=== PATIENT | female | born 1965 | race Hispanic/Latino ===

== ENCOUNTER 2025-07-17 12:48 | Inpatient (IN) | payer BC ==
[~2025-07-17] VITALS: Ht 152.4 cm; Wt 45.8 kg
--- NOTE | 2025-07-17 13:03 | ERN ---
General Chief Complaint: Abdominal Pain Stated Complaint: ABD PAIN Time Seen by MD: 12:55 Source: patient History of Present Illness Initial Comments Patient is a 59-year-old female coming in complaining of abdominal distention abdominal discomfort. Per patient she has a extensive history of constipation uses Linzess and states that she is pending a colon cleansing for a possible procedure this week. Her symptoms began Tuesday, which include abdominal distention nausea and vomiting. Allergies: Coded Allergies: No Known Drug Allergies (Unverified Allergy, Unknown, 07/17/25) ROS Dictation CONSTITUTIONAL: No chills, no fever, no weakness, no diaphoresis, no malaise. HEAD/FACE: No signs of trauma. EENT: No eye pain, no blurred vision, no tearing, no double vision, no ear pain, no ear discharge, no nose pain, no nasal congestion, no throat pain, no throat swelling, no mouth pain. RESPIRATORY: No cough, no orthopnea, no SOB, no stridor, no wheezing. CARDIOVASCULAR: No chest pain, no edema, no palpitations, no syncope. GASTROINTESTINAL/ABDOMINAL: abdominal pain, constipation, no diarrhea, nausea, vomiting. GENITOURINARY: No abnormal discharge, no dysuria, no frequent urination, no hematuria. No complaints of pain in the genitals. MUSCULOSKELETAL: No back pain, no gout, no joint pain, no joint swelling, no muscle pain, no muscle stiffness, no neck pain. INTEGUMENTARY: No change in color, no change in hair/nails, no dryness, no lesion, no lumps, no rash. NEUROLOGICAL/PSYCH: No anxiety, not depressed, no emotional problem, no headache, no numbness, no pre-existing deficit, no history of seizures, no tremors, no weakness. HEMATOLOGIC/LYMPHATIC: Not anemic, no history of blood clots, no apparent bleeding, no bruising, glands not swollen. All Systems Negative, Except as Noted. Physical Exam Physical Exam Dictation VITAL SIGNS: Reviewed. GENERAL APPEARANCE: Alert, oriented x3, no acute distress, obese. HEAD AND FACE: Non-traumatic. EYES: PERRL, pink conjunctivas, eyelid no trauma, anterior chamber clear. EARS: Pinnas intact and no signs of trauma or erythema. Ear canals clear and no discharge. TMs no erythema. NOSE: No discharge, no bleeding. OROPHARYNX: Mouth normal, teeth no caries, tongue pink. Pharynx clear, no erythema. Tonsils no exudates, no abscesses noted. Mucous membrane moist. NECK: Supple, non-tender, no thyromegaly, no masses, no JVD, no bruits. BREAST: Deferred. CHEST: No tenderness, no crepitus, no paradoxical movement, no retractions. LUNGS: Clear, well-ventilated, symmetric, no rales, no wheezing, no rhonchi, no stridor, good breath sounds bilaterally. HEART: Regular rate, regular rhythm, no murmur, no gallops. VASCULAR: No peripheral edema. ABDOMEN: Soft, positive bowel sounds, nondistended, no guarding, nontender, no rebound, no masses no hepatomegaly, no splenomegaly, no Vallecillo's sign, no hernias. RECTAL: Deferred. GENITAL: Deferred. NEUROLOGICAL: Normal speech, gross motor function intact, gross sensory function intact. MUSCULOSKELETAL: Neck nontender, full range of motion, back nontender, full range of motion. EXTREMITIES: Nontender, full range of motion. SKIN: Color pink, dry, no turgor, no rash, no lacerations, no abrasions, no contusions. LYMPHATICS: Deferred. Results Laboratory and Microbiology Lab and Micro Result Laboratory Tests Test 07/17/25 13:16 07/17/25 17:01 White Blood Count 23.0 K/uL (4.8-10.8) H Red Blood Count 4.33 MIL/uL (4.00-5.50) Hemoglobin 12.5 g/dL (12.0-16.0) Hematocrit 36.1 % (36-48) Mean Corpuscular Volume 83.4 fL (79-99) Mean Corpuscular Hemoglobin 28.9 pg (27.0-33.0) Mean Corpuscular Hemoglobin Concent 34.6 g/dL (32.0-36.0) Red Cell Distribution Width 11.7 % (11.0-15.5) Platelet Count 657 K/uL (130-400) H Mean Platelet Volume 8.3 fL (7.5-10.5) Immature Granulocyte % (Auto) 1.2 % (0-1) H Neutrophils (%) (Auto) 83.1 % (40.0-77.0) H Lymphocytes (%) (Auto) 6.0 % (21.0-51.0) L Monocytes (%) (Auto) 9.1 % (3.0-13.0) Eosinophils (%) (Auto) 0.3 % (0.0-8.0) Basophils (%) (Auto) 0.3 % (0.0-5.0) Neutrophils # (Auto) 19.1 K/uL (1.8-7.7) H Lymphocytes # (Auto) 1.4 K/uL (1.0-4.8) Monocytes # (Auto) 2.1 K/uL (0.1-1.0) H Eosinophils # (Auto) 0.07 K/uL (0.00-0.70) Basophils # (Auto) 0.07 K/uL (0.00-0.20) Absolute Immature Granulocyte (auto 0.28 K/uL (0-1) Nucleated Red Blood Cells 0.0 % (0.0-0.19) White Cell Morphology Comment See comments Sodium Level 120 mmol/L (136-145) L Potassium Level 2.5 mmol/L (3.5-5.1) *L Chloride Level 81 mmol/L (101-111) *L Carbon Dioxide Level 32 mmol/L (21-32) Blood Urea Nitrogen 5 mg/dL (7-18) L Creatinine 0.6 mg/dL (0.5-1.0) Glomerular Filtration Rate Calc 105 mL/min (>90) Random Glucose 113 mg/dL (70-105) H Total Calcium 8.4 mg/dL (8.5-10.1) L Magnesium Level 1.80 mg/dL (1.80-2.40) Total Bilirubin 0.7 mg/dL (0.2-1.0) Aspartate Amino Transf (AST/SGOT) 28 U/L (10-37) Alanine Aminotransferase (ALT/SGPT) 35 U/L (12-78) Alkaline Phosphatase 116 U/L (50-136) Total Creatine Kinase 82 U/L (21-232) Troponin I High Sensitivity 4 ng/L (4-50) Total Protein 6.9 g/dL (6.0-8.3) Albumin 2.0 g/dL (3.5-5.0) L Lipase 16 U/L (16-77) Lactic Acid Level 1.4 mmol/L (0.8-2.5) Labs Reviewed?: Yes EKG/XRAY/US/CT/MRI CT Scan Comment [facility] [address] [place] [address] IMAGING REPORT Signed PATIENT: KIMBERLYN ALICEA MR#: [id number] : 1965 SEX: F AGE: 59 LOCATION: [facility] ORDER 163 STATUS: REG ER REPORT#: [id number] SERVICE [id number] REASON: lower abd pain ORDERING PHYSICIAN: CASEY COVINGTON MD PROCEDURE: ABD PEL W - CT ABDOMEN/PELVIS W/CONTRAST EXAM: CT Abdomen and Pelvis with IV Contrast CLINICAL HISTORY: Patient presents with lower abdominal pain. TECHNIQUE: Axial computed tomography images of the abdomen and pelvis with intravenous contrast. CONTRAST: With intravenous contrast. COMPARISON: None provided. FINDINGS: LUNG BASES: Subsegmental atelectasis in the bilateral lung bases. No pleural effusions. LIVER: Two hepatic cysts are identified in the right hepatic lobe, the larger measuring 1.1 x 1.0 x 1.4 cm and the smaller measuring 0.9 x 0.8 x 0.9 cm. No suspicious hepatic lesions. GALLBLADDER AND BILE DUCTS: The gallbladder is surgically absent. No biliary ductal dilatation. PANCREAS: Unremarkable. SPLEEN: Unremarkable. ADRENAL GLANDS: Unremarkable. KIDNEYS, URETERS, AND BLADDER: A right renal cyst in the lower pole measures 5.9 x 4.5 x 5.7 cm. A left renal cyst in the lower pole measures 3.7 x 3.7 x 3.7 cm. The urinary bladder is incompletely distended, limiting evaluation for possible wall thickening. In the appropriate clinical setting, mild cystitis cannot be excluded. STOMACH AND BOWEL: Significant focal short-segment circumferential wall thickening of the sigmoid colon with maximal wall thickness approximately 1.2 cm and surrounding fat stranding, concerning for sigmoid diverticulitis or colitis. Two peripherally enhancing fluid and air-containing collections are seen in the pelvis: one along the sigmoid colonic wall thickening measuring 5.8 x 6.9 x 5.1 cm, and another along the rectum measuring 7.6 x 6.1 x 6.6 cm. A dependent calcific focus measuring 0.7 cm is seen within the perirectal collection. Extensive pericolonic and perirectal fat stranding with minimal free fluid in the pelvis. The perirectal and pericolonic collections cause mass effect on the urinary bladder and uterus. The left ovary is not separately visualized. Focal long-segment circumferential wall thickening of the transverse colon measuring up to 0.6 cm with minimal pericolonic fat stranding, concerning for colitis. Gaseous distention of the transverse colon up to 6.5 cm in caliber. Occasional diverticula are seen. APPENDIX: No CT evidence of acute appendicitis. PERITONEUM: Extensive pelvic fat stranding with minimal free fluid. No free air. LYMPH NODES: No pathologically enlarged lymph nodes. REPRODUCTIVE: The uterus is displaced by adjacent pericolonic and perirectal collections. The left ovary is not separately visualized. VASCULATURE: No abdominal aortic aneurysm. BONES: Multilevel mild degenerative changes of the spine. No acute or aggressive osseous lesion. OTHER FINDINGS: Small hiatal hernia. IMPRESSION: Acute sigmoid diverticulitis/colitis with two peripherally enhancing pelvic abscesses???one along the sigmoid colon (5.8 x 6.9 x 5.1 cm) and one along the rectum (7.6 x 6.1 x 6.6 cm)???with associated fat stranding and minimal free fluid. Mass effect from the pelvic abscesses on the urinary bladder and uterus. Focal long-segment wall thickening of the transverse colon with minimal pericolonic fat stranding, concerning for colitis. Bilateral renal cysts and small hepatic cysts. Surgically absent gallbladder. Small hiatal hernia. /[place] DICTATED BY: ANUM JARVIS Jr., MD DATE: 07/17/251949 ELECTRONICALLY SIGNED BY: ANUM JARVIS Jr., MD DATE: 07/17/251949 [facility] MDM: Differential diagnosis: SEPSIS, DIVERTICULITIS, ABSCESS, Rationale: Tests considered and ordered secondary to shared decision making include: Previous outside records reviewed: Old ER visits. Risk of complication and/or morbidity or mortality of patient management: None Medications-Per medication reconciliation Need for hospitalization: Patient does not meet criteria for hospitalization. Need for emergency major/minor surgery: No There are no social concerns with this patient. Prescription drug management Prescriptions will include symptomatic care Patient's prior external medical records from other ER visits were reviewed by me as indicated. Prior testing and results from previous visits were reviewed. Prior tests were taken into account with medical decision making and resource utilization, independent historian/historians were used to obtain complete medical history. I independently interpreted the test that were performed, results were reviewed by me and considered findings on radiology if ordered. Medical management and examination interpretation discussions were had by me with other qualified healthcare professionals as indicated for the patient's care. PATIENT WILL BE ADMITTED UNDER THE CARE OF HOSPITALIST GROUP FOR ONGOING MANAGEMENT, CONSULTED SURGEON DR. HAYES. ED Course Orders Procedure Category Date Status Time Cbc With Differential LAB 07/17/25 Complete 12:57 Comprehensive LAB 07/17/25 Complete Metabolic Panel 12:57 Troponin I High LAB 07/17/25 Complete Sensitivity 12:57 Urinalysis Profile LAB 07/17/25 Logged 12:57 12 Lead Ekg Tracing- EKG 07/17/25 Complete Technical 12:57 Creatine Kinase, Total LAB 07/17/25 Complete 12:57 Lipase LAB 07/17/25 Complete 12:57 Pantoprazole 40mg Inj PHA 07/17/25 Complete (Protonix 40mg Inj 13:00 Magnesium LAB 07/17/25 Complete 13:48 Potassium Chloride PHA 07/17/25 Complete 10meq/100ml (Potassiu 14:00 Potassium Bicarb/Cit PHA 07/17/25 Complete Ac 25meq (K-Lyte Ta 14:00 Ct Abdomen/Pelvis CT 07/17/25 Resulted W/Contrast 16:31 Ceftriaxone 1g Vial PHA 07/17/25 Complete (Rocephine 1g Inj) 17:00 Lactic Acid LAB 07/17/25 Complete 16:33 Iohexol (Omnipaque) PHA 07/17/25 Complete 17:30 Zosyn 3.375gm+Ns 50ml PHA 07/17/25 Logged (Zosyn 3.375gm+Ns 19:00 Current Medications Medications (Trade) Dose Ordered Sig/Heather Route PRN Reason Start Time Stop Time Status Last Admin Dose Admin Ceftriaxone Sodium (ROCEphine 1G INJ) 1 gm ONCE ONCE IVPB 07/17/25 17:00 07/17/25 17:01 DC Iohexol (Omnipaque) 35,000 mg STK-MED ONCE IV 07/17/25 17:30 07/17/25 17:30 DC Pantoprazole Sodium (PROTonix 40MG INJ) 40 mg ONCE ONCE IVP 07/17/25 13:00 07/17/25 13:02 DC 07/17/25 13:00 Piperacillin Sod/ Tazobactam Sod (Zosyn 3.375gm+NS 50ml) 3.375 gm ONCE ONCE IV 07/17/25 19:00 07/17/25 19:01 DC Potassium Bicarbonate (K-Lyte Tablet Eff 25 Meq Tablet.eff) 50 meq ONCE ONCE PO 07/17/25 14:00 07/17/25 14:01 DC 07/17/25 15:35 Potassium Chloride 100 ml @ 100 mls/hr ONCE ONCE IV 07/17/25 14:00 07/17/25 14:59 DC 07/17/25 15:36 Vital Signs Date Time Temp Pulse Resp B/P (MAP) Pulse Ox O2 Delivery O2 Flow Rate FiO2 07/17/25 18:38 89 20 135/67 97 Room Air* 0 21 07/17/25 16:45 92 20 141/75 97 Room Air* 0 21 07/17/25 15:00 89 20 128/75 97 Room Air* 0 21 07/17/25 13:30 98.6 89 20 136/80 97 Room Air* 0 21 07/17/25 12:54 98.2 91 18 125/71 100 Room Air 0 Critical Care Note Comments CRITICAL CARE PROCEDURE NOTE AUTHORIZED AND PERFORMED BY: ME TOTAL CRITICAL CARE TIME: APPROXIMATELY 36 MINUTES DUE TO A HIGH PROBABILITY OF CLINICALLY SIGNIFICANT, LIFE THREATENING DETERIORATION, THE PATIENT REQUIRED MY HIGHEST LEVEL OF PREPAREDNESS TO INTERVENE EMERGENTLY AND I PERSONALLY SPENT THIS CRITICAL CARE TIME DIRECTLY AND PERSONALLY MANAGING THE PATIENT. THIS CRITICAL CARE TIME INCLUDED OBTAINING A HISTORY; EXAMINING THE PATIENT; PULSE OXIMETRY; ORDERING AND REVIEW OF STUDIES; ARRANGING URGENT TREATMENT WITH DEVELOPMENT OF A MANAGEMENT PLAN; EVALUATION OF PATIENT'S RESPONSE TO TREATMENT; FREQUENT REASSESSMENT; AND, DISCUSSIONS WITH OTHER PROVIDERS. THIS CRITICAL CARE TIME WAS PERFORMED TO ASSESS AND MANAGE THE HIGH PROBABILITY OF IMMINENT, LIFE-THREATENING DETERIORATION THAT COULD RESULT IN MULTI-ORGAN FAILURE. IT WAS EXCLUSIVE OF SEPARATELY BILLABLE PROCEDURES AND TREATING OTHER PATIENTS AND TEACHING TIME. PLEASE SEE MDM SECTION AND THE REST OF THE NOTE FOR FURTHER INFORMATION ON PATIENT ASSESSMENT AND TREATMENT. DX & DISP Disposition: Inpatient Decision to Admit Time: 19:03 Departure Impression: Primary Impression: Sepsis Additional Impression: Diverticulitis of intestine with abscess Condition: Stable Referrals: SELF,REFERRAL (PCP) CASEY COVINGTON MD Jul 17, 2025 13:03
[2025-07-17 13:31] LABS: IMMATURE GRANULOCYTE ABSOLUTE 0.28 K/uL (0-1); NUCLEATED RED BLOOD CELLS 0.0 % (0.0-0.19); PLATELET COUNT (AUTO) 657 K/uL (130-400); RED BLOOD CELL COUNT(AUTO) 4.33 MIL/uL (4.00-5.50); RED CELL DISTRIBUTION WIDTH 11.7 % (11.0-15.5); WHITE BLOOD COUNT (AUTO) 23.0 K/uL (4.8-10.8)
[2025-07-17 13:45] LABS: ASPARTATE AMINOTRANSFERASE 28.0 U/L (10-37); CREATINE KINASE, TOTAL 82.0 U/L (21-232); CREATININE 0.6 mg/dL (0.5-1.0); GLOMERULAR FILTR. RATE CALC 105.0 mL/min (>90); GLUCOSE,RANDOM 113.0 mg/dL (70-105); SODIUM SERUM 120.0 mmol/L (136-145); TOTAL PROTEIN, SERUM 6.9 g/dL (6.0-8.3); UREA NITROGEN, BLOOD 5.0 mg/dL (7-18)
--- NOTE | 2025-07-17 16:24 | EKG ---
[facility] Test Date: 2025-07-17 Test Time: 13:17:35 Pat Name: KIMBERLYN ALICEA Department: ED Room: ED Gender: F Pullman Conductor: [id number] : 1965 Requested By: CASEY COVINGTON Order Number: [id number] Reading MD: Lisa Ng Measurements Intervals [place] Rate: 92 P: 63 UT: 126 QRS: 72 QRSD: 88 T: 56 QT: 495 QTc: 613 Interpretive Statements Sinus rhythm Prolonged QT interval No previous ECG available for comparison Electronically Signed On 07-18-2025 12:29:37 [employer] STOCK CLERK by Lisa Ng Please click the below link to view image of tracing.
[2025-07-17] MEDS ORDERED: IOHEXOL 350 MG/ML 100ML INFUS..BTL IV ONE (17:30)
--- NOTE | 2025-07-17 18:51 | HMCIMG ---
EXAM: CT Abdomen and Pelvis with IV Contrast CLINICAL HISTORY: Patient presents with lower abdominal pain. TECHNIQUE: Axial computed tomography images of the abdomen and pelvis with intravenous contrast. CONTRAST: With intravenous contrast. COMPARISON: None provided. FINDINGS: LUNG BASES: Subsegmental atelectasis in the bilateral lung bases. No pleural effusions. LIVER: Two hepatic cysts are identified in the right hepatic lobe, the larger measuring 1.1 x 1.0 x 1.4 cm and the smaller measuring 0.9 x 0.8 x 0.9 cm. No suspicious hepatic lesions. GALLBLADDER AND BILE DUCTS: The gallbladder is surgically absent. No biliary ductal dilatation. PANCREAS: Unremarkable. SPLEEN: Unremarkable. ADRENAL GLANDS: Unremarkable. KIDNEYS, URETERS, AND BLADDER: A right renal cyst in the lower pole measures 5.9 x 4.5 x 5.7 cm. A left renal cyst in the lower pole measures 3.7 x 3.7 x 3.7 cm. The urinary bladder is incompletely distended, limiting evaluation for possible wall thickening. In the appropriate clinical setting, mild cystitis cannot be excluded. STOMACH AND BOWEL: Significant focal short-segment circumferential wall thickening of the sigmoid colon with maximal wall thickness approximately 1.2 cm and surrounding fat stranding, concerning for sigmoid diverticulitis or colitis. Two peripherally enhancing fluid and air-containing collections are seen in the pelvis: one along the sigmoid colonic wall thickening measuring 5.8 x 6.9 x 5.1 cm, and another along the rectum measuring 7.6 x 6.1 x 6.6 cm. A dependent calcific focus measuring 0.7 cm is seen within the perirectal collection. Extensive pericolonic and perirectal fat stranding with minimal free fluid in the pelvis. The perirectal and pericolonic collections cause mass effect on the urinary bladder and uterus. The left ovary is not separately visualized. Focal long-segment circumferential wall thickening of the transverse colon measuring up to 0.6 cm with minimal pericolonic fat stranding, concerning for colitis. Gaseous distention of the transverse colon up to 6.5 cm in caliber. Occasional diverticula are seen. APPENDIX: No CT evidence of acute appendicitis. PERITONEUM: Extensive pelvic fat stranding with minimal free fluid. No free air. LYMPH NODES: No pathologically enlarged lymph nodes. REPRODUCTIVE: The uterus is displaced by adjacent pericolonic and perirectal collections. The left ovary is not separately visualized. VASCULATURE: No abdominal aortic aneurysm. BONES: Multilevel mild degenerative changes of the spine. No acute or aggressive osseous lesion. OTHER FINDINGS: Small hiatal hernia. IMPRESSION: Acute sigmoid diverticulitis/colitis with two peripherally enhancing pelvic abscesses???one along the sigmoid colon (5.8 x 6.9 x 5.1 cm) and one along the rectum (7.6 x 6.1 x 6.6 cm)???with associated fat stranding and minimal free fluid. Mass effect from the pelvic abscesses on the urinary bladder and uterus. Focal long-segment wall thickening of the transverse colon with minimal pericolonic fat stranding, concerning for colitis. Bilateral renal cysts and small hepatic cysts. Surgically absent gallbladder. Small hiatal hernia. /[place]
--- NOTE | 2025-07-17 19:06 | HP ---
History of Present Illness Reason for Visit: Abdominal pain History of Present Illness Ms. Dowell is a 59-year-old female that was seen and examined today on 07/17/2025. Patient is a good historian of personal health Patient states that she came to the emergency department with a chief complaint of abdominal pain. Onset was two weeks ago. Location is all four quadrants. Duration is constant. Character is described as bloating. There was no allevi ating factors. There was no aggravating factors. Patient reports associated constipation. Patient reports that she has a pending colonoscopy for this same abdominal discomfort with Dr. Oconnor that was scheduled on 07/19/25. Today in the emergency department WBCs 23.0, left shift neutrophils 83%, potassium 2.5, chloride 81, sodium 120, no urinalysis has been collected or sent to lab, CT of abdomen and pelvis shows diverticulitis with two abscesses. Emergency room physician contacted general surgery on-call, Dr. Lou who requested patient be admitted under hospitalist service. Additionally patient presented with a heart rate of 91 beats per minute, together with WBCs of 23.0 and identified source of infection being gastrointestinal patient met clinical sepsis criteria. Past Medical History ADDITIONAL PAST MEDICAL HISTORY: [Denies] SOCIAL HISTORY: [Patient has smoked one cigarette daily. Patient drinks one beer every other day that is 24 oz each. Patient denies drug use. Patient lives alone. Patient is typically independent of all her ADLs. Patient denies difficulty paying her bills.] SURGICAL HISTORY: [ section x1, cholecystectomy] Review of Systems General: No Fever, No Chills, No Night Sweats, No Fatigue, No Malaise, No Appetite, No Other HEENT: No Head Aches, No Visual Changes, No Eye Pain, No Ear Pain, No Dysphasia, No Sinus Congestion, No Post Nasal Drip, No Sore Throat, No Other Pulmonary: No Dyspnea, No Cough, No Pleuritic Chest Pain, No Other Cardiovascular: No: Chest Pain, Palpitations, Orthopnea, Paroxysmal Noc. Dyspnea, Edema, Lt Headedness, Other Gastrointestinal: Abdominal Pain, Constipation; No: Nausea, Vomiting, Diarrhea, Melena, Hematochezia, Other Genitourinary: No Dysuria, No Frequency, No Incontinence, No Hematuria, No Retention, No Other Musculoskeletal: No: other, neck pain, shoulder pain, arm pain, back pain, hand pain, leg pain, foot pain Skin: No Urticaria, No Rash, No Other Neurological: No: Weakness, Numbness, Incoordination, Change in speech, Confusion, Seizures, Other Allergies: Coded Allergies: No Known Drug Allergies (Unverified Allergy, Unknown, 07/17/25) Exam Vital Signs Vital Signs Date Time Temp Pulse Resp B/P (MAP) Pulse Ox O2 Delivery O2 Flow Rate FiO2 07/17/25 18:38 89 20 135/67 97 Room Air* 0 21 07/17/25 13:30 98.6 General Appearance: Alert, Oriented X3, Cooperative, mild distress HEENT: Atraumatic, EOMI, Mucous membr. moist/pink Respiratory: Clear to auscultation, Normal air movement, NL respiratory effort Cardiovascular: Regular rate, Regular rhythm, Normal S1, Normal S2 Abdominal: Normal bowel sounds, Soft, Other (Positive tenderness to left lower quadrant) Extremities: No edema Skin: No breakdown, No significant lesion Neuro: Normal gait, Normal speech, Strength at 5/5 X4 ext, Sensation intact, Cranial nerves 3-12 NL Psych/Mental Status: Mental status NL, Mood NL, Thoughts/Content NL Assessment/Plan ASSESSMENT: [ Sepsis, POA Diverticulitis with two abscesses, POA Leukocytosis, POA Hypokalemia, POA Hyponatremia, POA] PLAN: [ Admit patient to medical floor as inpatient status. Place patient on telemetry monitoring. IV fluid maintenance therapy 0.9% NS at 75 mL/HR Empiric antibiotic therapy with Zosyn Reviewed patient's lactic acid which was unremarkable Check procalcitonin, follow up with the results Check blood culture, follow up with the results Check urinalysis, follow up with the results Patient will be followed by General surgery Service, Dr. Lou Keep patient NPO Check preprocedure labs, CBC, BMP, magnesium, phosphorus, PTT, UA, type and screen, EKG, CXR As needed analgesia with morphine IV fluid maintenance therapy lactated Ringer's at 75 mL/HR Replace potassium per hospital protocol Replace sodium conservatively to avoid over-correction Monitor patient's labs Check serum osmolality, urine osmolality and urine sodium, follow up with the results. GI prophylaxis, famotidine DVT prophylaxis, Jose Rafael's and SCDs avoid anticoagulation at this time due to impending general surgery evaluation. ADVANCED CARE PLANNING 1. Which of the following were discussed? Hospice Care - Yes Therapeutic options - yes Advance Directives - Yes - patient states he does not have any advance directives in place at this time, however her daughter Becky Dowell can make decisions for her if she becomes unable. Other discussions - patient wishes to remain a full code at this time 2. Discussed with who? Patient 3. Voluntary nature of this service was explained to the patient? Yes 4. Amount of time spent - ___16 minutes____ 5. Reviewed by Physician? (if this service was performed by NPP) Yes This document was generated in part using voice recognition software, occasional wrong word or sound alike substitutions may have occurred due to the inherent limitations of voice recognition software. Read the chart carefully and recognize using context, where the substitutions have occurred. Although every effort was made to edit the content, saddle tree stitcher and typing errors may occur ATTESTATION BY PHYSICIAN I have seen and examined the patient. I reviewed the documentation, medical decision making, and treatment plan as noted by the mid-level provider above. I agree with the findings and plan of care. ] ALESSANDRO FRANCO [facility] Jul 17, 2025 19:06
[2025-07-17] MEDS: ZOSYN 3.375GM +NS 50ML IV ONE (19:32)
[2025-07-17] MEDS: LACTATED RINGERS 1000ML 1,000 ML IV SCH (21:56)
[2025-07-17] MEDS: ZOSYN 3.375GM +NS 50ML IV SCH (21:59)
[2025-07-17] MEDS: 0.9%NACL 1000ML 1,000 ML IV SCH (22:37)
[2025-07-18] MEDS: MAGNESIUM 2GM PREMIX 50ML 50 ML IV PRN (02:31)
[2025-07-18 03:09] LABS: APPEARANCE,URINE CLEAR (CLEAR); GLUCOSE, URINE (UA) NEGATIVE (NEGATIVE); LEUKOCYTE ESTERASE ,URINE NEGATIVE Leu/uL (NEGATIVE); NITRATE,URINE NEGATIVE (NEGATIVE); OCCULT BLOOD,URINE MODERATE (NEGATIVE)
[2025-07-18 03:11] LABS: ADD UA MICROSCOPIC YES
[2025-07-18 03:12] LABS: SQUAMOUS EPITHELIAL CELL,UR RARE /HPF (0-2)
--- NOTE | 2025-07-18 05:35 | HMCIMG ---
EXAM: CR Chest, 1 View. CLINICAL HISTORY: preprocedural COMPARISON: None provided. FINDINGS: LUNGS: The lungs show no infiltrate or other acute finding. PLEURAL SPACES: No evidence of pleural effusion or pneumothorax. MEDIASTINUM: Cardiac size and mediastinal contours within normal limits. BONES: No aggressive appearing osseous lesion seen. IMPRESSION: No acute cardiopulmonary pathology is evident. /[place]
[2025-07-18 09:08] LABS: IMMATURE GRANULOCYTE ABSOLUTE 0.17 K/uL (0-1); NUCLEATED RED BLOOD CELLS 0.0 % (0.0-0.19); PLATELET COUNT (AUTO) 594 K/uL (130-400); RED BLOOD CELL COUNT(AUTO) 3.75 MIL/uL (4.00-5.50); RED CELL DISTRIBUTION WIDTH 11.9 % (11.0-15.5); WHITE BLOOD COUNT (AUTO) 20.0 K/uL (4.8-10.8)
[2025-07-18] MEDS: FAMOTIDINE 20MG VIAL IV SCH (09:17)
[2025-07-18 09:30] LABS: INR 1.22 (0.85-1.15)
[2025-07-18 09:45] LABS: CREATININE 0.5 mg/dL (0.5-1.0); GLOMERULAR FILTR. RATE CALC 109.0 mL/min (>90); GLUCOSE,RANDOM 98.0 mg/dL (70-105); PHOSPHORUS 3.0 mg/dL (2.5-4.9); SODIUM SERUM 124.0 mmol/L (136-145); UREA NITROGEN, BLOOD 6.0 mg/dL (7-18)
--- NOTE | 2025-07-18 10:45 | NUR ---
DCP: HOME Sw met with pt and her sister Corinne Donnelly [phone]. 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 Pt uses no DMe or HH and PCP is Yessenia Calzada. Uses [facility] on [address] for rx needs. Pt denies dc needs and will return home at dc
[2025-07-18 11:01] LABS: LDL DIRECT 54 mg/dL (0-99)
[2025-07-18 11:09] LABS: CREATININE,URINE RANDOM 48.14 mg/dL (30-135)
--- NOTE | 2025-07-18 11:47 | PN ---
[facility] PROGRESS NOTE Date of Service: Jul 18, 2025 Time of Service: 11:47 History of Present Illness Ms. Dowell is a 59-year-old female that was seen and examined today on 07/17/2025. Patient is a good historian of personal health. Patient states that she came to the emergency department with a chief complaint of abdominal pain. Onset was two weeks ago. Location is left lower quadrant. Duration is constant. Character is described as bloating. There was no alleviating factors. There was no aggravating factors. Patient reports associated constipation. Patient reports that she has a pending colonoscopy for this same abdominal discomfort with Dr. Oconnor that was scheduled on 07/19/25. Patient was taking Linzess for the last four days and only had soft GI foods and liquids at home during this time. Patient reports her last meal being a banana that started the pain, which has progressed to this point. Patients says she has lost significant weight, 40 lbs since her divorce intentionally, due to poor diet mainly including tuna and salads. Patient has history of similar pain in the LLQ of abdomen which resolved spontaneously in few hours. Patient has a chronic history of constipation. Patient never underwent colonoscopy. She has family history of Carcinoid tumor and recurrent diverticulitis in first degree relatives. Today in the emergency department WBCs 23.0, left shift neutrophils 83%, potassium 2.5, chloride 81, sodium 120, no urinalysis has been collected or sent to lab, CT of abdomen and pelvis shows diverticulitis with two abscesses. Emergency room physician contacted general surgery on-call, Dr. Lou who requested patient be admitted under hospitalist service. Additionally patient presented with a heart rate of 91 beats per minute, together with WBCs of 23.0 and identified source of infection being gastrointestinal patient met clinical sepsis criteria. SUBJECTIVE: 07/18/2025: Patient was evaluated in ED 03. Patient presented to the ED with acute abdominal pain the left lower quadrant, 8/10 in intensity with associated with bloating. Patient has chronic constipation and has been following Dr. Oconnor for evaluation with colonoscopy. Patient had poor intake in the preceding days and was using Linzess in the last 4 days. Patient had a solid bowel movement this morning and is passing flatus. Patient is kept NPO and is started on IV NS at 100 ml/hr, replacing her potassium and Zosyn was started. Labs remarkable for severe hyponatremia, hypokalemia, hypochloremia, and metabolic alkalosis. We will hydrate her judiciously and monitor her electrolytes closely. CT abdomen is remarkable for acute diverticulitis with abscesses in sigmoid colon and rectum. Pending surgery evaluation. REVIEW OF SYSTEMS CONSTITUTIONAL: Denies fevers, chills, or night sweats. Reports intentional kiran ght loss of 40 lbs. NEUROLOGICAL: Denies headache, motor weakness, sensory deficit, vertigo/spinning sensation, gait abnormalities, or tremors. ENT: No hearing loss, otalgia, otorrhea, rhinitis, rhinorrhea, hoarseness, or sore throat. CARDIOVASCULAR: Denies any exertional angina, dyspnea on exertion, orthopnea, paroxysmal nocturnal dyspnea, palpitations, life-threatening arrhythmias, claudication. PULMONARY: Denies any shortness of breath, cough, phlegm/sputum, hemoptysis, pleuritic chest pain. SLEEP: Denies morning headaches, daytime somnolence or napping. Denies difficulty falling asleep, staying asleep, waking from sleep. Denies knowledge of snoring. GASTROINTESTINAL: Denies any type of dysphagia to either liquids or solids. Denies nausea, vomiting, pyrosis, early satiety. Admits to chronic constipation and LLQ pain GENITOURINARY: Denies frequency, urgency, nocturia, hematuria or incontinence (Storage/Irritative symptoms.) PHYSICAL EXAM GENERAL APPEARANCE: The patient is awake, alert, and oriented, in no acute cardiopulmonary distress. NEUROLOGICAL: Cranial nerves II-XII grossly intact. Motor is 5/5 in bilateral upper and lower extremities proximal to distal. No sensory deficits. HEENT: Face is symmetric. Pupils are equal and reactive. Extraocular movements are intact. NECK: Supple. No JVD. No thyromegaly. No submental, submandibular, pre- /postauricular, occipital or supraclavicular lymphadenopathy. CHEST: Normal chest expansion. No Telemetry. LUNGS: Absence of any rales, rhonchi or any wheezing. CARDIOVASCULAR: Regular. S1 and S2 normal. No appreciable rubs, murmurs or gallops. ABDOMEN: Soft, tender to palpation in the LLQ, distended. There is no rebound, voluntary guarding, or rigidity. : Deferred. No [place]. EXTREMITIES: Non-edematous and not cyanotic. No clubbing. Good capillary refill. SKIN: No skin breakdown. Vital Signs (last 8hr) Date Time Temp Pulse Resp B/P (MAP) Pulse Ox O2 Delivery O2 Flow Rate FiO2 07/18/25 08:42 99.0 80 18 109/55 95 Room Air* 0 21 07/18/25 04:00 99.7 88 20 110/59 96 Room Air* 0 21 LABS: Laboratory: Test 07/18/25 09:01 07/18/25 02:45 07/17/25 21:59 07/17/25 17:01 Range/Units White Blood Count 20.0 H 4.8-10.8 K/uL Red Blood Count 3.75 L 4.00-5.50 MIL/uL Hemoglobin 10.7 L 12.0-16.0 g/dL Hematocrit 31.7 L 36-48 % Mean Corpuscular Volume 84.5 79-99 fL Mean Corpuscular Hemoglobin 28.5 27.0-33.0 pg Mean Corpuscular Hemoglobin Concent 33.8 32.0-36.0 g/dL Red Cell Distribution Width 11.9 11.0-15.5 % Platelet Count 594 H 130-400 K/uL Mean Platelet Volume 8.6 7.5-10.5 fL Immature Granulocyte % (Auto) 0.9 0-1 % Neutrophils (%) (Auto) 85.3 H 40.0-77.0 % Lymphocytes (%) (Auto) 6.2 L 21.0-51.0 % Monocytes (%) (Auto) 7.1 3.0-13.0 % Eosinophils (%) (Auto) 0.3 0.0-8.0 % Basophils (%) (Auto) 0.2 0.0-5.0 % Neutrophils # (Auto) 17.0 H 1.8-7.7 K/uL Lymphocytes # (Auto) 1.2 1.0-4.8 K/uL Monocytes # (Auto) 1.4 H 0.1-1.0 K/uL Eosinophils # (Auto) 0.05 0.00-0.70 K/uL Basophils # (Auto) 0.04 0.00-0.20 K/uL Absolute Immature Granulocyte (auto 0.17 0-1 K/uL Nucleated Red Blood Cells 0.0 0.0-0.19 % Prothrombin Time 12.7 H 9.6-11.6 SEC Prothromb Time International Ratio 1.22 H 0.85-1.15 Activated Partial Thromboplast Time 30.5 26.3-35.5 SEC Sodium Level 124 L 136-145 mmol/L Potassium Level 3.4 L 3.5-5.1 mmol/L Chloride Level 88 *L 101-111 mmol/L Carbon Dioxide Level 32 21-32 mmol/L Blood Urea Nitrogen 6 L 7-18 mg/dL Creatinine 0.5 0.5-1.0 mg/dL Glomerular Filtration Rate Calc 109 >90 mL/min Random Glucose 98 70-105 mg/dL Total Calcium 7.9 L 8.5-10.1 mg/dL Phosphorus Level 3.0 2.5-4.9 mg/dL Magnesium Level 2.80 H 1.80-2.40 mg/dL Triglycerides Level 65 30-200 mg/dL Cholesterol Level 94 <200 mg/dL LDL Cholesterol 54 0-99 mg/dL HDL Cholesterol 21 L 35-85 mg/dL Thyroid Stimulating Hormone (TSH) 0.28 L 0.36-3.74 uIU/mL Free Thyroxine (T4) Direct 1.19 0.76-1.46 ng/dL Free Triiodothyronine (T3) pg/mL 0.69 L 2.18-3.98 pg/mL Urine Color LIGHT-YELLOW YELLOW Urine Appearance CLEAR CLEAR Urine pH 6.5 5.0-8.0 Urine Specific [place] 1.019 1.001-1.031 Urine Protein NEGATIVE NEGATIVE mg/dL Urine Glucose (UA) NEGATIVE NEGATIVE mg/dL Urine Ketones 10 H NEGATIVE mg/dL Urine Occult Blood MODERATE H NEGATIVE Urine Nitrate NEGATIVE NEGATIVE Urine Bilirubin NEGATIVE NEGATIVE mg/dL Urine Urobilinogen 0.2 0.2-1.0 mg/dL Urine Leukocyte Esterase NEGATIVE NEGATIVE Fidel/uL Urine RBC 2-5 H 0-1 /HPF Urine WBC 2-5 H 0-1 /HPF Urine Squamous Epithelial Cells RARE 0-2 /HPF Urine Bacteria RARE None Seen /HPF Urine Random Creatinine 48.14 30-135 mg/dL Urine Random Sodium < 13 L 40-220 mmol/l Urine Random Potassium 18 L 25-125 mmol/L Urine Random Chloride < 21 L 110-250 mmol/L Procalcitonin 0.13 0.05-0.5 ng/mL Lactic Acid Level 1.4 0.8-2.5 mmol/L Test 07/17/25 13:16 Range/Units White Cell Morphology Comment See comments Total Bilirubin 0.7 0.2-1.0 mg/dL Aspartate Amino Transf (AST/SGOT) 28 10-37 U/L Alanine Aminotransferase (ALT/SGPT) 35 12-78 U/L Alkaline Phosphatase 116 50-136 U/L Total Creatine Kinase 82 21-232 U/L Troponin I High Sensitivity 4 4-50 ng/L Total Protein 6.9 6.0-8.3 g/dL Albumin 2.0 L 3.5-5.0 g/dL Lipase 16 16-77 U/L Current Medications Medications (Trade) Dose Ordered Sig/Heather Route PRN Reason Start Time Stop Time Status Last Admin Dose Admin Acetaminophen (TYLenol 325MG TAB) 650 mg Q6H PRN PO TEMPERATURE GREATER THAN 101.5 07/17/25 22:00 08/16/25 21:59 Acetaminophen (TYLenol 500MG TAB) 500 mg Q4H PRN PO MILD PAIN (1-3) 07/18/25 10:30 08/17/25 10:29 Famotidine (Pepcid 20mg Vial) 20 mg DAILY IV 07/18/25 09:00 08/17/25 08:59 07/18/25 09:17 20 MG Hydralazine HCl (APRESOLine 20MG INJ) 10 mg Q6H PRN IV For:SBP above 160;DBP above 90 07/17/25 22:00 08/16/25 21:59 Lactated Ringer's 1,000 ml @ 75 mls/hr [id number] IV 07/17/25 22:00 07/17/25 22:07 DC 07/17/25 21:56 75 MLS/HR Magnesium Sulfate 50 ml @ 0 mls/hr PROTOCOL PRN IV h 07/17/25 22:30 08/16/25 22:29 07/18/25 02:31 25 MLS/HR Morphine Sulfate (morPHINE 4MG SYG) 4 mg Q4H PRN IVP SEVERE PAIN (7-10) 07/17/25 22:00 07/24/25 21:59 Ondansetron HCl (zoFRAN 4MG INJ) 4 mg Q6H PRN IV NAUSEA/VOMITING 07/17/25 22:00 08/16/25 21:59 Piperacillin Sod/ Tazobactam Sod (Zosyn 3.375gm+NS 50ml) 3.375 gm Q8H IV 07/17/25 22:00 07/27/25 21:59 07/18/25 05:12 3.375 GM Potassium Chloride 100 ml @ 50 mls/hr AD PRN IV POTASSIUM PROTOCOL 07/17/25 22:30 08/16/25 22:29 07/18/25 09:24 50 MLS/HR Sodium Chloride 1,000 ml @ 100 mls/hr Q10H IV 07/17/25 22:30 08/16/25 22:29 07/17/25 22:37 75 MLS/HR DIAGNOSTICS / RADIOLOGY: [ ] PATIENT: KIMBERLYN DOWELL MR#: [id number] : 1965 SEX: F AGE: 59 LOCATION: [facility] ORDER 163 STATUS: REG REPORT#: [id number] SERVICE [id number] REASON: lower abd pain ORDERING PHYSICIAN: CASEY COVINGTON MD PROCEDURE: ABD PEL W - CT ABDOMEN/PELVIS W/CONTRAST ADDENDUM REPORT ADDENDUM: Results were shared by telephone at 07:57 PM EST on 07-17-[address] Latanya zimmerman /[place] EXAM: CT Abdomen and Pelvis with IV Contrast CLINICAL HISTORY: Patient presents with lower abdominal pain. TECHNIQUE: Axial computed tomography images of the abdomen and pelvis with intravenous contrast. CONTRAST: With intravenous contrast. COMPARISON: None provided. FINDINGS: LUNG BASES: Subsegmental atelectasis in the bilateral lung bases. No pleural effusions. LIVER: Two hepatic cysts are identified in the right hepatic lobe, the larger measuring 1.1 x 1.0 x 1.4 cm and the smaller measuring 0.9 x 0.8 x 0.9 cm. No suspicious hepatic lesions. GALLBLADDER AND BILE DUCTS: The gallbladder is surgically absent. No biliary ductal dilatation. PANCREAS: Unremarkable. SPLEEN: Unremarkable. ADRENAL GLANDS: Unremarkable. KIDNEYS, URETERS, AND BLADDER: A right renal cyst in the lower pole measures 5.9 x 4.5 x 5.7 cm. A left renal cyst in the lower pole measures 3.7 x 3.7 x 3.7 cm. The urinary bladder is incompletely distended, limiting evaluation for possible wall thickening. In the appropriate clinical setting, mild cystitis cannot be excluded. STOMACH AND BOWEL: Significant focal short-segment circumferential wall thickening of the sigmoid colon with maximal wall thickness approximately 1.2 cm and surrounding fat stranding, concerning for sigmoid diverticulitis or colitis. Two peripherally enhancing fluid and air-containing collections are seen in the pelvis: one along the sigmoid colonic wall thickening measuring 5.8 x 6.9 x 5.1 cm, and another along the rectum measuring 7.6 x 6.1 x 6.6 cm. A dependent calcific focus measuring 0.7 cm is seen within the perirectal collection. Extensive pericolonic and perirectal fat stranding with minimal free fluid in the pelvis. The perirectal and pericolonic collections cause mass effect on the urinary bladder and uterus. The left ovary is not separately visualized. Focal long-segment circumferential wall thickening of the transverse colon measuring up to 0.6 cm with minimal pericolonic fat stranding, concerning for colitis. Gaseous distention of the transverse colon up to 6.5 cm in caliber. Occasional diverticula are seen. APPENDIX: No CT evidence of acute appendicitis. PERITONEUM: Extensive pelvic fat stranding with minimal free fluid. No free air. LYMPH NODES: No pathologically enlarged lymph nodes. REPRODUCTIVE: The uterus is displaced by adjacent pericolonic and perirectal collections. The left ovary is not separately visualized. VASCULATURE: No abdominal aortic aneurysm. BONES: Multilevel mild degenerative changes of the spine. No acute or aggressive osseous lesion. OTHER FINDINGS: Small hiatal hernia. IMPRESSION: Acute sigmoid diverticulitis/colitis with two peripherally enhancing pelvic abscesses???one along the sigmoid colon (5.8 x 6.9 x 5.1 cm) and one along the rectum (7.6 x 6.1 x 6.6 cm)???with associated fat stranding and minimal free fluid. Mass effect from the pelvic abscesses on the urinary bladder and uterus. Focal long-segment wall thickening of the transverse colon with minimal pericolonic fat stranding, concerning for colitis. Bilateral renal cysts and small hepatic cysts. Surgically absent gallbladder. Small hiatal hernia. /[place] DICTATED BY: ANUM JARVIS Jr., MD DATE: 07/17/251957 ELECTRONICALLY SIGNED BY: DATE: EXAM: CT Abdomen and Pelvis with IV Contrast CLINICAL HISTORY: Patient presents with lower abdominal pain. TECHNIQUE: Axial computed tomography images of the abdomen and pelvis with intravenous contrast. CONTRAST: With intravenous contrast. COMPARISON: None provided. FINDINGS: LUNG BASES: Subsegmental atelectasis in the bilateral lung bases. No pleural effusions. LIVER: Two hepatic cysts are identified in the right hepatic lobe, the larger measuring 1.1 x 1.0 x 1.4 cm and the smaller measuring 0.9 x 0.8 x 0.9 cm. No suspicious hepatic lesions. GALLBLADDER AND BILE DUCTS: The gallbladder is surgically absent. No biliary ductal dilatation. PANCREAS: Unremarkable. SPLEEN: Unremarkable. ADRENAL GLANDS: Unremarkable. KIDNEYS, URETERS, AND BLADDER: A right renal cyst in the lower pole measures 5.9 x 4.5 x 5.7 cm. A left renal cyst in the lower pole measures 3.7 x 3.7 x 3.7 cm. The urinary bladder is incompletely distended, limiting evaluation for possible wall thickening. In the appropriate clinical setting, mild cystitis cannot be excluded. STOMACH AND BOWEL: Significant focal short-segment circumferential wall thickening of the sigmoid colon with maximal wall thickness approximately 1.2 cm and surrounding fat stranding, concerning for sigmoid diverticulitis or colitis. Two peripherally enhancing fluid and air-containing collections are seen in the pelvis: one along the sigmoid colonic wall thickening measuring 5.8 x 6.9 x 5.1 cm, and another along the rectum measuring 7.6 x 6.1 x 6.6 cm. A dependent calcific focus measuring 0.7 cm is seen within the perirectal collection. Extensive pericolonic and perirectal fat stranding with minimal free fluid in the pelvis. The perirectal and pericolonic collections cause mass effect on the urinary bladder and uterus. The left ovary is not separately visualized. Focal long-segment circumferential wall thickening of the transverse colon measuring up to 0.6 cm with minimal pericolonic fat stranding, concerning for colitis. Gaseous distention of the transverse colon up to 6.5 cm in caliber. Occasional diverticula are seen. APPENDIX: No CT evidence of acute appendicitis. PERITONEUM: Extensive pelvic fat stranding with minimal free fluid. No free air. LYMPH NODES: No pathologically enlarged lymph nodes. REPRODUCTIVE: The uterus is displaced by adjacent pericolonic and perirectal collections. The left ovary is not separately visualized. VASCULATURE: No abdominal aortic aneurysm. BONES: Multilevel mild degenerative changes of the spine. No acute or aggressive osseous lesion. OTHER FINDINGS: Small hiatal hernia. IMPRESSION: Acute sigmoid diverticulitis/colitis with two peripherally enhancing pelvic abscesses???one along the sigmoid colon (5.8 x 6.9 x 5.1 cm) and one along the rectum (7.6 x 6.1 x 6.6 cm)???with associated fat stranding and minimal free fluid. Mass effect from the pelvic abscesses on the urinary bladder and uterus. Focal long-segment wall thickening of the transverse colon with minimal pericolonic fat stranding, concerning for colitis. Bilateral renal cysts and small hepatic cysts. Surgically absent gallbladder. Small hiatal hernia. /[place] DICTATED BY: ANUM JARVIS Jr., MD DATE: 07/17/251949 ELECTRONICALLY SIGNED BY: ANUM JARVIS Jr., MD DATE: 07/17/251949 PATIENT: KIMBERLYN DOWELL MR#: [id number] : 1965 SEX: F AGE: 59 LOCATION: [facility] ORDER 49 STATUS: ADM IN REPORT#: [id number] SERVICE 42 REASON: preprocedural ORDERING PHYSICIAN: ALESSANDRO FRANCO STRUCTURED CABLING TECHNICIAN PROCEDURE: CXR1VW - CHEST 1VW EXAM: CR Chest, 1 View. CLINICAL HISTORY: preprocedural COMPARISON: None provided. FINDINGS: LUNGS: The lungs show no infiltrate or other acute finding. PLEURAL SPACES: No evidence of pleural effusion or pneumothorax. MEDIASTINUM: Cardiac size and mediastinal contours within normal limits. BONES: No aggressive appearing osseous lesion seen. IMPRESSION: No acute cardiopulmonary pathology is evident. /[place] DICTATED BY: ANUM JARVIS Jr., MD DATE: 07/18/25634 ELECTRONICALLY SIGNED BY: ANUM JARVIS Jr., MD DATE: 07/18/25634 ASSESSMENT: Sepsis due to Acute sigmoid diverticulitis complicated by abscess, POA Leukocytosis, POA Severe hyponatremia, hypovolemic, POA Hypokalemia, POA Chronic constipation, POA History of colonic diverticulosis, POA Protein calorie malnutrition, POA PLAN: Sepsis due to Acute sigmoid diverticulitis complicated by abscess * Patient vitals on presentation 125/71, heart rate 91, with elevated leukocytes 23k in the light of diverticulitis meets sepsis criteria * CT abdomen confirmed acute sigmoid colon diverticulitis complicated by two abbesses, one along the sigmoid colon (5.8 x 6.9 x 5.1 cm) and one along the rectum (7.6 x 6.1 x 6.6 cm) * Keep patient NPO * Continue IV 0.9 NS @ 100 ml/hr * Continue Zosyn 3.375 gm q8 hrs * Replace potassium as per protocol * Ordered surgery evaluation to Dr. Lou, pending recommendations * PRN Morphine 4 mg for severe pain and Tylenol 500 mg for mild pain * Repeat labs in the morning Severe hyponatremia, hypovolemic * On presentation Na was 120, asymptomatic and was dehydrated in the preceding days * Urine osmolality 204, urine sodium < 13, glucose 98 and triglycerides 65 * Pending serum osmolality, however picture is consistent with hypovolemic hyponatremia * Start IV fluids, 0.9 NS @ 100 ml/hr * Repeat BMP Q6 hrs * Neuro checks daily and limit sodium correction to <8 meq/l in 24 hours. Protein energy malnutrition * Patient's weight is 49.9 kg, BMI 21.5 and serum albumin 2 * Muscle atrophy noted BUN low, 6 * Patient significant amount of weight intentionally, 40 lb * Currently NPO for acute management of diverticulitis * Diet evaluation placed for recommendations post discharge GI prophylaxis with Famotidine and DVT prophylaxis with SCDs. ATTESTATION BY PHYSICIAN I have seen and examined the patient. I reviewed the documentation, medical decision making, and treatment plan as noted by the resident physician above. I agree with the findings and plan of care. KATHLEENRICHARD WHITE MD, HARSHAVARDHA MD Jul 18, 2025 11:47
--- NOTE | 2025-07-18 14:08 | NUR ---
CALLED AND GAVE REPORT TO AMBROSIO SALDANA, MELITA SENT WITH PATIENT
[2025-07-18 15:57] VITALS: O2SAT 100
[2025-07-18 18:22] LABS: CREATININE 0.6 mg/dL (0.5-1.0); GLOMERULAR FILTR. RATE CALC 105.0 mL/min (>90); GLUCOSE,RANDOM 87.0 mg/dL (70-105); SODIUM SERUM 128.0 mmol/L (136-145); UREA NITROGEN, BLOOD 8.0 mg/dL (7-18)
--- NOTE | 2025-07-18 19:27 | CONS ---
GENERAL SURGERY CONSULTATION NOTE Date/Time Patient Seen: [ 07/18/2025 4867] Requesting Physician: [ Dr. Calzada] Reason for Consultation: [Diverticulitis with abscess ] History of Present Illness: [Ms. Dowell is a 59-year-old female admitted due to left lower quadrant pain, and sepsis Patient states that she came to the emergency department with a chief complaint of LLQ abdominal pain. Onset was 2-3 weeks ago. There was no alleviating factors. There was no aggravating factors. Patient reports associated constipation. Patient r patient states that she was scheduled for her 1st colonoscopy tomorrow with Dr. Oconnor. Initial workup showed WBCs 23.[address] of abdomen and pelvis shows diverticulitis with two abscesses. Patient has been NPO since yesterday. Patient states there is a strong family history of diverticulosis/diverticulitis. Patient has a past surgical history of C- section, bilateral tubal ligation and cholecystectomy. Patient states she is a social smoker and drinker. Patient states he does not take any blood thinners. Today WBCs down trending to 20.0, H and H10.7 and 31.7. ] Past Medical History: [none ] Past Surgical History: [, BTL, cholecystectomy ] Family History: [ ] Social History: [ ] Habits: [Never] smoker. [Denies] alcohol consumption. [Denies] illicit drug use Current Medications Medications (Trade) Dose Ordered Sig/Heather Route Start Time Stop Time Status Last Admin Dose Admin Famotidine (Pepcid 20mg Vial) 20 mg DAILY IV 07/18/25 09:00 08/17/25 08:59 07/18/25 09:17 20 MG Lactated Ringer's 1,000 ml @ 75 mls/hr [id number] IV 07/17/25 22:00 07/17/25 22:07 DC 07/17/25 21:56 75 MLS/HR Piperacillin Sod/ Tazobactam Sod (Zosyn 3.375gm+NS 50ml) 3.375 gm Q8H IV 07/17/25 22:00 07/27/25 21:59 07/18/25 15:40 3.375 GM Sodium Chloride 1,000 ml @ 100 mls/hr Q10H IV 07/17/25 22:30 08/16/25 22:29 07/17/25 22:37 75 MLS/HR Review of Systems: CONST: [Positive fever and chills.] EYES: [No recent vision problems.] ENT: [No congestion, ear pain, or sore throat.] C/V: [No chest pain, palpitations, or edema.] RESP: [No cough, congestion, wheezing or shortness of breath.] GI: [Positive left lower quadrant pain abdominal pain, nausea and constipation. No vomiting or diarrhea.] : [No incontinence or dysuria.] SKIN: [No rash.] NEURO: [No headache, focal numbness or weakness.] Physical Examination: GENERAL: [No acute distress, female, comfortably resting in bed, daughter at bedside.] HEAD: [Normocephalic] EYES: [Normal conjunctiva.] ENT: [Hearing grossly intact.] NECK: [Supple without JVD..] LUNGS: [Clear breath sounds bilaterally..] HEART: [Normal rate and rhythm.] VASC: [Peripheral pulses +2 bilaterally.] ABD: [Left lower quadrant with tenderness and firmness noted on light palpation, diffuse distention.] : [Not examined] EXT: [No edema.] SKIN: [No rashes or lesions noted.] NEURO: [Awake, alert, and oriented x3. No focal sensory or strength deficits noted.] Vital Signs (last 8hr) Date Time Temp Pulse Resp B/P (MAP) Pulse Ox O2 Delivery O2 Flow Rate FiO2 07/18/25 15:57 100 Room Air* 0 21 07/18/25 14:14 98.2 82 18 111/53 97 Room Air* 0 21 07/18/25 12:10 98.6 73 20 116/72 95 Room Air* 0 21 Laboratory: [ ] Hematology Labs: Test 07/18/25 09:01 07/17/25 13:16 Range/Units White Blood Count 20.0 H 4.8-10.8 K/uL Red Blood Count 3.75 L 4.00-5.50 MIL/uL Hemoglobin 10.7 L 12.0-16.0 g/dL Hematocrit 31.7 L 36-48 % Mean Corpuscular Volume 84.5 79-99 fL Mean Corpuscular Hemoglobin 28.5 27.0-33.0 pg Mean Corpuscular Hemoglobin Concent 33.8 32.0-36.0 g/dL Red Cell Distribution Width 11.9 11.0-15.5 % Platelet Count 594 H 130-400 K/uL Mean Platelet Volume 8.6 7.5-10.5 fL Immature Granulocyte % (Auto) 0.9 0-1 % Neutrophils (%) (Auto) 85.3 H 40.0-77.0 % Lymphocytes (%) (Auto) 6.2 L 21.0-51.0 % Monocytes (%) (Auto) 7.1 3.0-13.0 % Eosinophils (%) (Auto) 0.3 0.0-8.0 % Basophils (%) (Auto) 0.2 0.0-5.0 % Neutrophils # (Auto) 17.0 H 1.8-7.7 K/uL Lymphocytes # (Auto) 1.2 1.0-4.8 K/uL Monocytes # (Auto) 1.4 H 0.1-1.0 K/uL Eosinophils # (Auto) 0.05 0.00-0.70 K/uL Basophils # (Auto) 0.04 0.00-0.20 K/uL Absolute Immature Granulocyte (auto 0.17 0-1 K/uL Nucleated Red Blood Cells 0.0 0.0-0.19 % White Cell Morphology Comment See comments Chemistry Labs: Test 07/18/25 17:26 07/18/25 09:01 07/17/25 21:59 07/17/25 17:01 Range/Units Sodium Level 128 L 136-145 mmol/L Potassium Level 3.2 L 3.5-5.1 mmol/L Chloride Level 90 *L 101-111 mmol/L Carbon Dioxide Level 31 21-32 mmol/L Blood Urea Nitrogen 8 7-18 mg/dL Creatinine 0.6 0.5-1.0 mg/dL Glomerular Filtration Rate Calc 105 >90 mL/min Random Glucose 87 70-105 mg/dL Total Calcium 8.1 L 8.5-10.1 mg/dL Phosphorus Level 3.0 2.5-4.9 mg/dL Magnesium Level 2.80 H 1.80-2.40 mg/dL Triglycerides Level 65 30-200 mg/dL Cholesterol Level 94 <200 mg/dL LDL Cholesterol 54 0-99 mg/dL HDL Cholesterol 21 L 35-85 mg/dL Thyroid Stimulating Hormone (TSH) 0.28 L 0.36-3.74 uIU/mL Free Thyroxine (T4) Direct 1.19 0.76-1.46 ng/dL Free Triiodothyronine (T3) pg/mL 0.69 L 2.18-3.98 pg/mL Procalcitonin 0.13 0.05-0.5 ng/mL Lactic Acid Level 1.4 0.8-2.5 mmol/L Test 07/17/25 13:16 Range/Units Total Bilirubin 0.7 0.2-1.0 mg/dL Aspartate Amino Transf (AST/SGOT) 28 10-37 U/L Alanine Aminotransferase (ALT/SGPT) 35 12-78 U/L Alkaline Phosphatase 116 50-136 U/L Total Creatine Kinase 82 21-232 U/L Troponin I High Sensitivity 4 4-50 ng/L Total Protein 6.9 6.0-8.3 g/dL Albumin 2.0 L 3.5-5.0 g/dL Lipase 16 16-77 U/L Coagulation Labs: Test 07/18/25 09:01 Range/Units Prothrombin Time 12.7 H 9.6-11.6 SEC Prothromb Time International Ratio 1.22 H 0.85-1.15 Activated Partial Thromboplast Time 30.5 26.3-35.5 SEC Diagnostics / Radiology: [Copy/Paste Echos/Imaging Report here] Assessment: [ 59-year-old female with diverticulitis with 2 abscess] Plan: [Keep patient NPO except for ice chips IR to evaluate for percutaneous drain placement Continue with IV fluids and IV antibiotics Repeat labs in a.m. No emergent surgical intervention at this time Surgical team will continue to follow Dr. Lou updated in the patient's status Surgical case has been discussed with my supervising physician Plan of care was formulated and agreed upon We appreciate the hospitalist team for allowing us to participate in this patient's care Greater than 55 minutes spent examining patient, reviewing chart and working on documentation ] ATTESTATION BY PHYSICIAN I have seen and examined the patient. I reviewed the documentation, medical decision making, and treatment plan as noted by the mid-level provider above. I agree with the findings and plan of care. MD ROYCE BLOCK LETICIA [facility] Jul 18, 2025 19:27
[2025-07-18 20:00] VITALS: BP 124/72; PULSE 83; RESP 17; TEMP 98.5
[2025-07-18 21:00] LABS: CREATININE 0.6 mg/dL (0.5-1.0); GLOMERULAR FILTR. RATE CALC 105.0 mL/min (>90); GLUCOSE,RANDOM 86.0 mg/dL (70-105); SODIUM SERUM 128.0 mmol/L (136-145); UREA NITROGEN, BLOOD 9.0 mg/dL (7-18)
[2025-07-19] VITALS (16 sets, daily range): BP systolic 112–156; BP diastolic 66–90; PULSE 68–87; RESP 17–18; TEMP 97.6–99.5; O2SAT 95–96
--- NOTE | 2025-07-19 02:05 | NUR ---
RASH: PT VOICES RASH/ITCHING TO FACE, NECK AND BACK. And[facility] MADE AWARE OF NEW PT COMPLAINTS. [facility] NEW ORDERS GIVEN FOR BENADRYL 25MG IV X 1 AND TO CHANGE IV ANTIBIOTICS. PT MADE AWARE OF NEW CHANGES MADE TO MEDICATIONS.
[2025-07-19 04:53] LABS: IMMATURE GRANULOCYTE ABSOLUTE 0.12 K/uL (0-1); NUCLEATED RED BLOOD CELLS 0.0 % (0.0-0.19); PLATELET COUNT (AUTO) 535 K/uL (130-400); RED BLOOD CELL COUNT(AUTO) 3.42 MIL/uL (4.00-5.50); RED CELL DISTRIBUTION WIDTH 11.9 % (11.0-15.5); WHITE BLOOD COUNT (AUTO) 14.5 K/uL (4.8-10.8)
[2025-07-19 05:16] LABS: ASPARTATE AMINOTRANSFERASE 31.0 U/L (10-37); CREATININE 0.6 mg/dL (0.5-1.0); GLOMERULAR FILTR. RATE CALC 105.0 mL/min (>90); GLUCOSE,RANDOM 81.0 mg/dL (70-105); SODIUM SERUM 130.0 mmol/L (136-145); TOTAL PROTEIN, SERUM 5.7 g/dL (6.0-8.3); UREA NITROGEN, BLOOD 10.0 mg/dL (7-18)
--- NOTE | 2025-07-19 11:29 | PN ---
[facility] PROGRESS NOTE Date of Service: Jul 19, 2025 Time of Service: 11:29 History of Present Illness Ms. Dowell is a 59-year-old female that was seen and examined today on 07/17/2025. Patient is a good historian of personal health. Patient states that she came to the emergency department with a chief complaint of abdominal pain. Onset was two weeks ago. Location is left lower quadrant. Duration is constant. Character is described as bloating. There was no alleviating factors. There was no aggravating factors. Patient reports associated constipation. Patient reports that she has a pending colonoscopy for this same abdominal discomfort with Dr. Oconnor that was scheduled on 07/19/25. Patient was taking Linzess for the last four days and only had soft GI foods and liquids at home during this time. Patient reports her last meal being a banana that started the pain, which has progressed to this point. Patients says she has lost significant weight, 40 lbs since her divorce intentionally, due to poor diet mainly including tuna and salads. Patient has history of similar pain in the LLQ of abdomen which resolved spontaneously in few hours. Patient has a chronic history of constipation. Patient never underwent colonoscopy. She has family history of Carcinoid tumor and recurrent diverticulitis in first degree relatives. Today in the emergency department WBCs 23.0, left shift neutrophils 83%, potassium 2.5, chloride 81, sodium 120, no urinalysis has been collected or sent to lab, CT of abdomen and pelvis shows diverticulitis with two abscesses. Emergency room physician contacted general surgery on-call, Dr. Lou who requested patient be admitted under hospitalist service. Additionally patient presented with a heart rate of 91 beats per minute, together with WBCs of 23.0 and identified source of infection being gastrointestinal patient met clinical sepsis criteria. SUBJECTIVE: 07/18/2025: Patient was evaluated in ED 03. Patient presented to the ED with acute abdominal pain the left lower quadrant, 8/10 in intensity with associated with bloating. Patient has chronic constipation and has been following Dr. Oconnor for evaluation with colonoscopy. Patient had poor intake in the preceding days and was using Linzess in the last 4 days. Patient had a solid bowel movement this morning and is passing flatus. Patient is kept NPO and is started on IV NS at 100 ml/hr, replacing her potassium and Zosyn was started. Labs remarkable for severe hyponatremia, hypokalemia, hypochloremia, and metabolic alkalosis. We will hydrate her judiciously and monitor her electrolytes closely. CT abdomen is remarkable for acute diverticulitis with abscesses in sigmoid colon and rectum. Pending surgery evaluation. 07/19/2025: Patient was evaluated in room 406. Patient was hemodynamically stable and had no acute events overnight. The nurse reported that patient had a rash and itching sensation on the face and neck after being on Zosyn, has a history of hives to cefazolin. On-call nurse practitioner discontinued Zosyn and put her on levofloxacin and metronidazole. Surgery evaluated patient and recommended percutaneous drainage of abscesses by the interventional radiologist. Patient still has residual pain, 5/10 and tenderness to palpation, but denies fevers, chills, nausea, vomiting. Her serum sodium was 130 this morning. We will continue cautious hydration. ID consult has also been placed and we will follow their recommendations REVIEW OF SYSTEMS CONSTITUTIONAL: Denies fevers, chills, or night sweats. Reports intentional weight loss of 40 lbs. NEUROLOGICAL: Denies headache, motor weakness, sensory deficit, vertigo/spinning sensation, gait abnormalities, or tremors. ENT: No hearing loss, otalgia, otorrhea, rhinitis, rhinorrhea, hoarseness, or sore throat. CARDIOVASCULAR: Denies any exertional angina, dyspnea on exertion, orthopnea, paroxysmal nocturnal dyspnea, palpitations, life-threatening arrhythmias, claudication. PULMONARY: Denies any shortness of breath, cough, phlegm/sputum, hemoptysis, pleuritic chest pain. SLEEP: Denies morning headaches, daytime somnolence or napping. Denies difficulty falling asleep, staying asleep, waking from sleep. Denies knowledge of snoring. GASTROINTESTINAL: Denies any type of dysphagia to either liquids or solids. Denies nausea, vomiting, pyrosis, early satiety. Admits to chronic constipation and LLQ pain GENITOURINARY: Denies frequency, urgency, nocturia, hematuria or incontinence (Storage/Irritative symptoms.) PHYSICAL EXAM GENERAL APPEARANCE: The patient is awake, alert, and oriented, in no acute cardiopulmonary distress. NEUROLOGICAL: Cranial nerves II-XII grossly intact. Motor is 5/5 in bilateral upper and lower extremities proximal to distal. No sensory deficits. HEENT: Face is symmetric. Pupils are equal and reactive. Extraocular movements are intact. NECK: Supple. No JVD. No thyromegaly. No submental, submandibular, pre- /postauricular, occipital or supraclavicular lymphadenopathy. CHEST: Normal chest expansion. No Telemetry. LUNGS: Absence of any rales, rhonchi or any wheezing. CARDIOVASCULAR: Regular. S1 and S2 normal. No appreciable rubs, murmurs or gallops. ABDOMEN: Soft, tender to palpation in the LLQ, distended. There is no rebound, voluntary guarding, or rigidity. : Deferred. No [place]. EXTREMITIES: Non-edematous and not cyanotic. No clubbing. Good capillary refill. SKIN: No skin breakdown. Vital Signs (last 8hr) Date Time Temp Pulse Resp B/P (MAP) Pulse Ox O2 Delivery O2 Flow Rate FiO2 07/19/25 08:00 99.0 76 18 132/73 96 Room Air 07/19/25 04:00 98.4 68 17 117/75 97 Room Air LABS: Laboratory: Test 07/19/25 04:13 07/18/25 09:30 07/18/25 09:01 07/18/25 02:45 Range/Units White Blood Count 14.5 #H 4.8-10.8 K/uL Red Blood Count 3.42 L 4.00-5.50 MIL/uL Hemoglobin 9.7 L 12.0-16.0 g/dL Hematocrit 29.5 L 36-48 % Mean Corpuscular Volume 86.3 79-99 fL Mean Corpuscular Hemoglobin 28.4 27.0-33.0 pg Mean Corpuscular Hemoglobin Concent 32.9 32.0-36.0 g/dL Red Cell Distribution Width 11.9 11.0-15.5 % Platelet Count 535 H 130-400 K/uL Mean Platelet Volume 8.7 7.5-10.5 fL Immature Granulocyte % (Auto) 0.8 0-1 % Neutrophils (%) (Auto) 83.5 H 40.0-77.0 % Lymphocytes (%) (Auto) 8.5 L 21.0-51.0 % Monocytes (%) (Auto) 6.9 3.0-13.0 % Eosinophils (%) (Auto) 0.1 0.0-8.0 % Basophils (%) (Auto) 0.2 0.0-5.0 % Neutrophils # (Auto) 12.1 H 1.8-7.7 K/uL Lymphocytes # (Auto) 1.2 1.0-4.8 K/uL Monocytes # (Auto) 1.0 0.1-1.0 K/uL Eosinophils # (Auto) 0.01 0.00-0.70 K/uL Basophils # (Auto) 0.03 0.00-0.20 K/uL Absolute Immature Granulocyte (auto 0.12 0-1 K/uL Nucleated Red Blood Cells 0.0 0.0-0.19 % Sodium Level 130 L 136-145 mmol/L Potassium Level 3.6 3.5-5.1 mmol/L Chloride Level 93 L 101-111 mmol/L Carbon Dioxide Level 30 21-32 mmol/L Blood Urea Nitrogen 10 7-18 mg/dL Creatinine 0.6 0.5-1.0 mg/dL Glomerular Filtration Rate Calc 105 >90 mL/min Random Glucose 81 70-105 mg/dL Total Calcium 8.0 L 8.5-10.1 mg/dL Magnesium Level 2.30 1.80-2.40 mg/dL Total Bilirubin 0.3 0.2-1.0 mg/dL Aspartate Amino Transf (AST/SGOT) 31 10-37 U/L Alanine Aminotransferase (ALT/SGPT) 32 12-78 U/L Alkaline Phosphatase 97 50-136 U/L Total Protein 5.7 L 6.0-8.3 g/dL Albumin 1.5 L 3.5-5.0 g/dL Serum Osmolality 260 L 278-305 mOsm/kg Prothrombin Time 12.7 H 9.6-11.6 SEC Prothromb Time International Ratio 1.22 H 0.85-1.15 Activated Partial Thromboplast Time 30.5 26.3-35.5 SEC Phosphorus Level 3.0 2.5-4.9 mg/dL Triglycerides Level 65 30-200 mg/dL Cholesterol Level 94 <200 mg/dL LDL Cholesterol 54 0-99 mg/dL HDL Cholesterol 21 L 35-85 mg/dL Thyroid Stimulating Hormone (TSH) 0.28 L 0.36-3.74 uIU/mL Free Thyroxine (T4) Direct 1.19 0.76-1.46 ng/dL Free Triiodothyronine (T3) pg/mL 0.69 L 2.18-3.98 pg/mL Urine Color LIGHT-YELLOW YELLOW Urine Appearance CLEAR CLEAR Urine pH 6.5 5.0-8.0 Urine Specific [place] 1.019 1.001-1.031 Urine Protein NEGATIVE NEGATIVE mg/dL Urine Glucose (UA) NEGATIVE NEGATIVE mg/dL Urine Ketones 10 H NEGATIVE mg/dL Urine Occult Blood MODERATE H NEGATIVE Urine Nitrate NEGATIVE NEGATIVE Urine Bilirubin NEGATIVE NEGATIVE mg/dL Urine Urobilinogen 0.2 0.2-1.0 mg/dL Urine Leukocyte Esterase NEGATIVE NEGATIVE Fidel/uL Urine RBC 2-5 H 0-1 /HPF Urine WBC 2-5 H 0-1 /HPF Urine Squamous Epithelial Cells RARE 0-2 /HPF Urine Bacteria RARE None Seen /HPF Urine Osmolality 204 50-1200 mOsm/kg Urine Random Creatinine 48.14 30-135 mg/dL Urine Random Sodium < 13 L 40-220 mmol/l Urine Random Potassium 18 L 25-125 mmol/L Urine Random Chloride < 21 L 110-250 mmol/L Test 07/17/25 21:59 07/17/25 17:01 07/17/25 13:16 Range/Units Procalcitonin 0.13 0.05-0.5 ng/mL Lactic Acid Level 1.4 0.8-2.5 mmol/L White Cell Morphology Comment See comments Total Creatine Kinase 82 21-232 U/L Troponin I High Sensitivity 4 4-50 ng/L Lipase 16 16-77 U/L Current Medications Medications (Trade) Dose Ordered Sig/Heather Route PRN Reason Start Time Stop Time Status Last Admin Dose Admin Acetaminophen (TYLenol 325MG TAB) 650 mg Q6H PRN PO TEMPERATURE GREATER THAN 101.5 07/17/25 22:00 08/16/25 21:59 Acetaminophen (TYLenol 500MG TAB) 500 mg Q4H PRN PO MILD PAIN (1-3) 07/18/25 10:30 08/17/25 10:29 Famotidine (Pepcid 20mg Vial) 20 mg DAILY IV 07/18/25 09:00 08/17/25 08:59 07/19/25 09:32 20 MG Hydralazine HCl (APRESOLine 20MG INJ) 10 mg Q6H PRN IV For:SBP above 160;DBP above 90 07/17/25 22:00 08/16/25 21:59 Lactated Ringer's 1,000 ml @ 75 mls/hr [id number] IV 07/17/25 22:00 07/17/25 22:07 DC 07/17/25 21:56 75 MLS/HR Levofloxacin/ Dextrose (LEvaquIN 750 MG/ D5W 150 ML) 750 mg Q24H IV 07/19/25 05:00 07/29/25 04:59 07/19/25 05:38 750 MG Magnesium Sulfate 50 ml @ 0 mls/hr PROTOCOL PRN IV h 07/17/25 22:30 08/16/25 22:29 07/18/25 02:31 25 MLS/HR Metronidazole/ Sodium Chloride (flaGYL) 500 mg Q8H IV 07/19/25 07:00 07/29/25 06:59 07/19/25 06:47 500 MG Morphine Sulfate (morPHINE 4MG SYG) 4 mg Q4H PRN IVP SEVERE PAIN (7-10) 07/17/25 22:00 07/24/25 21:59 07/19/25 00:47 4 MG Ondansetron HCl (zoFRAN 4MG INJ) 4 mg Q6H PRN IV NAUSEA/VOMITING 07/17/25 22:00 08/16/25 21:59 07/19/25 00:47 4 MG Piperacillin Sod/ Tazobactam Sod (Zosyn 3.375gm+NS 50ml) 3.375 gm Q8H IV 07/17/25 22:00 07/19/25 02:04 DC 07/18/25 21:47 3.375 GM Potassium Chloride 100 ml @ 50 mls/hr AD PRN IV POTASSIUM PROTOCOL 07/17/25 22:30 08/16/25 22:29 07/19/25 03:25 50 MLS/HR Sodium Chloride 1,000 ml @ 100 mls/hr Q10H IV 07/17/25 22:30 08/16/25 22:29 07/19/25 09:32 100 MLS/HR DIAGNOSTICS / RADIOLOGY: [ ] ASSESSMENT: Sepsis due to Acute sigmoid diverticulitis complicated by abscess, POA Leukocytosis, POA Severe hyponatremia, hypovolemic, POA Hypokalemia, POA Chronic constipation, POA History of colonic diverticulosis, POA Protein calorie malnutrition, POA PLAN: Sepsis due to Acute sigmoid diverticulitis complicated by abscess * Patient vitals on presentation 125/71, heart rate 91, with elevated leukocytes 23k in the light of diverticulitis meets sepsis criteria * CT abdomen confirmed acute sigmoid colon diverticulitis complicated by two abbesses, one along the sigmoid colon (5.8 x 6.9 x 5.1 cm) and one along the rectum (7.6 x 6.1 x 6.6 cm) * Keep patient NPO * Continue IV 0.9 NS @ 100 ml/hr * Patient had rash and itching to the face after Zosyn, discontinue * Continue IV metronidazole 500 mg Q8 and IV levofloxacin 750 mg Q 24 * Replace potassium as per protocol * Surgery recommended percutaneous drainage of the abscesses by IR, no surgical intervention at this moment * ID consult placed and we will follow their recommendation * PRN Morphine 4 mg for severe pain and Tylenol 500 mg for mild pain * Repeat labs in the morning Severe hyponatremia, hypovolemic * On presentation Na was 120, asymptomatic and was dehydrated in the preceding days * Today serum sodium is 130 and we will continue judicious hydration * Urine osmolality 204, urine sodium < 13, glucose 98 and triglycerides 65 * Pending serum osmolality, however picture is consistent with hypovolemic hyponatremia * Start IV fluids, 0.9 NS @ 100 ml/hr * Check BMP Q6 hrs * Neuro checks daily and limit sodium correction to <8 meq/l in 24 hours. Protein energy malnutrition * Patient's weight is 49.9 kg, BMI 21.5 and serum albumin 2 * Muscle atrophy noted BUN low, 6 * Patient significant amount of weight intentionally, 40 lb * Currently NPO for acute management of diverticulitis * Diet evaluation placed for recommendations post discharge GI prophylaxis with Famotidine and DVT prophylaxis with SCDs. ATTESTATION BY PHYSICIAN I have seen and examined the patient. I reviewed the documentation, medical decision making, and treatment plan as noted by the resident physician above. I agree with the findings and plan of care. RICHARD WANG MD, HARSHAVARDHA MD Jul 19, 2025 11:29
--- NOTE | 2025-07-19 12:25 | PN ---
59-year-old female that is being followed with a perforated diverticulitis. She was having two abscesses in the area of the sigmoid colon[place] [address] [place] [address] today. Abdomen is soft and there is a mild tenderness to left lower quadrant. Patient has no fever vital signs stable. The patient is scheduled to have a percutaneous drainage of the abscess today. She has an IV antibiotics. We will continue with the NPO today with the IV antibiotics reassess tomorrow to see patient we will need to start diet. The patient was supposed to have a colonoscopy today never had one before. I explained to her that she will need to have one after this conditions had resolved. We will follow with you Vitals/Labs Vital Signs Date Time Temp Pulse Resp B/P (MAP) Pulse Ox O2 Delivery O2 Flow Rate FiO2 07/19/25 12:00 98.6 87 18 112/90 99 Room Air 07/19/25 09:00 0 21 Laboratory Tests 07/18/25 17:26 07/18/25 20:44 07/19/25 04:13 JOSE DAVENPORT MD Jul 19, 2025 12:25
--- NOTE | 2025-07-19 16:00 | NUR ---
CT GD DRAINAGE CATHETER PLACEMENT PROCEDURE PERFORMED BY DR Jhon BOLES. PUNCTURE SITE LLQ. PATIENT TOLERATED PROCEDURE WELL. 8FR PIGTAIL CATHETER PLACED TO PELVIC ABSCESS FLUID COLLECTION AND CONNECTED TO ACCORDION DRAIN BAG. CATHETER SUTURED IN PLACE AND DRESSING APPLIED. SPECIMEN COLLECTED AND SENT TO LAB. END OF PROCEDURE AT 1540. REPORT GIVEN TO FILIBERTO BRADSHAW AND PATIENT TRANSPORTED TO [facility] VIA BED AT 1600. AAO X3 WITH NO C/O PAIN
--- NOTE | 2025-07-19 16:00 | HMCIMG ---
PROVIDED REASON FOR EXAM: diverticulitis with abscess PROCEDURE: CT guided drainage of pelvic fluid collection. OPERATORS: Dr. Bond MEDICATIONS: 1. 50 mcg fentanyl IV 2. 2 mg of Versed IV 3. 1% lidocaine local anesthesia SEDATION TIME: 20 minute CONTRAST: None. COMPLICATIONS: None. DESCRIPTION: After the procedure including risks and potential complications had been explained to the patient and questions answered, informed consent was obtained. The patient was placed on the CT table in the supine position. A time out was performed. Limited CT imaging was obtained localizing the patient's known pelvic fluid collection. The skin of the left mid pelvic was prepped and draped in the usual fashion. The skin and subcutaneous tissues overlying this region were infiltrated with 1% lidocaine for local anesthesia. Using a trocar with 8 [place] catheter was placed in the abscess pocket. 5 mL of purulent fluid were aspirated. The catheter was left in place to gravity drainage and secured to the skin with a O-Prolene suture. Post-procedure CT demonstrated adequate placement of the drainage catheter within the collection. The patient tolerated procedure well and was returned to the [facility]sales in stable condition after a period of observation. FINDINGS: 1. Large left lower pelvic abscess which was drained IMPRESSION: Successful placement of a 8 [place] all-purpose drainage catheter into known pelvic fluid collection. Specimen sent for gram, stain culture and sensitivity.
--- NOTE | 2025-07-19 16:21 | NUR ---
received recovery ll drain placement 8fr intact draining clear yellow fluid
[2025-07-19] MEDS: MIDAZOLAM HCL 1 MG/ML 2ML VIAL ONE (16:22)
--- NOTE | 2025-07-19 18:24 | NUR ---
dr ho informed of consultation aware of dx accepted to see pt no further orders Addendum: 07/19/25 at 1825 by ARIADNA MONREAL LVN LVN incorrect pt
[2025-07-19 21:20] LABS: CREATININE 0.5 mg/dL (0.5-1.0); GLOMERULAR FILTR. RATE CALC 109.0 mL/min (>90); GLUCOSE,RANDOM 123.0 mg/dL (70-105); SODIUM SERUM 123.0 mmol/L (136-145); UREA NITROGEN, BLOOD 9.0 mg/dL (7-18)
[2025-07-20] VITALS (8 sets, daily range): BP systolic 115–138; BP diastolic 69–90; PULSE 62–78; RESP 16–21; TEMP 98.1–99.5; O2SAT 94–97
[2025-07-20 05:05] LABS: IMMATURE GRANULOCYTE ABSOLUTE 0.15 K/uL (0-1); NUCLEATED RED BLOOD CELLS 0.0 % (0.0-0.19); PLATELET COUNT (AUTO) 625 K/uL (130-400); RED BLOOD CELL COUNT(AUTO) 3.44 MIL/uL (4.00-5.50); RED CELL DISTRIBUTION WIDTH 12.1 % (11.0-15.5); WHITE BLOOD COUNT (AUTO) 13.6 K/uL (4.8-10.8)
[2025-07-20 07:01] LABS: CREATININE 0.5 mg/dL (0.5-1.0); GLOMERULAR FILTR. RATE CALC 109.0 mL/min (>90); GLUCOSE,RANDOM 103.0 mg/dL (70-105); SODIUM SERUM 125.0 mmol/L (136-145); UREA NITROGEN, BLOOD 5.0 mg/dL (7-18)
--- NOTE | 2025-07-20 07:19 | CONS ---
INFECTIOUS DISEASE CONSULTATION DATE OF SERVICE: 07/19/2025 REQUESTING PHYSICIAN: Dr. Maddox. REASON FOR CONSULTATION: Diverticulitis with perforation. HISTORY OF PRESENT ILLNESS: A 59-year-old female with no significant past medical history who presented to the hospital with a 2-week history of abdominal pain. Pain is localized to the lower quadrant, worse on the left side. No fever or chills. Appetite has been poor. No dysuria, no urinary frequency. CT of the abdomen was done, which shows diverticulitis with perforation, also found with multiple abscess lesions. The patient has been started on levofloxacin and Flagyl. No cough. No hemoptysis or pleuritic pain. Denies dysuria, urinary frequency. No joint pain or joint swelling. PAST MEDICAL HISTORY: None. PAST SURGICAL HISTORY: None. ALLERGIES: SULFASALAZINE. CURRENT MEDICATIONS: Reviewed. SOCIAL HISTORY: alcohol, tobacco. No illicit drug use. FAMILY HISTORY: Noncontributory. REVIEW OF SYSTEMS: CONSTITUTIONAL: No fevers or chills. No weight loss or night sweats. EYES: No icterus. No photophobia or diplopia. HENT: No sore throat. No rhinorrhea or earache. NECK: No neck pain or neck swelling. RESPIRATORY: No cough. No hemoptysis or pleuritic pain. CARDIOVASCULAR: No chest pain. No palpitations or orthopnea. GASTROINTESTINAL: Positive for nausea, vomiting, abdominal pain. No diarrhea. GENITOURINARY: No dysuria, urgency, or urinary frequency. CENTRAL NERVOUS SYSTEM: No headache, dizziness, or slurred speech. PSYCHIATRY: No depression. No suicidal ideation. MUSCULOSKELETAL: No joint pain or joint swelling. PHYSICAL EXAMINATION: GENERAL: Elderly female, awake. VITAL SIGNS: Temperature 99.0, pulse 73, respirations 18, blood pressure 132/72. EYES: No icterus. Pupils are equal and reactive. HENT: No oral thrush seen. Moist oral mucosa. NECK: Supple. No JVD or thyromegaly. LUNGS: Good air entry. No rales. No rhonchi. CARDIOVASCULAR: S1 and S2. Regular. No murmur heard. ABDOMEN: Full, soft. Bowel sounds are present. Mild tenderness in the lower quadrant. No organomegaly. CENTRAL NERVOUS SYSTEM: Awake, alert and oriented x3. No focal deficits. SKIN: No rashes, no itchiness. LYMPHATIC: No peripheral lymphadenopathy. BACK: No deformity. No pressure ulcer. MUSCULOSKELETAL: No joint swelling noted, nontender. VASCULAR: No ischemia or gangrene of extremities. LABORATORY DATA: Sodium 130, potassium 3.6, BUN ____, creatinine 0.6. WBC 14.5, hemoglobin 8.7, platelets 535. Blood culture ____. RADIOLOGY: CT of the abdomen results reviewed. ASSESSMENT: A 59-year-old female presenting with abdominal pain. * Diverticulitis with perforation and abscess. * Abdominal pain. * Dehydration. * Anemia. * Malnutrition. * Chronic tobacco use. * Chronic alcohol use. PLAN: * Continue pain management. * Continue levofloxacin. * Continue Flagyl. * Start the patient on ____. * Monitor electrolytes and correct as needed. * Followup cultures. * Continue antiemetic. * The patient will be followed up closely. Thank you for allowing me to participate in the care of this patient. TID: [id number] RECEIPT: [id number]
[2025-07-20 13:56] LABS: CREATININE 0.5 mg/dL (0.5-1.0); GLOMERULAR FILTR. RATE CALC 109.0 mL/min (>90); GLUCOSE,RANDOM 96.0 mg/dL (70-105); SODIUM SERUM 125.0 mmol/L (136-145); UREA NITROGEN, BLOOD 4.0 mg/dL (7-18)
--- NOTE | 2025-07-20 15:34 | PN ---
[facility] PROGRESS NOTE Date of Service: Jul 20, 2025 Time of Service: 15:34 History of Present Illness Ms. Dowell is a 59-year-old female that was seen and examined today on 07/17/2025. Patient is a good historian of personal health. Patient states that she came to the emergency department with a chief complaint of abdominal pain. Onset was two weeks ago. Location is left lower quadrant. Duration is constant. Character is described as bloating. There was no alleviating factors. There was no aggravating factors. Patient reports associated constipation. Patient reports that she has a pending colonoscopy for this same abdominal discomfort with Dr. Oconnor that was scheduled on 07/19/25. Patient was taking Linzess for the last four days and only had soft GI foods and liquids at home during this time. Patient reports her last meal being a banana that started the pain, which has progressed to this point. Patients says she has lost significant weight, 40 lbs since her divorce intentionally, due to poor diet mainly including tuna and salads. Patient has history of similar pain in the LLQ of abdomen which resolved spontaneously in few hours. Patient has a chronic history of constipation. Patient never underwent colonoscopy. She has family history of Carcinoid tumor and recurrent diverticulitis in first degree relatives. Today in the emergency department WBCs 23.0, left shift neutrophils 83%, potassium 2.5, chloride 81, sodium 120, no urinalysis has been collected or sent to lab, CT of abdomen and pelvis shows diverticulitis with two abscesses. Emergency room physician contacted general surgery on-call, Dr. Lou who requested patient be admitted under hospitalist service. Additionally patient presented with a heart rate of 91 beats per minute, together with WBCs of 23.0 and identified source of infection being gastrointestinal patient met clinical sepsis criteria. SUBJECTIVE: 07/18/2025: Patient was evaluated in ED 03. Patient presented to the ED with acute abdominal pain the left lower quadrant, 8/10 in intensity with associated with bloating. Patient has chronic constipation and has been following Dr. Oconnor for evaluation with colonoscopy. Patient had poor intake in the preceding days and was using Linzess in the last 4 days. Patient had a solid bowel movement this morning and is passing flatus. Patient is kept NPO and is started on IV NS at 100 ml/hr, replacing her potassium and Zosyn was started. Labs remarkable for severe hyponatremia, hypokalemia, hypochloremia, and metabolic alkalosis. We will hydrate her judiciously and monitor her electrolytes closely. CT abdomen is remarkable for acute diverticulitis with abscesses in sigmoid colon and rectum. Pending surgery evaluation. 07/19/2025: Patient was evaluated in room 406. Patient was hemodynamically stable and had no acute events overnight. The nurse reported that patient had a rash and itching sensation on the face and neck after being on Zosyn, has a history of hives to cefazolin. On-call nurse practitioner discontinued Zosyn and put her on levofloxacin and metronidazole. Surgery evaluated patient and recommended percutaneous drainage of abscesses by the interventional radiologist. Patient still has residual pain, 5/10 and tenderness to palpation, but denies fevers, chills, nausea, vomiting. Her serum sodium was 130 this morning. We will continue cautious hydration. ID consult has also been placed and we will follow their recommendations. 07/20/2025: Patient was evaluated in room 406. Patient is hemodynamically stable and had no acute events overnight. Patient underwent percutaneous drainage of diverticular abscess yesterday, samples were sent for cultures. Output today was 70 cc purulent drainage. Patient complained of abdominal distention and had not had any bowel movement since admission. Patient is tolerating clear liquid diet without nausea or vomiting. Her serum sodium dropped to 125 this morning and potassium was 3. We will continue gentle hydration and potassium replacement as per protocol. We encouraged the patient to ambulate in the hallways and also ordered physical therapy. Surgical team ordered KUB to rule out ileus versus obstruction. They also added metoc lopramide 10 mg and Mylicon. Malignancy workup with CA 125, CA 19 9 were also ordered by primary team. REVIEW OF SYSTEMS CONSTITUTIONAL: Denies fevers, chills, or night sweats. Reports intentional weight loss of 40 lbs. NEUROLOGICAL: Denies headache, motor weakness, sensory deficit, vertigo/spinning sensation, gait abnormalities, or tremors. ENT: No hearing loss, otalgia, otorrhea, rhinitis, rhinorrhea, hoarseness, or sore throat. CARDIOVASCULAR: Denies any exertional angina, dyspnea on exertion, orthopnea, paroxysmal nocturnal dyspnea, palpitations, life-threatening arrhythmias, claudication. PULMONARY: Denies any shortness of breath, cough, phlegm/sputum, hemoptysis, pleuritic chest pain. SLEEP: Denies morning headaches, daytime somnolence or napping. Denies difficulty falling asleep, staying asleep, waking from sleep. Denies knowledge of snoring. GASTROINTESTINAL: Denies any type of dysphagia to either liquids or solids. Denies nausea, vomiting, pyrosis, early satiety. Admits to chronic constipation and LLQ pain, and distention GENITOURINARY: Denies frequency, urgency, nocturia, hematuria or incontinence (Storage/Irritative symptoms.) PHYSICAL EXAM GENERAL APPEARANCE: The patient is awake, alert, and oriented, in no acute cardiopulmonary distress. NEUROLOGICAL: Cranial nerves II-XII grossly intact. Motor is 5/5 in bilateral upper and lower extremities proximal to distal. No sensory deficits. HEENT: Face is symmetric. Pupils are equal and reactive. Extraocular movements are intact. NECK: Supple. No JVD. No thyromegaly. No submental, submandibular, pre- /postauricular, occipital or supraclavicular lymphadenopathy. CHEST: Normal chest expansion. No Telemetry. LUNGS: Absence of any rales, rhonchi or any wheezing. CARDIOVASCULAR: Regular. S1 and S2 normal. No appreciable rubs, murmurs or gallops. ABDOMEN: Soft, tender to palpation in the LLQ, distended. Left lower quadrant drainage catheter with bag in position. There is no rebound, voluntary guarding, or rigidity. : Deferred. No [place]. EXTREMITIES: Non-edematous and not cyanotic. No clubbing. Good capillary refill. SKIN: No skin breakdown. Vital Signs (last 8hr) Date Time Temp Pulse Resp B/P (MAP) Pulse Ox O2 Delivery O2 Flow Rate FiO2 07/20/25 08:00 98.1 78 16 128/90 95 Room Air 21 07/20/25 07:46 97 Room Air* 0 21 LABS: Laboratory: Test 07/20/25 13:01 07/20/25 04:28 07/19/25 04:13 Range/Units Sodium Level 125 L 136-145 mmol/L Potassium Level 3.5 3.5-5.1 mmol/L Chloride Level 95 L 101-111 mmol/L Carbon Dioxide Level 27 21-32 mmol/L Blood Urea Nitrogen 4 L 7-18 mg/dL Creatinine 0.5 0.5-1.0 mg/dL Glomerular Filtration Rate Calc 109 >90 mL/min Random Glucose 96 70-105 mg/dL Total Calcium 7.3 L 8.5-10.1 mg/dL Magnesium Level 1.70 L 1.80-2.40 mg/dL White Blood Count 13.6 H 4.8-10.8 K/uL Red Blood Count 3.44 L 4.00-5.50 MIL/uL Hemoglobin 9.8 L 12.0-16.0 g/dL Hematocrit 28.9 L 36-48 % Mean Corpuscular Volume 84.0 79-99 fL Mean Corpuscular Hemoglobin 28.5 27.0-33.0 pg Mean Corpuscular Hemoglobin Concent 33.9 32.0-36.0 g/dL Red Cell Distribution Width 12.1 11.0-15.5 % Platelet Count 625 H 130-400 K/uL Mean Platelet Volume 8.7 7.5-10.5 fL Immature Granulocyte % (Auto) 1.1 H 0-1 % Neutrophils (%) (Auto) 80.8 H 40.0-77.0 % Lymphocytes (%) (Auto) 9.9 L 21.0-51.0 % Monocytes (%) (Auto) 7.9 3.0-13.0 % Eosinophils (%) (Auto) 0.2 0.0-8.0 % Basophils (%) (Auto) 0.1 0.0-5.0 % Neutrophils # (Auto) 11.0 H 1.8-7.7 K/uL Lymphocytes # (Auto) 1.3 1.0-4.8 K/uL Monocytes # (Auto) 1.1 H 0.1-1.0 K/uL Eosinophils # (Auto) 0.03 0.00-0.70 K/uL Basophils # (Auto) 0.01 0.00-0.20 K/uL Absolute Immature Granulocyte (auto 0.15 0-1 K/uL Nucleated Red Blood Cells 0.0 0.0-0.19 % Total Bilirubin 0.3 0.2-1.0 mg/dL Aspartate Amino Transf (AST/SGOT) 31 10-37 U/L Alanine Aminotransferase (ALT/SGPT) 32 12-78 U/L Alkaline Phosphatase 97 50-136 U/L Total Protein 5.7 L 6.0-8.3 g/dL Albumin 1.5 L 3.5-5.0 g/dL Current Medications Medications (Trade) Dose Ordered Sig/Heather Route PRN Reason Start Time Stop Time Status Last Admin Dose Admin Acetaminophen (TYLenol 325MG TAB) 650 mg Q6H PRN PO TEMPERATURE GREATER THAN 101.5 07/17/25 22:00 08/16/25 21:59 Acetaminophen (TYLenol 500MG TAB) 500 mg Q4H PRN PO MILD PAIN (1-3) 07/18/25 10:30 08/17/25 10:29 Diphenhydramine HCl (BENAdryl CAP) 25 mg Q8H PRN PO INSOMNIA 07/20/25 11:00 08/19/25 10:59 07/20/25 11:19 25 MG Famotidine (Pepcid 20mg Vial) 20 mg DAILY IV 07/18/25 09:00 08/17/25 08:59 07/20/25 08:09 20 MG Hydralazine HCl (APRESOLine 20MG INJ) 10 mg Q6H PRN IV For:SBP above 160;DBP above 90 07/17/25 22:00 08/16/25 21:59 Lactated Ringer's 1,000 ml @ 75 mls/hr [id number] IV 07/17/25 22:00 07/17/25 22:07 DC 07/17/25 21:56 75 MLS/HR Levofloxacin/ Dextrose (LEvaquIN 750 MG/ D5W 150 ML) 750 mg Q24H IV 07/19/25 05:00 07/29/25 04:59 07/20/25 05:56 750 MG Magnesium Sulfate 50 ml @ 0 mls/hr PROTOCOL PRN IV h 07/17/25 22:30 08/16/25 22:29 07/18/25 02:31 25 MLS/HR Metronidazole/ Sodium Chloride (flaGYL) 500 mg Q8H IV 07/19/25 07:00 07/29/25 06:59 07/20/25 14:47 500 MG Morphine Sulfate (morPHINE 4MG SYG) 4 mg Q4H PRN IVP SEVERE PAIN (7-10) 07/17/25 22:00 07/24/25 21:59 07/19/25 00:47 4 MG Ondansetron HCl (zoFRAN 4MG INJ) 4 mg Q6H PRN IV NAUSEA/VOMITING 07/17/25 22:00 08/16/25 21:59 07/19/25 00:47 4 MG Piperacillin Sod/ Tazobactam Sod (Zosyn 3.375gm+NS 50ml) 3.375 gm Q8H IV 07/17/25 22:00 07/19/25 02:04 DC 07/18/25 21:47 3.375 GM Potassium Chloride 100 ml @ 50 mls/hr AD PRN IV POTASSIUM PROTOCOL 07/17/25 22:30 08/16/25 22:29 07/20/25 14:54 50 MLS/HR Sodium Chloride 1,000 ml @ 125 mls/hr Q8H IV 07/17/25 22:30 08/16/25 22:29 07/20/25 14:47 125 MLS/HR DIAGNOSTICS / RADIOLOGY: [ ] PATIENT: KIMBERLYN DOWELL MR#: [id number] : 1965 SEX: F AGE: 59 LOCATION: [facility] ORDER 2300 STATUS: ADM IN REPORT#: [id number] SERVICE 0600 REASON: diverticulitis with abscess ORDERING PHYSICIAN: KIRSTY CRANE TRANSLATION DIRECTOR PROCEDURE: GIUDPERCAT - CT GUIDE ELLIOT PERC W/CATH IR PROVIDED REASON FOR EXAM: diverticulitis with abscess PROCEDURE: CT guided drainage of pelvic fluid collection. OPERATORS: Dr. Boles MEDICATIONS: 1. 50 mcg fentanyl IV 2. 2 mg of Versed IV 3. 1% lidocaine local anesthesia SEDATION TIME: 20 minute CONTRAST: None. COMPLICATIONS: None. DESCRIPTION: After the procedure including risks and potential complications had been explained to the patient and questions answered, informed consent was obtained. The patient was placed on the CT table in the supine position. A time out was performed. Limited CT imaging was obtained localizing the patient's known pelvic fluid collection. The skin of the left mid pelvic was prepped and draped in the usual fashion. The skin and subcutaneous tissues overlying this region were infiltrated with 1% lidocaine for local anesthesia. Using a trocar with 8 Japanese catheter was placed in the abscess pocket. 5 mL of purulent fluid were aspirated. The catheter was left in place to gravity drainage and secured to the skin with a O-Prolene suture. Post-procedure CT demonstrated adequate placement of the drainage catheter within the collection. The patient tolerated procedure well and was returned to the rosales in stable condition after a period of observation. FINDINGS: 1. Large left lower pelvic abscess which was drained IMPRESSION: Successful placement of a 8 Japanese all-purpose drainage catheter into known pelvic fluid collection. Specimen sent for gram, stain culture and sensitivity. DICTATED BY: IVÁN BOLES MD DATE: 07/19/25 1555 ELECTRONICALLY SIGNED BY: IVÁN BOLES MD DATE: 07/19/25 1600 ASSESSMENT: Sepsis due to Acute sigmoid diverticulitis complicated by abscess, status post percutaneous drainage of pelvic abscess POA Leukocytosis, POA Suspected ileus versus obstruction Severe hyponatremia, hypovolemic, POA Hypokalemia, POA Chronic constipation, POA History of colonic diverticulosis, POA Protein calorie malnutrition, POA PLAN: Sepsis due to Acute sigmoid diverticulitis complicated by abscess, status post percutaneous drainage of pelvic abscess * Patient vitals on presentation 125/71, heart rate 91, with elevated leukocytes 23k in the light of diverticulitis meets sepsis criteria * CT abdomen confirmed acute sigmoid colon diverticulitis complicated by two abbesses, one along the sigmoid colon (5.8 x 6.9 x 5.1 cm) and one along the rectum (7.6 x 6.1 x 6.6 cm) * Continue IV 0.9 NS @ 125 ml/hr * Patient had rash and itching to the face after Zosyn, discontinue * Continue IV metronidazole 500 mg Q8 and IV levofloxacin 750 mg Q 24 * Surgery recommended percutaneous drainage of the abscesses by IR, no surgical intervention at this moment * IR performed percutaneous drainage of pelvic abscess with placement of left lower quadrant drainage catheter * Abscess sample were sent for cultures, showed growth of Gram-positive cocci, follow up with final culture results * Monitor daily output from left lower quadrant drain * ID recommended continue same antibiotics * PRN Morphine 4 mg for severe pain and Tylenol 500 mg for mild pain * Repeat labs in the morning Severe hyponatremia, hypovolemic * On presentation Na was 120, asymptomatic and was dehydrated in the preceding days * Today serum sodium is 125 and we will continue judicious hydration * Urine osmolality 204, urine sodium < 13, glucose 98 and triglycerides 65 * Pending serum osmolality, however picture is consistent with hypovolemic hyponatremia * Increase IV fluids, 0.9 NS @ 125 ml/hr * Check BMP Q6 hrs * Neuro checks daily and limit sodium correction to <8 meq/l in 24 hours. Protein energy malnutrition * Patient's weight is 49.9 kg, BMI 21.5 and serum albumin 2 * Muscle atrophy noted BUN low, 6 * Patient significant amount of weight intentionally, 40 lb * Continue clear liquid diet * Diet evaluation placed for recommendations post discharge Suspected ileus versus obstruction * Patient last bowel movement was on the day of admission and has not had one since * Has diffuse abdominal distention, however passing flatus, and tolerating clear liquid diet * Surgical team ordered KUB to rule out ileus versus obstruction * Encouraged patient to ambulate in the hallways and ordered physical therapy * Lactulose 20 mg p.o. b.i.d. PRN ordered by surgical team GI prophylaxis with Famotidine and DVT prophylaxis with SCDs. ATTESTATION BY PHYSICIAN I have seen and examined the patient. I reviewed the documentation, medical decision making, and treatment plan as noted by the resident physician above. I agree with the findings and plan of care. RICHARD WANG MD, HARSHAVARDHA MD Jul 20, 2025 15:34
--- NOTE | 2025-07-20 16:42 | PN ---
GENERAL SURGERY PROGRESS NOTE Date/Time Patient Seen: [07/20/2025 1515 ] Interval History: [ 59-year-old female with diverticulitis with abscess post percutaneous drain placement by IR yesterday Output today has been about 70 cc purulent drainage Patient complaining of diffuse abdominal distention and constipation over. Tolerating is diet without any nausea or vomiting WBCs trending down 13.6 H&H 9.8 and 28.9 ] Current Medications Medications (Trade) Dose Ordered Sig/Heather Route Start Time Stop Time Status Last Admin Dose Admin Famotidine (Pepcid 20mg Vial) 20 mg DAILY IV 07/18/25 09:00 08/17/25 08:59 07/20/25 08:09 20 MG Lactated Ringer's 1,000 ml @ 75 mls/hr [id number] IV 07/17/25 22:00 07/17/25 22:07 DC 07/17/25 21:56 75 MLS/HR Levofloxacin/ Dextrose (LEvaquIN 750 MG/ D5W 150 ML) 750 mg Q24H IV 07/19/25 05:00 07/29/25 04:59 07/20/25 05:56 750 MG Metronidazole/ Sodium Chloride (flaGYL) 500 mg Q8H IV 07/19/25 07:00 07/29/25 06:59 07/20/25 14:47 500 MG Piperacillin Sod/ Tazobactam Sod (Zosyn 3.375gm+NS 50ml) 3.375 gm Q8H IV 07/17/25 22:00 07/19/25 02:04 DC 07/18/25 21:47 3.375 GM Sodium Chloride 1,000 ml @ 125 mls/hr Q8H IV 07/17/25 22:30 08/16/25 22:29 07/20/25 14:47 125 MLS/HR Physical Examination: GENERAL: [No acute distress, female, comfortably resting in bed, daughter at bedside.] HEAD: [Normocephalic] EYES: [Normal conjunctiva.] ENT: [Hearing grossly intact.] NECK: [Supple without JVD..] LUNGS: [Clear breath sounds bilaterally..] HEART: [Normal rate and rhythm.] VASC: [Peripheral pulses +2 bilaterally.] ABD: [diffuse distention, left lower quadrant percutaneous drain in place with purulent output in to accordion reservoir.] : [Not examined] EXT: [No edema.] SKIN: [No rashes or lesions noted.] NEURO: [Awake, alert, and oriented x3. No focal sensory or strength deficits noted.] Laboratory: [ ] Hematology Labs: Test 07/20/25 04:28 Range/Units White Blood Count 13.6 H 4.8-10.8 K/uL Red Blood Count 3.44 L 4.00-5.50 MIL/uL Hemoglobin 9.8 L 12.0-16.0 g/dL Hematocrit 28.9 L 36-48 % Mean Corpuscular Volume 84.0 79-99 fL Mean Corpuscular Hemoglobin 28.5 27.0-33.0 pg Mean Corpuscular Hemoglobin Concent 33.9 32.0-36.0 g/dL Red Cell Distribution Width 12.1 11.0-15.5 % Platelet Count 625 H 130-400 K/uL Mean Platelet Volume 8.7 7.5-10.5 fL Immature Granulocyte % (Auto) 1.1 H 0-1 % Neutrophils (%) (Auto) 80.8 H 40.0-77.0 % Lymphocytes (%) (Auto) 9.9 L 21.0-51.0 % Monocytes (%) (Auto) 7.9 3.0-13.0 % Eosinophils (%) (Auto) 0.2 0.0-8.0 % Basophils (%) (Auto) 0.1 0.0-5.0 % Neutrophils # (Auto) 11.0 H 1.8-7.7 K/uL Lymphocytes # (Auto) 1.3 1.0-4.8 K/uL Monocytes # (Auto) 1.1 H 0.1-1.0 K/uL Eosinophils # (Auto) 0.03 0.00-0.70 K/uL Basophils # (Auto) 0.01 0.00-0.20 K/uL Absolute Immature Granulocyte (auto 0.15 0-1 K/uL Nucleated Red Blood Cells 0.0 0.0-0.19 % Chemistry Labs: Test 07/20/25 13:01 07/19/25 04:13 Range/Units Sodium Level 125 L 136-145 mmol/L Potassium Level 3.5 3.5-5.1 mmol/L Chloride Level 95 L 101-111 mmol/L Carbon Dioxide Level 27 21-32 mmol/L Blood Urea Nitrogen 4 L 7-18 mg/dL Creatinine 0.5 0.5-1.0 mg/dL Glomerular Filtration Rate Calc 109 >90 mL/min Random Glucose 96 70-105 mg/dL Total Calcium 7.3 L 8.5-10.1 mg/dL Magnesium Level 1.70 L 1.80-2.40 mg/dL Total Bilirubin 0.3 0.2-1.0 mg/dL Aspartate Amino Transf (AST/SGOT) 31 10-37 U/L Alanine Aminotransferase (ALT/SGPT) 32 12-78 U/L Alkaline Phosphatase 97 50-136 U/L Total Protein 5.7 L 6.0-8.3 g/dL Albumin 1.5 L 3.5-5.0 g/dL Diagnostics / Radiology: [Copy/Paste Echos/Imaging Report here] Impression and Plan: [Complaining of abdominal distention and constipation We will order KUB to rule out ileus versus obstruction Continue strict monitoring of output from percutaneous drain Continue with IV fluids and IV antibiotics Start patient on Reglan 10 mg IV q.6 hours Simethicone 80 mg q.6 hours entering Lactulose 30 mL q.day p.r.n. constipation Repeat labs in a.m. Continue with conservative management Surgical team will continue to follow Dr. Lou updated on patient's status Surgical Case discussed with supervising physician Plan of care was formulated and agreed upon We appreciate the hospitalist team for allowing us to participate in this patient's care Greater than 45 minutes spent examining patient, reviewing chart and working on documentation ] ATTESTATION BY PHYSICIAN I have seen and examined the patient. I reviewed the documentation, medical decision making, and treatment plan as noted by the mid-level provider above. I agree with the findings and plan of care. MD ROYCE BLOCK LETICIA A [facility] Jul 20, 2025 16:42
[2025-07-20] MEDS ORDERED: LACTULOSE 20 GM/30 ML UDCUP PO PRN (17:00)
--- NOTE | 2025-07-20 17:35 | HMCIMG ---
EXAM: CR Abdomen, 2 View. CLINICAL HISTORY: abdominal distention COMPARISON: CT images dated July 17, 2025. FINDINGS: Markedly dilated large bowel loops warranting further characterization with CT imaging of the abdomen and pelvis. These measure up to 9.1 cm on today's examination, increased from the prior examination. IMPRESSION: 1. Markedly dilated large bowel loops measuring up to 9.1 cm, increased from prior examination. Further characterization with CT imaging of the abdomen and pelvis is warranted. /[place]
[2025-07-20] MEDS: SIMETHICONE 80 MG TAB.CHEW PO SCH (17:38)
[2025-07-20] MEDS ORDERED: PHARMACY COMMUNICATION MISC SCH (19:00)
--- NOTE | 2025-07-20 19:04 | PN ---
INFECTIOUS DISEASE PROGRESS NOTE Date of Service: Jul 20, 2025 SUBJECTIVE: This is a 59-year-old female patient admitted with the abdominal pain. The CT of the abdomen obtained on admission showed acute sigmoid diverticulitis with pelvic abscesses and patient underwent a percutaneous drain placement yesterday which is draining purulent drainage. We will follow up on the drainage cultures results results. Patient will continue on levofloxacin and metronidazole. Patient is currently afebrile, temperature is 98.1 and the WBC has trended down to 13.6 today. No reports of nausea or vomiting. We will continue to follow patient's care. PHYSICAL EXAM EYES: Anicteric. Pupils equal and reactive. HENT: No oral thrush seen, moist Oral mucosa. NECK: Supple, no JVD or thyromegaly. LUNGS: Good air entry. No rales, no rhonchi. CARDIOVASCULAR: S1, S2 regular. No murmur heard. ABDOMEN: Soft, bowel sounds present. Abdominal pain POA. Left percutaneous drain placement. CENTRAL NERVOUS SYSTEM: Awake, alert, oriented x 3. SKIN: No rashes, no swelling. LYMPHATICS: No peripheral lymphadenopathy. MUSCULOSKELETAL: No joint swelling, erythema or tenderness. EXTREMITIES: No cyanosis or clubbing BACK: No deformity, no pressure ulcer. GENITOURINARY: No dysuria or hematuria. Vital Sign (Last 12 Hours) 07/20/25 07/20/25 07/20/25 07/20/25 07:46 08:00 12:00 16:00 Temp 98.1 99.0 98.2 Pulse 78 77 70 Resp 16 16 16 B/P (MAP) 128/90 133/86 137/78 Pulse Ox 97 95 97 94 O2 Delivery Room Air* Room Air Room Air Room Air O2 Flow Rate 0 FiO2 21 21 21 21 Intake & Output (last 24hrs) 07/19/25 07/19/25 07/20/25 15:00 23:00 07:00 Intake Total 1450.0 ml 460.0 ml 220.0 ml Balance 1450.0 ml 460.0 ml 220.0 ml LABS: Laboratory: Test 07/20/25 13:01 07/20/25 04:28 07/19/25 04:13 Range/Units Sodium Level 125 L 136-145 mmol/L Potassium Level 3.5 3.5-5.1 mmol/L Chloride Level 95 L 101-111 mmol/L Carbon Dioxide Level 27 21-32 mmol/L Blood Urea Nitrogen 4 L 7-18 mg/dL Creatinine 0.5 0.5-1.0 mg/dL Glomerular Filtration Rate Calc 109 >90 mL/min Random Glucose 96 70-105 mg/dL Total Calcium 7.3 L 8.5-10.1 mg/dL Magnesium Level 1.70 L 1.80-2.40 mg/dL White Blood Count 13.6 H 4.8-10.8 K/uL Red Blood Count 3.44 L 4.00-5.50 MIL/uL Hemoglobin 9.8 L 12.0-16.0 g/dL Hematocrit 28.9 L 36-48 % Mean Corpuscular Volume 84.0 79-99 fL Mean Corpuscular Hemoglobin 28.5 27.0-33.0 pg Mean Corpuscular Hemoglobin Concent 33.9 32.0-36.0 g/dL Red Cell Distribution Width 12.1 11.0-15.5 % Platelet Count 625 H 130-400 K/uL Mean Platelet Volume 8.7 7.5-10.5 fL Immature Granulocyte % (Auto) 1.1 H 0-1 % Neutrophils (%) (Auto) 80.8 H 40.0-77.0 % Lymphocytes (%) (Auto) 9.9 L 21.0-51.0 % Monocytes (%) (Auto) 7.9 3.0-13.0 % Eosinophils (%) (Auto) 0.2 0.0-8.0 % Basophils (%) (Auto) 0.1 0.0-5.0 % Neutrophils # (Auto) 11.0 H 1.8-7.7 K/uL Lymphocytes # (Auto) 1.3 1.0-4.8 K/uL Monocytes # (Auto) 1.1 H 0.1-1.0 K/uL Eosinophils # (Auto) 0.03 0.00-0.70 K/uL Basophils # (Auto) 0.01 0.00-0.20 K/uL Absolute Immature Granulocyte (auto 0.15 0-1 K/uL Nucleated Red Blood Cells 0.0 0.0-0.19 % Total Bilirubin 0.3 0.2-1.0 mg/dL Aspartate Amino Transf (AST/SGOT) 31 10-37 U/L Alanine Aminotransferase (ALT/SGPT) 32 12-78 U/L Alkaline Phosphatase 97 50-136 U/L Total Protein 5.7 L 6.0-8.3 g/dL Albumin 1.5 L 3.5-5.0 g/dL DIAGNOSTICS/RADIOLOGY: PATIENT: KIMBERLYN ALICEA MR#: [id number] : 1965 SEX: F AGE: 59 LOCATION: [facility] ORDER [id number] STATUS: REG ER REPORT#: [id number] SERVICE 1631 REASON: lower abd pain ORDERING PHYSICIAN: CASEY COVINGTON MD PROCEDURE: ABD PEL W - CT ABDOMEN/PELVIS W/CONTRAST ADDENDUM REPORT ADDENDUM: Results were shared by telephone at 07:57 PM EST on 07-17-[address] Latanya zimmerman /[place] EXAM: CT Abdomen and Pelvis with IV Contrast CLINICAL HISTORY: Patient presents with lower abdominal pain. TECHNIQUE: Axial computed tomography images of the abdomen and pelvis with intravenous contrast. CONTRAST: With intravenous contrast. COMPARISON: None provided. FINDINGS: LUNG BASES: Subsegmental atelectasis in the bilateral lung bases. No pleural effusions. LIVER: Two hepatic cysts are identified in the right hepatic lobe, the larger measuring 1.1 x 1.0 x 1.4 cm and the smaller measuring 0.9 x 0.8 x 0.9 cm. No suspicious hepatic lesions. GALLBLADDER AND BILE DUCTS: The gallbladder is surgically absent. No biliary ductal dilatation. PANCREAS: Unremarkable. SPLEEN: Unremarkable. ADRENAL GLANDS: Unremarkable. KIDNEYS, URETERS, AND BLADDER: A right renal cyst in the lower pole measures 5.9 x 4.5 x 5.7 cm. A left renal cyst in the lower pole measures 3.7 x 3.7 x 3.7 cm. The urinary bladder is incompletely distended, limiting evaluation for possible wall thickening. In the appropriate clinical setting, mild cystitis cannot be excluded. STOMACH AND BOWEL: Significant focal short-segment circumferential wall thickening of the sigmoid colon with maximal wall thickness approximately 1.2 cm and surrounding fat stranding, concerning for sigmoid diverticulitis or colitis. Two peripherally enhancing fluid and air-containing collections are seen in the pelvis: one along the sigmoid colonic wall thickening measuring 5.8 x 6.9 x 5.1 cm, and another along the rectum measuring 7.6 x 6.1 x 6.6 cm. A dependent calcific focus measuring 0.7 cm is seen within the perirectal collection. Extensive pericolonic and perirectal fat stranding with minimal free fluid in the pelvis. The perirectal and pericolonic collections cause mass effect on the urinary bladder and uterus. The left ovary is not separately visualized. Focal long-segment circumferential wall thickening of the transverse colon measuring up to 0.6 cm with minimal pericolonic fat stranding, concerning for colitis. Gaseous distention of the transverse colon up to 6.5 cm in caliber. Occasional diverticula are seen. APPENDIX: No CT evidence of acute appendicitis. PERITONEUM: Extensive pelvic fat stranding with minimal free fluid. No free air. LYMPH NODES: No pathologically enlarged lymph nodes. REPRODUCTIVE: The uterus is displaced by adjacent pericolonic and perirectal collections. The left ovary is not separately visualized. VASCULATURE: No abdominal aortic aneurysm. BONES: Multilevel mild degenerative changes of the spine. No acute or aggressive osseous lesion. OTHER FINDINGS: Small hiatal hernia. IMPRESSION: Acute sigmoid diverticulitis/colitis with two peripherally enhancing pelvic abscesses???one along the sigmoid colon (5.8 x 6.9 x 5.1 cm) and one along the rectum (7.6 x 6.1 x 6.6 cm)???with associated fat stranding and minimal free fluid. Mass effect from the pelvic abscesses on the urinary bladder and uterus. Focal long-segment wall thickening of the transverse colon with minimal pericolonic fat stranding, concerning for colitis. Bilateral renal cysts and small hepatic cysts. Surgically absent gallbladder. Small hiatal hernia. /[place] DICTATED BY: ANUM JARVIS Jr., MD DATE: 07/17/251957 ASSESSMENT: Diverticulitis with perforation and abscess, status post percutaneous drain placement. Abdominal pain. Leukocytosis. Hypokalemia. Hyponatremia. Chronic tobacco use. PLAN: Continue levofloxacin. Continue metronidazole. Percutaneous drain care. We will follow up on the cultures results. Continue pain management. This case was reviewed and discussed with my supervising physician Dr. Moulton and the above assessment and plan was formulated and agreed upon. ATTESTATION BY PHYSICIAN I have seen and examined the patient. I reviewed the documentation, medical decision making, and treatment plan as noted by the mid-level provider above. I agree with the findings and plan of care. HAYDEE MOULTON MD, MIRTA L [facility] Jul 20, 2025 19:04
[2025-07-20] MEDS: MAGNESIUM 2GM PREMIX 50ML 50 ML IV ONE (21:57)
[2025-07-21] VITALS (9 sets, daily range): BP systolic 132–152; BP diastolic 72–91; PULSE 66–86; RESP 16–20; TEMP 98.2–98.9; O2SAT 96
[2025-07-21 04:50] LABS: IMMATURE GRANULOCYTE ABSOLUTE 0.23 K/uL (0-1); NUCLEATED RED BLOOD CELLS 0.0 % (0.0-0.19); PLATELET COUNT (AUTO) 662 K/uL (130-400); RED BLOOD CELL COUNT(AUTO) 3.66 MIL/uL (4.00-5.50); RED CELL DISTRIBUTION WIDTH 12.1 % (11.0-15.5); WHITE BLOOD COUNT (AUTO) 17.6 K/uL (4.8-10.8)
--- NOTE | 2025-07-21 05:03 | NUR ---
0450 DRESSING ON ABDOMINAL DRAIN CATHETER COMING OFF. REMOVED. CLEANED AREA. APPLIED SKIN PROTECTANT AND APPLIED NEW CLEAR DRESSING AND 1 GAUZE. DRAINED ACCORDION DRAINAGE BAG. 30ML OF PURULENT MILKY YELLOWISH LIQUID REMOVED.
[2025-07-21 05:16] LABS: ASPARTATE AMINOTRANSFERASE 18.0 U/L (10-37); CREATININE 0.5 mg/dL (0.5-1.0); GLOMERULAR FILTR. RATE CALC 109.0 mL/min (>90); GLUCOSE,RANDOM 96.0 mg/dL (70-105); SODIUM SERUM 126.0 mmol/L (136-145); TOTAL PROTEIN, SERUM 5.4 g/dL (6.0-8.3); UREA NITROGEN, BLOOD 3.0 mg/dL (7-18)
[2025-07-21] MEDS ORDERED: 0.9%NACL 10ML VIAL FLUSH SCH (09:00)
--- NOTE | 2025-07-21 16:03 | PN ---
GENERAL SURGERY PROGRESS NOTE Date/Time Patient Seen: [07/21/2025 14:45 ] Interval History: [ 59-year-old female with diverticulitis with abscess post percutaneous drain placement by IR yesterday Patient states she feels significantly better today, less abdominal distention Patient states she has had several watery bowel movements and passing large amount of gas KUB done yesterday shows dilated bowels, CT scan was recommended CT scan was ordered by hospitalist, pending to be done today Patient has been tolerating diet without any nausea or vomiting WBCs 17.6 H&H 10.4 and 30.9 Percutaneous drain output about 30 cc today ] Current Medications Medications (Trade) Dose Ordered Sig/Heather Route Start Time Stop Time Status Last Admin Dose Admin Albumin Human 250 ml @ 0 mls/hr AD IV 07/21/25 14:30 07/31/25 14:29 Famotidine (Pepcid 20mg Vial) 20 mg DAILY IV 07/18/25 09:00 08/17/25 08:59 07/21/25 08:33 20 MG Lactated Ringer's 1,000 ml @ 75 mls/hr [id number] IV 07/17/25 22:00 07/17/25 22:07 DC 07/17/25 21:56 75 MLS/HR Levofloxacin/ Dextrose (LEvaquIN 750 MG/ D5W 150 ML) 750 mg Q24H IV 07/19/25 05:00 07/29/25 04:59 07/21/25 05:00 750 MG Metoclopramide HCl (regLAN 10MG IV) 10 mg ACHS IVP 07/20/25 21:00 07/21/25 14:18 DC 07/21/25 12:24 10 MG Metronidazole/ Sodium Chloride (flaGYL) 500 mg Q8H IV 07/19/25 07:00 07/29/25 06:59 07/21/25 14:16 500 MG Pharmacy Profile Note (Pharmacy Communication) Abnormanl QT interval Q8H MISC 07/20/25 19:00 07/27/25 18:59 Piperacillin Sod/ Tazobactam Sod (Zosyn 3.375gm+NS 50ml) 3.375 gm Q8H IV 07/17/25 22:00 07/19/25 02:04 DC 07/18/25 21:47 3.375 GM Simethicone (Mylicon) 80 mg PCHS PO 07/20/25 18:00 08/19/25 17:59 07/21/25 12:24 80 MG Sodium Chloride 1,000 ml @ 125 mls/hr Q8H IV 07/17/25 22:30 08/16/25 22:29 07/21/25 14:16 125 MLS/HR Sodium Chloride (NS Flush 10ml) 10 ml DAILY FLUSH 07/21/25 09:00 08/20/25 08:59 Sodium Chloride (Sodium Chloride) 1,000 mg BID PO 07/21/25 21:00 07/21/25 15:57 DC Sodium Chloride (Sodium Chloride) 1,000 mg TID PO 07/21/25 16:00 08/20/25 20:59 UNV Physical Examination: GENERAL: [No acute distress, female, comfortably resting in bed, daughter at bedside.] HEAD: [Normocephalic] EYES: [Normal conjunctiva.] ENT: [Hearing grossly intact.] NECK: [Supple without JVD..] LUNGS: [Clear breath sounds bilaterally..] HEART: [Normal rate and rhythm.] VASC: [Peripheral pulses +2 bilaterally.] ABD: [Abdomen is soft, nontender, significantly less distention compared to yesterday. Percutaneous catheter sutured in place.] : [Not examined] EXT: [No edema.] SKIN: [No rashes or lesions noted.] NEURO: [Awake, alert, and oriented x3. No focal sensory or strength deficits noted. Vital Signs (last 8hr) Date Time Temp Pulse Resp B/P (MAP) Pulse Ox O2 Delivery O2 Flow Rate FiO2 07/21/25 12:00 98.2 75 16 147/91 95 Room Air 21 Laboratory: [ ] Hematology Labs: Test 07/21/25 03:58 Range/Units White Blood Count 17.6 #H 4.8-10.8 K/uL Red Blood Count 3.66 L 4.00-5.50 MIL/uL Hemoglobin 10.4 L 12.0-16.0 g/dL Hematocrit 30.9 L 36-48 % Mean Corpuscular Volume 84.4 79-99 fL Mean Corpuscular Hemoglobin 28.4 27.0-33.0 pg Mean Corpuscular Hemoglobin Concent 33.7 32.0-36.0 g/dL Red Cell Distribution Width 12.1 11.0-15.5 % Platelet Count 662 H 130-400 K/uL Mean Platelet Volume 8.7 7.5-10.5 fL Immature Granulocyte % (Auto) 1.3 H 0-1 % Neutrophils (%) (Auto) 81.7 H 40.0-77.0 % Lymphocytes (%) (Auto) 10.4 L 21.0-51.0 % Monocytes (%) (Auto) 6.2 3.0-13.0 % Eosinophils (%) (Auto) 0.1 0.0-8.0 % Basophils (%) (Auto) 0.3 0.0-5.0 % Neutrophils # (Auto) 14.4 H 1.8-7.7 K/uL Lymphocytes # (Auto) 1.8 1.0-4.8 K/uL Monocytes # (Auto) 1.1 H 0.1-1.0 K/uL Eosinophils # (Auto) 0.02 0.00-0.70 K/uL Basophils # (Auto) 0.05 0.00-0.20 K/uL Absolute Immature Granulocyte (auto 0.23 0-1 K/uL Nucleated Red Blood Cells 0.0 0.0-0.19 % Chemistry Labs: Test 07/21/25 03:58 07/20/25 13:01 Range/Units Sodium Level 126 L 136-145 mmol/L Potassium Level 2.9 *L 3.5-5.1 mmol/L Chloride Level 94 L 101-111 mmol/L Carbon Dioxide Level 25 21-32 mmol/L Blood Urea Nitrogen 3 L 7-18 mg/dL Creatinine 0.5 0.5-1.0 mg/dL Glomerular Filtration Rate Calc 109 >90 mL/min Random Glucose 96 70-105 mg/dL Total Calcium 7.4 L 8.5-10.1 mg/dL Magnesium Level 1.90 1.80-2.40 mg/dL Total Bilirubin 0.3 0.2-1.0 mg/dL Aspartate Amino Transf (AST/SGOT) 18 10-37 U/L Alanine Aminotransferase (ALT/SGPT) 23 12-78 U/L Alkaline Phosphatase 96 50-136 U/L Total Protein 5.4 L 6.0-8.3 g/dL Albumin 1.5 L 3.5-5.0 g/dL CA 19-9 Antigen 6 0-35 U/mL CA 125 Antigen 23.5 0.0-38.1 U/mL Diagnostics / Radiology: [Copy/Paste Echos/Imaging Report here] Impression and Plan: Clinically, patient is doing better regarding her abdominal distention Patient is scheduled to have CT scan done today as ordered by hospitalist Continue strict monitoring of output from percutaneous drain Continue with IV fluids and IV antibiotics Repeat labs in a.m. Continue with conservative management Surgical team will continue to follow Dr. Lou updated on patient's status Surgical Case discussed with supervising physician Plan of care was formulated and agreed upon We appreciate the hospitalist team for allowing us to participate in this patient's care Greater than 45 minutes spent examining patient, reviewing chart and working on documentation ] ATTESTATION BY PHYSICIAN I have seen and examined the patient. I reviewed the documentation, medical decision making, and treatment plan as noted by the mid-level provider above. I agree with the findings and plan of care. MD ROYCE BLOCK LETICIA A [facility] Jul 21, 2025 16:03
[2025-07-21] MEDS: SODIUM CHLORIDE 1,000 MG TAB PO SCH (16:46)
--- NOTE | 2025-07-21 20:02 | PN ---
[facility] PROGRESS NOTE Date of Service: Jul 21, 2025 Time of Service: 19:51 History of Present Illness Ms. Dowell is a 59-year-old female that was seen and examined today on 07/17/2025. Patient is a good historian of personal health. Patient states that she came to the emergency department with a chief complaint of abdominal pain. Onset was two weeks ago. Location is left lower quadrant. Duration is constant. Character is described as bloating. There was no alleviating factors. There was no aggravating factors. Patient reports associated constipation. Patient reports that she has a pending colonoscopy for this same abdominal discomfort with Dr. Oconnor that was scheduled on 07/19/25. Patient was taking Linzess for the last four days and only had soft GI foods and liquids at home during this time. Patient reports her last meal being a banana that started the pain, which has progressed to this point. Patients says she has lost significant weight, 40 lbs since her divorce intentionally, due to poor diet mainly including tuna and salads. Patient has history of similar pain in the LLQ of abdomen which resolved spontaneously in few hours. Patient has a chronic history of constipation. Patient never underwent colonoscopy. She has family history of Carcinoid tumor and recurrent diverticulitis in first degree relatives. Today in the emergency department WBCs 23.0, left shift neutrophils 83%, potassium 2.5, chloride 81, sodium 120, no urinalysis has been collected or sent to lab, CT of abdomen and pelvis shows diverticulitis with two abscesses. Emergency room physician contacted general surgery on-call, Dr. Lou who requested patient be admitted under hospitalist service. Additionally patient presented with a heart rate of 91 beats per minute, together with WBCs of 23.0 and identified source of infection being gastrointestinal patient met clinical sepsis criteria. SUBJECTIVE: 07/18/2025: Patient was evaluated in ED 03. Patient presented to the ED with acute abdominal pain the left lower quadrant, 8/10 in intensity with associated with bloating. Patient has chronic constipation and has been following Dr. Oconnor for evaluation with colonoscopy. Patient had poor intake in the preceding days and was using Linzess in the last 4 days. Patient had a solid bowel movement this morning and is passing flatus. Patient is kept NPO and is started on IV NS at 100 ml/hr, replacing her potassium and Zosyn was started. Labs remarkable for severe hyponatremia, hypokalemia, hypochloremia, and metabolic alkalosis. We will hydrate her judiciously and monitor her electrolytes closely. CT abdomen is remarkable for acute diverticulitis with abscesses in sigmoid colon and rectum. Pending surgery evaluation. 07/19/2025: Patient was evaluated in room 406. Patient was hemodynamically stable and had no acute events overnight. The nurse reported that patient had a rash and itching sensation on the face and neck after being on Zosyn, has a history of hives to cefazolin. On-call nurse practitioner discontinued Zosyn and put her on levofloxacin and metronidazole. Surgery evaluated patient and recommended percutaneous drainage of abscesses by the interventional radiologist. Patient still has residual pain, 5/10 and tenderness to palpation, but denies fevers, chills, nausea, vomiting. Her serum sodium was 130 this morning. We will continue cautious hydration. ID consult has also been placed and we will follow their recommendations. 07/20/2025: Patient was evaluated in room 406. Patient is hemodynamically stable and had no acute events overnight. Patient underwent percutaneous drainage of diverticular abscess yesterday, samples were sent for cultures. Output today was 70 cc purulent drainage. Patient complained of abdominal distention and had not had any bowel movement since admission. Patient is tolerating clear liquid diet without nausea or vomiting. Her serum sodium dropped to 125 this morning and potassium was 3. We will continue gentle hydration and potassium replacement as per protocol. We encouraged the patient to ambulate in the hallways and also ordered physical therapy. Surgical team ordered KUB to rule out ileus versus obstruction. They also added metoc lopramide 10 mg and Mylicon. Malignancy workup with CA 125, CA 19 9 were also ordered by primary team. 07/21/2025: Patient is seen in the room 406. KUB x-ray revealed markedly dilated large bowel loops measuring 9.[address] scan of the abdomen pelvis without contrast for further analysis. Discontinued metoclopramide. CT chest is ordered. Patient's sodium is low, salt tablets 1 g t.i.d. added. Urinalysis and the urine electrolytes were ordered. Albumin was added due to the suspicion of Cancer and protein energy malnutrition Urine [id number], potassium 22- so a case of SIADH. Urine protein to creatinine ratio is pending. REVIEW OF SYSTEMS CONSTITUTIONAL: Denies fevers, chills, or night sweats. Reports intentional weight loss of 40 lbs. NEUROLOGICAL: Denies headache, motor weakness, sensory deficit, vertigo/spinning sensation, gait abnormalities, or tremors. ENT: No hearing loss, otalgia, otorrhea, rhinitis, rhinorrhea, hoarseness, or sore throat. CARDIOVASCULAR: Denies any exertional angina, dyspnea on exertion, orthopnea, paroxysmal nocturnal dyspnea, palpitations, life-threatening arrhythmias, claudication. PULMONARY: Denies any shortness of breath, cough, phlegm/sputum, hemoptysis, pleuritic chest pain. SLEEP: Denies morning headaches, daytime somnolence or napping. Denies difficulty falling asleep, staying asleep, waking from sleep. Denies knowledge of snoring. GASTROINTESTINAL: Denies any type of dysphagia to either liquids or solids. Denies nausea, vomiting, pyrosis, early satiety. Admits to chronic constipation and LLQ pain, and distention GENITOURINARY: Denies frequency, urgency, nocturia, hematuria or incontinence (Storage/Irritative symptoms.) PHYSICAL EXAM GENERAL APPEARANCE: The patient is awake, alert, and oriented, in no acute cardiopulmonary distress. NEUROLOGICAL: Cranial nerves II-XII grossly intact. Motor is 5/5 in bilateral upper and lower extremities proximal to distal. No sensory deficits. HEENT: Face is symmetric. Pupils are equal and reactive. Extraocular movements are intact. NECK: Supple. No JVD. No thyromegaly. No submental, submandibular, pre-/postauricular, occipital or supraclavicular lymphadenopathy. CHEST: Normal chest expansion. No Telemetry. LUNGS: Absence of any rales, rhonchi or any wheezing. CARDIOVASCULAR: Regular. S1 and S2 normal. No appreciable rubs, murmurs or gallops. ABDOMEN: Soft, tender to palpation in the LLQ, distended. Left lower quadrant drainage catheter with bag in position. There is no rebound, voluntary guarding, or rigidity. : Deferred. No [place]. EXTREMITIES: Non-edematous and not cyanotic. No clubbing. Good capillary refill. SKIN: No skin breakdown. Vital Signs (last 8hr) Date Time Temp Pulse Resp B/P (MAP) Pulse Ox O2 Delivery O2 Flow Rate FiO2 07/21/25 16:00 98.4 79 16 145/86 95 Room Air 21 07/21/25 12:00 98.2 75 16 147/91 95 Room Air 21 LABS: Laboratory: Test 07/21/25 12:48 07/21/25 03:58 07/20/25 13:01 Range/Units Urine Random Sodium 103 40-220 mmol/l Urine Random Potassium 22 L 25-125 mmol/L Urine Random Chloride 147 110-250 mmol/L White Blood Count 17.6 #H 4.8-10.8 K/uL Red Blood Count 3.66 L 4.00-5.50 MIL/uL Hemoglobin 10.4 L 12.0-16.0 g/dL Hematocrit 30.9 L 36-48 % Mean Corpuscular Volume 84.4 79-99 fL Mean Corpuscular Hemoglobin 28.4 27.0-33.0 pg Mean Corpuscular Hemoglobin Concent 33.7 32.0-36.0 g/dL Red Cell Distribution Width 12.1 11.0-15.5 % Platelet Count 662 H 130-400 K/uL Mean Platelet Volume 8.7 7.5-10.5 fL Immature Granulocyte % (Auto) 1.3 H 0-1 % Neutrophils (%) (Auto) 81.7 H 40.0-77.0 % Lymphocytes (%) (Auto) 10.4 L 21.0-51.0 % Monocytes (%) (Auto) 6.2 3.0-13.0 % Eosinophils (%) (Auto) 0.1 0.0-8.0 % Basophils (%) (Auto) 0.3 0.0-5.0 % Neutrophils # (Auto) 14.4 H 1.8-7.7 K/uL Lymphocytes # (Auto) 1.8 1.0-4.8 K/uL Monocytes # (Auto) 1.1 H 0.1-1.0 K/uL Eosinophils # (Auto) 0.02 0.00-0.70 K/uL Basophils # (Auto) 0.05 0.00-0.20 K/uL Absolute Immature Granulocyte (auto 0.23 0-1 K/uL Nucleated Red Blood Cells 0.0 0.0-0.19 % Sodium Level 126 L 136-145 mmol/L Potassium Level 2.9 *L 3.5-5.1 mmol/L Chloride Level 94 L 101-111 mmol/L Carbon Dioxide Level 25 21-32 mmol/L Blood Urea Nitrogen 3 L 7-18 mg/dL Creatinine 0.5 0.5-1.0 mg/dL Glomerular Filtration Rate Calc 109 >90 mL/min Random Glucose 96 70-105 mg/dL Total Calcium 7.4 L 8.5-10.1 mg/dL Magnesium Level 1.90 1.80-2.40 mg/dL Total Bilirubin 0.3 0.2-1.0 mg/dL Aspartate Amino Transf (AST/SGOT) 18 10-37 U/L Alanine Aminotransferase (ALT/SGPT) 23 12-78 U/L Alkaline Phosphatase 96 50-136 U/L Total Protein 5.4 L 6.0-8.3 g/dL Albumin 1.5 L 3.5-5.0 g/dL CA 19-9 Antigen 6 0-35 U/mL CA 125 Antigen 23.5 0.0-38.1 U/mL Current Medications Medications (Trade) Dose Ordered Sig/Heather Route PRN Reason Start Time Stop Time Status Last Admin Dose Admin Acetaminophen (TYLenol 325MG TAB) 650 mg Q6H PRN PO TEMPERATURE GREATER THAN 101.5 07/17/25 22:00 08/16/25 21:59 Acetaminophen (TYLenol 500MG TAB) 500 mg Q4H PRN PO MILD PAIN (1-3) 07/18/25 10:30 08/17/25 10:29 07/21/25 00:37 500 MG Albumin Human 250 ml @ 0 mls/hr AD IV 07/21/25 14:30 07/31/25 14:29 Diphenhydramine HCl (BENAdryl CAP) 25 mg Q8H PRN PO INSOMNIA 07/20/25 11:00 08/19/25 10:59 07/21/25 18:33 25 MG Famotidine (Pepcid 20mg Vial) 20 mg DAILY IV 07/18/25 09:00 08/17/25 08:59 07/21/25 08:33 20 MG Hydralazine HCl (APRESOLine 20MG INJ) 10 mg Q6H PRN IV For:SBP above 160;DBP above 90 07/17/25 22:00 08/16/25 21:59 Lactated Ringer's 1,000 ml @ 75 mls/hr Q32U18H IV 07/17/25 22:00 07/17/25 22:07 DC 07/17/25 21:56 75 MLS/HR Lactulose (Constulose 20gm/ 30ml Udcup) 20 gm BID PRN PO CONSTIPATION 07/20/25 17:00 08/19/25 16:59 Levofloxacin/ Dextrose (LEvaquIN 750 MG/ D5W 150 ML) 750 mg Q24H IV 07/19/25 05:00 07/29/25 04:59 07/21/25 05:00 750 MG Magnesium Sulfate 50 ml @ 0 mls/hr PROTOCOL PRN IV h 07/17/25 22:30 07/20/25 21:08 DC 07/18/25 02:31 25 MLS/HR Metoclopramide HCl (regLAN 10MG IV) 10 mg ACHS IVP 07/20/25 21:00 07/21/25 14:18 DC 07/21/25 12:24 10 MG Metronidazole/ Sodium Chloride (flaGYL) 500 mg Q8H IV 07/19/25 07:00 07/29/25 06:59 07/21/25 14:16 500 MG Morphine Sulfate (morPHINE 4MG SYG) 4 mg Q4H PRN IVP SEVERE PAIN (7-10) 07/17/25 22:00 07/24/25 21:59 07/21/25 04:53 4 MG Ondansetron HCl (zoFRAN 4MG INJ) 4 mg Q6H PRN IV NAUSEA/VOMITING 07/17/25 22:00 08/16/25 21:59 07/19/25 00:47 4 MG Pharmacy Profile Note (Pharmacy Communication) Abnormanl QT interval Q8H MISC 07/20/25 19:00 07/27/25 18:59 Piperacillin Sod/ Tazobactam Sod (Zosyn 3.375gm+NS 50ml) 3.375 gm Q8H IV 07/17/25 22:00 07/19/25 02:04 DC 07/18/25 21:47 3.375 GM Potassium Chloride 100 ml @ 50 mls/hr AD PRN IV POTASSIUM PROTOCOL 07/17/25 22:30 08/16/25 22:29 07/21/25 14:16 50 MLS/HR Simethicone (Mylicon) 80 mg PCHS PO 07/20/25 18:00 08/19/25 17:59 07/21/25 16:45 80 MG Sodium Chloride 1,000 ml @ 125 mls/hr Q8H IV 07/17/25 22:30 07/21/25 16:08 DC 07/21/25 14:16 125 MLS/HR Sodium Chloride (NS Flush 10ml) 10 ml DAILY FLUSH 07/21/25 09:00 08/20/25 08:59 Sodium Chloride (Sodium Chloride) 1,000 mg BID PO 07/21/25 21:00 07/21/25 15:57 DC Sodium Chloride (Sodium Chloride) 1,000 mg TID PO 07/21/25 16:00 08/20/25 20:59 07/21/25 16:46 1,000 MG DIAGNOSTICS / RADIOLOGY: [address] [address] IMAGING REPORT Signed PATIENT: KIMBERLYN DOWELL MR#: [id number] : 1965 SEX: F AGE: 59 LOCATION: [facility] ORDER 46 STATUS: ADM IN REPORT#: [id number] SERVICE 41 REASON: abdominal distention ORDERING PHYSICIAN: KIRSTY CRANE PROCEDURE: ABD 1VW - ABD 1VW EXAM: CR Abdomen, 2 View. CLINICAL HISTORY: abdominal distention COMPARISON: CT images dated July 17, 2025. FINDINGS: Markedly dilated large bowel loops warranting further characterization with CT imaging of the abdomen and pelvis. These measure up to 9.1 cm on today's examination, increased from the prior examination. IMPRESSION: 1. Markedly dilated large bowel loops measuring up to 9.1 cm, increased from prior examination. Further characterization with CT imaging of the abdomen and pelvis is warranted. /[place] DICTATED BY: ANUM JARVIS Jr., MD DATE: 07/20/251833 ELECTRONICALLY SIGNED BY: ANUM JARVIS Jr., MD DATE: 07/20/251833 ASSESSMENT: Sepsis due to Acute sigmoid diverticulitis complicated by abscess, status post percutaneous drainage of pelvic abscess POA Leukocytosis, POA Suspected ileus versus obstruction Severe hyponatremia, hypovolemic, POA Hypokalemia, POA Chronic constipation, POA History of colonic diverticulosis, POA Protein calorie malnutrition, POA PLAN: Sepsis due to Acute sigmoid diverticulitis complicated by abscess, status post percutaneous drainage of pelvic abscess * Patient vitals on presentation 125/71, heart rate 91, with elevated leukocytes 23k in the light of diverticulitis meets sepsis criteria * CT abdomen confirmed acute sigmoid colon diverticulitis complicated by two abbesses, one along the sigmoid colon (5.8 x 6.9 x 5.1 cm) and one along the rectum (7.6 x 6.1 x 6.6 cm) * Continue IV 0.9 NS @ 125 ml/hr * Patient had rash and itching to the face after Zosyn, discontinue * Continue IV metronidazole 500 mg Q8 and IV levofloxacin 750 mg Q 24 * Surgery recommended percutaneous drainage of the abscesses by IR, no surgical intervention at this moment * IR performed percutaneous drainage of pelvic abscess with placement of left lower quadrant drainage catheter * Abscess sample were sent for cultures, showed growth of Gram-positive cocci, follow up with final culture results * Monitor daily output from left lower quadrant drain * ID recommended continue same antibiotics * PRN Morphine 4 mg for severe pain and Tylenol 500 mg for mild pain * Repeat labs in the morning * WBC count 13.6-17.6 * KUB x-ray- markedly dilated large balls up to 9.1 cm * Further CT scan is ordered * Discontinued metoclopramide Severe hyponatremia, hypovolemic * On presentation Na was 120, asymptomatic and was dehydrated in the preceding days * Today serum sodium is 125 and we will continue judicious hydration * Urine osmolality 204, urine sodium < 13, glucose 98 and triglycerides 65 * Pending serum osmolality, however picture is consistent with hypovolemic hyponatremia * Increase IV fluids, 0.9 NS @ 125 ml/hr * Check BMP Q6 hrs * Neuro checks daily and limit sodium correction to <8 meq/l in 24 hours. * Salt tablet 1000 mg t.i.d. * Urine electrolytes-[id number], potassium 22- suspected SIADH * Urine protein to creatinine ratio still pending Protein energy malnutrition * Patient's weight is 49.9 kg, BMI 21.5 and serum albumin 2 * Muscle atrophy noted BUN low, 6 * Patient significant amount of weight intentionally, 40 lb * Continue clear liquid diet * Diet evaluation placed for recommendations post discharge * Albumin added Suspected ileus versus obstruction * Patient last bowel movement was on the day of admission and has not had one since * Has diffuse abdominal distention, however passing flatus, and tolerating clear liquid diet * Surgical team ordered KUB to rule out ileus versus obstruction * Encouraged patient to ambulate in the hallways and ordered physical therapy * Lactulose 20 mg p.o. b.i.d. PRN ordered by surgical team GI prophylaxis with Famotidine and DVT prophylaxis with SCDs. ATTESTATION BY PHYSICIAN I have seen and examined the patient. I reviewed the documentation, medical decision making, and treatment plan as noted by the resident physician above. I agree with the findings and plan of care. RICHARD WANG MD, HARSHA MD Jul 21, 2025 20:02
[2025-07-21] MEDS ORDERED: SODIUM CHLORIDE 1,000 MG TAB PO SCH (21:00)
[2025-07-21] MEDS: 0.9%NACL 10ML VIAL MISC SCH (21:58)
[2025-07-21] MEDS: ALBUMIN (HUMAN) 5% 250 ML IV SCH (22:49)
--- NOTE | 2025-07-21 22:50 | PN ---
INFECTIOUS DISEASE PROGRESS NOTE Date of Service: Jul 21, 2025 SUBJECTIVE: Patient was seen and examined at bedside in room 406. Patient is status post percutaneous drain placement on 07/19/2025. The preliminary drainage cultures is growing Gram-negative rods. WBC still elevated at 17.6. Patient will continue on levofloxacin and metronidazole and we will follow up on the final culture results. Patient was updated with these findings and plan. PHYSICAL EXAM EYES: Anicteric. Pupils equal and reactive. HENT: No oral thrush seen, moist Oral mucosa. NECK: Supple, no JVD or thyromegaly. LUNGS: Good air entry. No rales, no rhonchi. CARDIOVASCULAR: S1, S2 regular. No murmur heard. ABDOMEN: Soft, bowel sounds present. Percutaneous drain placement. CENTRAL NERVOUS SYSTEM: Awake, alert, oriented x 3. SKIN: No rashes, no swelling. LYMPHATICS: No peripheral lymphadenopathy MUSCULOSKELETAL: No joint swelling, erythema or tenderness. EXTREMITIES: No cyanosis or clubbing BACK: No deformity, no pressure ulcer. GENITOURINARY: No dysuria or hematuria. Vital Sign (Last 12 Hours) 07/21/25 07/21/25 07/21/25 12:00 16:00 19:30 Temp 98.2 98.4 98.4 Pulse 75 79 79 Resp 16 16 18 B/P (MAP) 147/91 145/86 152/80 Pulse Ox 95 95 96 O2 Delivery Room Air Room Air Room Air FiO2 21 21 21 Intake & Output (last 24hrs) 07/20/25 07/20/25 07/21/25 15:00 23:00 07:00 Intake Total 300.0 ml 1175.0 ml 667.0 ml Output Total 370 ml 200 ml Balance 300.0 ml 805.0 ml 467.0 ml LABS: Laboratory: Test 07/21/25 20:20 07/21/25 12:48 07/21/25 03:58 07/20/25 13:01 Range/Units Potassium Level 2.9 *L 3.5-5.1 mmol/L Urine Random Sodium 103 40-220 mmol/l Urine Random Potassium 22 L 25-125 mmol/L Urine Random Chloride 147 110-250 mmol/L White Blood Count 17.6 #H 4.8-10.8 K/uL Red Blood Count 3.66 L 4.00-5.50 MIL/uL Hemoglobin 10.4 L 12.0-16.0 g/dL Hematocrit 30.9 L 36-48 % Mean Corpuscular Volume 84.4 79-99 fL Mean Corpuscular Hemoglobin 28.4 27.0-33.0 pg Mean Corpuscular Hemoglobin Concent 33.7 32.0-36.0 g/dL Red Cell Distribution Width 12.1 11.0-15.5 % Platelet Count 662 H 130-400 K/uL Mean Platelet Volume 8.7 7.5-10.5 fL Immature Granulocyte % (Auto) 1.3 H 0-1 % Neutrophils (%) (Auto) 81.7 H 40.0-77.0 % Lymphocytes (%) (Auto) 10.4 L 21.0-51.0 % Monocytes (%) (Auto) 6.2 3.0-13.0 % Eosinophils (%) (Auto) 0.1 0.0-8.0 % Basophils (%) (Auto) 0.3 0.0-5.0 % Neutrophils # (Auto) 14.4 H 1.8-7.7 K/uL Lymphocytes # (Auto) 1.8 1.0-4.8 K/uL Monocytes # (Auto) 1.1 H 0.1-1.0 K/uL Eosinophils # (Auto) 0.02 0.00-0.70 K/uL Basophils # (Auto) 0.05 0.00-0.20 K/uL Absolute Immature Granulocyte (auto 0.23 0-1 K/uL Nucleated Red Blood Cells 0.0 0.0-0.19 % Sodium Level 126 L 136-145 mmol/L Chloride Level 94 L 101-111 mmol/L Carbon Dioxide Level 25 21-32 mmol/L Blood Urea Nitrogen 3 L 7-18 mg/dL Creatinine 0.5 0.5-1.0 mg/dL Glomerular Filtration Rate Calc 109 >90 mL/min Random Glucose 96 70-105 mg/dL Total Calcium 7.4 L 8.5-10.1 mg/dL Magnesium Level 1.90 1.80-2.40 mg/dL Total Bilirubin 0.3 0.2-1.0 mg/dL Aspartate Amino Transf (AST/SGOT) 18 10-37 U/L Alanine Aminotransferase (ALT/SGPT) 23 12-78 U/L Alkaline Phosphatase 96 50-136 U/L Total Protein 5.4 L 6.0-8.3 g/dL Albumin 1.5 L 3.5-5.0 g/dL CA 19-9 Antigen 6 0-35 U/mL CA 125 Antigen 23.5 0.0-38.1 U/mL Diagnostics/Radiology: PATIENT: KIMBERLYN ALICEA ACCT: [id number] LOC: [facility] U: [id number] AGE/SX: 59/F ROOM: [facility] RE07/17/[address]: NOREEN DAHL MD : 1965 BED: 1 DIS: STATUS: ADM IN TLOC: SPEC: [id number] EMRE: 07/19/25 STATUS: RES REQ: [id number] RECD: 07/19/[address] [facility] [address]: IVÁN BOLES MD SOURCE: [facility] ENTR: 07/19/[address]: HAYDEE MOULTON MD SPDESC: OTHER NOREEN DAHL MD, UBALDO MD SILHY, RAQUEL M MD ORDERED: BODY FLUID CULT COMMENTS: Comment: PELVIC ABSCESS FLUID Has specimen been collected/obtained? Y Procedure Result Sree Date-Time GRAM STAIN Final 07/19/25-2042 GRAM POSITIVE COCCI SEEN 4+ WHITE BLOOD CELLS REPORT BODY FLUID CULT Preliminary 07/21/25-1024 MRL COLONY DESCRIPTION: REPORT 1: 1+ GRAM NEGATIVE RODS IDENTIFICATION AND SENSITIVITY TO FOLLOW ASSESSMENT: Diverticulitis with perforation and abscess, status post percutaneous drain placement. Abdominal pain. Leukocytosis. Hypokalemia. Hyponatremia. Chronic tobacco use. PLAN: Continue levofloxacin. Continue metronidazole. Continue Percutaneous drain care. Continue pain management. Will follow up on the final culture results. This case was reviewed and discussed with my supervising physician Dr. Moulton and the above assessment and plan was formulated and agreed upon. ATTESTATION BY PHYSICIAN I have seen and examined the patient. I reviewed the documentation, medical decision making, and treatment plan as noted by the mid-level provider above. I agree with the findings and plan of care. HAYDEE MOULTON MD, MIRTA L [facility] Jul 21, 2025 22:50
[2025-07-22] VITALS (7 sets, daily range): BP systolic 120–141; BP diastolic 73–86; PULSE 66–84; RESP 17–18; TEMP 98–98.5; O2SAT 97
[2025-07-22 03:17] LABS: ADD UA MICROSCOPIC YES; APPEARANCE,URINE CLEAR (CLEAR); GLUCOSE, URINE (UA) NEGATIVE (NEGATIVE); LEUKOCYTE ESTERASE ,URINE NEGATIVE Leu/uL (NEGATIVE); NITRATE,URINE NEGATIVE (NEGATIVE); OCCULT BLOOD,URINE SMALL (NEGATIVE)
[2025-07-22 03:18] LABS: SQUAMOUS EPITHELIAL CELL,UR RARE /HPF (0-2)
[2025-07-22 03:19] LABS: CREATININE,URINE RANDOM 17.15 mg/dL (30-135)
[2025-07-22 05:26] LABS: NUCLEATED RED BLOOD CELLS 0.0 % (0.0-0.19); PLATELET COUNT (AUTO) 637.0 K/uL (130-400); RED BLOOD CELL COUNT(AUTO) 3.66 MIL/uL (4.00-5.50); RED CELL DISTRIBUTION WIDTH 12.1 % (11.0-15.5); WHITE BLOOD COUNT (AUTO) 21.2 K/uL (4.8-10.8)
[2025-07-22 05:58] LABS: ASPARTATE AMINOTRANSFERASE 17.0 U/L (10-37); CREATININE 0.4 mg/dL (0.5-1.0); GLOMERULAR FILTR. RATE CALC 115.0 mL/min (>90); GLUCOSE,RANDOM 95.0 mg/dL (70-105); SODIUM SERUM 124.0 mmol/L (136-145); TOTAL PROTEIN, SERUM 5.6 g/dL (6.0-8.3); UREA NITROGEN, BLOOD 4.0 mg/dL (7-18)
--- NOTE | 2025-07-22 07:54 | HMCIMG ---
EXAM: CR Abdomen, 1 view. CLINICAL HISTORY: SBO versus ileus. COMPARISON: Prior abdominal radiograph dated July 20, 2025. FINDINGS: Significant gaseous distention of the large bowel loops. A pigtail catheter is identified in the pelvis on the left side may represent changes of ileus. Surgical clips in the right upper quadrant. 6 No free air is evident. No abnormal calcification. No aggressive appearing osseous lesion. IMPRESSION: Significant gaseous distention of the large bowel loops. A pigtail catheter is identified in the pelvis on the left side may represent changes of ileus. Surgical clips in the right upper quadrant. Compared to the prior study, there is no significant interval change. /[place]
[2025-07-22] MEDS ORDERED: PHARMACY COMMUNICATION MISC SCH (08:30)
--- NOTE | 2025-07-22 08:43 | PN ---
INFECTIOUS DISEASE PROGRESS NOTE Date of Service: Jul 22, 2025 SUBJECTIVE: Patient was seen and examined at bedside in room 406. Patient is status post percutaneous drain placement on 07/19/2025. The final drainage cultures results came back positive for ESBL, E coli and Pseudomonas aeruginosa. WBC remains elevated at 21.2. We will start patient on Meropenem 1 g IV every 8 hours and discontinue levofloxacin. We will continue to follow patient's care. PHYSICAL EXAM EYES: Anicteric. Pupils equal and reactive. HENT: No oral thrush seen, moist Oral mucosa. NECK: Supple, no JVD or thyromegaly. LUNGS: Good air entry. No rales, no rhonchi. CARDIOVASCULAR: S1, S2 regular. No murmur heard. ABDOMEN: Soft, bowel sounds present. Percutaneous drain placement. CENTRAL NERVOUS SYSTEM: Awake, alert, oriented x 3. SKIN: No rashes, no swelling. LYMPHATICS: No peripheral lymphadenopathy MUSCULOSKELETAL: No joint swelling, erythema or tenderness. EXTREMITIES: No cyanosis or clubbing BACK: No deformity, no pressure ulcer. GENITOURINARY: No dysuria or hematuria. Vital Sign (Last 12 Hours) 07/21/25 07/22/25 07/22/25 23:55 04:14 07:50 Temp 99.0 98.4 98.1 Pulse 86 76 77 Resp 17 18 17 B/P (MAP) 147/80 141/79 136/77 Pulse Ox 96 96 94 O2 Delivery Room Air Room Air Room Air FiO2 21 21 Intake & Output (last 24hrs) 07/21/25 07/21/25 07/22/25 15:00 23:00 07:00 Intake Total 100.0 ml 1000 ml Output Total 400 ml 450 ml 400 ml Balance -300.0 ml 550 ml -400 ml LABS: Laboratory: Test 07/22/25 04:59 07/21/25 12:48 07/21/25 03:58 07/21/25 02:55 Range/Units White Blood Count 21.2 H 4.8-10.8 K/uL Red Blood Count 3.66 L 4.00-5.50 MIL/uL Hemoglobin 10.5 L 12.0-16.0 g/dL Hematocrit 30.6 L 36-48 % Mean Corpuscular Volume 83.6 79-99 fL Mean Corpuscular Hemoglobin 28.7 27.0-33.0 pg Mean Corpuscular Hemoglobin Concent 34.3 32.0-36.0 g/dL Red Cell Distribution Width 12.1 11.0-15.5 % Platelet Count 637 H 130-400 K/uL Mean Platelet Volume 8.4 7.5-10.5 fL Nucleated Red Blood Cells 0.0 0.0-0.19 % Sodium Level 124 L 136-145 mmol/L Potassium Level 3.3 L 3.5-5.1 mmol/L Chloride Level 91 L 101-111 mmol/L Carbon Dioxide Level 24 21-32 mmol/L Blood Urea Nitrogen 4 L 7-18 mg/dL Creatinine 0.4 L 0.5-1.0 mg/dL Glomerular Filtration Rate Calc 115 >90 mL/min Random Glucose 95 70-105 mg/dL Total Calcium 7.8 L 8.5-10.1 mg/dL Total Bilirubin 0.4 0.2-1.0 mg/dL Aspartate Amino Transf (AST/SGOT) 17 10-37 U/L Alanine Aminotransferase (ALT/SGPT) 19 12-78 U/L Alkaline Phosphatase 109 50-136 U/L Total Protein 5.6 L 6.0-8.3 g/dL Albumin 1.9 L 3.5-5.0 g/dL Urine Random Sodium 103 40-220 mmol/l Urine Random Potassium 22 L 25-125 mmol/L Urine Random Chloride 147 110-250 mmol/L Immature Granulocyte % (Auto) 1.3 H 0-1 % Neutrophils (%) (Auto) 81.7 H 40.0-77.0 % Lymphocytes (%) (Auto) 10.4 L 21.0-51.0 % Monocytes (%) (Auto) 6.2 3.0-13.0 % Eosinophils (%) (Auto) 0.1 0.0-8.0 % Basophils (%) (Auto) 0.3 0.0-5.0 % Neutrophils # (Auto) 14.4 H 1.8-7.7 K/uL Lymphocytes # (Auto) 1.8 1.0-4.8 K/uL Monocytes # (Auto) 1.1 H 0.1-1.0 K/uL Eosinophils # (Auto) 0.02 0.00-0.70 K/uL Basophils # (Auto) 0.05 0.00-0.20 K/uL Absolute Immature Granulocyte (auto 0.23 0-1 K/uL Magnesium Level 1.90 1.80-2.40 mg/dL Urine Color COLORLESS YELLOW Urine Appearance CLEAR CLEAR Urine pH 6.5 5.0-8.0 Urine Specific Browder 1.004 1.001-1.031 Urine Protein NEGATIVE NEGATIVE mg/dL Urine Glucose (UA) NEGATIVE NEGATIVE mg/dL Urine Ketones 5 H NEGATIVE mg/dL Urine Occult Blood SMALL H NEGATIVE Urine Nitrate NEGATIVE NEGATIVE Urine Bilirubin NEGATIVE NEGATIVE mg/dL Urine Urobilinogen 0.2 0.2-1.0 mg/dL Urine Leukocyte Esterase NEGATIVE NEGATIVE Fidel/uL Urine RBC 2-5 H 0-1 /HPF Urine WBC 0-1 0-1 /HPF Urine Squamous Epithelial Cells RARE 0-2 /HPF Urine Bacteria FEW None Seen /HPF Urine Random Creatinine 17.15 L 30-135 mg/dL Test 07/20/25 13:01 Range/Units CA 19-9 Antigen 6 0-35 U/mL CA 125 Antigen 23.5 0.0-38.1 U/mL DIAGNOSTICS/RADIOLOGY: RUN DATE: 07/22/25 [facility] PAGE 1 RUN TIME: [id number] [place] [address] Department of Laboratories [facility] # [id number] Material Mixer: Percy Galvan DO Specimen Report PATIENT: KIMBERLYN ALICEA ACCT: [id number] LOC: [facility] U: [id number] AGE/SX: 59/F ROOM: 405 RE07/17/[address]: NOREEN DAHL MD : [id number] BED: 1 DIS: STATUS: ADM IN TLOC: SPEC: [id number] EMRE: 07/19/25 STATUS: RES REQ: [id number] RECD: 07/19/[address] [facility] [address]: IVÁN BOLES MD SOURCE: [facility] ENTR: 07/19/[address] [facility] [address]: HAYDEE MOULTON MD [facility]: OTHER NOREEN DAHL MD, UBALDO MD SILHY, RAQUEL M MD ORDERED: BODY FLUID CULT COMMENTS: Comment: PELVIC ABSCESS FLUID Has specimen been collected/obtained? Y Procedure Result Sree Date-Time GRAM STAIN Final 07/19/25-2042 GRAM POSITIVE COCCI SEEN 4+ WHITE BLOOD CELLS REPORT BODY FLUID CULT Preliminary 07/22/25-805 MRL EXTENDED SPECTRUM BETA-LACTAMASE ORGANISM IDENTIFIED. CRITICAL RESULT WAS CALLED BY ELDER RUELAS ON 07/22/25 AT 0804. CRITICAL VALUES WERE READ BACK AND ACKNOWLEDGED BY GARY GREEN ( [facility] ) COLONY DESCRIPTION: REPORT 1: 1+ GRAM NEGATIVE RODS IDENTIFICATION AND SENSITIVITY TO FOLLOW COMMENTS(R): ESBL ESCHERICHIA COLI PSEUDOMONAS AERUGINOSA CONTINUED ON NEXT PAGE RUN DATE: 07/22/25 [facility] PAGE 2 RUN TIME: [id number] [address], [place] [address] Department of Laboratories [facility] # [id number] Material Mixer: Percy Galvan DO Specimen Report SPEC: [id number] PATIENT: KIMBERLYN ALICEA [id number] (Continued) Procedure Result Sree Date-Time REPORT BODY FLUID CULT Preliminary (continued) 07/22/25 E [facility] P. [facility] M.[facility]. RX M.I.C. RX --------- ---- --------- ---- AMPICILLIN >16 R* AZTREONAM >16 ESBL <=4 S CEFAZOLIN >16 R* CEFTAZIDIME 16 ESBL <=1 S CEFTAZIDIME/AVIBACTAM <=8 S <=8 S CEFTRIAXONE >2 ESBL CIPROFLOXACIN >2 R <=0.25 S GENTAMICIN >8 R LEVOFLOXACIN >4 R <=0.5 S TOBRAMYCIN >8 R AMPICILLIN/SULBACTAM 16/8 I MEROPENEM <=1 S <=1 S PIPERACILLIN/TAZOBACTAM <=8 S <=8 S TRIMETHOPRIM/SUFLAMETHOXAZOLE <=2/38 S ASSESSMENT: Diverticulitis with perforation and abscess, s/p percutaneous drain placement on 07/19/2025. Infection with multidrug resistant organism. Abdominal pain. Leukocytosis. Hypokalemia. Hyponatremia. Chronic tobacco use. PLAN: Discontinue levofloxacin. Start Meropenem 1 g IV every 8 hours. Continue metronidazole. Percutaneous drain care. Continue pain management. This case was reviewed and discussed with my supervising physician Dr. Moulton and the above assessment and plan was formulated and agreed upon. ATTESTATION BY PHYSICIAN I have seen and examined the patient. I reviewed the documentation, medical decision making, and treatment plan as noted by the mid-level provider above. I agree with the findings and plan of care. HAYDEE MOULTON MD, MIRTA L [facility] Jul 22, 2025 08:43
--- NOTE | 2025-07-22 09:26 | PN ---
[facility] PROGRESS NOTE Date of Service: Jul 22, 2025 Time of Service: 09:21 History of Present Illness Ms. Dowell is a 59-year-old female that was seen and examined today on 07/17/2025. Patient is a good historian of personal health. Patient states that she came to the emergency department with a chief complaint of abdominal pain. Onset was two weeks ago. Location is left lower quadrant. Duration is constant. Character is described as bloating. There was no alleviating factors. There was no aggravating factors. Patient reports associated constipation. Patient reports that she has a pending colonoscopy for this same abdominal discomfort with Dr. Oconnor that was scheduled on 07/19/25. Patient was taking Linzess for the last four days and only had soft GI foods and liquids at home during this time. Patient reports her last meal being a banana that started the pain, which has progressed to this point. Patients says she has lost significant weight, 40 lbs since her divorce intentionally, due to poor diet mainly including tuna and salads. Patient has history of similar pain in the LLQ of abdomen which resolved spontaneously in few hours. Patient has a chronic history of constipation. Patient never underwent colonoscopy. She has family history of Carcinoid tumor and recurrent diverticulitis in first degree relatives. Today in the emergency department WBCs 23.0, left shift neutrophils 83%, potassium 2.5, chloride 81, sodium 120, no urinalysis has been collected or sent to lab, CT of abdomen and pelvis shows diverticulitis with two abscesses. Emergency room physician contacted general surgery on-call, Dr. Lou who requested patient be admitted under hospitalist service. Additionally patient presented with a heart rate of 91 beats per minute, together with WBCs of 23.0 and identified source of infection being gastrointestinal patient met clinical sepsis criteria. SUBJECTIVE: 07/18/2025: Patient was evaluated in ED 03. Patient presented to the ED with acute abdominal pain the left lower quadrant, 8/10 in intensity with associated with bloating. Patient has chronic constipation and has been following Dr. Oconnor for evaluation with colonoscopy. Patient had poor intake in the preceding days and was using Linzess in the last 4 days. Patient had a solid bowel movement this morning and is passing flatus. Patient is kept NPO and is started on IV NS at 100 ml/hr, replacing her potassium and Zosyn was started. Labs remarkable for severe hyponatremia, hypokalemia, hypochloremia, and metabolic alkalosis. We will hydrate her judiciously and monitor her electrolytes closely. CT abdomen is remarkable for acute diverticulitis with abscesses in sigmoid colon and rectum. Pending surgery evaluation. 07/19/2025: Patient was evaluated in room 406. Patient was hemodynamically stable and had no acute events overnight. The nurse reported that patient had a rash and itching sensation on the face and neck after being on Zosyn, has a hist ory of hives to cefazolin. On-call nurse practitioner discontinued Zosyn and put her on levofloxacin and metronidazole. Surgery evaluated patient and recommended percutaneous drainage of abscesses by the interventional radiologist. Patient still has residual pain, 5/10 and tenderness to palpation, but denies fevers, chills, nausea, vomiting. Her serum sodium was 130 this morning. We will continue cautious hydration. ID consult has also been placed and we will follow their recommendations. 07/20/2025: Patient was evaluated in room 406. Patient is hemodynamically stable and had no acute events overnight. Patient underwent percutaneous drainage of diverticular abscess yesterday, samples were sent for cultures. Output today was 70 cc purulent drainage. Patient complained of abdominal distention and had not had any bowel movement since admission. Patient is tolerating clear liquid diet without nausea or vomiting. Her serum sodium dropped to 125 this morning and potassium was 3. We will continue gentle hydration and potassium replacement as per protocol. We encouraged the patient to ambulate in the hallways and also ordered physical therapy. Surgical team ordered KUB to rule out ileus versus obstruction. They also added meto clopramide 10 mg and Mylicon. Malignancy workup with CA 125, CA 19 9 were also ordered by primary team. 07/21/2025: Patient is seen in the room 406. KUB x-ray revealed markedly dilated large bowel loops measuring 9.[address] scan of the abdomen pelvis without contrast for further analysis. Discontinued metoclopramide. CT chest is ordered. Patient's sodium is low, salt tablets 1 g t.i.d. added. Urinalysis and the urine electrolytes were ordered. Albumin was added due to the suspicion of Cancer and protein energy malnutrition Urine , potassium 22- so a case of SIADH. Urine protein to creatinine ratio is pending. 07/22/2025: Patient is seen and evaluated in room 405, complaining of intractable abdominal pain, primarily in the epigastric region. She was given morphine at 7:48 am for severe pain, with subsequent improvement. On examination, her abdomen is rigid and tender in the epigastric area. Abdominal X-ray showed significant gaseous distension of the large bowel, and the pigtail catheter on the left side is draining pus. She is currently on levofloxacin and metronidazole. Her WBC count is trending up from 17.6 yesterday to 21.2. Sodium is 124mEq/L, potassium 3.3mEq/L, BUN 4mg/dL, and creatinine 0.4mg/dL. CT abdomen without contrast and CT chest reports are pending. Urine protein to creatinine ratio report is also pending. REVIEW OF SYSTEMS CONSTITUTIONAL: Denies fevers, chills, or night sweats. Reports intentional weight loss of 40 lbs. NEUROLOGICAL: Denies headache, motor weakness, sensory deficit, vertigo/spinning sensation, gait abnormalities, or tremors. ENT: No hearing loss, otalgia, otorrhea, rhinitis, rhinorrhea, hoarseness, or s ore throat. CARDIOVASCULAR: Denies any exertional angina, dyspnea on exertion, orthopnea, paroxysmal nocturnal dyspnea, palpitations, life-threatening arrhythmias, claudication. PULMONARY: Denies any shortness of breath, cough, phlegm/sputum, hemoptysis, pleuritic chest pain. SLEEP: Denies morning headaches, daytime somnolence or napping. Denies difficulty falling asleep, staying asleep, waking from sleep. Denies knowledge of snoring. GASTROINTESTINAL: Denies any type of dysphagia to either liquids or solids. Denies nausea, vomiting, pyrosis, early satiety. Admits to chronic constipation and LLQ pain, and distention GENITOURINARY: Denies frequency, urgency, nocturia, hematuria or incontinence (Storage/Irritative symptoms.) PHYSICAL EXAM GENERAL APPEARANCE: The patient is awake, alert, and oriented, in no acute cardiopulmonary distress. NEUROLOGICAL: Cranial nerves II-XII grossly intact. Motor is 5/5 in bilateral upper and lower extremities proximal to distal. No sensory deficits. HEENT: Face is symmetric. Pupils are equal and reactive. Extraocular movements are intact. NECK: Supple. No JVD. No thyromegaly. No submental, submandibular, pre- /postauricular, occipital or supraclavicular lymphadenopathy. CHEST: Normal chest expansion. No Telemetry. LUNGS: Absence of any rales, rhonchi or any wheezing. CARDIOVASCULAR: Regular. S1 and S2 normal. No appreciable rubs, murmurs or gallops. ABDOMEN: Soft, tender to palpation in the LLQ, distended. Left lower quadrant drainage catheter with bag in position. There is no rebound, voluntary guarding, or rigidity. : Deferred. No [place]. EXTREMITIES: Non-edematous and not cyanotic. No clubbing. Good capillary refill. SKIN: No skin breakdown. Vital Signs (last 8hr) Date Time Temp Pulse Resp B/P (MAP) Pulse Ox O2 Delivery O2 Flow Rate FiO2 07/22/25 07:50 98.1 77 17 136/77 94 Room Air 07/22/25 04:14 98.4 76 18 141/79 96 Room Air 21 LABS: Laboratory: Test 07/22/25 08:36 07/22/25 04:59 07/21/25 12:48 07/21/25 03:58 Range/Units Reticulocyte Count (auto) 1.57616 0.42-2.23 % Immature Reticulocyte Fraction 12.70 H 0.18-0.48 % Lactic Acid Level 1.0 0.8-2.5 mmol/L Magnesium Level 1.70 L 1.80-2.40 mg/dL White Blood Count 21.2 H 4.8-10.8 K/uL Red Blood Count 3.66 L 4.00-5.50 MIL/uL Hemoglobin 10.5 L 12.0-16.0 g/dL Hematocrit 30.6 L 36-48 % Mean Corpuscular Volume 83.6 79-99 fL Mean Corpuscular Hemoglobin 28.7 27.0-33.0 pg Mean Corpuscular Hemoglobin Concent 34.3 32.0-36.0 g/dL Red Cell Distribution Width 12.1 11.0-15.5 % Platelet Count 637 H 130-400 K/uL Mean Platelet Volume 8.4 7.5-10.5 fL Nucleated Red Blood Cells 0.0 0.0-0.19 % Sodium Level 124 L 136-145 mmol/L Potassium Level 3.3 L 3.5-5.1 mmol/L Chloride Level 91 L 101-111 mmol/L Carbon Dioxide Level 24 21-32 mmol/L Blood Urea Nitrogen 4 L 7-18 mg/dL Creatinine 0.4 L 0.5-1.0 mg/dL Glomerular Filtration Rate Calc 115 >90 mL/min Random Glucose 95 70-105 mg/dL Total Calcium 7.8 L 8.5-10.1 mg/dL Total Bilirubin 0.4 0.2-1.0 mg/dL Aspartate Amino Transf (AST/SGOT) 17 10-37 U/L Alanine Aminotransferase (ALT/SGPT) 19 12-78 U/L Alkaline Phosphatase 109 50-136 U/L Total Protein 5.6 L 6.0-8.3 g/dL Albumin 1.9 L 3.5-5.0 g/dL Urine Random Sodium 103 40-220 mmol/l Urine Random Potassium 22 L 25-125 mmol/L Urine Random Chloride 147 110-250 mmol/L Immature Granulocyte % (Auto) 1.3 H 0-1 % Neutrophils (%) (Auto) 81.7 H 40.0-77.0 % Lymphocytes (%) (Auto) 10.4 L 21.0-51.0 % Monocytes (%) (Auto) 6.2 3.0-13.0 % Eosinophils (%) (Auto) 0.1 0.0-8.0 % Basophils (%) (Auto) 0.3 0.0-5.0 % Neutrophils # (Auto) 14.4 H 1.8-7.7 K/uL Lymphocytes # (Auto) 1.8 1.0-4.8 K/uL Monocytes # (Auto) 1.1 H 0.1-1.0 K/uL Eosinophils # (Auto) 0.02 0.00-0.70 K/uL Basophils # (Auto) 0.05 0.00-0.20 K/uL Absolute Immature Granulocyte (auto 0.23 0-1 K/uL Test 07/21/25 02:55 07/20/25 13:01 Range/Units Urine Color COLORLESS YELLOW Urine Appearance CLEAR CLEAR Urine pH 6.5 5.0-8.0 Urine Specific [place] 1.004 1.001-1.031 Urine Protein NEGATIVE NEGATIVE mg/dL Urine Glucose (UA) NEGATIVE NEGATIVE mg/dL Urine Ketones 5 H NEGATIVE mg/dL Urine Occult Blood SMALL H NEGATIVE Urine Nitrate NEGATIVE NEGATIVE Urine Bilirubin NEGATIVE NEGATIVE mg/dL Urine Urobilinogen 0.2 0.2-1.0 mg/dL Urine Leukocyte Esterase NEGATIVE NEGATIVE Fidel/uL Urine RBC 2-5 H 0-1 /HPF Urine WBC 0-1 0-1 /HPF Urine Squamous Epithelial Cells RARE 0-2 /HPF Urine Bacteria FEW None Seen /HPF Urine Random Creatinine 17.15 L 30-135 mg/dL CA 19-9 Antigen 6 0-35 U/mL CA 125 Antigen 23.5 0.0-38.1 U/mL Current Medications Medications (Trade) Dose Ordered Sig/Heather Route PRN Reason Start Time Stop Time Status Last Admin Dose Admin Acetaminophen (TYLenol 325MG TAB) 650 mg Q6H PRN PO TEMPERATURE GREATER THAN 101.5 07/17/25 22:00 08/16/25 21:59 Acetaminophen (TYLenol 500MG TAB) 500 mg Q4H PRN PO MILD PAIN (1-3) 07/18/25 10:30 08/17/25 10:29 07/21/25 00:37 500 MG Albumin Human 250 ml @ 0 mls/hr AD IV 07/21/25 14:30 07/22/25 07:19 DC 07/21/25 22:49 60 MLS/HR Diphenhydramine HCl (BENAdryl CAP) 25 mg Q8H PRN PO INSOMNIA 07/20/25 11:00 08/19/25 10:59 07/21/25 18:33 25 MG Famotidine (Pepcid 20mg Vial) 20 mg DAILY IV 07/18/25 09:00 08/17/25 08:59 07/21/25 08:33 20 MG Hydralazine HCl (APRESOLine 20MG INJ) 10 mg Q6H PRN IV For:SBP above 160;DBP above 90 07/17/25 22:00 08/16/25 21:59 Lactated Ringer's 1,000 ml @ 75 mls/hr [id number] IV 07/17/25 22:00 07/17/25 22:07 DC 07/17/25 21:56 75 MLS/HR Lactulose (Constulose 20gm/ 30ml Udcup) 20 gm BID PRN PO CONSTIPATION 07/20/25 17:00 08/19/25 16:59 Levofloxacin/ Dextrose (LEvaquIN 750 MG/ D5W 150 ML) 750 mg Q24H IV 07/19/25 05:00 07/22/25 08:34 DC 07/22/25 04:52 750 MG Magnesium Sulfate 50 ml @ 0 mls/hr PROTOCOL PRN IV h 07/17/25 22:30 07/20/25 21:08 DC 07/18/25 02:31 25 MLS/HR Meropenem (Merrem 1gm) 1 gm Q8H IVPB 07/22/25 09:00 08/01/25 08:59 Metoclopramide HCl (regLAN 10MG IV) 10 mg ACHS IVP 07/20/25 21:00 07/21/25 14:18 DC 07/21/25 12:24 10 MG Metronidazole/ Sodium Chloride (flaGYL) 500 mg Q8H IV 07/19/25 07:00 07/29/25 06:59 07/22/25 06:24 500 MG Morphine Sulfate (morPHINE 4MG SYG) 4 mg Q4H PRN IVP SEVERE PAIN (7-10) 07/17/25 22:00 07/24/25 21:59 07/22/25 07:48 4 MG Ondansetron HCl (zoFRAN 4MG INJ) 4 mg Q6H PRN IV NAUSEA/VOMITING 07/17/25 22:00 08/16/25 21:59 07/19/25 00:47 4 MG Pharmacy Profile Note (Pharmacy Communication) [address] [facility] 07/22/25 08:30 07/22/25 08:34 DC Pharmacy Profile Note (Pharmacy Communication) Abnormanl QT interval Q8H MISC 07/20/25 19:00 07/22/25 07:22 DC Piperacillin Sod/ Tazobactam Sod (Zosyn 3.375gm+NS 50ml) 3.375 gm Q8H IV 07/17/25 22:00 07/19/25 02:04 DC 07/18/25 21:47 3.375 GM Potassium Chloride 100 ml @ 50 mls/hr AD PRN IV POTASSIUM PROTOCOL 07/17/25 22:30 08/16/25 22:29 07/22/25 06:37 50 MLS/HR Simethicone (Mylicon) 80 mg PCHS PO 07/20/25 18:00 08/19/25 17:59 07/21/25 21:18 80 MG Sodium Chloride 1,000 ml @ 125 mls/hr Q8H IV 07/17/25 22:30 07/21/25 16:08 DC 07/21/25 14:16 125 MLS/HR Sodium Chloride (NS Flush 10ml) 10 ml DAILY FLUSH 07/21/25 09:00 07/21/25 21:42 DC Sodium Chloride (NS Flush 10ml) 10 ml DAILY MISC 07/22/25 09:00 08/21/25 08:59 07/21/25 21:58 10 ML Sodium Chloride (Sodium Chloride) 1,000 mg BID PO 07/21/25 21:00 07/21/25 15:57 DC Sodium Chloride (Sodium Chloride) 1,000 mg TID PO 07/21/25 16:00 08/20/25 20:59 07/21/25 21:18 1,000 MG DIAGNOSTICS / RADIOLOGY: [place] [address] IMAGING REPORT Signed PATIENT: KIMBERLYN DOWELL MR#: [id number] : 1965 SEX: F AGE: 59 LOCATION: [facility] ORDER 40 STATUS: ADM IN REPORT#: [id number] SERVICE 35 REASON: ileus follow up ORDERING PHYSICIAN: ITZ SAUNDERS MD PROCEDURE: ABD 1VW - ABD 1VW EXAM: CR Abdomen, 2 View. CLINICAL HISTORY: ileus follow up COMPARISON: 07/22/2025; 6:45 EST FINDINGS: BOWEL: Stable gross gaseous distention of the large bowel loops. A redemonstrated pigtail catheter in the pelvis on the left side. Surgical clips in the right upper quadrant. PERITONEUM/SOFT TISSUES: No free air evident. No pathologic appearing calcification. BONES: No acute osseous abnormality. IMPRESSION: Stable gross gaseous distention of the large bowel loops, consistent with ileus. No significant interval changes. /[place] DICTATED BY: ANUM JARVIS Jr., MD DATE: 07/23/25734 ELECTRONICALLY SIGNED BY: ANUM JARVIS Jr., MD DATE: 07/23/25734 [place] [id number] [place] [id number] IMAGING REPORT Signed PATIENT: KIMBERLYN DOWELL MR#: [id number] : 1965 SEX: F AGE: 59 LOCATION: [facility] ORDER 230 STATUS: ADM IN REPORT#: [id number] SERVICE 06 REASON: SBO vs Ileus ORDERING PHYSICIAN: KIRSTY CRANE PROCEDURE: ABD 1VW - ABD 1VW EXAM: CR Abdomen, 1 view. CLINICAL HISTORY: SBO versus ileus. COMPARISON: Prior abdominal radiograph dated July 20, 2025. FINDINGS: Significant gaseous distention of the large bowel loops. A pigtail catheter is identified in the pelvis on the left side may represent changes of ileus. Surgical clips in the right upper quadrant. 6 No free air is evident. No abnormal calcification. No aggressive appearing osseous lesion. IMPRESSION: Significant gaseous distention of the large bowel loops. A pigtail catheter is identified in the pelvis on the left side may represent changes of ileus. Surgical clips in the right upper quadrant. Compared to the prior study, there is no significant interval change. /[place] DICTATED BY: ANUM JARVIS Jr., MD DATE: 07/22/25853 ELECTRONICALLY SIGNED BY: ANUM JARVIS Jr., MD DATE: 07/22/25853 ASSESSMENT: Sepsis due to Acute sigmoid diverticulitis complicated by abscess, status post percutaneous drainage of pelvic abscess POA Leukocytosis, POA Suspected ileus versus obstruction Severe hyponatremia, hypovolemic, POA Hypokalemia, POA Chronic constipation, POA History of colonic diverticulosis, POA Protein calorie malnutrition, POA PLAN: Sepsis due to Acute sigmoid diverticulitis complicated by abscess, status post percutaneous drainage of pelvic abscess * Patient vitals on presentation 125/71, heart rate 91, with elevated leukocytes 23k in the light of diverticulitis meets sepsis criteria * CT abdomen confirmed acute sigmoid colon diverticulitis complicated by two abbesses, one along the sigmoid colon (5.8 x 6.9 x 5.1 cm) and one along the rectum (7.6 x 6.1 x 6.6 cm) * Continue IV 0.9 NS @ 125 ml/hr * Patient had rash and itching to the face after Zosyn, discontinue * Continue IV metronidazole 500 mg Q8 and IV levofloxacin 750 mg Q 24 * Surgery recommended percutaneous drainage of the abscesses by IR, no surgical intervention at this moment * IR performed percutaneous drainage of pelvic abscess with placement of left lower quadrant drainage catheter * Abscess sample were sent for cultures, showed growth of Gram-positive cocci, follow up with final culture results * Monitor daily output from left lower quadrant drain * ID recommended continue same antibiotics * PRN Morphine 4 mg for severe pain and Tylenol 500 mg for mild pain * Repeat labs in the morning * WBC count 13.6-17.6 * KUB x-ray- markedly dilated large balls up to 9.1 cm * Further CT scan is ordered * Discontinued metoclopramide Severe hyponatremia, hypovolemic * On presentation Na was 120, asymptomatic and was dehydrated in the preceding days * Today serum sodium is 125 and we will continue judicious hydration * Urine osmolality 204, urine sodium < 13, glucose 98 and triglycerides 65 * Pending serum osmolality, however picture is consistent with hypovolemic hyponatremia * Increase IV fluids, 0.9 NS @ 125 ml/hr * Check BMP Q6 hrs * Neuro checks daily and limit sodium correction to <8 meq/l in 24 hours. * Salt tablet 1000 mg t.i.d. * Urine electrolytes-[id number], potassium 22- suspected SIADH * Urine protein to creatinine ratio still pending Protein energy malnutrition * Patient's weight is 49.9 kg, BMI 21.5 and serum albumin 2 * Muscle atrophy noted BUN low, 6 * Patient significant amount of weight intentionally, 40 lb * Continue clear liquid diet * Diet evaluation placed for recommendations post discharge * Albumin added Suspected ileus versus obstruction * Patient last bowel movement was on the day of admission and has not had one since * Has diffuse abdominal distention, however passing flatus, and tolerating clear liquid diet * Surgical team ordered KUB to rule out ileus versus obstruction * Encouraged patient to ambulate in the hallways and ordered physical therapy * Lactulose 20 mg p.o. b.i.d. PRN ordered by surgical team GI prophylaxis with Famotidine and DVT prophylaxis with SCDs. SANTOS BILLINGSLEY MD Jul 22, 2025 09:26
--- NOTE | 2025-07-22 09:32 | HMCIMG ---
EXAMINATION: CT EXAMINATION OF THE CHEST WITHOUT CONTRAST CLINICAL HISTORY: Chronic smoker- rule out cancer. TECHNIQUE: Thin collimated axial CT images of the chest were obtained with sagittal and coronal reformatted images also submitted for interpretation. The total dose length product has been recorded in the electronic medical record. COMPARISON: None. FINDINGS: Central airways are patent. Elevated right diaphragm. Atelectasis of the right lower lobe. Fibroatelectatic bands in both lower lobes. Paraseptal emphysema in both upper lobes. There is no suspicious pulmonary nodule. There is minimal bilateral pleural effusion. No pericardial effusion. The heart size is within normal limits. There are atheromatous wall calcification of the aorta. The ascending aorta measures 3.2 x 3.0 cm. There is no axillary, supraclavicular, or mediastinal lymphadenopathy. Hilar christina stations are inadequately assessed without intravenous contrast. There is no focal thyroid abnormality. There is multilevel mild degenerative spondylosis of the spine. There is no acute osseous abnormality. IMPRESSION: No pulmonary nodules. LUNG RADS 1: Continue annual screening with LDCT. Paraseptal emphysema in both upper lobes. Minimal bilateral pleural effusion. Bibasilar atelectasis. No pulmonary infiltrates. Please see the report for the CT of the abdomen pelvis which is dictated separately. /Nicole
--- NOTE | 2025-07-22 09:40 | HMCIMG ---
EXAMINATION: CT Abdomen and Pelvis without contrast. CLINICAL HISTORY: Suspected ileus TECHNIQUE: Multiple contiguous axial CT images were obtained through the abdomen and pelvis. Coronal and sagittal reconstructions were also obtained. COMPARISON: Prior CT dated 07/17/2025 FINDINGS: Stable hepatic cysts. Stable bilateral renal cortical cysts. The gallbladder is surgically absent. The liver, spleen, pancreas, and adrenal glands appear within normal limits. Dilated descending, transverse, and ascending colon with air-fluid levels. There are sigmoid colon diverticula with wall thickening and associated pericolonic abscess measuring 3.6 x 3.1 cm with pig pigtail catheter in situ ??? interval decrease in size of the abscess. Rest of the bowel loops are normal in caliber. Urinary bladder is well distended with normal wall thickening. Uterus and ovaries are unremarkable. There is no ascites or lymphadenopathy. No acute or suspicious osseous abnormality. There are multilevel mild degenerative spondylotic changes of the spine IMPRESSION: Study noted without intravenous contrast. Dilated descending, transverse, and ascending colon with air-fluid levels. This likely represents ileus. Sigmoid colon diverticula with wall thickening and associated pericolonic abscess with pig tail catheter in situ ??? interval decrease in size of the abscess. Stable hepatic cysts. Stable bilateral renal cortical cysts. /[place]
[2025-07-22 09:47] LABS: % IRON SATURATION 12.7 % (22-44); IRON, SERUM 15.0 mcg/dL (50-170)
[2025-07-22] MEDS: MEROPENEM 1GM 1 GM VIAL IVPB SCH (11:35)
[2025-07-22] MEDS: SPIRONOLACTONE 25 MG TAB PO ONE (12:19)
--- NOTE | 2025-07-22 15:35 | PN ---
This is a 59-year-old female status post percutaneous drain placement for diverticulitis with diverticular abscess Interval history: This 59-year-old female seen in her room resting Patient reports she feels significantly better today Patient is however passing little to no gas Percutaneous drain still with significantly high volume purulent output Cultures have returned for E coli with Pseudomonas Appropriate antibiotics has been adjusted WBCs elevated today at three one with a hemoglobin of 10.5 Patient's vitals remained stable Imaging performed concerning for possible ileus Physical exam General: Awake alert and oriented Heart: Regular rate and rhythm} Lungs: [Clear to auscultation no distress Abdomen: Slight distention with percutaneous drain in place with purulent output Assessment : This is a 59-year-old female with concerns of diverticulitis and diverticular abscess with recent percutaneous drainage and concerns for possible ileus Plan: Patient to continue with the IV fluids and IV antibiotics Patient to remain NPO Patient encouraged to ambulate Repeat KUB tomorrow Surgical team to follow patient closely Nursing to report any further acute events Surgical case has been discussed with my supervising physician in the above plan was formulated and agreed upon We appreciate the hospitalist team for us to participate in patient's care. Greater than 45 minutes of time spent patient, reviewing chart, working on documentation Vitals/Labs Vital Signs Date Time Temp Pulse Resp B/P (MAP) Pulse Ox O2 Delivery O2 Flow Rate FiO2 07/22/25 11:16 98.4 84 18 138/82 95 Room Air 07/22/25 04:14 21 07/21/25 19:14 0 Laboratory Tests 07/21/25 20:20 07/22/25 04:59 Medications Current Medications Pantoprazole Sodium 40 mg ONCE ONCE IVP Last administered on 07/17/25at 13:00; Start 07/17/25 at 13:00; Stop 07/17/25 at 13:02; Status DC Potassium Chloride 100 ml @ 100 mls/hr ONCE ONCE IV Last administered on 07/17/25at 15:36; Start 07/17/25 at 14:00; Stop 07/17/25 at 14:59; Status DC Potassium Bicarbonate 50 meq ONCE ONCE PO Last administered on 07/17/25at 15:35; Start 07/17/25 at 14:00; Stop 07/17/25 at 14:01; Status DC Ceftriaxone Sodium 1 gm ONCE ONCE IVPB Last administered on 07/17/25at 19:32; Start 07/17/25 at 17:00; Stop 07/17/25 at 17:01; Status DC Iohexol 35,000 mg STK-MED ONCE IV; Start 07/17/25 at 17:30; Stop 07/17/25 at 17:30; Status DC Piperacillin Sod/ Tazobactam Sod 3.375 gm ONCE ONCE IV Last administered on 07/17/25at 19:32; Start 07/17/25 at 19:00; Stop 07/17/25 at 19:01; Status DC Lactated Ringer's 1,497 ml @ 499 mls/hr ONCE ONCE IV Last administered on 07/17/25at 21:58; Start 07/17/25 at 22:00; Stop 07/18/25 at 00:59; Status DC Piperacillin Sod/ Tazobactam Sod 3.375 gm Q8H IV Last administered on 07/18/25at 21:47; Start 07/17/25 at 22:00; Stop 07/19/25 at 02:04; Status DC Acetaminophen 650 mg Q6H PRN PO; Start 07/17/25 at 22:00; Stop 08/16/25 at 21:59 Famotidine 20 mg DAILY IV Last administered on 07/21/25at 08:33; Start 07/18/25 at 09:00; Stop 07/22/25 at 11:12; Status DC Hydralazine HCl 10 mg Q6H PRN IV; Start 07/17/25 at 22:00; Stop 08/16/25 at 21:59 Lactated Ringer's 1,000 ml @ 75 mls/hr [id number] IV Last administered on 07/17/25at 21:56; Start 07/17/25 at 22:00; Stop 07/17/25 at 22:07; Status DC Ondansetron HCl 4 mg Q6H PRN IV Last administered on 07/19/25at 00:47; Start 07/17/25 at 22:00; Stop 08/16/25 at 21:59 Morphine Sulfate 4 mg Q4H PRN IVP Last administered on 07/22/25at 07:48; Start 07/17/25 at 22:00; Stop 07/22/25 at 11:12; Status DC Potassium Chloride 100 ml @ 50 mls/hr AD PRN IV Last administered on 07/22/25at 11:40; Start 07/17/25 at 22:30; Stop 08/16/25 at 22:29 Magnesium Sulfate 50 ml @ 0 mls/hr PROTOCOL PRN IV Last administered on 07/18/25at 02:31; Start 07/17/25 at 22:30; Stop 07/20/25 at 21:08; Status DC Sodium Chloride 1,000 ml @ 125 mls/hr Q8H IV Last administered on 07/21/25at 14:16; Start 07/17/25 at 22:30; Stop 07/21/25 at 16:08; Status DC Potassium Chloride 100 ml @ As Directed STK-MED ONCE IV Last administered on 07/18/25at 02:31; Start 07/18/25 at 02:12; Stop 07/18/25 at 02:12; Status DC Acetaminophen 500 mg Q4H PRN PO Last administered on 07/21/25at 00:37; Start 07/18/25 at 10:30; Stop 08/17/25 at 10:29 Levofloxacin/ Dextrose 750 mg Q24H IV Last administered on 07/22/25at 04:52; Start 07/19/25 at 05:00; Stop 07/22/25 at 08:34; Status DC Metronidazole/ Sodium Chloride 500 mg Q8H IV Last administered on 07/22/25at 06:24; Start 07/19/25 at 07:00; Stop 07/22/25 at 11:30; Status DC Diphenhydramine HCl 25 mg ONCE ONCE IV Last administered on 07/19/25at 02:47; Start 07/19/25 at 02:30; Stop 07/19/25 at 02:31; Status DC Midazolam HCl 2 mg STK-MED ONCE .ROUTE Last administered on 07/19/25at 16:22; Start 07/19/25 at 15:19; Stop 07/19/25 at 15:20; Status DC Fentanyl Citrate 100 mcg STK-MED ONCE .ROUTE Last administered on 07/19/25at 16:23; Start 07/19/25 at 15:20; Stop 07/19/25 at 15:20; Status DC Diphenhydramine HCl 25 mg ONCE ONCE PO Last administered on 07/19/25at 22:26; Start 07/19/25 at 22:00; Stop 07/19/25 at 22:15; Status DC Diphenhydramine HCl 25 mg Q8H PRN PO Last administered on 07/21/25at 18:33; Start 07/20/25 at 11:00; Stop 07/22/25 at 11:13; Status DC Metoclopramide HCl 10 mg ACHS IVP Last administered on 07/21/25at 12:24; Start 07/20/25 at 21:00; Stop 07/21/25 at 14:18; Status DC Simethicone 80 mg PCHS PO Last administered on 07/22/25at 12:19; Start 07/20/25 at 18:00; Stop 08/19/25 at 17:59 Lactulose 20 gm BID PRN PO; Start 07/20/25 at 17:00; Stop 08/19/25 at 16:59 Pharmacy Profile Note Abnormanl QT interval Q8H MISC; Start 07/20/25 at 19:00; Stop 07/22/25 at 07:22; Status DC Magnesium Sulfate 50 ml @ 0 mls/hr PROTOCOL ONCE IV Last administered on 07/20/25at 21:57; Start 07/20/25 at 21:30; Stop 07/20/25 at 21:31; Status DC Sodium Chloride 10 ml DAILY FLUSH; Start 07/21/25 at 09:00; Stop 07/21/25 at 21:42; Status DC Sodium Chloride 1,000 mg BID PO; Start 07/21/25 at 21:00; Stop 07/21/25 at 15:57; Status DC Albumin Human 250 ml @ 0 mls/hr AD IV Last administered on 07/21/25at 22:49; Start 07/21/25 at 14:30; Stop 07/22/25 at 07:19; Status DC Sodium Chloride 1,000 mg TID PO Last administered on 07/22/25at 09:00; Start 07/21/25 at 16:00; Stop 08/20/25 at 20:59 Sodium Chloride 10 ml DAILY MISC Last administered on 07/21/25at 21:58; Start 07/22/25 at 09:00; Stop 08/21/25 at 08:59 Pharmacy Profile Note 1 each ONCE MISC; Start 07/22/25 at 08:30; Stop 07/22/25 at 08:34; Status DC Meropenem 1 gm Q8H IVPB Last administered on 07/22/25at 11:35; Start 07/22/25 at 09:00; Stop 08/01/25 at 08:59 Pantoprazole Sodium 40 mg BID IVP; Start 07/22/25 at 21:00; Stop 08/21/25 at 20:59 Furosemide 40 mg ONCE ONCE IV Last administered on 07/22/25at 12:20; Start 07/22/25 at 12:00; Stop 07/22/25 at 12:01; Status DC Spironolactone 25 mg ONCE ONCE PO Last administered on 07/22/25at 12:19; Start 07/22/25 at 12:00; Stop 07/22/25 at 12:01; Status DC Acetaminophen 1,000 mg [id number] PRN IVPB; Start 07/22/25 at 13:30; Stop 08/21/25 at 13:29 DIEGO ALICIA Jr. PAC Jul 22, 2025 15:35
--- NOTE | 2025-07-22 16:30 | PN ---
[facility] PROGRESS NOTE Date of Service: Jul 22, 2025 Time of Service: 16:15 History of Present Illness Ms. Dowell is a 59-year-old female that was seen and examined today on 07/17/2025. Patient is a good historian of personal health. Patient states that she came to the emergency department with a chief complaint of abdominal pain. Onset was two weeks ago. Location is left lower quadrant. Duration is constant. Character is described as bloating. There was no alleviating factors. There was no aggravating factors. Patient reports associated constipation. Patient reports that she has a pending colonoscopy for this same abdominal discomfort with Dr. Oconnor that was scheduled on 07/19/25. Patient was taking Linzess for the last four days and only had soft GI foods and liquids at home during this time. Patient reports her last meal being a banana that started the pain, which has progressed to this point. Patients says she has lost significant weight, 40 lbs since her divorce intentionally, due to poor diet mainly including tuna and salads. Patient has history of similar pain in the LLQ of abdomen which resolved spontaneously in few hours. Patient has a chronic history of constipation. Patient never underwent colonoscopy. She has family history of Carcinoid tumor and recurrent diverticulitis in first degree relatives. Today in the emergency department WBCs 23.0, left shift neutrophils 83%, potassium 2.5, chloride 81, sodium 120, no urinalysis has been collected or sent to lab, CT of abdomen and pelvis shows diverticulitis with two abscesses. Emergency room physician contacted general surgery on-call, Dr. Lou who requested patient be admitted under hospitalist service. Additionally patient presented with a heart rate of 91 beats per minute, together with WBCs of 23.0 and identified source of infection being gastrointestinal patient met clinical sepsis criteria. SUBJECTIVE: 07/18/2025: Patient was evaluated in ED 03. Patient presented to the ED with acute abdominal pain the left lower quadrant, 8/10 in intensity with associated with bloating. Patient has chronic constipation and has been following Dr. Oconnor for evaluation with colonoscopy. Patient had poor intake in the preceding days and was using Linzess in the last 4 days. Patient had a solid bowel movement this morning and is passing flatus. Patient is kept NPO and is started on IV NS at 100 ml/hr, replacing her potassium and Zosyn was started. Labs remarkable for severe hyponatremia, hypokalemia, hypochloremia, and metabolic alkalosis. We will hydrate her judiciously and monitor her electrolytes closely. CT abdomen is remarkable for acute diverticulitis with abscesses in sigmoid colon and rectum. Pending surgery evaluation. 07/19/2025: Patient was evaluated in room 406. Patient was hemodynamically stable and had no acute events overnight. The nurse reported that patient had a rash and itching sensation on the face and neck after being on Zosyn, has a hist ory of hives to cefazolin. On-call nurse practitioner discontinued Zosyn and put her on levofloxacin and metronidazole. Surgery evaluated patient and recommended percutaneous drainage of abscesses by the interventional radiologist. Patient still has residual pain, 5/10 and tenderness to palpation, but denies fevers, chills, nausea, vomiting. Her serum sodium was 130 this morning. We will continue cautious hydration. ID consult has also been placed and we will follow their recommendations. 07/20/2025: Patient was evaluated in room 406. Patient is hemodynamically stable and had no acute events overnight. Patient underwent percutaneous drainage of diverticular abscess yesterday, samples were sent for cultures. Output today was 70 cc purulent drainage. Patient complained of abdominal distention and had not had any bowel movement since admission. Patient is tolerating clear liquid diet without nausea or vomiting. Her serum sodium dropped to 125 this morning and potassium was 3. We will continue gentle hydration and potassium replacement as per protocol. We encouraged the patient to ambulate in the hallways and also ordered physical therapy. Surgical team ordered KUB to rule out ileus versus obstruction. They also added meto clopramide 10 mg and Mylicon. Malignancy workup with CA 125, CA 19 9 were also ordered by primary team. 07/21/2025: Patient is seen in the room 406. KUB x-ray revealed markedly dilated large bowel loops measuring 9.[address] scan of the abdomen pelvis without contrast for further analysis. Discontinued metoclopramide. CT chest is ordered. Patient's sodium is low, salt tablets 1 g t.i.d. added. Urinalysis and the urine electrolytes were ordered. Albumin was added due to the suspicion of Cancer and protein energy malnutrition Urine [id number], potassium 22- so a case of SIADH. Urine protein to creatinine ratio is pending. 07/22/2025: Patient is seen and evaluated in room 405 for severe, persistent abdominal pain. She was given morphine at 7:48 AM with partial relief. Her abdomen is rigid, distended, and she reports epigastric pain with little to no passage of gas. Labs show WBC trending up to 21.2, hemoglobin 10.5, platelets 635, sodium 124, potassium 3.3, and CRP 114. Percutaneous drain is producing high-volume purulent output, and cultures returned positive for E. coli with Pseudomonas; antibiotics have been adjusted with levofloxacin and metronidazole stopped and meropenem started. Abdominal X-ray shows gaseous distension of large bowel loops consistent with ileus. Patient is NPO, on fluid restriction of 1 liter, and has been started on spironolactone 25 mg PO. Surgery recommends repeating abdominal xray tomorrow and continue conservative management for now.. Patients code status was discussed, and she wishes to remain full code. REVIEW OF SYSTEMS CONSTITUTIONAL: Denies fevers, chills, or night sweats. Reports intentional weight loss of 40 lbs. NEUROLOGICAL: Denies headache, motor weakness, sensory deficit, vertigo/spinning sensation, gait abnormalities, or tremors. ENT: No hearing loss, otalgia, otorrhea, rhinitis, rhinorrhea, hoarseness, or sore throat. CARDIOVASCULAR: Denies any exertional angina, dyspnea on exertion, orthopnea, paroxysmal nocturnal dyspnea, palpitations, life-threatening arrhythmias, claudication. PULMONARY: Denies any shortness of breath, cough, phlegm/sputum, hemoptysis, pleuritic chest pain. SLEEP: Denies morning headaches, daytime somnolence or napping. Denies difficu lty falling asleep, staying asleep, waking from sleep. Denies knowledge of snoring. GASTROINTESTINAL: Denies any type of dysphagia to either liquids or solids. Denies nausea, vomiting, pyrosis, early satiety. Admits to chronic constipation . Patient also reports epigastric pain and distention. GENITOURINARY: Denies frequency, urgency, nocturia, hematuria or incontinence (Storage/Irritative symptoms.) PHYSICAL EXAM GENERAL APPEARANCE: The patient is awake, alert, and oriented, in no acute cardiopulmonary distress., Appears cachexic NEUROLOGICAL: Cranial nerves II-XII grossly intact. Motor is 5/5 in bilateral upper and lower extremities proximal to distal. No sensory deficits. HEENT: Face is symmetric. Pupils are equal and reactive. Extraocular movements are intact. NECK: Supple. No thyromegaly. No submental, submandibular, pre-/postauricular, occipital or supraclavicular lymphadenopathy. CHEST: Normal chest expansion. No Telemetry. LUNGS: Absence of any rales, rhonchi or any wheezing. CARDIOVASCULAR: Regular. S1 and S2 normal. No appreciable rubs, murmurs or gallops. ABDOMEN: Firm and Distended , Tender to palpation in the LLQ, and epigastrium. Abdomen is distended. Left lower quadrant drainage catheter with bag in position. There isbrebound, voluntary guarding, and rigidity present . : Deferred. No [place]. EXTREMITIES: Non-edematous and not cyanotic. No clubbing. Good capillary refill. SKIN: No skin breakdown. Vital Signs (last 8hr) Date Time Temp Pulse Resp B/P (MAP) Pulse Ox O2 Delivery O2 Flow Rate FiO2 07/22/25 15:44 98.4 78 18 131/86 92 Room Air 07/22/25 11:16 98.4 84 18 138/82 95 Room Air LABS: Laboratory: Test 07/22/25 11:48 07/22/25 08:36 07/22/25 04:59 07/21/25 12:48 Range/Units Whole Blood Ketones Quantitative 0.9 H 0.0-0.6 mmol/L Erythrocyte Sedimentation Rate 42 H 0-30 MM/HR Reticulocyte Count (auto) 1.17353 0.42-2.23 % Immature Reticulocyte Fraction 12.70 H 0.18-0.48 % Lactic Acid Level 1.0 0.8-2.5 mmol/L Magnesium Level 1.70 L 1.80-2.40 mg/dL Iron Level 15 L 50-170 mcg/dL Total Iron Binding Capacity 118 L 250-450 mcg/dL Percent Iron Saturation 12.7 L 22-44 % Ferritin 238 H 15-150 ng/mL C-Reactive Protein, Quantitative 114.30 H 0.5-3.0 mg/L Vitamin B12 Level 708 193-986 pg/mL White Blood Count 21.2 H 4.8-10.8 K/uL Red Blood Count 3.66 L 4.00-5.50 MIL/uL Hemoglobin 10.5 L 12.0-16.0 g/dL Hematocrit 30.6 L 36-48 % Mean Corpuscular Volume 83.6 79-99 fL Mean Corpuscular Hemoglobin 28.7 27.0-33.0 pg Mean Corpuscular Hemoglobin Concent 34.3 32.0-36.0 g/dL Red Cell Distribution Width 12.1 11.0-15.5 % Platelet Count 637 H 130-400 K/uL Mean Platelet Volume 8.4 7.5-10.5 fL Nucleated Red Blood Cells 0.0 0.0-0.19 % Sodium Level 124 L 136-145 mmol/L Potassium Level 3.3 L 3.5-5.1 mmol/L Chloride Level 91 L 101-111 mmol/L Carbon Dioxide Level 24 21-32 mmol/L Blood Urea Nitrogen 4 L 7-18 mg/dL Creatinine 0.4 L 0.5-1.0 mg/dL Glomerular Filtration Rate Calc 115 >90 mL/min Random Glucose 95 70-105 mg/dL Total Calcium 7.8 L 8.5-10.1 mg/dL Total Bilirubin 0.4 0.2-1.0 mg/dL Aspartate Amino Transf (AST/SGOT) 17 10-37 U/L Alanine Aminotransferase (ALT/SGPT) 19 12-78 U/L Alkaline Phosphatase 109 50-136 U/L Total Protein 5.6 L 6.0-8.3 g/dL Albumin 1.9 L 3.5-5.0 g/dL Urine Random Sodium 103 40-220 mmol/l Urine Random Potassium 22 L 25-125 mmol/L Urine Random Chloride 147 110-250 mmol/L Test 07/21/25 03:58 07/21/25 02:55 Range/Units Immature Granulocyte % (Auto) 1.3 H 0-1 % Neutrophils (%) (Auto) 81.7 H 40.0-77.0 % Lymphocytes (%) (Auto) 10.4 L 21.0-51.0 % Monocytes (%) (Auto) 6.2 3.0-13.0 % Eosinophils (%) (Auto) 0.1 0.0-8.0 % Basophils (%) (Auto) 0.3 0.0-5.0 % Neutrophils # (Auto) 14.4 H 1.8-7.7 K/uL Lymphocytes # (Auto) 1.8 1.0-4.8 K/uL Monocytes # (Auto) 1.1 H 0.1-1.0 K/uL Eosinophils # (Auto) 0.02 0.00-0.70 K/uL Basophils # (Auto) 0.05 0.00-0.20 K/uL Absolute Immature Granulocyte (auto 0.23 0-1 K/uL Urine Color COLORLESS YELLOW Urine Appearance CLEAR CLEAR Urine pH 6.5 5.0-8.0 Urine Specific [place] 1.004 1.001-1.031 Urine Protein NEGATIVE NEGATIVE mg/dL Urine Glucose (UA) NEGATIVE NEGATIVE mg/dL Urine Ketones 5 H NEGATIVE mg/dL Urine Occult Blood SMALL H NEGATIVE Urine Nitrate NEGATIVE NEGATIVE Urine Bilirubin NEGATIVE NEGATIVE mg/dL Urine Urobilinogen 0.2 0.2-1.0 mg/dL Urine Leukocyte Esterase NEGATIVE NEGATIVE Fidel/uL Urine RBC 2-5 H 0-1 /HPF Urine WBC 0-1 0-1 /HPF Urine Squamous Epithelial Cells RARE 0-2 /HPF Urine Bacteria FEW None Seen /HPF Urine Random Creatinine 17.15 L 30-135 mg/dL Current Medications Medications (Trade) Dose Ordered Sig/Heather Route PRN Reason Start Time Stop Time Status Last Admin Dose Admin Acetaminophen (TYLenol 325MG TAB) 650 mg Q6H PRN PO TEMPERATURE GREATER THAN 101.5 07/17/25 22:00 08/16/25 21:59 Acetaminophen (TYLenol 500MG TAB) 500 mg Q4H PRN PO MILD PAIN (1-3) 07/18/25 10:30 08/17/25 10:29 07/21/25 00:37 500 MG Acetaminophen (acetaMINOPHEN 1,000MG/100ML) 1,000 mg [id number] PRN IVPB MODERATE PAIN (4-6) 07/22/25 13:30 08/21/25 13:29 Albumin Human 250 ml @ 0 mls/hr AD IV 07/21/25 14:30 07/22/25 07:19 DC 07/21/25 22:49 60 MLS/HR Diphenhydramine HCl (BENAdryl CAP) 25 mg Q8H PRN PO INSOMNIA 07/20/25 11:00 07/22/25 11:13 DC 07/21/25 18:33 25 MG Famotidine (Pepcid 20mg Vial) 20 mg DAILY IV 07/18/25 09:00 07/22/25 11:12 DC 07/21/25 08:33 20 MG Hydralazine HCl (APRESOLine 20MG INJ) 10 mg Q6H PRN IV For:SBP above 160;DBP above 90 07/17/25 22:00 08/16/25 21:59 Lactated Ringer's 1,000 ml @ 75 mls/hr [id number] IV 07/17/25 22:00 07/17/25 22:07 DC 07/17/25 21:56 75 MLS/HR Lactulose (Constulose 20gm/ 30ml Udcup) 20 gm BID PRN PO CONSTIPATION 07/20/25 17:00 08/19/25 16:59 Levofloxacin/ Dextrose (LEvaquIN 750 MG/ D5W 150 ML) 750 mg Q24H IV 07/19/25 05:00 07/22/25 08:34 DC 07/22/25 04:52 750 MG Magnesium Sulfate 50 ml @ 0 mls/hr PROTOCOL PRN IV h 07/17/25 22:30 07/20/25 21:08 DC 07/18/25 02:31 25 MLS/HR Meropenem (Merrem 1gm) 1 gm Q8H IVPB 07/22/25 09:00 08/01/25 08:59 07/22/25 11:35 1 GM Metoclopramide HCl (regLAN 10MG IV) 10 mg ACHS IVP 07/20/25 21:00 07/21/25 14:18 DC 07/21/25 12:24 10 MG Metronidazole/ Sodium Chloride (flaGYL) 500 mg Q8H IV 07/19/25 07:00 07/22/25 11:30 DC 07/22/25 06:24 500 MG Morphine Sulfate (morPHINE 4MG SYG) 4 mg Q4H PRN IVP SEVERE PAIN (7-10) 07/17/25 22:00 07/22/25 11:12 DC 07/22/25 07:48 4 MG Ondansetron HCl (zoFRAN 4MG INJ) 4 mg Q6H PRN IV NAUSEA/VOMITING 07/17/25 22:00 08/16/25 21:59 07/19/25 00:47 4 MG Pantoprazole Sodium (PROTonix 40MG INJ) 40 mg BID IVP 07/22/25 21:00 08/21/25 20:59 Pharmacy Profile Note (Pharmacy Communication) 1 each ONCE MISC 07/22/25 08:30 07/22/25 08:34 DC Pharmacy Profile Note (Pharmacy Communication) Abnormanl QT interval Q8H MISC 07/20/25 19:00 07/22/25 07:22 DC Piperacillin Sod/ Tazobactam Sod (Zosyn 3.375gm+NS 50ml) 3.375 gm Q8H IV 07/17/25 22:00 07/19/25 02:04 DC 07/18/25 21:47 3.375 GM Potassium Chloride 100 ml @ 50 mls/hr AD PRN IV POTASSIUM PROTOCOL 07/17/25 22:30 08/16/25 22:29 07/22/25 11:40 50 MLS/HR Simethicone (Mylicon) 80 mg PCHS PO 07/20/25 18:00 08/19/25 17:59 07/22/25 12:19 80 MG Sodium Chloride 1,000 ml @ 125 mls/hr Q8H IV 07/17/25 22:30 07/21/25 16:08 DC 07/21/25 14:16 125 MLS/HR Sodium Chloride (NS Flush 10ml) 10 ml DAILY FLUSH 07/21/25 09:00 07/21/25 21:42 DC Sodium Chloride (NS Flush 10ml) 10 ml DAILY MISC 07/22/25 09:00 08/21/25 08:59 07/21/25 21:58 10 ML Sodium Chloride (Sodium Chloride) 1,000 mg BID PO 07/21/25 21:00 07/21/25 15:57 DC Sodium Chloride (Sodium Chloride) 1,000 mg TID PO 07/21/25 16:00 08/20/25 20:59 07/22/25 09:00 1,000 MG DIAGNOSTICS / RADIOLOGY: [address] [address] IMAGING REPORT Signed PATIENT: KIMBERLYN DOWELL MR#: [id number] : 1965 SEX: F AGE: 59 LOCATION: 4BH ORDER 230 STATUS: ADM IN REPORT#: [id number] SERVICE [id number] REASON: SBO vs Ileus ORDERING PHYSICIAN: KIRSTY CRANE PROCEDURE: ABD 1VW - ABD 1VW EXAM: CR Abdomen, 1 view. CLINICAL HISTORY: SBO versus ileus. COMPARISON: Prior abdominal radiograph dated July 20, 2025. FINDINGS: Significant gaseous distention of the large bowel loops. A pigtail catheter is identified in the pelvis on the left side may represent changes of ileus. Surgical clips in the right upper quadrant. 6 No free air is evident. No abnormal calcification. No aggressive appearing osseous lesion. IMPRESSION: Significant gaseous distention of the large bowel loops. A pigtail catheter is identified in the pelvis on the left side may represent changes of ileus. Surgical clips in the right upper quadrant. Compared to the prior study, there is no significant interval change. 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 ,POA Hypokalemia, POA Hepatic and renal cysts , POA Chronic constipation, POA Colonic diverticulosis, POA Chronic smoking and alcoholism POA Severe Protein calorie malnutrition, POA PLAN: Sepsis due to Acute sigmoid diverticulitis complicated by abscess, status post percutaneous drainage of pelvic abscess * Patient vitals on presentation 125/71, heart rate 91, with elevated leukocytes 23k in the light of diverticulitis meets sepsis criteria * CT abdomen confirmed acute sigmoid colon diverticulitis complicated by two abbesses, one along the sigmoid colon (5.8 x 6.9 x 5.1 cm) and one along the rectum (7.6 x 6.1 x 6.6 cm) * Continue IV 0.9 NS @ 125 ml/hr * Patient had rash and itching to the face after Zosyn, discontinue * Discontinued IV metronidazole 500 mg Q8 and IV levofloxacin 750 mg Q 24 and started on meropenem ( day 1) as per culture and sensitivity * Surgery recommended percutaneous drainage of the abscesses by IR, no surgical intervention at this moment * IR performed percutaneous drainage of pelvic abscess with placement of left lower quadrant drainage catheter * Abscess sample were sent for cultures, showed growth of E coli and pseudomonas * Monitor daily output from left lower quadrant drain * Morphine 4 mg for severe pain is stopped and started on Tylenol 1000 mg for pain * Repeat labs in the morning * WBC count 21.2 * KUB x-ray- markedly dilated large balls up to 9.1 cm * repeat KUB tomorrow as per surgery recommendations * Further CT scan is ordered * Discontinued metoclopramide and diphenhydramine Severe hyponatremia, hypovolemic * On presentation Na was 120, asymptomatic and was dehydrated in the preceding days * Today serum sodium is 124 and we will continue judicious hydration * Pending serum osmolality * fluid restricted to 1 litre * Neuro checks daily and limit sodium correction to <8 meq/l in 24 hours. * Salt tablet 1000 mg t.i.d. * Urine electrolytes-[id number], potassium 22- suspected SIADH, renal salt wasting * Urine protein to creatinine ratio still pending Protein energy malnutrition * Patient's weight is 49.9 kg, BMI 21.5 and serum albumin 2 * Muscle atrophy noted BUN low, 6 * Patient significant amount of weight intentionally, 40 lb * Continue clear liquid diet * Diet evaluation placed for recommendations post discharge * Albumin added Suspected ileus versus obstruction * Patient last bowel movement was on the day of admission and has not had one since * Has diffuse abdominal distention, however passing flatus, and tolerating clear liquid diet * Surgical team ordered KUB to rule out ileus versus obstruction * Encouraged patient to ambulate in the hallways and ordered physical therapy * Lactulose 20 mg p.o. b.i.d. PRN ordered by surgical team GI prophylaxis with Famotidine and DVT prophylaxis with SCDs. ATTESTATION BY PHYSICIAN I have seen and examined the patient. I reviewed the documentation, medical decision making, and treatment plan as noted by the resident provider above. I agree with the findings and plan of care. David Bernstein MD, LAKSHMI MD Jul 22, 2025 16:30 ITZ SAUNDERS MD Jul 22, 2025 21:51
--- NOTE | 2025-07-22 16:49 | NUR ---
CM NOTE/BCBS CONTACT CM received call from [facility] with [facility]. States she is assigned discharge CM inventory planner. CM received phone number for call back with any assistance with d/c planning [phone].
[2025-07-23] VITALS (8 sets, daily range): BP systolic 115–157; BP diastolic 57–98; PULSE 76–101; RESP 17–19; TEMP 97.8–98.3; O2SAT 93–96
[2025-07-23 04:47] LABS: IMMATURE GRANULOCYTE ABSOLUTE 0.23 K/uL (0-1); NUCLEATED RED BLOOD CELLS 0.0 % (0.0-0.19); RED BLOOD CELL COUNT(AUTO) 4.11 MIL/uL (4.00-5.50); RED CELL DISTRIBUTION WIDTH 12.3 % (11.0-15.5); WHITE BLOOD COUNT (AUTO) 13.5 K/uL (4.8-10.8)
[2025-07-23 05:11] LABS: CREATININE 0.7 mg/dL (0.5-1.0); GLOMERULAR FILTR. RATE CALC 101.0 mL/min (>90); GLUCOSE,RANDOM 80.0 mg/dL (70-105); PHOSPHORUS 2.8 mg/dL (2.5-4.9); SODIUM SERUM 127.0 mmol/L (136-145); UREA NITROGEN, BLOOD 6.0 mg/dL (7-18)
[2025-07-23 05:25] LABS: PLATELET COUNT (AUTO) 822 K/uL (130-400)
--- NOTE | 2025-07-23 05:42 | NUR ---
notified provider manufacturing production manager abnormal values PLT 832, and chloride 90 order given to consult hematology yahir brown np
--- NOTE | 2025-07-23 06:36 | HMCIMG ---
EXAM: CR Abdomen, 2 View. CLINICAL HISTORY: ileus follow up COMPARISON: 07/22/2025; 6:45 EST FINDINGS: BOWEL: Stable gross gaseous distention of the large bowel loops. A redemonstrated pigtail catheter in the pelvis on the left side. Surgical clips in the right upper quadrant. PERITONEUM/SOFT TISSUES: No free air evident. No pathologic appearing calcification. BONES: No acute osseous abnormality. IMPRESSION: Stable gross gaseous distention of the large bowel loops, consistent with ileus. No significant interval changes. /[place]
[2025-07-23] MEDS: THIAMINE HCL 100 MG/ML 2ML VIAL IVP SCH (09:37)
[2025-07-23] MEDS ORDERED: 0.9% NACL 500ML IV.SOLN 500 ML IV SCH (13:00)
--- NOTE | 2025-07-23 13:54 | PN ---
[facility] PROGRESS NOTE Date of Service: Jul 23, 2025 Time of Service: 13:20 History of Present Illness Ms. Dowell is a 59-year-old female that was seen and examined today on 07/17/2025. Patient is a good historian of personal health. Patient states that she came to the emergency department with a chief complaint of abdominal pain. Onset was two weeks ago. Location is left lower quadrant. Duration is constant. Character is described as bloating. There was no alleviating factors. There was no aggravating factors. Patient reports associated constipation. Patient reports that she has a pending colonoscopy for this same abdominal discomfort with Dr. Oconnor that was scheduled on 07/19/25. Patient was taking Linzess for the last four days and only had soft GI foods and liquids at home during this time. Patient reports her last meal being a banana that started the pain, which has progressed to this point. Patients says she has lost significant weight, 40 lbs since her divorce intentionally, due to poor diet mainly including tuna and salads. Patient has history of similar pain in the LLQ of abdomen which resolved spontaneously in few hours. Patient has a chronic history of constipation. Patient never underwent colonoscopy. She has family history of Carcinoid tumor and recurrent diverticulitis in first degree relatives. Today in the emergency department WBCs 23.0, left shift neutrophils 83%, potassium 2.5, chloride 81, sodium 120, no urinalysis has been collected or sent to lab, CT of abdomen and pelvis shows diverticulitis with two abscesses. Emergency room physician contacted general surgery on-call, Dr. Lou who requested patient be admitted under hospitalist service. Additionally patient presented with a heart rate of 91 beats per minute, together with WBCs of 23.0 and identified source of infection being gastrointestinal patient met clinical sepsis criteria. SUBJECTIVE: 07/18/2025: Patient was evaluated in ED 03. Patient presented to the ED with acute abdominal pain the left lower quadrant, 8/10 in intensity with associated with bloating. Patient has chronic constipation and has been following Dr. Oconnor for evaluation with colonoscopy. Patient had poor intake in the preceding days and was using Linzess in the last 4 days. Patient had a solid bowel movement this morning and is passing flatus. Patient is kept NPO and is started on IV NS at 100 ml/hr, replacing her potassium and Zosyn was started. Labs remarkable for severe hyponatremia, hypokalemia, hypochloremia, and metabolic alkalosis. We will hydrate her judiciously and monitor her electrolytes closely. CT abdomen is remarkable for acute diverticulitis with abscesses in sigmoid colon and rectum. Pending surgery evaluation. 07/19/2025: Patient was evaluated in room 406. Patient was hemodynamically stable and had no acute events overnight. The nurse reported that patient had a rash and itching sensation on the face and neck after being on Zosyn, has a hist ory of hives to cefazolin. On-call nurse practitioner discontinued Zosyn and put her on levofloxacin and metronidazole. Surgery evaluated patient and recommended percutaneous drainage of abscesses by the interventional radiologist. Patient still has residual pain, 5/10 and tenderness to palpation, but denies fevers, chills, nausea, vomiting. Her serum sodium was 130 this morning. We will continue cautious hydration. ID consult has also been placed and we will follow their recommendations. 07/20/2025: Patient was evaluated in room 406. Patient is hemodynamically stable and had no acute events overnight. Patient underwent percutaneous drainage of diverticular abscess yesterday, samples were sent for cultures. Output today was 70 cc purulent drainage. Patient complained of abdominal distention and had not had any bowel movement since admission. Patient is tolerating clear liquid diet without nausea or vomiting. Her serum sodium dropped to 125 this morning and potassium was 3. We will continue gentle hydration and potassium replacement as per protocol. We encouraged the patient to ambulate in the hallways and also ordered physical therapy. Surgical team ordered KUB to rule out ileus versus obstruction. They also added meto clopramide 10 mg and Mylicon. Malignancy workup with CA 125, CA 19 9 were also ordered by primary team. 07/21/2025: Patient is seen in the room 406. KUB x-ray revealed markedly dilated large bowel loops measuring 9.[address] scan of the abdomen pelvis without contrast for further analysis. Discontinued metoclopramide. CT chest is ordered. Patient's sodium is low, salt tablets 1 g t.i.d. added. Urinalysis and the urine electrolytes were ordered. Albumin was added due to the suspicion of Cancer and protein energy malnutrition Urine [id number], potassium 22- so a case of SIADH. Urine protein to creatinine ratio is pending. 07/22/2025: Patient is seen and evaluated in room 405 for severe, persistent abdominal pain. She was given morphine at 7:48 AM with partial relief. Her abdomen is rigid, distended, and she reports epigastric pain with little to no passage of gas. Labs show WBC trending up to 21.2, hemoglobin 10.5, platelets 635, sodium 124, potassium 3.3, and CRP 114. Percutaneous drain is producing high-volume purulent output, and cultures returned positive for E. coli with Pseudomonas; antibiotics have been adjusted with levofloxacin and metronidazole stopped and meropenem started. Abdominal X-ray shows gaseous distension of large bowel loops consistent with ileus. Patient is NPO, on fluid restriction of 1 liter, and has been started on spironolactone 25 mg PO. Surgery recommends repeating abdominal xray tomorrow and continue conservative management for now.. Patients code status was discussed, and she wishes to remain full code. 07/23/2025: Patient was seen and evaluated bedside in room 405. She was awake and alert during my visit and appeared to be in no acute distress. Patient states that her symptoms have side subsided significantly. She states that her only symptom today was the bloating that she is feeling which she attributes to not eating. She continues on meropenem today. Nursing staff reported that the percutaneous drain stopped draining yesterday, following which they flushed the drain with a total of 50 mL NS with no result. Patient continues to be NPO and bowel rest. She states that she would like to eat soon if possible. Patient also stated that she had a bowel movement today which was nonbloody. Patient continues on [id number] mg BD. She will receive 500 mL of NS followed by re measurement of her serum sodium and potassium today at 1600. REVIEW OF SYSTEMS CONSTITUTIONAL: Denies fevers, chills, or night sweats. Reports intentional weight loss of 40 lbs. NEUROLOGICAL: Denies headache, motor weakness, sensory deficit, vertigo/spinning sensation, gait abnormalities, or tremors. ENT: No hearing loss, otalgia, otorrhea, rhinitis, rhinorrhea, hoarseness, or sore throat. CARDIOVASCULAR: Denies any exertional angina, dyspnea on exertion, orthopnea, paroxysmal nocturnal dyspnea, palpitations, life-threatening arrhythmias, keith dication. PULMONARY: Denies any shortness of breath, cough, phlegm/sputum, hemoptysis, pleuritic chest pain. SLEEP: Denies morning headaches, daytime somnolence or napping. Denies difficulty falling asleep, staying asleep, waking from sleep. Denies knowledge of snoring. GASTROINTESTINAL: Denies any type of dysphagia to either liquids or solids. Denies nausea, vomiting, pyrosis, early satiety. Admits to chronic constipation . Patient also reports epigastric pain and distention. GENITOURINARY: Denies frequency, urgency, nocturia, hematuria or incontinence (Storage/Irritative symptoms.) PHYSICAL EXAM GENERAL APPEARANCE: The patient is awake, alert, and oriented, in no acute cardiopulmonary distress., Appears cachexic NEUROLOGICAL: Cranial nerves II-XII grossly intact. Motor is 5/5 in bilateral upper and lower extremities proximal to distal. No sensory deficits. HEENT: Face is symmetric. Pupils are equal and reactive. Extraocular movements are intact. NECK: Supple. No thyromegaly. No submental, submandibular, pre-/postauricular, occipital or supraclavicular lymphadenopathy. CHEST: Normal chest expansion. No Telemetry. LUNGS: Absence of any rales, rhonchi or any wheezing. CARDIOVASCULAR: Regular. S1 and S2 normal. No appreciable rubs, murmurs or gallops. ABDOMEN: Firm and Distended , Tender to palpation in the LLQ, and epigastrium. Abdomen is distended. Left lower quadrant drainage catheter with bag in position. Hyper acoustic bowel sounds There isbrebound, voluntary guarding, and rigidity present . : Deferred. No [place]. EXTREMITIES: Non-edematous and not cyanotic. No clubbing. Good capillary refill. SKIN: No skin breakdown. Vital Signs (last 8hr) Date Time Temp Pulse Resp B/P (MAP) Pulse Ox O2 Delivery O2 Flow Rate FiO2 07/23/25 11:32 97.9 91 17 143/83 93 Room Air 07/23/25 07:44 97.9 85 19 133/79 93 Room Air LABS: Laboratory: Test 07/23/25 04:12 07/22/25 11:48 07/22/25 08:36 07/22/25 04:59 Range/Units White Blood Count 13.5 #H 4.8-10.8 K/uL Red Blood Count 4.11 4.00-5.50 MIL/uL Hemoglobin 11.7 L 12.0-16.0 g/dL Hematocrit 34.5 L 36-48 % Mean Corpuscular Volume 83.9 79-99 fL Mean Corpuscular Hemoglobin 28.5 27.0-33.0 pg Mean Corpuscular Hemoglobin Concent 33.9 32.0-36.0 g/dL Red Cell Distribution Width 12.3 11.0-15.5 % Platelet Count 822 #*H 130-400 K/uL Mean Platelet Volume 8.6 7.5-10.5 fL Immature Granulocyte % (Auto) 1.7 H 0-1 % Neutrophils (%) (Auto) 80.1 H 40.0-77.0 % Lymphocytes (%) (Auto) 11.4 L 21.0-51.0 % Monocytes (%) (Auto) 6.0 3.0-13.0 % Eosinophils (%) (Auto) 0.6 0.0-8.0 % Basophils (%) (Auto) 0.2 0.0-5.0 % Neutrophils # (Auto) 10.8 H 1.8-7.7 K/uL Lymphocytes # (Auto) 1.6 1.0-4.8 K/uL Monocytes # (Auto) 0.8 0.1-1.0 K/uL Eosinophils # (Auto) 0.08 0.00-0.70 K/uL Basophils # (Auto) 0.03 0.00-0.20 K/uL Absolute Immature Granulocyte (auto 0.23 0-1 K/uL Nucleated Red Blood Cells 0.0 0.0-0.19 % Platelet Morphology Comment See comments Sodium Level 127 L 136-145 mmol/L Potassium Level 3.3 L 3.5-5.1 mmol/L Chloride Level 90 *L 101-111 mmol/L Carbon Dioxide Level 27 21-32 mmol/L Blood Urea Nitrogen 6 L 7-18 mg/dL Creatinine 0.7 0.5-1.0 mg/dL Glomerular Filtration Rate Calc 101 >90 mL/min Random Glucose 80 70-105 mg/dL Total Calcium 8.4 L 8.5-10.1 mg/dL Phosphorus Level 2.8 2.5-4.9 mg/dL Magnesium Level 1.80 1.80-2.40 mg/dL C-Reactive Protein, Quantitative 135.60 H 0.5-3.0 mg/L Procalcitonin 0.08 0.05-0.5 ng/mL Whole Blood Ketones Quantitative 0.9 H 0.0-0.6 mmol/L Erythrocyte Sedimentation Rate 42 H 0-30 MM/HR Reticulocyte Count (auto) 1.60597 0.42-2.23 % Immature Reticulocyte Fraction 12.70 H 0.18-0.48 % Lactic Acid Level 1.0 0.8-2.5 mmol/L Iron Level 15 L 50-170 mcg/dL Total Iron Binding Capacity 118 L 250-450 mcg/dL Percent Iron Saturation 12.7 L 22-44 % Ferritin 238 H 15-150 ng/mL Vitamin B12 Level 708 193-986 pg/mL Total Bilirubin 0.4 0.2-1.0 mg/dL Aspartate Amino Transf (AST/SGOT) 17 10-37 U/L Alanine Aminotransferase (ALT/SGPT) 19 12-78 U/L Alkaline Phosphatase 109 50-136 U/L Total Protein 5.6 L 6.0-8.3 g/dL Albumin 1.9 L 3.5-5.0 g/dL Current Medications Medications (Trade) Dose Ordered Sig/Heather Route PRN Reason Start Time Stop Time Status Last Admin Dose Admin Acetaminophen (TYLenol 325MG TAB) 650 mg Q6H PRN PO TEMPERATURE GREATER THAN 101.5 07/17/25 22:00 08/16/25 21:59 Acetaminophen (TYLenol 500MG TAB) 500 mg Q4H PRN PO MILD PAIN (1-3) 07/18/25 10:30 08/17/25 10:29 07/22/25 17:26 500 MG Acetaminophen (acetaMINOPHEN 1,000MG/100ML) 1,000 mg [id number] PRN IVPB MODERATE PAIN (4-6) 07/22/25 13:30 08/21/25 13:29 Albumin Human 250 ml @ 0 mls/hr AD IV 07/21/25 14:30 07/22/25 07:19 DC 07/21/25 22:49 60 MLS/HR Diphenhydramine HCl (BENAdryl CAP) 25 mg Q8H PRN PO INSOMNIA 07/20/25 11:00 07/22/25 11:13 DC 07/21/25 18:33 25 MG Famotidine (Pepcid 20mg Vial) 20 mg DAILY IV 07/18/25 09:00 07/22/25 11:12 DC 07/21/25 08:33 20 MG Heparin Sodium (Porcine) (HEParin 5,000 UNIT VIAL) 5,000 unit Q12H SQ 07/23/25 12:00 08/22/25 11:59 Hydralazine HCl (APRESOLine 20MG INJ) 10 mg Q6H PRN IV For:SBP above 160;DBP above 90 07/17/25 22:00 08/16/25 21:59 Lactated Ringer's 1,000 ml @ 75 mls/hr [id number] IV 07/17/25 22:00 07/17/25 22:07 DC 07/17/25 21:56 75 MLS/HR Lactulose (Constulose 20gm/ 30ml Udcup) 20 gm BID PRN PO CONSTIPATION 07/20/25 17:00 08/19/25 16:59 Hold Levofloxacin/ Dextrose (LEvaquIN 750 MG/ D5W 150 ML) 750 mg Q24H IV 07/19/25 05:00 07/22/25 08:34 DC 07/22/25 04:52 750 MG Magnesium Sulfate 50 ml @ 0 mls/hr PROTOCOL PRN IV h 07/17/25 22:30 07/20/25 21:08 DC 07/18/25 02:31 25 MLS/HR Meropenem (Merrem 1gm) 1 gm Q8H IVPB 07/22/25 09:00 08/01/25 08:59 07/23/25 09:37 1 GM Metoclopramide HCl (regLAN 10MG IV) 10 mg ACHS IVP 07/20/25 21:00 07/21/25 14:18 DC 07/21/25 12:24 10 MG Metronidazole/ Sodium Chloride (flaGYL) 500 mg Q8H IV 07/19/25 07:00 07/22/25 11:30 DC 07/22/25 06:24 500 MG Morphine Sulfate (morPHINE 4MG SYG) 4 mg Q4H PRN IVP SEVERE PAIN (7-10) 07/17/25 22:00 07/22/25 11:12 DC 07/22/25 07:48 4 MG Ondansetron HCl (zoFRAN 4MG INJ) 4 mg Q6H PRN IV NAUSEA/VOMITING 07/17/25 22:00 08/16/25 21:59 07/19/25 00:47 4 MG Pantoprazole Sodium (PROTonix 40MG INJ) 40 mg BID IVP 07/22/25 21:00 08/21/25 20:59 07/23/25 09:37 40 MG Pharmacy Profile Note (Pharmacy Communication) 1 each ONCE MISC 07/22/25 08:30 07/22/25 08:34 DC Pharmacy Profile Note (Pharmacy Communication) Abnormanl QT interval Q8H MISC 07/20/25 19:00 07/22/25 07:22 DC Piperacillin Sod/ Tazobactam Sod (Zosyn 3.375gm+NS 50ml) 3.375 gm Q8H IV 07/17/25 22:00 07/19/25 02:04 DC 07/18/25 21:47 3.375 GM Potassium Chloride 100 ml @ 50 mls/hr AD PRN IV POTASSIUM PROTOCOL 07/17/25 22:30 08/16/25 22:29 07/23/25 06:13 50 MLS/HR Simethicone (Mylicon) 80 mg PCHS PO 07/20/25 18:00 08/19/25 17:59 07/23/25 09:37 80 MG Sodium Chloride 500 ml @ 75 mls/hr Q6H40M IV 07/23/25 13:00 07/23/25 13:11 DC Sodium Chloride 1,000 ml @ 125 mls/hr Q8H IV 07/17/25 22:30 07/21/25 16:08 DC 07/21/25 14:16 125 MLS/HR Sodium Chloride (NS Flush 10ml) 10 ml DAILY FLUSH 07/21/25 09:00 07/21/25 21:42 DC Sodium Chloride (NS Flush 10ml) 10 ml DAILY MISC 07/22/25 09:00 08/21/25 08:59 07/21/25 21:58 10 ML Sodium Chloride (Sodium Chloride) 1,000 mg BID PO 07/21/25 21:00 07/21/25 15:57 DC Sodium Chloride (Sodium Chloride) 1,000 mg TID PO 07/21/25 16:00 08/20/25 20:59 07/23/25 09:38 1,000 MG Spironolactone (Aldactone 25mg) 25 mg DAILY PO 07/23/25 13:00 08/22/25 12:59 Thiamine HCl (Vitamin B-1) 200 mg DAILY IVP 07/23/25 09:00 08/22/25 08:59 07/23/25 09:37 200 MG DIAGNOSTICS / RADIOLOGY: [place] [address] [place] [id number] IMAGING REPORT Signed PATIENT: KIMBERLYN DOWELL MR#: [id number] : 1965 SEX: F AGE: 59 LOCATION: H ORDER 40 STATUS: ADM IN REPORT#: [id number] SERVICE 35 REASON: ileus follow up ORDERING PHYSICIAN: ITZ SAUNDERS MD PROCEDURE: ABD 1VW - ABD 1VW EXAM: CR Abdomen, 2 View. CLINICAL HISTORY: ileus follow up COMPARISON: 07/22/2025; 6:45 EST FINDINGS: BOWEL: Stable gross gaseous distention of the large bowel loops. A redemonstrated pigtail catheter in the pelvis on the left side. Surgical clips in the right upper quadrant. PERITONEUM/SOFT TISSUES: No free air evident. No pathologic appearing calcification. BONES: No acute osseous abnormality. IMPRESSION: Stable gross gaseous distention of the large bowel loops, consistent with ileus. No significant interval changes. 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 ,POA Hypokalemia, POA Iron-deficiency anemia Hepatic and renal cysts , POA Chronic constipation, POA Colonic diverticulosis, POA Chronic smoking and alcoholism POA Severe Protein calorie malnutrition, POA PLAN: Sepsis due to Acute sigmoid diverticulitis complicated by abscess, status post percutaneous drainage of pelvic abscess: * Patient vitals on presentation 125/71, heart rate 91, with elevated leukocytes 23k in the light of diverticulitis meets sepsis criteria * CT abdomen confirmed acute sigmoid colon diverticulitis complicated by two a bbesses, one along the sigmoid colon (5.8 x 6.9 x 5.1 cm) and one along the rectum (7.6 x 6.1 x 6.6 cm) * Patient had rash and itching to the face after Zosyn, discontinue * Discontinued IV metronidazole 500 mg Q8 and IV levofloxacin 750 mg Q 24 and started on meropenem ( day 1) as per culture and sensitivity * Surgery recommended percutaneous drainage of the abscesses by IR, no surgical intervention at this moment * IR performed percutaneous drainage of pelvic abscess with placement of left lower quadrant drainage catheter * Abscess sample were sent for cultures, showed growth of E coli and pseudomonas * Monitor daily output from left lower quadrant drain * Morphine 4 mg for severe pain is stopped and started on Tylenol 1000 mg for pain * Repeat labs in the morning * WBC count 23>20>14.5>13.6>17.6>21.2>13.5(Today) * KUB x-ray (07/23/2025)- markedly dilated large bowel measuring up to 8 cm, improved from yesterday. * repeat KUB tomorrow as per surgery recommendations * Further CT scan is ordered * Discontinued metoclopramide and diphenhydramine Iron-deficiency anemia: * Patient's hemoglobin today at 11.7. * Serum iron studies showed a transferrin saturation of 12%. * Not on IV Venofer due to elevated CRP, not on oral iron due to suspected ileus. * Consider iron supplementation once stable and at discharge. Severe hyponatremia, hypovolemic (suspected SIADH): * On presentation Na was 120, asymptomatic and was dehydrated in the preceding days * Today serum sodium is 127 ( and we will continue judicious hydration * Pending serum osmolality * fluid restricted to 1 litre * Neuro checks daily and limit sodium correction to <8 meq/l in 24 hours. * Salt tablet 1000 mg t.i.d. * Urine electrolytes-[id number], potassium 2, urine osmolality at 204, and calculated serum osmolality at 265 consistent with SIADH * Urine protein to creatinine ratio still pending Protein energy malnutrition: * Patient's weight is 49.9 kg, BMI 21.5 and serum albumin 2 * Muscle atrophy noted BUN low, 6 * Patient significant amount of weight intentionally, 40 lb * Continue clear liquid diet * Diet evaluation placed for recommendations post discharge * Albumin added Suspected ileus versus obstruction * Patient had her 1st bowel movement since admission yesterday which was nonbloody. * Has diffuse abdominal distention, however passing flatus, and tolerating clear liquid diet * Repeat KUB tomorrow. * Encouraged patient to ambulate in the hallways and ordered physical therapy * Lactulose 20 mg p.o. b.i.d. PRN ordered by surgical team GI prophylaxis with simethicone and Protonix 40 mg DVT prophylaxis with SCDs and heparin 5000 b.i.d.. ATTESTATION BY PHYSICIAN I have seen and examined the patient. I reviewed the documentation, medical decision making, and treatment plan as noted by the resident physician above. I agree with the findings and plan of care. RICHARD WANG MD, HEMA MD Jul 23, 2025 13:54
[2025-07-23] MEDS: SPIRONOLACTONE 25 MG TAB PO SCH (14:45)
[2025-07-23 15:21] LABS: INR 1.25 (0.85-1.15)
[2025-07-23 15:30] LABS: CREATININE 0.5 mg/dL (0.5-1.0); GLOMERULAR FILTR. RATE CALC 109.0 mL/min (>90); GLUCOSE,RANDOM 90.0 mg/dL (70-105); SODIUM SERUM 129.0 mmol/L (136-145); UREA NITROGEN, BLOOD 8.0 mg/dL (7-18)
--- NOTE | 2025-07-23 15:30 | PN ---
This is a 59-year-old female status post percutaneous drain with concerning ileus Interval history: This 59-year-old female seen in her room resting Patient is currently pending PICC line for continued antibiotics Percutaneous drain with noted output Cultures reviewed and appropriate antibiotics has been adjusted Patient with multiple bowel movements reported Patient remains NPO Physical exam General: Awake alert and oriented Heart: Regular rate and rhythm} Lungs: Clear to auscultation no distress Abdomen: [Soft, nontender, nondistended percutaneous drain in place Assessment : This is a 59-year-old female status post percutaneous drain placement for diverticular abscess with a resolving ileus Plan: From surgical standpoint patient to start on diet and advanced as tolerated Continue with the IV fluids and IV antibiotics Continue flushing percutaneous drainage daily No surgical intervention planned Dr. Lou to be updated in patient's status Surgical case has been discussed with my supervising physician in the above plan was formulated and agreed upon We appreciate the hospitalist team for us to participate in patient's care. Greater than 45 minutes of time spent patient, reviewing chart, working on documentation Vitals/Labs Vital Signs Date Time Temp Pulse Resp B/P (MAP) Pulse Ox O2 Delivery O2 Flow Rate FiO2 07/23/25 11:32 97.9 91 17 143/83 93 Room Air 07/23/25 03:53 21 07/22/25 20:10 0 Laboratory Tests 07/23/25 04:12 Medications Current Medications Pantoprazole Sodium 40 mg ONCE ONCE IVP Last administered on 07/17/25at 13:00; Start 07/17/25 at 13:00; Stop 07/17/25 at 13:02; Status DC Potassium Chloride 100 ml @ 100 mls/hr ONCE ONCE IV Last administered on 07/17/25at 15:36; Start 07/17/25 at 14:00; Stop 07/17/25 at 14:59; Status DC Potassium Bicarbonate 50 meq ONCE ONCE PO Last administered on 07/17/25at 15:35; Start 07/17/25 at 14:00; Stop 07/17/25 at 14:01; Status DC Ceftriaxone Sodium 1 gm ONCE ONCE IVPB Last administered on 07/17/25at 19:32; Start 07/17/25 at 17:00; Stop 07/17/25 at 17:01; Status DC Iohexol 35,000 mg STK-MED ONCE IV; Start 07/17/25 at 17:30; Stop 07/17/25 at 17:30; Status DC Piperacillin Sod/ Tazobactam Sod 3.375 gm ONCE ONCE IV Last administered on 07/17/25at 19:32; Start 07/17/25 at 19:00; Stop 07/17/25 at 19:01; Status DC Lactated Ringer's 1,497 ml @ 499 mls/hr ONCE ONCE IV Last administered on 07/17/25at 21:58; Start 07/17/25 at 22:00; Stop 07/18/25 at 00:59; Status DC Piperacillin Sod/ Tazobactam Sod 3.375 gm Q8H IV Last administered on 07/18/25at 21:47; Start 07/17/25 at 22:00; Stop 07/19/25 at 02:04; Status DC Acetaminophen 650 mg Q6H PRN PO; Start 07/17/25 at 22:00; Stop 08/16/25 at 21:59 Famotidine 20 mg DAILY IV Last administered on 07/21/25at 08:33; Start 07/18/25 at 09:00; Stop 07/22/25 at 11:12; Status DC Hydralazine HCl 10 mg Q6H PRN IV; Start 07/17/25 at 22:00; Stop 08/16/25 at 21:59 Lactated Ringer's 1,000 ml @ 75 mls/hr [id number] IV Last administered on 07/17/25at 21:56; Start 07/17/25 at 22:00; Stop 07/17/25 at 22:07; Status DC Ondansetron HCl 4 mg Q6H PRN IV Last administered on 07/19/25at 00:47; Start 07/17/25 at 22:00; Stop 08/16/25 at 21:59 Morphine Sulfate 4 mg Q4H PRN IVP Last administered on 07/22/25at 07:48; Start 07/17/25 at 22:00; Stop 07/22/25 at 11:12; Status DC Potassium Chloride 100 ml @ 50 mls/hr AD PRN IV Last administered on 07/23/25at 06:13; Start 07/17/25 at 22:30; Stop 08/16/25 at 22:29 Magnesium Sulfate 50 ml @ 0 mls/hr PROTOCOL PRN IV Last administered on 07/18/25at 02:31; Start 07/17/25 at 22:30; Stop 07/20/25 at 21:08; Status DC Sodium Chloride 1,000 ml @ 125 mls/hr Q8H IV Last administered on 07/21/25at 14:16; Start 07/17/25 at 22:30; Stop 07/21/25 at 16:08; Status DC Potassium Chloride 100 ml @ As Directed STK-MED ONCE IV Last administered on 07/18/25at 02:31; Start 07/18/25 at 02:12; Stop 07/18/25 at 02:12; Status DC Acetaminophen 500 mg Q4H PRN PO Last administered on 07/22/25at 17:26; Start 07/18/25 at 10:30; Stop 08/17/25 at 10:29 Levofloxacin/ Dextrose 750 mg Q24H IV Last administered on 07/22/25at 04:52; Start 07/19/25 at 05:00; Stop 07/22/25 at 08:34; Status DC Metronidazole/ Sodium Chloride 500 mg Q8H IV Last administered on 07/22/25at 06:24; Start 07/19/25 at 07:00; Stop 07/22/25 at 11:30; Status DC Diphenhydramine HCl 25 mg ONCE ONCE IV Last administered on 07/19/25at 02:47; Start 07/19/25 at 02:30; Stop 07/19/25 at 02:31; Status DC Midazolam HCl 2 mg STK-MED ONCE .ROUTE Last administered on 07/19/25at 16:22; Start 07/19/25 at 15:19; Stop 07/19/25 at 15:20; Status DC Fentanyl Citrate 100 mcg STK-MED ONCE .ROUTE Last administered on 07/19/25at 16:23; Start 07/19/25 at 15:20; Stop 07/19/25 at 15:20; Status DC Diphenhydramine HCl 25 mg ONCE ONCE PO Last administered on 07/19/25at 22:26; Start 07/19/25 at 22:00; Stop 07/19/25 at 22:15; Status DC Diphenhydramine HCl 25 mg Q8H PRN PO Last administered on 07/21/25at 18:33; Start 07/20/25 at 11:00; Stop 07/22/25 at 11:13; Status DC Metoclopramide HCl 10 mg ACHS IVP Last administered on 07/21/25at 12:24; Start 07/20/25 at 21:00; Stop 07/21/25 at 14:18; Status DC Simethicone 80 mg PCHS PO Last administered on 07/23/25at 14:45; Start 07/20/25 at 18:00; Stop 08/19/25 at 17:59 Lactulose 20 gm BID PRN PO; Start 07/20/25 at 17:00; Stop 08/19/25 at 16:59; Status Hold Pharmacy Profile Note Abnormanl QT interval Q8H MISC; Start 07/20/25 at 19:00; Stop 07/22/25 at 07:22; Status DC Magnesium Sulfate 50 ml @ 0 mls/hr PROTOCOL ONCE IV Last administered on 07/20/25at 21:57; Start 07/20/25 at 21:30; Stop 07/20/25 at 21:31; Status DC Sodium Chloride 10 ml DAILY FLUSH; Start 07/21/25 at 09:00; Stop 07/21/25 at 21:42; Status DC Sodium Chloride 1,000 mg BID PO; Start 07/21/25 at 21:00; Stop 07/21/25 at 15:57; Status DC Albumin Human 250 ml @ 0 mls/hr AD IV Last administered on 07/21/25at 22:49; Start 07/21/25 at 14:30; Stop 07/22/25 at 07:19; Status DC Sodium Chloride 1,000 mg TID PO Last administered on 07/23/25at 14:44; Start 07/21/25 at 16:00; Stop 08/20/25 at 20:59 Sodium Chloride 10 ml DAILY MISC Last administered on 07/23/25at 14:43; Start 07/22/25 at 09:00; Stop 08/21/25 at 08:59 Pharmacy Profile Note 1 each ONCE MISC; Start 07/22/25 at 08:30; Stop 07/22/25 at 08:34; Status DC Meropenem 1 gm Q8H IVPB Last administered on 07/23/25at 09:37; Start 07/22/25 at 09:00; Stop 08/01/25 at 08:59 Pantoprazole Sodium 40 mg BID IVP Last administered on 07/23/25at 09:37; Start 07/22/25 at 21:00; Stop 08/21/25 at 20:59 Furosemide 40 mg ONCE ONCE IV Last administered on 07/22/25at 12:20; Start 07/22/25 at 12:00; Stop 07/22/25 at 12:01; Status DC Spironolactone 25 mg ONCE ONCE PO Last administered on 07/22/25at 12:19; Start 07/22/25 at 12:00; Stop 07/22/25 at 12:01; Status DC Acetaminophen 1,000 mg [id number] PRN IVPB; Start 07/22/25 at 13:30; Stop 08/21/25 at 13:29 Thiamine HCl 200 mg DAILY IVP Last administered on 07/23/25at 09:37; Start 07/23/25 at 09:00; Stop 08/22/25 at 08:59 Heparin Sodium (Porcine) 5,000 unit Q12H SQ Last administered on 07/23/25at 14:44; Start 07/23/25 at 12:00; Stop 08/22/25 at 11:59 Sodium Chloride 500 ml @ 75 mls/hr Q6H40M IV; Start 07/23/25 at 13:00; Stop 07/23/25 at 13:11; Status DC Spironolactone 25 mg DAILY PO Last administered on 07/23/25at 14:45; Start 07/23/25 at 13:00; Stop 08/22/25 at 12:59 Sodium Chloride 500 ml @ 75 mls/hr Q6H40M ONCE IV; Start 07/23/25 at 13:00; Stop 07/23/25 at 19:39 DIEGO ALICIA Jr. PAC Jul 23, 2025 15:30
--- NOTE | 2025-07-23 16:19 | PN ---
INFECTIOUS DISEASE PROGRESS NOTE Date of Service: Jul 23, 2025 SUBJECTIVE: Patient was seen and examined at bedside in room 406. Patient is s/p percutaneous drain placement on 07/19/2025. Patient will need a repeat CT scan of the abdomen/pelvis to re-evaluate abscess prior to discharge. WBC has trended down to 13.5 and no fever reported, temperature is 97.9. We will continue on Meropenem. Patient will need long-term IV antibiotics. We will place PICC line. Patient is being kept NPO due to possible ileus on KUB. PHYSICAL EXAM EYES: Anicteric. Pupils equal and reactive. HENT: No oral thrush seen, moist Oral mucosa. NECK: Supple, no JVD or thyromegaly. LUNGS: Good air entry. No rales, no rhonchi. CARDIOVASCULAR: S1, S2 regular. No murmur heard. ABDOMEN: Distended. bowel sounds present. Percutaneous drain placement. CENTRAL NERVOUS SYSTEM: Awake, alert, oriented x 3. SKIN: No rashes, no swelling. LYMPHATICS: No peripheral lymphadenopathy MUSCULOSKELETAL: No joint swelling, erythema or tenderness. EXTREMITIES: No cyanosis or clubbing. BACK: No deformity, no pressure ulcer. GENITOURINARY: No dysuria or hematuria. Vital Sign (Last 12 Hours) 07/23/25 07/23/25 07:44 11:32 Temp 97.9 97.9 Pulse 85 91 Resp 19 17 B/P (MAP) 133/79 143/83 Pulse Ox 93 93 O2 Delivery Room Air Room Air Intake & Output (last 24hrs) 07/22/25 07/22/25 07/23/25 15:00 23:00 07:00 Output Total 10 ml Balance -10 ml LABS: Laboratory: Test 07/23/25 15:11 07/23/25 15:07 07/23/25 04:12 07/22/25 11:48 Range/Units Sodium Level 129 L 136-145 mmol/L Potassium Level 4.3 3.5-5.1 mmol/L Chloride Level 92 L 101-111 mmol/L Carbon Dioxide Level 28 21-32 mmol/L Blood Urea Nitrogen 8 7-18 mg/dL Creatinine 0.5 0.5-1.0 mg/dL Glomerular Filtration Rate Calc 109 >90 mL/min Random Glucose 90 70-105 mg/dL Total Calcium 8.4 L 8.5-10.1 mg/dL Prothrombin Time 13.0 H 9.6-11.6 SEC Prothromb Time International Ratio 1.25 H 0.85-1.15 Activated Partial Thromboplast Time 28.7 26.3-35.5 SEC White Blood Count 13.5 #H 4.8-10.8 K/uL Red Blood Count 4.11 4.00-5.50 MIL/uL Hemoglobin 11.7 L 12.0-16.0 g/dL Hematocrit 34.5 L 36-48 % Mean Corpuscular Volume 83.9 79-99 fL Mean Corpuscular Hemoglobin 28.5 27.0-33.0 pg Mean Corpuscular Hemoglobin Concent 33.9 32.0-36.0 g/dL Red Cell Distribution Width 12.3 11.0-15.5 % Platelet Count 822 #*H 130-400 K/uL Mean Platelet Volume 8.6 7.5-10.5 fL Immature Granulocyte % (Auto) 1.7 H 0-1 % Neutrophils (%) (Auto) 80.1 H 40.0-77.0 % Lymphocytes (%) (Auto) 11.4 L 21.0-51.0 % Monocytes (%) (Auto) 6.0 3.0-13.0 % Eosinophils (%) (Auto) 0.6 0.0-8.0 % Basophils (%) (Auto) 0.2 0.0-5.0 % Neutrophils # (Auto) 10.8 H 1.8-7.7 K/uL Lymphocytes # (Auto) 1.6 1.0-4.8 K/uL Monocytes # (Auto) 0.8 0.1-1.0 K/uL Eosinophils # (Auto) 0.08 0.00-0.70 K/uL Basophils # (Auto) 0.03 0.00-0.20 K/uL Absolute Immature Granulocyte (auto 0.23 0-1 K/uL Nucleated Red Blood Cells 0.0 0.0-0.19 % Platelet Morphology Comment See comments Phosphorus Level 2.8 2.5-4.9 mg/dL Magnesium Level 1.80 1.80-2.40 mg/dL C-Reactive Protein, Quantitative 135.60 H 0.5-3.0 mg/L Procalcitonin 0.08 0.05-0.5 ng/mL Whole Blood Ketones Quantitative 0.9 H 0.0-0.6 mmol/L Test 07/22/25 08:36 07/22/25 04:59 Range/Units Erythrocyte Sedimentation Rate 42 H 0-30 MM/HR Reticulocyte Count (auto) 1.37520 0.42-2.23 % Immature Reticulocyte Fraction 12.70 H 0.18-0.48 % Lactic Acid Level 1.0 0.8-2.5 mmol/L Iron Level 15 L 50-170 mcg/dL Total Iron Binding Capacity 118 L 250-450 mcg/dL Percent Iron Saturation 12.7 L 22-44 % Ferritin 238 H 15-150 ng/mL Vitamin B12 Level 708 193-986 pg/mL Total Bilirubin 0.4 0.2-1.0 mg/dL Aspartate Amino Transf (AST/SGOT) 17 10-37 U/L Alanine Aminotransferase (ALT/SGPT) 19 12-78 U/L Alkaline Phosphatase 109 50-136 U/L Total Protein 5.6 L 6.0-8.3 g/dL Albumin 1.9 L 3.5-5.0 g/dL ASSESSMENT: Diverticulitis with perforation and abscess, s/p percutaneous drain placement on 07/19/2025. Infection with multidrug resistant organism. Abdominal pain, possible ileus. Leukocytosis. Hypokalemia. Hyponatremia. Chronic tobacco use. PLAN: Continue Meropenem IV. Continue metronidazole. Percutaneous drain care. Continue pain management. Place PICC line. Patient will need a repeat CT scan of the abdomen/pelvis to re-evaluate abscess prior to discharge. Patient will need long-term IV antibiotics. This case was reviewed and discussed with my supervising physician Dr. Moulton and the above assessment and plan was formulated and agreed upon. ATTESTATION BY PHYSICIAN I have seen and examined the patient. I reviewed the documentation, medical decision making, and treatment plan as noted by the mid-level provider above. I agree with the findings and plan of care. HAYDEE MOULTON MD, [facility] Jul 23, 2025 16:19
--- NOTE | 2025-07-23 19:35 | HMCIMG ---
EXAM: CR Chest, 2 View. CLINICAL HISTORY: VIEWING PICC LINE PLACEMENT COMPARISON: None provided. FINDINGS: Right PICC overlies the distal SVC. Mild right basilar atelectasis and/or parenchymal scarring. No pleural effusion. Heart size and pulmonary vessels are within normal limits. IMPRESSION: 1. Right PICC line tip in appropriate position in distal SVC. 2. No acute cardiopulmonary findings. /[place]
--- NOTE | 2025-07-23 19:45 | NUR ---
REFUSAL OF TREATMENT FLUID MEDICATION OF NS 500ML BAG REFUSED BY PATIENT THERE IS NO IV ACCESS. PATIENT STATED TO WAIT UNTIL PICC LINE WAS INSERTED. MD NOTIFIED, NO NEW ORDERS. PENDING PICC LINE
[2025-07-23] MEDS: 0.9% NACL 500ML IV.SOLN 500 ML IV ONE (21:40)
--- NOTE | 2025-07-23 23:51 | HMCIMG ---
STUDY: CR Abdomen, 2 View. HISTORY: Abdominal abscess with distension. COMPARISON: CR Abdomen 1 View dated 07/22/25 ??? stable gaseous distension of large bowel loops consistent with ileus. FINDINGS: BOWEL: Stable gaseous distension of large bowel loops, consistent with ileus. No new air???fluid levels or evidence of bowel obstruction. PERITONEUM / SOFT TISSUES: No pneumoperitoneum. Surgical clips noted in the right hypochondriac region. Pigtail drainage catheter with tip positioned in the left hemipelvis. No abnormal calcification. BONES: No acute osseous abnormality. IMPRESSION: * Re-demonstrated surgical clips in right hypochondriac region and pigtail catheter tip in left hemipelvis. * Stable gaseous distension of large bowel loops, consistent with ileus. * No significant interval change compared with prior study dated 07/22/25. Recommend CT abdomen/pelvis with IV and oral contrast or small bowel series for further workup. /[place]
[2025-07-24] VITALS (8 sets, daily range): BP systolic 115–155; BP diastolic 46–86; PULSE 60–102; RESP 17–18; TEMP 97.6–98.4; O2SAT 95–96
[2025-07-24] MEDS: MEROPENEM 1GM 1 GM VIAL IVPB SCH (02:22)
[2025-07-24 04:30] LABS: IMMATURE GRANULOCYTE ABSOLUTE 0.20 K/uL (0-1); NUCLEATED RED BLOOD CELLS 0.0 % (0.0-0.19); PLATELET COUNT (AUTO) 685 K/uL (130-400); RED BLOOD CELL COUNT(AUTO) 3.59 MIL/uL (4.00-5.50); RED CELL DISTRIBUTION WIDTH 12.5 % (11.0-15.5); WHITE BLOOD COUNT (AUTO) 14.0 K/uL (4.8-10.8)
[2025-07-24 04:44] LABS: CREATININE 0.6 mg/dL (0.5-1.0); GLOMERULAR FILTR. RATE CALC 105.0 mL/min (>90); GLUCOSE,RANDOM 93.0 mg/dL (70-105); SODIUM SERUM 126.0 mmol/L (136-145); UREA NITROGEN, BLOOD 8.0 mg/dL (7-18)
[2025-07-24] MEDS: MAGNESIUM 2GM PREMIX 50ML 50 ML IV PRN (05:19)
--- NOTE | 2025-07-24 13:08 | HMCIMG ---
STUDY: X-RAY OF THE ABDOMEN, SINGLE VIEW HISTORY: ileus monitoring (Hx) TECHNIQUE: A single frontal view of the abdomen is submitted for interpretation. COMPARISON: CR - ABD 1VW dated July 23, 2025 at 08:56 EST. FINDINGS: Bowel: Stable gaseous distention of large bowel loops consistent with ileus. No new air???fluid levels. No evidence of bowel obstruction. Peritoneum / soft tissues: No pneumoperitoneum. Surgical clips in the right hypochondriac region. Pigtail drainage catheter with tip in the left hemipelvis. No abnormal calcification. Bones: No acute osseous abnormality. IMPRESSION: * Stable gaseous distention of the large and small bowel consistent with ileus versus developing small and large bowel obstruction without new air???fluid levels. Recommend CT abdomen/pelvis and or small bowel series for further workup. * No pneumoperitoneum identified. * Left pelvic pigtail drainage catheter in place; surgical clips in the right hypochondriac region. * No acute osseous abnormality. * Comparison: The findings remain unchanged from CR - ABD 1VW on July 23, 2025, at 08:56 EST. /[place]
--- NOTE | 2025-07-24 13:46 | PN ---
[facility] PROGRESS NOTE Date of Service: Jul 24, 2025 Time of Service: 13:45 History of Present Illness Ms. Dowell is a 59-year-old female that was seen and examined today on 07/17/2025. Patient is a good historian of personal health. Patient states that she came to the emergency department with a chief complaint of abdominal pain. Onset was two weeks ago. Location is left lower quadrant. Duration is constant. Character is described as bloating. There was no alleviating factors. There was no aggravating factors. Patient reports associated constipation. Patient reports that she has a pending colonoscopy for this same abdominal discomfort with Dr. Oconnor that was scheduled on 07/19/25. Patient was taking Linzess for the last four days and only had soft GI foods and liquids at home during this time. Patient reports her last meal being a banana that started the pain, which has progressed to this point. Patients says she has lost significant weight, 40 lbs since her divorce intentionally, due to poor diet mainly including tuna and salads. Patient has history of similar pain in the LLQ of abdomen which resolved spontaneously in few hours. Patient has a chronic history of constipation. Patient never underwent colonoscopy. She has family history of Carcinoid tumor and recurrent diverticulitis in first degree relatives. Today in the emergency department WBCs 23.0, left shift neutrophils 83%, potassium 2.5, chloride 81, sodium 120, no urinalysis has been collected or sent to lab, CT of abdomen and pelvis shows diverticulitis with two abscesses. Emergency room physician contacted general surgery on-call, Dr. Lou who requested patient be admitted under hospitalist service. Additionally patient presented with a heart rate of 91 beats per minute, together with WBCs of 23.0 and identified source of infection being gastrointestinal patient met clinical sepsis criteria. SUBJECTIVE: 07/18/2025: Patient was evaluated in ED 03. Patient presented to the ED with acute abdominal pain the left lower quadrant, 8/10 in intensity with associated with bloating. Patient has chronic constipation and has been following Dr. Oconnor for evaluation with colonoscopy. Patient had poor intake in the preceding days and was using Linzess in the last 4 days. Patient had a solid bowel movement this morning and is passing flatus. Patient is kept NPO and is started on IV NS at 100 ml/hr, replacing her potassium and Zosyn was started. Labs remarkable for severe hyponatremia, hypokalemia, hypochloremia, and metabolic alkalosis. We will hydrate her judiciously and monitor her electrolytes closely. CT abdomen is remarkable for acute diverticulitis with abscesses in sigmoid colon and rectum. Pending surgery evaluation. 07/19/2025: Patient was evaluated in room 406. Patient was hemodynamically stable and had no acute events overnight. The nurse reported that patient had a rash and itching sensation on the face and neck after being on Zosyn, has a hist ory of hives to cefazolin. On-call nurse practitioner discontinued Zosyn and put her on levofloxacin and metronidazole. Surgery evaluated patient and recommended percutaneous drainage of abscesses by the interventional radiologist. Patient still has residual pain, 5/10 and tenderness to palpation, but denies fevers, chills, nausea, vomiting. Her serum sodium was 130 this morning. We will continue cautious hydration. ID consult has also been placed and we will follow their recommendations. 07/20/2025: Patient was evaluated in room 406. Patient is hemodynamically stable and had no acute events overnight. Patient underwent percutaneous drainage of diverticular abscess yesterday, samples were sent for cultures. Output today was 70 cc purulent drainage. Patient complained of abdominal distention and had not had any bowel movement since admission. Patient is tolerating clear liquid diet without nausea or vomiting. Her serum sodium dropped to 125 this morning and potassium was 3. We will continue gentle hydration and potassium replacement as per protocol. We encouraged the patient to ambulate in the hallways and also ordered physical therapy. Surgical team ordered KUB to rule out ileus versus obstruction. They also added meto clopramide 10 mg and Mylicon. Malignancy workup with CA 125, CA 19 9 were also ordered by primary team. 07/21/2025: Patient is seen in the room 406. KUB x-ray revealed markedly dilated large bowel loops measuring 9.[address] scan of the abdomen pelvis without contrast for further analysis. Discontinued metoclopramide. CT chest is ordered. Patient's sodium is low, salt tablets 1 g t.i.d. added. Urinalysis and the urine electrolytes were ordered. Albumin was added due to the suspicion of Cancer and protein energy malnutrition Urine [id number], potassium 22- so a case of SIADH. Urine protein to creatinine ratio is pending. 07/22/2025: Patient is seen and evaluated in room 405 for severe, persistent abdominal pain. She was given morphine at 7:48 AM with partial relief. Her abdomen is rigid, distended, and she reports epigastric pain with little to no passage of gas. Labs show WBC trending up to 21.2, hemoglobin 10.5, platelets 635, sodium 124, potassium 3.3, and CRP 114. Percutaneous drain is producing high-volume purulent output, and cultures returned positive for E. coli with Pseudomonas; antibiotics have been adjusted with levofloxacin and metronidazole stopped and meropenem started. Abdominal X-ray shows gaseous distension of large bowel loops consistent with ileus. Patient is NPO, on fluid restriction of 1 liter, and has been started on spironolactone 25 mg PO. Surgery recommends repeating abdominal xray tomorrow and continue conservative management for now.. Patients code status was discussed, and she wishes to remain full code. 07/23/2025: Patient was seen and evaluated bedside in room 405. She was awake and alert during my visit and appeared to be in no acute distress. Patient states that her symptoms have side subsided significantly. She states that her only symptom today was the bloating that she is feeling which she attributes to not eating. She continues on meropenem today. Nursing staff reported that the percutaneous drain stopped draining yesterday, following which they flushed the drain with a total of 50 mL NS with no result. Patient continues to be NPO and bowel rest. She states that she would like to eat soon if possible. Patient also stated that she had a bowel movement today which was nonbloody. Patient continues on [id number] mg BD. She will receive 500 mL of NS followed by re measurement of her serum sodium and potassium today at 1600. 07/24/2025: Patient was seen and evaluated in room 405. She was awake, and alert during my visit. Patient stated that her abdominal pain is almost gone. Regarding her bloating she states that the simethicone she is getting has helped. She continues on meropenem and ID recommended the patient receive long- term IV antibiotics. We will perform CT abdomen and pelvis before discharge to assess for the resolution of her diverticular abscess. Case management has been consulted for potential placement as the patient will require IV antibiotics after discharge. Regarding her diet, patient states that she started eating jelly yesterday and is tolerating the diet well. Her hyponatremia is slowly improving with a serum sodium of 126 today. She still has the rash present on her upper back however she reports no symptoms at the moment. She is hemodynamically stable otherwise and has no other complaints today. REVIEW OF SYSTEMS CONSTITUTIONAL: Denies fevers, chills, or night sweats. Reports intentional weight loss of 40 lbs. NEUROLOGICAL: Denies headache, motor weakness, sensory deficit, vertigo/spinning sensation, gait abnormalities, or tremors. ENT: No hearing loss, otalgia, otorrhea, rhinitis, rhinorrhea, hoarseness, or sore throat. CARDIOVASCULAR: Denies any exertional angina, dyspnea on exertion, orthopnea, paroxysmal nocturnal dyspnea, palpitations, life-threatening arrhythmias, claudication. PULMONARY: Denies any shortness of breath, cough, phlegm/sputum, hemoptysis, pleuritic chest pain. SLEEP: Denies morning headaches, daytime somnolence or napping. Denies difficulty falling asleep, staying asleep, waking from sleep. Denies knowledge of snoring. GASTROINTESTINAL: Denies any type of dysphagia to either liquids or solids. Denies nausea, vomiting, pyrosis, early satiety. Admits to chronic constipation . GENITOURINARY: Denies frequency, urgency, nocturia, hematuria or incontinence (Storage/Irritative symptoms.) PHYSICAL EXAM GENERAL APPEARANCE: The patient is awake, alert, and oriented, in no acute cardiopulmonary distress., Appears cachexic NEUROLOGICAL: Cranial nerves II-XII grossly intact. Motor is 5/5 in bilateral upper and lower extremities proximal to distal. No sensory deficits. HEENT: Face is symmetric. Pupils are equal and reactive. Extraocular movements are intact. NECK: Supple. No thyromegaly. No submental, submandibular, pre-/postauricular, occipital or supraclavicular lymphadenopathy. CHEST: Normal chest expansion. No Telemetry. LUNGS: Absence of any rales, rhonchi or any wheezing. CARDIOVASCULAR: Regular. S1 and S2 normal. No appreciable rubs, murmurs or gallops. ABDOMEN: mildly Tender to palpation in the LLQ, and epigastrium. Abdomen is distended. Left lower quadrant drainage catheter with bag in position. Hyper acoustic bowel sounds There is no rebound, voluntary guarding, and rigidity present . : Deferred. No [place]. EXTREMITIES: Non-edematous and not cyanotic. No clubbing. Good capillary refill. SKIN: No skin breakdown. Vital Signs (last 8hr) Date Time Temp Pulse Resp B/P (MAP) Pulse Ox O2 Delivery O2 Flow Rate FiO2 07/24/25 12:00 98.2 102 18 155/86 93 Room Air 07/24/25 08:01 98.1 87 18 135/84 94 Room Air 07/24/25 07:15 95 Room Air* 0 21 LABS: Laboratory: Test 07/24/25 04:02 07/23/25 18:44 07/23/25 15:07 07/23/25 04:12 Range/Units White Blood Count 14.0 H 4.8-10.8 K/uL Red Blood Count 3.59 L 4.00-5.50 MIL/uL Hemoglobin 10.2 L 12.0-16.0 g/dL Hematocrit 30.3 L 36-48 % Mean Corpuscular Volume 84.4 79-99 fL Mean Corpuscular Hemoglobin 28.4 27.0-33.0 pg Mean Corpuscular Hemoglobin Concent 33.7 32.0-36.0 g/dL Red Cell Distribution Width 12.5 11.0-15.5 % Platelet Count 685 H 130-400 K/uL Mean Platelet Volume 8.3 7.5-10.5 fL Immature Granulocyte % (Auto) 1.4 H 0-1 % Neutrophils (%) (Auto) 76.0 40.0-77.0 % Lymphocytes (%) (Auto) 14.8 L 21.0-51.0 % Monocytes (%) (Auto) 7.0 3.0-13.0 % Eosinophils (%) (Auto) 0.6 0.0-8.0 % Basophils (%) (Auto) 0.2 0.0-5.0 % Neutrophils # (Auto) 10.6 H 1.8-7.7 K/uL Lymphocytes # (Auto) 2.1 1.0-4.8 K/uL Monocytes # (Auto) 1.0 0.1-1.0 K/uL Eosinophils # (Auto) 0.09 0.00-0.70 K/uL Basophils # (Auto) 0.03 0.00-0.20 K/uL Absolute Immature Granulocyte (auto 0.20 0-1 K/uL Nucleated Red Blood Cells 0.0 0.0-0.19 % Sodium Level 126 L 136-145 mmol/L Potassium Level 3.6 3.5-5.1 mmol/L Chloride Level 93 L 101-111 mmol/L Carbon Dioxide Level 26 21-32 mmol/L Blood Urea Nitrogen 8 7-18 mg/dL Creatinine 0.6 0.5-1.0 mg/dL Glomerular Filtration Rate Calc 105 >90 mL/min Random Glucose 93 70-105 mg/dL Total Calcium 7.7 L 8.5-10.1 mg/dL Magnesium Level 1.70 L 1.80-2.40 mg/dL C-Reactive Protein, Quantitative 54.30 H 0.5-3.0 mg/L Urine Random Sodium 112 40-220 mmol/l Urine Random Potassium 56 25-125 mmol/L Urine Random Chloride 165 110-250 mmol/L Prothrombin Time 13.0 H 9.6-11.6 SEC Prothromb Time International Ratio 1.25 H 0.85-1.15 Activated Partial Thromboplast Time 28.7 26.3-35.5 SEC Platelet Morphology Comment See comments Serum Osmolality 263 L 278-305 mOsm/kg Phosphorus Level 2.8 2.5-4.9 mg/dL Carcinoembryonic Antigen 2.6 0.0-4.7 ng/mL Procalcitonin 0.08 0.05-0.5 ng/mL Current Medications Medications (Trade) Dose Ordered Sig/Heather Route PRN Reason Start Time Stop Time Status Last Admin Dose Admin Acetaminophen (TYLenol 325MG TAB) 650 mg Q6H PRN PO TEMPERATURE GREATER THAN 101.5 07/17/25 22:00 08/16/25 21:59 Acetaminophen (TYLenol 500MG TAB) 500 mg Q4H PRN PO MILD PAIN (1-3) 07/18/25 10:30 08/17/25 10:29 07/24/25 13:43 500 MG Acetaminophen (acetaMINOPHEN 1,000MG/100ML) 1,000 mg [id number] PRN IVPB MODERATE PAIN (4-6) 07/22/25 13:30 08/21/25 13:29 Albumin Human 250 ml @ 0 mls/hr AD IV 07/21/25 14:30 07/22/25 07:19 DC 07/21/25 22:49 60 MLS/HR Diphenhydramine HCl (BENAdryl CAP) 25 mg Q8H PRN PO INSOMNIA 07/20/25 11:00 07/22/25 11:13 DC 07/21/25 18:33 25 MG Famotidine (Pepcid 20mg Vial) 20 mg DAILY IV 07/18/25 09:00 07/22/25 11:12 DC 07/21/25 08:33 20 MG Heparin Sodium (Porcine) (HEParin 5,000 UNIT VIAL) 5,000 unit Q12H SQ 07/23/25 12:00 07/24/25 00:30 DC 07/23/25 14:44 5,000 UNIT Heparin Sodium (Porcine) (HEParin 5,000 UNIT VIAL) 5,000 unit Q12H SQ 07/24/25 03:00 08/23/25 02:59 07/24/25 02:26 5,000 UNIT Hydralazine HCl (APRESOLine 20MG INJ) 10 mg Q6H PRN IV For:SBP above 160;DBP above 90 07/17/25 22:00 08/16/25 21:59 Lactated Ringer's 1,000 ml @ 75 mls/hr [id number] IV 07/17/25 22:00 07/17/25 22:07 DC 07/17/25 21:56 75 MLS/HR Lactulose (Constulose 20gm/ 30ml Udcup) 20 gm BID PRN PO CONSTIPATION 07/20/25 17:00 08/19/25 16:59 Hold Levofloxacin/ Dextrose (LEvaquIN 750 MG/ D5W 150 ML) 750 mg Q24H IV 07/19/25 05:00 07/22/25 08:34 DC 07/22/25 04:52 750 MG Magnesium Sulfate 50 ml @ 0 mls/hr PROTOCOL PRN IV MAGNESIUM PROTOCOL 07/24/25 05:00 08/23/25 04:59 07/24/25 05:19 25 MLS/HR Magnesium Sulfate 50 ml @ 0 mls/hr PROTOCOL PRN IV h 07/17/25 22:30 07/20/25 21:08 DC 07/18/25 02:31 25 MLS/HR Meropenem (Merrem 1gm) 1 gm Q8H IVPB 07/22/25 09:00 07/24/25 00:29 DC 07/23/25 17:39 1 GM Meropenem (Merrem 1gm) 1 gm Q8H IVPB 07/24/25 02:00 08/03/25 01:59 07/24/25 09:35 1 GM Metoclopramide HCl (regLAN 10MG IV) 10 mg ACHS IVP 07/20/25 21:00 07/21/25 14:18 DC 07/21/25 12:24 10 MG Metronidazole/ Sodium Chloride (flaGYL) 500 mg Q8H IV 07/19/25 07:00 07/22/25 11:30 DC 07/22/25 06:24 500 MG Morphine Sulfate (morPHINE 4MG SYG) 4 mg Q4H PRN IVP SEVERE PAIN (7-10) 07/17/25 22:00 07/22/25 11:12 DC 07/22/25 07:48 4 MG Ondansetron HCl (zoFRAN 4MG INJ) 4 mg Q6H PRN IV NAUSEA/VOMITING 07/17/25 22:00 08/16/25 21:59 07/19/25 00:47 4 MG Pantoprazole Sodium (PROTonix 40MG INJ) 40 mg BID IVP 07/22/25 21:00 08/21/25 20:59 07/24/25 09:28 40 MG Pharmacy Profile Note (Pharmacy Communication) 1 each ONCE [facility] 07/22/25 08:30 07/22/25 08:34 DC Pharmacy Profile Note (Pharmacy Communication) Abnormanl QT interval Q8H MISC 07/20/25 19:00 07/22/25 07:22 DC Piperacillin Sod/ Tazobactam Sod (Zosyn 3.375gm+NS 50ml) 3.375 gm Q8H IV 07/17/25 22:00 07/19/25 02:04 DC 07/18/25 21:47 3.375 GM Potassium Chloride 100 ml @ 50 mls/hr AD PRN IV POTASSIUM PROTOCOL 07/17/25 22:30 08/16/25 22:29 07/24/25 05:45 50 MLS/HR Simethicone (Mylicon) 80 mg PCHS PO 07/20/25 18:00 08/19/25 17:59 07/24/25 13:38 80 MG Sodium Chloride 500 ml @ 75 mls/hr Q6H40M IV 07/23/25 13:00 07/23/25 13:11 DC Sodium Chloride 1,000 ml @ 125 mls/hr Q8H IV 07/17/25 22:30 07/21/25 16:08 DC 07/21/25 14:16 125 MLS/HR Sodium Chloride (NS Flush 10ml) 10 ml DAILY FLUSH 07/21/25 09:00 07/21/25 21:42 DC Sodium Chloride (NS Flush 10ml) 10 ml DAILY MISC 07/22/25 09:00 08/21/25 08:59 07/24/25 09:29 10 ML Sodium Chloride (Sodium Chloride) 1,000 mg BID PO 07/21/25 21:00 07/21/25 15:57 DC Sodium Chloride (Sodium Chloride) 1,000 mg TID PO 07/21/25 16:00 08/20/25 20:59 07/24/25 13:38 1,000 MG Spironolactone (Aldactone 25mg) 25 mg DAILY PO 07/23/25 13:00 08/22/25 12:59 07/24/25 09:29 25 MG Thiamine HCl (Vitamin B-1) 200 mg DAILY IVP 07/23/25 09:00 08/22/25 08:59 07/24/25 09:29 200 MG DIAGNOSTICS / RADIOLOGY: [place] [address] IMAGING REPORT Signed PATIENT: KIMBERLYN DOWELL MR#: [id number] : 1965 SEX: F AGE: 59 LOCATION: 4BH ORDER [id number] STATUS: ADM IN REPORT#: [id number] SERVICE [id number] REASON: ileus monitoring ORDERING PHYSICIAN: ITZ SAUNDERS MD PROCEDURE: ABD 1VW - ABD 1VW STUDY: X-RAY OF THE ABDOMEN, SINGLE VIEW HISTORY: ileus monitoring (Hx) TECHNIQUE: A single frontal view of the abdomen is submitted for interpretation. COMPARISON: CR - ABD 1VW dated July 23, 2025 at 08:56 EST. FINDINGS: Bowel: Stable gaseous distention of large bowel loops consistent with ileus. No new air???fluid levels. No evidence of bowel obstruction. Peritoneum / soft tissues: No pneumoperitoneum. Surgical clips in the right hypochondriac region. Pigtail drainage catheter with tip in the left hemipelvis. No abnormal calcification. Bones: No acute osseous abnormality. IMPRESSION: * Stable gaseous distention of the large and small bowel consistent with ileus versus developing small and large bowel obstruction without new air??? fluid levels. Recommend CT abdomen/pelvis and or small bowel series for further workup. * No pneumoperitoneum identified. * Left pelvic pigtail drainage catheter in place; surgical clips in the right hypochondriac region. * No acute osseous abnormality. * Comparison: The findings remain unchanged from CR - ABD 1VW on July 23, 2025, at 08:56 EST. 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1 cm) and one along the rectum (7.6 x 6.1 x 6.6 cm) * Patient had rash and itching to the face after Zosyn, discontinue * Discontinued IV metronidazole 500 mg Q8 and IV levofloxacin 750 mg Q 24 and started on meropenem ( day 1) as per culture and sensitivity * Surgery recommended percutaneous drainage of the abscesses by IR, no surgical intervention at this moment * IR performed percutaneous drainage of pelvic abscess with placement of left lower quadrant drainage catheter * Abscess sample were sent for cultures, showed growth of E coli and pseudomonas * Monitor daily output from left lower quadrant drain * Morphine 4 mg for severe pain is stopped and started on Tylenol 1000 mg for pain * Repeat labs in the morning * WBC count 23>20>14.5>13.6>17.6>21.2>13.5>14(Today) * KUB x-ray (07/24/2025)- markedly dilated large bowel measuring up to 8 cm, improved from yesterday. * repeat KUB tomorrow as per surgery recommendations * Further CT scan is ordered * Discontinued metoclopramide and diphenhydramine Iron-deficiency anemia: * Patient's hemoglobin today at 11.7. * Serum iron studies showed a transferrin saturation of 12%. * Not on IV Venofer due to elevated CRP, not on oral iron due to suspected ileus. * Consider iron supplementation once stable and at discharge. Severe hyponatremia, hypovolemic (suspected SIADH): * On presentation Na was 120, asymptomatic and was dehydrated in the preceding days * Today serum sodium is 126 and we will continue judicious hydration * fluid restricted to 1 litre * Salt tablet 1000 mg t.i.d. * She will receive 40 mg Lasix IV today. * Urine electrolytes (07/23/2025) -[id number], potassium 56, urine osmolality (07/18/2025) at 204, and serum osmolality (07/23/2025) at 265 consistent with SIADH * Urine protein to creatinine ratio still pending Protein energy malnutrition: * Patient's weight is 49.9 kg, BMI 21.5 and serum albumin 2 * Current weight at 50.57 kg, BMI 21.8, * Muscle atrophy noted BUN low, 6 * Patient lost significant amount of weight intentionally, 40 lb * Continue clear liquid diet * Diet evaluation placed for recommendations post discharge * Albumin added Suspected ileus versus obstruction * Patient had her 1st bowel movement since admission on 07/22/2025 which was nonbloody. * Has diffuse abdominal distention, however passing flatus, and tolerating clear liquid diet * Repeat KUB tomorrow. * Encouraged patient to ambulate in the hallways and ordered physical therapy * Lactulose 20 mg p.o. b.i.d. PRN ordered by surgical team GI prophylaxis with simethicone and Protonix 40 mg DVT prophylaxis with SCDs and heparin 5000 b.i.d.. ATTESTATION BY PHYSICIAN I have seen and examined the patient. I reviewed the documentation, medical decision making, and treatment plan as noted by the resident physician above. I agree with the findings and plan of care. RICHARD WANG MD, HEMA MD Jul 24, 2025 13:46
--- NOTE | 2025-07-24 15:58 | PN ---
This is a 59-year-old female with diverticular abscess with the patient percutaneous drain placement by IR with potential developing ileus Interval history: This 69-year-old female seen in her room resting Patient with multiple bowel movements reported Percutaneous drain being flushed with minimal output noted White count 14 Patient remains on clear liquids Physical exam General: Awake alert and oriented Heart: Regular rate and rhythm} Lungs: Clear to auscultation no distress Abdomen: [Soft, nontender, nondistended percutaneous fashion in place Assessment : This is a 59-year-old female with diverticular abscess with the patient percutaneous drain placement by IR with potential developing ileus Plan: This point in time plan will be for repeat CT Tuesday to assess drainage from percutaneous drain as well as potential abdominal pathology Patient to continue with the IV fluids and IV antibiotics No immediate plans for surgical intervention Surgical team to follow patient closely nursing report any further acute events Surgical case has been discussed with my supervising physician in the above plan was formulated and agreed upon We appreciate the hospitalist team for us to participate in patient's care. Greater than 45 minutes of time spent patient, reviewing chart, working on documentation Vitals/Labs Vital Signs Date Time Temp Pulse Resp B/P (MAP) Pulse Ox O2 Delivery O2 Flow Rate FiO2 07/24/25 12:00 98.2 102 18 155/86 93 Room Air 07/24/25 07:15 0 21 Laboratory Tests 07/24/25 04:02 Medications Current Medications Pantoprazole Sodium 40 mg ONCE ONCE IVP Last administered on 07/17/25at 13:00; Start 07/17/25 at 13:00; Stop 07/17/25 at 13:02; Status DC Potassium Chloride 100 ml @ 100 mls/hr ONCE ONCE IV Last administered on 07/17/25at 15:36; Start 07/17/25 at 14:00; Stop 07/17/25 at 14:59; Status DC Potassium Bicarbonate 50 meq ONCE ONCE PO Last administered on 07/17/25at 15:35; Start 07/17/25 at 14:00; Stop 07/17/25 at 14:01; Status DC Ceftriaxone Sodium 1 gm ONCE ONCE IVPB Last administered on 07/17/25at 19:32; Start 07/17/25 at 17:00; Stop 07/17/25 at 17:01; Status DC Iohexol 35,000 mg STK-MED ONCE IV; Start 07/17/25 at 17:30; Stop 07/17/25 at 17:30; Status DC Piperacillin Sod/ Tazobactam Sod 3.375 gm ONCE ONCE IV Last administered on 07/17/25at 19:32; Start 07/17/25 at 19:00; Stop 07/17/25 at 19:01; Status DC Lactated Ringer's 1,497 ml @ 499 mls/hr ONCE ONCE IV Last administered on 07/17/25at 21:58; Start 07/17/25 at 22:00; Stop 07/18/25 at 00:59; Status DC Piperacillin Sod/ Tazobactam Sod 3.375 gm Q8H IV Last administered on 07/18/25at 21:47; Start 07/17/25 at 22:00; Stop 07/19/25 at 02:04; Status DC Acetaminophen 650 mg Q6H PRN PO; Start 07/17/25 at 22:00; Stop 08/16/25 at 21:59 Famotidine 20 mg DAILY IV Last administered on 07/21/25at 08:33; Start 07/18/25 at 09:00; Stop 07/22/25 at 11:12; Status DC Hydralazine HCl 10 mg Q6H PRN IV; Start 07/17/25 at 22:00; Stop 08/16/25 at 21:59 Lactated Ringer's 1,000 ml @ 75 mls/hr [id number] IV Last administered on 07/17/25at 21:56; Start 07/17/25 at 22:00; Stop 07/17/25 at 22:07; Status DC Ondansetron HCl 4 mg Q6H PRN IV Last administered on 07/19/25at 00:47; Start 07/17/25 at 22:00; Stop 08/16/25 at 21:59 Morphine Sulfate 4 mg Q4H PRN IVP Last administered on 07/22/25at 07:48; Start 07/17/25 at 22:00; Stop 07/22/25 at 11:12; Status DC Potassium Chloride 100 ml @ 50 mls/hr AD PRN IV Last administered on 07/24/25at 05:45; Start 07/17/25 at 22:30; Stop 08/16/25 at 22:29 Magnesium Sulfate 50 ml @ 0 mls/hr PROTOCOL PRN IV Last administered on 07/18/25at 02:31; Start 07/17/25 at 22:30; Stop 07/20/25 at 21:08; Status DC Sodium Chloride 1,000 ml @ 125 mls/hr Q8H IV Last administered on 07/21/25at 14:16; Start 07/17/25 at 22:30; Stop 07/21/25 at 16:08; Status DC Potassium Chloride 100 ml @ As Directed STK-MED ONCE IV Last administered on 07/18/25at 02:31; Start 07/18/25 at 02:12; Stop 07/18/25 at 02:12; Status DC Acetaminophen 500 mg Q4H PRN PO Last administered on 07/24/25at 13:43; Start 07/18/25 at 10:30; Stop 08/17/25 at 10:29 Levofloxacin/ Dextrose 750 mg Q24H IV Last administered on 07/22/25at 04:52; Start 07/19/25 at 05:00; Stop 07/22/25 at 08:34; Status DC Metronidazole/ Sodium Chloride 500 mg Q8H IV Last administered on 07/22/25at 06:24; Start 07/19/25 at 07:00; Stop 07/22/25 at 11:30; Status DC Diphenhydramine HCl 25 mg ONCE ONCE IV Last administered on 07/19/25at 02:47; Start 07/19/25 at 02:30; Stop 07/19/25 at 02:31; Status DC Midazolam HCl 2 mg STK-MED ONCE .ROUTE Last administered on 07/19/25at 16:22; Start 07/19/25 at 15:19; Stop 07/19/25 at 15:20; Status DC Fentanyl Citrate 100 mcg STK-MED ONCE .ROUTE Last administered on 07/19/25at 16:23; Start 07/19/25 at 15:20; Stop 07/19/25 at 15:20; Status DC Diphenhydramine HCl 25 mg ONCE ONCE PO Last administered on 07/19/25at 22:26; Start 07/19/25 at 22:00; Stop 07/19/25 at 22:15; Status DC Diphenhydramine HCl 25 mg Q8H PRN PO Last administered on 07/21/25at 18:33; Start 07/20/25 at 11:00; Stop 07/22/25 at 11:13; Status DC Metoclopramide HCl 10 mg ACHS IVP Last administered on 07/21/25at 12:24; Start 07/20/25 at 21:00; Stop 07/21/25 at 14:18; Status DC Simethicone 80 mg PCHS PO Last administered on 07/24/25at 13:38; Start 07/20/25 at 18:00; Stop 08/19/25 at 17:59 Lactulose 20 gm BID PRN PO; Start 07/20/25 at 17:00; Stop 08/19/25 at 16:59; Status Hold Pharmacy Profile Note Abnormanl QT interval Q8H MISC; Start 07/20/25 at 19:00; Stop 07/22/25 at 07:22; Status DC Magnesium Sulfate 50 ml @ 0 mls/hr PROTOCOL ONCE IV Last administered on 07/20/25at 21:57; Start 07/20/25 at 21:30; Stop 07/20/25 at 21:31; Status DC Sodium Chloride 10 ml DAILY FLUSH; Start 07/21/25 at 09:00; Stop 07/21/25 at 21:42; Status DC Sodium Chloride 1,000 mg BID PO; Start 07/21/25 at 21:00; Stop 07/21/25 at 15:57; Status DC Albumin Human 250 ml @ 0 mls/hr AD IV Last administered on 07/21/25at 22:49; Start 07/21/25 at 14:30; Stop 07/22/25 at 07:19; Status DC Sodium Chloride 1,000 mg TID PO Last administered on 07/24/25at 13:38; Start 07/21/25 at 16:00; Stop 08/20/25 at 20:59 Sodium Chloride 10 ml DAILY MISC Last administered on 07/24/25at 09:29; Start 07/22/25 at 09:00; Stop 08/21/25 at 08:59 Pharmacy Profile Note 1 each ONCE MISC; Start 07/22/25 at 08:30; Stop 07/22/25 at 08:34; Status DC Meropenem 1 gm Q8H IVPB Last administered on 07/23/25at 17:39; Start 07/22/25 at 09:00; Stop 07/24/25 at 00:29; Status DC Pantoprazole Sodium 40 mg BID IVP Last administered on 07/24/25at 09:28; Start 07/22/25 at 21:00; Stop 08/21/25 at 20:59 Furosemide 40 mg ONCE ONCE IV Last administered on 07/22/25at 12:20; Start 07/22/25 at 12:00; Stop 07/22/25 at 12:01; Status DC Spironolactone 25 mg ONCE ONCE PO Last administered on 07/22/25at 12:19; Start 07/22/25 at 12:00; Stop 07/22/25 at 12:01; Status DC Acetaminophen 1,000 mg [id number] PRN IVPB; Start 07/22/25 at 13:30; Stop 08/21/25 at 13:29 Thiamine HCl 200 mg DAILY IVP Last administered on 07/24/25at 09:29; Start 07/23/25 at 09:00; Stop 08/22/25 at 08:59 Heparin Sodium (Porcine) 5,000 unit Q12H SQ Last administered on 07/23/25at 14:44; Start 07/23/25 at 12:00; Stop 07/24/25 at 00:30; Status DC Sodium Chloride 500 ml @ 75 mls/hr Q6H40M IV; Start 07/23/25 at 13:00; Stop 07/23/25 at 13:11; Status DC Spironolactone 25 mg DAILY PO Last administered on 07/24/25at 09:29; Start 07/23/25 at 13:00; Stop 08/22/25 at 12:59 Sodium Chloride 500 ml @ 75 mls/hr Q6H40M ONCE IV Last administered on 07/23/25at 21:40; Start 07/23/25 at 13:00; Stop 07/23/25 at 19:39; Status DC Meropenem 1 gm Q8H IVPB Last administered on 07/24/25at 09:35; Start 07/24/25 at 02:00; Stop 08/03/25 at 01:59 Heparin Sodium (Porcine) 5,000 unit Q12H SQ Last administered on 07/24/25at 15:07; Start 07/24/25 at 03:00; Stop 08/23/25 at 02:59 Magnesium Sulfate 50 ml @ 0 mls/hr PROTOCOL PRN IV Last administered on 07/24/25at 05:19; Start 07/24/25 at 05:00; Stop 08/23/25 at 04:59 Furosemide 40 mg ONCE ONCE IV Last administered on 07/24/25at 13:40; Start 07/24/25 at 12:00; Stop 07/24/25 at 12:01; Status DC DIEGO ALICIA Jr. PAC Jul 24, 2025 15:58
--- NOTE | 2025-07-24 17:51 | PN ---
INFECTIOUS DISEASE PROGRESS NOTE Date of Service: Jul 24, 2025 SUBJECTIVE: Patient was seen and examined at bedside in room 406. Patient is s/p percutaneous drain placement on 07/19/2025. Abdomen is soft and patient reported having bowel movements. Abdominal pain is resolving and patient has been started on clear liquid diet. The percutaneous drain patent is draining purulent drainage. We will continue on Meropenem. A PICC line has been placed for long-term IV antibiotic therapy. PHYSICAL EXAM EYES: Anicteric. Pupils equal and reactive. HENT: No oral thrush seen, moist Oral mucosa. NECK: Supple, no JVD or thyromegaly. LUNGS: Good air entry. No rales, no rhonchi. CARDIOVASCULAR: S1, S2 regular. No murmur heard. ABDOMEN: Distended. bowel sounds present. Percutaneous drain placement. CENTRAL NERVOUS SYSTEM: Awake, alert, oriented x 3. SKIN: No rashes, no swelling. LYMPHATICS: No peripheral lymphadenopathy. MUSCULOSKELETAL: No joint swelling, erythema or tenderness. EXTREMITIES: No cyanosis or clubbing. BACK: No deformity, no pressure ulcer. GENITOURINARY: No dysuria or hematuria. Vital Sign (Last 12 Hours) 07/24/25 07/24/25 07/24/25 07/24/25 07:15 08:01 12:00 16:00 Temp 98.1 98.2 98.4 Pulse 87 102 91 Resp 18 18 18 B/P (MAP) 135/84 155/86 127/81 Pulse Ox 95 94 93 97 O2 Delivery Room Air* Room Air Room Air Room Air O2 Flow Rate 0 FiO2 21 Intake & Output (last 24hrs) 07/23/25 07/23/25 07/24/25 15:00 23:00 07:00 Intake Total 50.0 ml 620.0 ml 150.0 ml Output Total 70 ml 455 ml Balance 50.0 ml 550.0 ml -305.0 ml LABS: Laboratory: Test 07/24/25 04:02 07/23/25 18:44 07/23/25 15:07 07/23/25 04:12 Range/Units White Blood Count 14.0 H 4.8-10.8 K/uL Red Blood Count 3.59 L 4.00-5.50 MIL/uL Hemoglobin 10.2 L 12.0-16.0 g/dL Hematocrit 30.3 L 36-48 % Mean Corpuscular Volume 84.4 79-99 fL Mean Corpuscular Hemoglobin 28.4 27.0-33.0 pg Mean Corpuscular Hemoglobin Concent 33.7 32.0-36.0 g/dL Red Cell Distribution Width 12.5 11.0-15.5 % Platelet Count 685 H 130-400 K/uL Mean Platelet Volume 8.3 7.5-10.5 fL Immature Granulocyte % (Auto) 1.4 H 0-1 % Neutrophils (%) (Auto) 76.0 40.0-77.0 % Lymphocytes (%) (Auto) 14.8 L 21.0-51.0 % Monocytes (%) (Auto) 7.0 3.0-13.0 % Eosinophils (%) (Auto) 0.6 0.0-8.0 % Basophils (%) (Auto) 0.2 0.0-5.0 % Neutrophils # (Auto) 10.6 H 1.8-7.7 K/uL Lymphocytes # (Auto) 2.1 1.0-4.8 K/uL Monocytes # (Auto) 1.0 0.1-1.0 K/uL Eosinophils # (Auto) 0.09 0.00-0.70 K/uL Basophils # (Auto) 0.03 0.00-0.20 K/uL Absolute Immature Granulocyte (auto 0.20 0-1 K/uL Nucleated Red Blood Cells 0.0 0.0-0.19 % Sodium Level 126 L 136-145 mmol/L Potassium Level 3.6 3.5-5.1 mmol/L Chloride Level 93 L 101-111 mmol/L Carbon Dioxide Level 26 21-32 mmol/L Blood Urea Nitrogen 8 7-18 mg/dL Creatinine 0.6 0.5-1.0 mg/dL Glomerular Filtration Rate Calc 105 >90 mL/min Random Glucose 93 70-105 mg/dL Total Calcium 7.7 L 8.5-10.1 mg/dL Magnesium Level 1.70 L 1.80-2.40 mg/dL C-Reactive Protein, Quantitative 54.30 H 0.5-3.0 mg/L Urine Osmolality 754 50-1200 mOsm/kg Urine Random Sodium 112 40-220 mmol/l Urine Random Potassium 56 25-125 mmol/L Urine Random Chloride 165 110-250 mmol/L Prothrombin Time 13.0 H 9.6-11.6 SEC Prothromb Time International Ratio 1.25 H 0.85-1.15 Activated Partial Thromboplast Time 28.7 26.3-35.5 SEC Platelet Morphology Comment See comments Serum Osmolality 263 L 278-305 mOsm/kg Phosphorus Level 2.8 2.5-4.9 mg/dL Carcinoembryonic Antigen 2.6 0.0-4.7 ng/mL Procalcitonin 0.08 0.05-0.5 ng/mL ASSESSMENT: Diverticulitis with perforation and abscess, s/p percutaneous drain placement on 07/19/2025. Infection with multidrug resistant organism. Abdominal pain, possible ileus. Leukocytosis. Hypokalemia, resolving. Hyponatremia. Chronic tobacco use. PLAN: Continue Meropenem IV. Percutaneous drain care. Continue pain management. PICC line has been placed. Patient will need a repeat CT scan of the abdomen/pelvis to re-evaluate abscess prior to discharge. Patient will need long-term IV antibiotics therapy. This case was reviewed and discussed with my supervising physician Dr. Moulton and the above assessment and plan was formulated and agreed upon. ATTESTATION BY PHYSICIAN I have seen and examined the patient. I reviewed the documentation, medical decision making, and treatment plan as noted by the mid-level provider above. I agree with the findings and plan of care. HAYDEE MOULTON MD, [facility] Jul 24, 2025 17:51
[2025-07-25] VITALS (7 sets, daily range): BP systolic 115–127; BP diastolic 62–84; PULSE 72–93; RESP 17–18; TEMP 97.4–98; O2SAT 95
[2025-07-25 04:54] LABS: IMMATURE GRANULOCYTE ABSOLUTE 0.14 K/uL (0-1); NUCLEATED RED BLOOD CELLS 0.0 % (0.0-0.19); PLATELET COUNT (AUTO) 629 K/uL (130-400); RED BLOOD CELL COUNT(AUTO) 3.54 MIL/uL (4.00-5.50); RED CELL DISTRIBUTION WIDTH 12.5 % (11.0-15.5); WHITE BLOOD COUNT (AUTO) 11.0 K/uL (4.8-10.8)
[2025-07-25 05:22] LABS: ASPARTATE AMINOTRANSFERASE 15.0 U/L (10-37); CREATININE 0.4 mg/dL (0.5-1.0); GLOMERULAR FILTR. RATE CALC 115.0 mL/min (>90); GLUCOSE,RANDOM 86.0 mg/dL (70-105); SODIUM SERUM 128.0 mmol/L (136-145); TOTAL PROTEIN, SERUM 5.1 g/dL (6.0-8.3); UREA NITROGEN, BLOOD 4.0 mg/dL (7-18)
--- NOTE | 2025-07-25 13:00 | PN ---
INFECTIOUS DISEASE PROGRESS NOTE Date of Service: Jul 25, 2025 SUBJECTIVE: Patient was seen and examined at bedside in room 406. Patient is awake alert and oriented x3. The diverticular abscess drainage came back positive for E coli and Pseudomonas aeruginosa and patient has been updated. Patient will need a minimum of 3 weeks of IV antibiotics. Patient was made aware of this plan. We will continue on Meropenem. Patient continues on clear liquid diet. No reports of nausea or vomiting. Per report current plan is to repeat CT of the abdomen and pelvis tomorrow to re-evaluate abscess. We will continue to follow patient's care. PHYSICAL EXAM EYES: Anicteric. Pupils equal and reactive. HENT: No oral thrush seen, moist Oral mucosa. NECK: Supple, no JVD or thyromegaly. LUNGS: Good air entry. No rales, no rhonchi. CARDIOVASCULAR: S1, S2 regular. No murmur heard. ABDOMEN: Distended. bowel sounds present. Percutaneous drain placement. CENTRAL NERVOUS SYSTEM: Awake, alert, oriented x 3. SKIN: No rashes, no swelling. LYMPHATICS: No peripheral lymphadenopathy. MUSCULOSKELETAL: No joint swelling, erythema or tenderness. EXTREMITIES: No cyanosis or clubbing. BACK: No deformity, no pressure ulcer. GENITOURINARY: No dysuria or hematuria. Vital Sign (Last 12 Hours) 07/25/25 07/25/25 07/25/25 07/25/25 03:57 08:00 08:05 12:00 Temp 98.1 97.9 97.5 Pulse 72 93 74 Resp 18 18 18 B/P (MAP) 119/62 117/71 120/74 Pulse Ox 96 95 95 96 O2 Delivery Room Air Room Air Room Air* Room Air O2 Flow Rate 0 FiO2 21 21 Intake & Output (last 24hrs) 07/24/25 07/24/25 07/25/25 15:00 23:00 07:00 Intake Total 460.0 ml 200 ml 518.0 ml Output Total 460 ml 100 ml Balance 460.0 ml -260 ml 418.0 ml LABS: Laboratory: Test 07/25/25 04:14 07/23/25 18:44 07/23/25 15:07 Range/Units White Blood Count 11.0 H 4.8-10.8 K/uL Red Blood Count 3.54 L 4.00-5.50 MIL/uL Hemoglobin 10.0 L 12.0-16.0 g/dL Hematocrit 30.0 L 36-48 % Mean Corpuscular Volume 84.7 79-99 fL Mean Corpuscular Hemoglobin 28.2 27.0-33.0 pg Mean Corpuscular Hemoglobin Concent 33.3 32.0-36.0 g/dL Red Cell Distribution Width 12.5 11.0-15.5 % Platelet Count 629 H 130-400 K/uL Mean Platelet Volume 8.7 7.5-10.5 fL Immature Granulocyte % (Auto) 1.3 H 0-1 % Neutrophils (%) (Auto) 69.9 40.0-77.0 % Lymphocytes (%) (Auto) 19.2 L 21.0-51.0 % Monocytes (%) (Auto) 8.3 3.0-13.0 % Eosinophils (%) (Auto) 1.0 0.0-8.0 % Basophils (%) (Auto) 0.3 0.0-5.0 % Neutrophils # (Auto) 7.7 1.8-7.7 K/uL Lymphocytes # (Auto) 2.1 1.0-4.8 K/uL Monocytes # (Auto) 0.9 0.1-1.0 K/uL Eosinophils # (Auto) 0.11 0.00-0.70 K/uL Basophils # (Auto) 0.03 0.00-0.20 K/uL Absolute Immature Granulocyte (auto 0.14 0-1 K/uL Nucleated Red Blood Cells 0.0 0.0-0.19 % Sodium Level 128 L 136-145 mmol/L Potassium Level 3.7 3.5-5.1 mmol/L Chloride Level 94 L 101-111 mmol/L Carbon Dioxide Level 30 21-32 mmol/L Blood Urea Nitrogen 4 L 7-18 mg/dL Creatinine 0.4 L 0.5-1.0 mg/dL Glomerular Filtration Rate Calc 115 >90 mL/min Random Glucose 86 70-105 mg/dL Total Calcium 7.7 L 8.5-10.1 mg/dL Magnesium Level 1.90 1.80-2.40 mg/dL Total Bilirubin 0.3 0.2-1.0 mg/dL Aspartate Amino Transf (AST/SGOT) 15 10-37 U/L Alanine Aminotransferase (ALT/SGPT) 12 12-78 U/L Alkaline Phosphatase 66 50-136 U/L C-Reactive Protein, Quantitative 31.80 H 0.5-3.0 mg/L Total Protein 5.1 L 6.0-8.3 g/dL Albumin 1.7 L 3.5-5.0 g/dL Urine Osmolality 754 50-1200 mOsm/kg Urine Random Sodium 112 40-220 mmol/l Urine Random Potassium 56 25-125 mmol/L Urine Random Chloride 165 110-250 mmol/L Prothrombin Time 13.0 H 9.6-11.6 SEC Prothromb Time International Ratio 1.25 H 0.85-1.15 Activated Partial Thromboplast Time 28.7 26.3-35.5 SEC ASSESSMENT: Diverticulitis with perforation and abscess, s/p percutaneous drain placement on 07/19/2025. Infection with multidrug resistant organism. Abdominal pain, possible ileus. Leukocytosis. Hypokalemia, resolving. Hyponatremia. Chronic tobacco use. PLAN: Continue Meropenem IV. Percutaneous drain care. Continue pain management. PICC line has been placed. Pending repeat CT scan of the abdomen/pelvis to re-evaluate abscess for lana orrow. Patient will need a minimum of 3 weeks of IV antibiotic therapy on discharge. This case was reviewed and discussed with my supervising physician Dr. Moulton and the above assessment and plan was formulated and agreed upon. ATTESTATION BY PHYSICIAN I have seen and examined the patient. I reviewed the documentation, medical decision making, and treatment plan as noted by the mid-level provider above. I agree with the findings and plan of care. HAYDEE MOULTON MD, [facility] Jul 25, 2025 13:00
--- NOTE | 2025-07-25 15:36 | PN ---
This is a 59-year-old female with diverticular abscess with the patient percutaneous drain placement by IR Interval history: This 59-year-old female seen in her room resting Abdominal pain improved Labs and vitals stable Percutaneous drainage reported at 30 mL with sanguinous purulent output Physical exam General: Awake alert and oriented Heart: Regular rate and rhythm} Lungs: Clear to auscultation no distress Abdomen: [Soft, nontender, nondistended IR drain in place Assessment : This is a 59-year-old female with diverticular abscess with the patient percutaneous drain placement by IR Plan: This point in time we will continue with conservative management we will await repeat imaging No surgical intervention at this time Strict I's and O's of IR drain Continue with the IV antibiotics Dr. Lou to be updated in patient's status Surgical case has been discussed with my supervising physician in the above plan was formulated and agreed upon We appreciate the hospitalist team for us to participate in patient's care. Greater than 45 minutes of time spent patient, reviewing chart, working on documentation Vitals/Labs Vital Signs Date Time Temp Pulse Resp B/P (MAP) Pulse Ox O2 Delivery O2 Flow Rate FiO2 07/25/25 12:00 97.5 74 18 120/74 96 Room Air 07/25/25 08:05 0 21 Laboratory Tests 07/25/25 04:14 Medications Current Medications Pantoprazole Sodium 40 mg ONCE ONCE IVP Last administered on 07/17/25at 13:00; Start 07/17/25 at 13:00; Stop 07/17/25 at 13:02; Status DC Potassium Chloride 100 ml @ 100 mls/hr ONCE ONCE IV Last administered on 07/17/25at 15:36; Start 07/17/25 at 14:00; Stop 07/17/25 at 14:59; Status DC Potassium Bicarbonate 50 meq ONCE ONCE PO Last administered on 07/17/25at 15:35; Start 07/17/25 at 14:00; Stop 07/17/25 at 14:01; Status DC Ceftriaxone Sodium 1 gm ONCE ONCE IVPB Last administered on 07/17/25at 19:32; Start 07/17/25 at 17:00; Stop 07/17/25 at 17:01; Status DC Iohexol 35,000 mg STK-MED ONCE IV; Start 07/17/25 at 17:30; Stop 07/17/25 at 17:30; Status DC Piperacillin Sod/ Tazobactam Sod 3.375 gm ONCE ONCE IV Last administered on 07/17/25at 19:32; Start 07/17/25 at 19:00; Stop 07/17/25 at 19:01; Status DC Lactated Ringer's 1,497 ml @ 499 mls/hr ONCE ONCE IV Last administered on 07/17/25at 21:58; Start 07/17/25 at 22:00; Stop 07/18/25 at 00:59; Status DC Piperacillin Sod/ Tazobactam Sod 3.375 gm Q8H IV Last administered on 07/18/25at 21:47; Start 07/17/25 at 22:00; Stop 07/19/25 at 02:04; Status DC Acetaminophen 650 mg Q6H PRN PO; Start 07/17/25 at 22:00; Stop 08/16/25 at 21:59 Famotidine 20 mg DAILY IV Last administered on 07/21/25at 08:33; Start 07/18/25 at 09:00; Stop 07/22/25 at 11:12; Status DC Hydralazine HCl 10 mg Q6H PRN IV; Start 07/17/25 at 22:00; Stop 08/16/25 at 21:59 Lactated Ringer's 1,000 ml @ 75 mls/hr [id number] IV Last administered on 07/17/25at 21:56; Start 07/17/25 at 22:00; Stop 07/17/25 at 22:07; Status DC Ondansetron HCl 4 mg Q6H PRN IV Last administered on 07/19/25at 00:47; Start 07/17/25 at 22:00; Stop 08/16/25 at 21:59 Morphine Sulfate 4 mg Q4H PRN IVP Last administered on 07/22/25at 07:48; Start 07/17/25 at 22:00; Stop 07/22/25 at 11:12; Status DC Potassium Chloride 100 ml @ 50 mls/hr AD PRN IV Last administered on 07/25/25at 06:17; Start 07/17/25 at 22:30; Stop 08/16/25 at 22:29 Magnesium Sulfate 50 ml @ 0 mls/hr PROTOCOL PRN IV Last administered on 07/18/25at 02:31; Start 07/17/25 at 22:30; Stop 07/20/25 at 21:08; Status DC Sodium Chloride 1,000 ml @ 125 mls/hr Q8H IV Last administered on 07/21/25at 14:16; Start 07/17/25 at 22:30; Stop 07/21/25 at 16:08; Status DC Potassium Chloride 100 ml @ As Directed STK-MED ONCE IV Last administered on 07/18/25at 02:31; Start 07/18/25 at 02:12; Stop 07/18/25 at 02:12; Status DC Acetaminophen 500 mg Q4H PRN PO Last administered on 07/25/25at 08:50; Start 07/18/25 at 10:30; Stop 08/17/25 at 10:29 Levofloxacin/ Dextrose 750 mg Q24H IV Last administered on 07/22/25at 04:52; Start 07/19/25 at 05:00; Stop 07/22/25 at 08:34; Status DC Metronidazole/ Sodium Chloride 500 mg Q8H IV Last administered on 07/22/25at 06:24; Start 07/19/25 at 07:00; Stop 07/22/25 at 11:30; Status DC Diphenhydramine HCl 25 mg ONCE ONCE IV Last administered on 07/19/25at 02:47; Start 07/19/25 at 02:30; Stop 07/19/25 at 02:31; Status DC Midazolam HCl 2 mg STK-MED ONCE .ROUTE Last administered on 07/19/25at 16:22; Start 07/19/25 at 15:19; Stop 07/19/25 at 15:20; Status DC Fentanyl Citrate 100 mcg STK-MED ONCE .ROUTE Last administered on 07/19/25at 16:23; Start 07/19/25 at 15:20; Stop 07/19/25 at 15:20; Status DC Diphenhydramine HCl 25 mg ONCE ONCE PO Last administered on 07/19/25at 22:26; Start 07/19/25 at 22:00; Stop 07/19/25 at 22:15; Status DC Diphenhydramine HCl 25 mg Q8H PRN PO Last administered on 07/21/25at 18:33; Start 07/20/25 at 11:00; Stop 07/22/25 at 11:13; Status DC Metoclopramide HCl 10 mg ACHS IVP Last administered on 07/21/25at 12:24; Start 07/20/25 at 21:00; Stop 07/21/25 at 14:18; Status DC Simethicone 80 mg PCHS PO Last administered on 07/25/25at 12:09; Start 07/20/25 at 18:00; Stop 08/19/25 at 17:59 Lactulose 20 gm BID PRN PO; Start 07/20/25 at 17:00; Stop 08/19/25 at 16:59; Status Hold Pharmacy Profile Note Abnormanl QT interval Q8H MISC; Start 07/20/25 at 19:00; Stop 07/22/25 at 07:22; Status DC Magnesium Sulfate 50 ml @ 0 mls/hr PROTOCOL ONCE IV Last administered on 07/20/25at 21:57; Start 07/20/25 at 21:30; Stop 07/20/25 at 21:31; Status DC Sodium Chloride 10 ml DAILY FLUSH; Start 07/21/25 at 09:00; Stop 07/21/25 at 21:42; Status DC Sodium Chloride 1,000 mg BID PO; Start 07/21/25 at 21:00; Stop 07/21/25 at 15:57; Status DC Albumin Human 250 ml @ 0 mls/hr AD IV Last administered on 07/21/25at 22:49; Start 07/21/25 at 14:30; Stop 07/22/25 at 07:19; Status DC Sodium Chloride 1,000 mg TID PO Last administered on 07/25/25at 13:35; Start 07/21/25 at 16:00; Stop 08/20/25 at 20:59 Sodium Chloride 10 ml DAILY MISC Last administered on 07/25/25at 08:50; Start 07/22/25 at 09:00; Stop 08/21/25 at 08:59 Pharmacy Profile Note 1 each ONCE MISC; Start 07/22/25 at 08:30; Stop 07/22/25 at 08:34; Status DC Meropenem 1 gm Q8H IVPB Last administered on 07/23/25at 17:39; Start 07/22/25 at 09:00; Stop 07/24/25 at 00:29; Status DC Pantoprazole Sodium 40 mg BID IVP Last administered on 07/25/25at 08:50; Start 07/22/25 at 21:00; Stop 08/21/25 at 20:59 Furosemide 40 mg ONCE ONCE IV Last administered on 07/22/25at 12:20; Start 07/22/25 at 12:00; Stop 07/22/25 at 12:01; Status DC Spironolactone 25 mg ONCE ONCE PO Last administered on 07/22/25at 12:19; Start 07/22/25 at 12:00; Stop 07/22/25 at 12:01; Status DC Acetaminophen 1,000 mg [id number] PRN IVPB; Start 07/22/25 at 13:30; Stop 08/21/25 at 13:29 Thiamine HCl 200 mg DAILY IVP Last administered on 07/25/25at 08:51; Start 07/23/25 at 09:00; Stop 08/22/25 at 08:59 Heparin Sodium (Porcine) 5,000 unit Q12H SQ Last administered on 07/23/25at 14:44; Start 07/23/25 at 12:00; Stop 07/24/25 at 00:30; Status DC Sodium Chloride 500 ml @ 75 mls/hr Q6H40M IV; Start 07/23/25 at 13:00; Stop 07/23/25 at 13:11; Status DC Spironolactone 25 mg DAILY PO Last administered on 07/25/25at 08:50; Start 07/23/25 at 13:00; Stop 08/22/25 at 12:59 Sodium Chloride 500 ml @ 75 mls/hr Q6H40M ONCE IV Last administered on 07/23/25at 21:40; Start 07/23/25 at 13:00; Stop 07/23/25 at 19:39; Status DC Meropenem 1 gm Q8H IVPB Last administered on 07/25/25at 08:51; Start 07/24/25 at 02:00; Stop 08/03/25 at 01:59 Heparin Sodium (Porcine) 5,000 unit Q12H SQ Last administered on 07/25/25at 14:29; Start 07/24/25 at 03:00; Stop 08/23/25 at 02:59 Magnesium Sulfate 50 ml @ 0 mls/hr PROTOCOL PRN IV Last administered on 07/24/25at 05:19; Start 07/24/25 at 05:00; Stop 08/23/25 at 04:59 Furosemide 40 mg ONCE ONCE IV Last administered on 07/24/25at 13:40; Start 07/24/25 at 12:00; Stop 07/24/25 at 12:01; Status DC Furosemide 40 mg ONCE ONCE IV Last administered on 07/25/25at 12:10; Start 07/25/25 at 12:00; Stop 07/25/25 at 12:01; Status DC DIEGO ALICIA Jr. PAC Jul 25, 2025 15:36
--- NOTE | 2025-07-25 16:13 | PN ---
[facility] PROGRESS NOTE Date of Service: Jul 25, 2025 Time of Service: 15:55 History of Present Illness Ms. Dowell is a 59-year-old female that was seen and examined today on 07/17/2025. Patient is a good historian of personal health. Patient states that she came to the emergency department with a chief complaint of abdominal pain. Onset was two weeks ago. Location is left lower quadrant. Duration is constant. Character is described as bloating. There was no alleviating factors. There was no aggravating factors. Patient reports associated constipation. Patient reports that she has a pending colonoscopy for this same abdominal discomfort with Dr. Oconnor that was scheduled on 07/19/25. Patient was taking Linzess for the last four days and only had soft GI foods and liquids at home during this time. Patient reports her last meal being a banana that started the pain, which has progressed to this point. Patients says she has lost significant weight, 40 lbs since her divorce intentionally, due to poor diet mainly including tuna and salads. Patient has history of similar pain in the LLQ of abdomen which resolved spontaneously in few hours. Patient has a chronic history of constipation. Patient never underwent colonoscopy. She has family history of Carcinoid tumor and recurrent diverticulitis in first degree relatives. Today in the emergency department WBCs 23.0, left shift neutrophils 83%, potassium 2.5, chloride 81, sodium 120, no urinalysis has been collected or sent to lab, CT of abdomen and pelvis shows diverticulitis with two abscesses. Emergency room physician contacted general surgery on-call, Dr. Lou who requested patient be admitted under hospitalist service. Additionally patient presented with a heart rate of 91 beats per minute, together with WBCs of 23.0 and identified source of infection being gastrointestinal patient met clinical sepsis criteria. SUBJECTIVE: 07/18/2025: Patient was evaluated in ED 03. Patient presented to the ED with acute abdominal pain the left lower quadrant, 8/10 in intensity with associated with bloating. Patient has chronic constipation and has been following Dr. Oconnor for evaluation with colonoscopy. Patient had poor intake in the preceding days and was using Linzess in the last 4 days. Patient had a solid bowel movement this morning and is passing flatus. Patient is kept NPO and is started on IV NS at 100 ml/hr, replacing her potassium and Zosyn was started. Labs remarkable for severe hyponatremia, hypokalemia, hypochloremia, and metabolic alkalosis. We will hydrate her judiciously and monitor her electrolytes closely. CT abdomen is remarkable for acute diverticulitis with abscesses in sigmoid colon and rectum. Pending surgery evaluation. 07/19/2025: Patient was evaluated in room 406. Patient was hemodynamically stable and had no acute events overnight. The nurse reported that patient had a rash and itching sensation on the face and neck after being on Zosyn, has a hist ory of hives to cefazolin. On-call nurse practitioner discontinued Zosyn and put her on levofloxacin and metronidazole. Surgery evaluated patient and recommended percutaneous drainage of abscesses by the interventional radiologist. Patient still has residual pain, 5/10 and tenderness to palpation, but denies fevers, chills, nausea, vomiting. Her serum sodium was 130 this morning. We will continue cautious hydration. ID consult has also been placed and we will follow their recommendations. 07/20/2025: Patient was evaluated in room 406. Patient is hemodynamically stable and had no acute events overnight. Patient underwent percutaneous drainage of diverticular abscess yesterday, samples were sent for cultures. Output today was 70 cc purulent drainage. Patient complained of abdominal distention and had not had any bowel movement since admission. Patient is tolerating clear liquid diet without nausea or vomiting. Her serum sodium dropped to 125 this morning and potassium was 3. We will continue gentle hydration and potassium replacement as per protocol. We encouraged the patient to ambulate in the hallways and also ordered physical therapy. Surgical team ordered KUB to rule out ileus versus obstruction. They also added meto clopramide 10 mg and Mylicon. Malignancy workup with CA 125, CA 19 9 were also ordered by primary team. 07/21/2025: Patient is seen in the room 406. KUB x-ray revealed markedly dilated large bowel loops measuring 9.[address] scan of the abdomen pelvis without contrast for further analysis. Discontinued metoclopramide. CT chest is ordered. Patient's sodium is low, salt tablets 1 g t.i.d. added. Urinalysis and the urine electrolytes were ordered. Albumin was added due to the suspicion of Cancer and protein energy malnutrition Urine , potassium 22- so a case of SIADH. Urine protein to creatinine ratio is pending. 07/22/2025: Patient is seen and evaluated in room 405 for severe, persistent abdominal pain. She was given morphine at 7:48 AM with partial relief. Her abdomen is rigid, distended, and she reports epigastric pain with little to no passage of gas. Labs show WBC trending up to 21.2, hemoglobin 10.5, platelets 635, sodium 124, potassium 3.3, and CRP 114. Percutaneous drain is producing high-volume purulent output, and cultures returned positive for E. coli with Pseudomonas; antibiotics have been adjusted with levofloxacin and metronidazole stopped and meropenem started. Abdominal X-ray shows gaseous distension of large bowel loops consistent with ileus. Patient is NPO, on fluid restriction of 1 liter, and has been started on spironolactone 25 mg PO. Surgery recommends repeating abdominal xray tomorrow and continue conservative management for now.. Patients code status was discussed, and she wishes to remain full code. 07/23/2025: Patient was seen and evaluated bedside in room 405. She was awake and alert during my visit and appeared to be in no acute distress. Patient states that her symptoms have side subsided significantly. She states that her only symptom today was the bloating that she is feeling which she attributes to not eating. She continues on meropenem today. Nursing staff reported that the percutaneous drain stopped draining yesterday, following which they flushed the drain with a total of 50 mL NS with no result. Patient continues to be NPO and bowel rest. She states that she would like to eat soon if possible. Patient also stated that she had a bowel movement today which was nonbloody. Patient continues on [id number] mg BD. She will receive 500 mL of NS followed by re measurement of her serum sodium and potassium today at 1600. 07/24/2025: Patient was seen and evaluated in room 405. She was awake, and alert during my visit. Patient stated that her abdominal pain is almost gone. Regarding her bloating she states that the simethicone she is getting has helped. She continues on meropenem and ID recommended the patient receive long- term IV antibiotics. We will perform CT abdomen and pelvis before discharge to assess for the resolution of her diverticular abscess. Case management has been consulted for potential placement as the patient will require IV antibiotics after discharge. Regarding her diet, patient states that she started eating jelly yesterday and is tolerating the diet well. Her hyponatremia is slowly improving with a serum sodium of 126 today. She still has the rash present on her upper back however she reports no symptoms at the moment. She is hemodynamically stable otherwise and has no other complaints today. 07/25/2025: Patient was seen and evaluated bedside in room 405 in the presence of the nurse. Patient denies any active complaints today. She states that she slept well yesterday and is happy with her recovery so far. She continues on meropenem IV and infectious diseases recommended at least3 weeks of IV antibiotics after discharge. We will repeat the CT abdomen and pelvis tomorrow to assess the resolution of the diverticular abscess. General surgery recommends continuing with the current conservative management and IV antibiotics. She is tolerating her diet well and has had bowel movements today. Her hyponatremia is improving with a sodium of 128 today. She is hemodynamically stable with unremarkable vitals. REVIEW OF SYSTEMS CONSTITUTIONAL: Denies fevers, chills, or night sweats. Reports intentional weight loss of 40 lbs. NEUROLOGICAL: Denies headache, motor weakness, sensory deficit, vertigo/spinning sensation, gait abnormalities, or tremors. ENT: No hearing loss, otalgia, otorrhea, rhinitis, rhinorrhea, hoarseness, or sore throat. CARDIOVASCULAR: Denies any exertional angina, dyspnea on exertion, orthopnea, paroxysmal nocturnal dyspnea, palpitations, life-threatening arrhythmias, claudication. PULMONARY: Denies any shortness of breath, cough, phlegm/sputum, hemoptysis, pleuritic chest pain. SLEEP: Denies morning headaches, daytime somnolence or napping. Denies difficulty falling asleep, staying asleep, waking from sleep. Denies knowledge of snoring. GASTROINTESTINAL: Denies any type of dysphagia to either liquids or solids. Denies nausea, vomiting, pyrosis, early satiety. Admits to chronic constipation . GENITOURINARY: Denies frequency, urgency, nocturia, hematuria or incontinence (Storage/Irritative symptoms.) PHYSICAL EXAM GENERAL APPEARANCE: The patient is awake, alert, and oriented, in no acute cardiopulmonary distress., Appears cachexic NEUROLOGICAL: Cranial nerves II-XII grossly intact. Motor is 5/5 in bilateral upper and lower extremities proximal to distal. No sensory deficits. HEENT: Face is symmetric. Pupils are equal and reactive. Extraocular movements are intact. NECK: Supple. No thyromegaly. No submental, submandibular, pre-/postauricular, occipital or supraclavicular lymphadenopathy. CHEST: Normal chest expansion. No Telemetry. LUNGS: Absence of any rales, rhonchi or any wheezing. CARDIOVASCULAR: Regular. S1 and S2 normal. No appreciable rubs, murmurs or gallops. ABDOMEN: mildly Tender to palpation in the LLQ, and epigastrium. Abdomen is distended. Left lower quadrant drainage catheter with bag in position. Hyper acoustic bowel sounds There is no rebound, voluntary guarding, and rigidity present . : Deferred. No [place]. EXTREMITIES: Non-edematous and not cyanotic. No clubbing. Good capillary refill. SKIN: No skin breakdown. Vital Signs (last 8hr) Date Time Temp Pulse Resp B/P (MAP) Pulse Ox O2 Delivery O2 Flow Rate FiO2 07/25/25 12:00 97.5 74 18 120/74 96 Room Air 07/25/25 08:05 95 Room Air* 0 21 07/25/25 08:00 97.9 93 18 117/71 95 Room Air LABS: Laboratory: Test 07/25/25 04:14 07/23/25 18:44 Range/Units White Blood Count 11.0 H 4.8-10.8 K/uL Red Blood Count 3.54 L 4.00-5.50 MIL/uL Hemoglobin 10.0 L 12.0-16.0 g/dL Hematocrit 30.0 L 36-48 % Mean Corpuscular Volume 84.7 79-99 fL Mean Corpuscular Hemoglobin 28.2 27.0-33.0 pg Mean Corpuscular Hemoglobin Concent 33.3 32.0-36.0 g/dL Red Cell Distribution Width 12.5 11.0-15.5 % Platelet Count 629 H 130-400 K/uL Mean Platelet Volume 8.7 7.5-10.5 fL Immature Granulocyte % (Auto) 1.3 H 0-1 % Neutrophils (%) (Auto) 69.9 40.0-77.0 % Lymphocytes (%) (Auto) 19.2 L 21.0-51.0 % Monocytes (%) (Auto) 8.3 3.0-13.0 % Eosinophils (%) (Auto) 1.0 0.0-8.0 % Basophils (%) (Auto) 0.3 0.0-5.0 % Neutrophils # (Auto) 7.7 1.8-7.7 K/uL Lymphocytes # (Auto) 2.1 1.0-4.8 K/uL Monocytes # (Auto) 0.9 0.1-1.0 K/uL Eosinophils # (Auto) 0.11 0.00-0.70 K/uL Basophils # (Auto) 0.03 0.00-0.20 K/uL Absolute Immature Granulocyte (auto 0.14 0-1 K/uL Nucleated Red Blood Cells 0.0 0.0-0.19 % Sodium Level 128 L 136-145 mmol/L Potassium Level 3.7 3.5-5.1 mmol/L Chloride Level 94 L 101-111 mmol/L Carbon Dioxide Level 30 21-32 mmol/L Blood Urea Nitrogen 4 L 7-18 mg/dL Creatinine 0.4 L 0.5-1.0 mg/dL Glomerular Filtration Rate Calc 115 >90 mL/min Random Glucose 86 70-105 mg/dL Total Calcium 7.7 L 8.5-10.1 mg/dL Magnesium Level 1.90 1.80-2.40 mg/dL Total Bilirubin 0.3 0.2-1.0 mg/dL Aspartate Amino Transf (AST/SGOT) 15 10-37 U/L Alanine Aminotransferase (ALT/SGPT) 12 12-78 U/L Alkaline Phosphatase 66 50-136 U/L C-Reactive Protein, Quantitative 31.80 H 0.5-3.0 mg/L Total Protein 5.1 L 6.0-8.3 g/dL Albumin 1.7 L 3.5-5.0 g/dL Urine Osmolality 754 50-1200 mOsm/kg Urine Random Sodium 112 40-220 mmol/l Urine Random Potassium 56 25-125 mmol/L Urine Random Chloride 165 110-250 mmol/L Current Medications Medications (Trade) Dose Ordered Sig/Heather Route PRN Reason Start Time Stop Time Status Last Admin Dose Admin Acetaminophen (TYLenol 325MG TAB) 650 mg Q6H PRN PO TEMPERATURE GREATER THAN 101.5 07/17/25 22:00 08/16/25 21:59 Acetaminophen (TYLenol 500MG TAB) 500 mg Q4H PRN PO MILD PAIN (1-3) 07/18/25 10:30 08/17/25 10:29 07/25/25 08:50 500 MG Acetaminophen (acetaMINOPHEN 1,000MG/100ML) 1,000 mg [id number] PRN IVPB MODERATE PAIN (4-6) 07/22/25 13:30 08/21/25 13:29 Albumin Human 250 ml @ 0 mls/hr AD IV 07/21/25 14:30 07/22/25 07:19 DC 07/21/25 22:49 60 MLS/HR Diphenhydramine HCl (BENAdryl CAP) 25 mg Q8H PRN PO INSOMNIA 07/20/25 11:00 07/22/25 11:13 DC 07/21/25 18:33 25 MG Famotidine (Pepcid 20mg Vial) 20 mg DAILY IV 07/18/25 09:00 07/22/25 11:12 DC 07/21/25 08:33 20 MG Heparin Sodium (Porcine) (HEParin 5,000 UNIT VIAL) 5,000 unit Q12H SQ 07/23/25 12:00 07/24/25 00:30 DC 07/23/25 14:44 5,000 UNIT Heparin Sodium (Porcine) (HEParin 5,000 UNIT VIAL) 5,000 unit Q12H SQ 07/24/25 03:00 08/23/25 02:59 07/25/25 14:29 5,000 UNIT Hydralazine HCl (APRESOLine 20MG INJ) 10 mg Q6H PRN IV For:SBP above 160;DBP above 90 07/17/25 22:00 08/16/25 21:59 Lactated Ringer's 1,000 ml @ 75 mls/hr [id number] IV 07/17/25 22:00 07/17/25 22:07 DC 07/17/25 21:56 75 MLS/HR Lactulose (Constulose 20gm/ 30ml Udcup) 20 gm BID PRN PO CONSTIPATION 07/20/25 17:00 08/19/25 16:59 Hold Levofloxacin/ Dextrose (LEvaquIN 750 MG/ D5W 150 ML) 750 mg Q24H IV 07/19/25 05:00 07/22/25 08:34 DC 07/22/25 04:52 750 MG Magnesium Sulfate 50 ml @ 0 mls/hr PROTOCOL PRN IV MAGNESIUM PROTOCOL 07/24/25 05:00 08/23/25 04:59 07/24/25 05:19 25 MLS/HR Magnesium Sulfate 50 ml @ 0 mls/hr PROTOCOL PRN IV h 07/17/25 22:30 07/20/25 21:08 DC 07/18/25 02:31 25 MLS/HR Meropenem (Merrem 1gm) 1 gm Q8H IVPB 07/22/25 09:00 07/24/25 00:29 DC 07/23/25 17:39 1 GM Meropenem (Merrem 1gm) 1 gm Q8H IVPB 07/24/25 02:00 08/03/25 01:59 07/25/25 08:51 1 GM Metoclopramide HCl (regLAN 10MG IV) 10 mg ACHS IVP 07/20/25 21:00 07/21/25 14:18 DC 07/21/25 12:24 10 MG Metronidazole/ Sodium Chloride (flaGYL) 500 mg Q8H IV 07/19/25 07:00 07/22/25 11:30 DC 07/22/25 06:24 500 MG Morphine Sulfate (morPHINE 4MG SYG) 4 mg Q4H PRN IVP SEVERE PAIN (7-10) 07/17/25 22:00 07/22/25 11:12 DC 07/22/25 07:48 4 MG Ondansetron HCl (zoFRAN 4MG INJ) 4 mg Q6H PRN IV NAUSEA/VOMITING 07/17/25 22:00 08/16/25 21:59 07/19/25 00:47 4 MG Pantoprazole Sodium (PROTonix 40MG INJ) 40 mg BID IVP 07/22/25 21:00 08/21/25 20:59 07/25/25 08:50 40 MG Pharmacy Profile Note (Pharmacy Communication) 1 each ONCE MISC 07/22/25 08:30 07/22/25 08:34 DC Pharmacy Profile Note (Pharmacy Communication) Abnormanl QT interval Q8H MISC 07/20/25 19:00 07/22/25 07:22 DC Piperacillin Sod/ Tazobactam Sod (Zosyn 3.375gm+NS 50ml) 3.375 gm Q8H IV 07/17/25 22:00 07/19/25 02:04 DC 07/18/25 21:47 3.375 GM Potassium Chloride 100 ml @ 50 mls/hr AD PRN IV POTASSIUM PROTOCOL 07/17/25 22:30 08/16/25 22:29 07/25/25 06:17 50 MLS/HR Simethicone (Mylicon) 80 mg PCHS PO 07/20/25 18:00 08/19/25 17:59 07/25/25 12:09 80 MG Sodium Chloride 500 ml @ 75 mls/hr Q6H40M IV 07/23/25 13:00 07/23/25 13:11 DC Sodium Chloride 1,000 ml @ 125 mls/hr Q8H IV 07/17/25 22:30 07/21/25 16:08 DC 07/21/25 14:16 125 MLS/HR Sodium Chloride (NS Flush 10ml) 10 ml DAILY FLUSH 07/21/25 09:00 07/21/25 21:42 DC Sodium Chloride (NS Flush 10ml) 10 ml DAILY MISC 07/22/25 09:00 08/21/25 08:59 07/25/25 08:50 10 ML Sodium Chloride (Sodium Chloride) 1,000 mg BID PO 07/21/25 21:00 07/21/25 15:57 DC Sodium Chloride (Sodium Chloride) 1,000 mg TID PO 07/21/25 16:00 08/20/25 20:59 07/25/25 13:35 1,000 MG Spironolactone (Aldactone 25mg) 25 mg DAILY PO 07/23/25 13:00 08/22/25 12:59 07/25/25 08:50 25 MG Thiamine HCl (Vitamin B-1) 200 mg DAILY IVP 07/23/25 09:00 08/22/25 08:59 07/25/25 08:51 200 MG DIAGNOSTICS / RADIOLOGY: [address] [address] IMAGING REPORT Signed PATIENT: KIMBERLYN DOWELL MR#: [id number] : 1965 SEX: F AGE: 59 LOCATION: [facility] ORDER 3 STATUS: ADM IN REPORT#: [id number] SERVICE [id number] REASON: ileus monitoring ORDERING PHYSICIAN: ITZ SAUNDERS MD PROCEDURE: ABD 1VW - ABD 1VW STUDY: X-RAY OF THE ABDOMEN, SINGLE VIEW HISTORY: ileus monitoring (Hx) TECHNIQUE: A single frontal view of the abdomen is submitted for interpretation. COMPARISON: CR - ABD 1VW dated July 23, 2025 at 08:56 EST. FINDINGS: Bowel: Stable gaseous distention of large bowel loops consistent with ileus. No new air???fluid levels. No evidence of bowel obstruction. Peritoneum / soft tissues: No pneumoperitoneum. Surgical clips in the right hypochondriac region. Pigtail drainage catheter with tip in the left hemipelvis. No abnormal calcification. Bones: No acute osseous abnormality. IMPRESSION: * Stable gaseous distention of the large and small bowel consistent with ileus versus developing small and large bowel obstruction without new air???fluid levels. Recommend CT abdomen/pelvis and or small bowel series for further workup. * No pneumoperitoneum identified. * Left pelvic pigtail drainage catheter in place; surgical clips in the right hypochondriac region. * No acute osseous abnormality. * Comparison: The findings remain unchanged from CR - ABD 1VW on July 23, 2025, at 08:56 EST. 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1 cm) and one along the rectum (7.6 x 6.1 x 6.6 cm) * Patient had rash and itching to the face after Zosyn, discontinue * Discontinued IV metronidazole 500 mg Q8 and IV levofloxacin 750 mg Q 24 on 07/22/2025 and started on meropenem ( day 2) as per culture and sensitivity * Surgery recommended percutaneous drainage of the abscesses by IR, no surgical intervention at this moment * IR performed percutaneous drainage of pelvic abscess with placement of left lower quadrant drainage catheter * Abscess sample were sent for cultures, showed growth of E coli and pseudomonas * Monitor daily output from left lower quadrant drain * Morphine 4 mg for severe pain is stopped and started on Tylenol 1000 mg for pain * Repeat labs in the morning * WBC count 23>20>14.5>13.6>17.6>21.2>13.5>14>11(Today) * KUB x-ray (07/25/2025)- markedly dilated large bowel measuring up to 6.7 cm, improved from yesterday. * repeat KUB tomorrow as per surgery recommendations * Further CT scan is ordered * Discontinued metoclopramide and diphenhydramine Iron-deficiency anemia: * Patient's hemoglobin today at 11.7. * Serum iron studies showed a transferrin saturation of 12%. * Not on IV Venofer due to elevated CRP, not on oral iron due to suspected ileus. * Consider iron supplementation once stable and at discharge. Severe hyponatremia, hypovolemic (suspected SIADH): * On presentation Na was 120, asymptomatic and was dehydrated in the preceding days * Today serum sodium is 128 and we will continue judicious hydration * fluid restricted to 1 litre * Salt tablet 1000 mg t.i.d. * She will receive another 40 mg Lasix IV today. * Urine electrolytes (07/23/2025) -[id number], potassium 56, urine osmolality (07/18/2025) at 204, and serum osmolality (07/23/2025) at 265 consistent with SIADH * Urine protein to creatinine ratio still pending Protein energy malnutrition: * Patient's weight is 49.9 kg, BMI 21.5 and serum albumin 2 * Current weight at 50.57 kg, BMI 21.8, * Muscle atrophy noted BUN low, 6 * Patient lost significant amount of weight intentionally, 40 lb * Continue clear liquid diet * Diet evaluation placed for recommendations post discharge * Albumin added Suspected ileus versus obstruction * Patient had her 1st bowel movement since admission on 07/22/2025 which was nonbloody. * Has diffuse abdominal distention, however passing flatus, and tolerating clear liquid diet * Repeat KUB tomorrow. * Encouraged patient to ambulate in the hallways and ordered physical therapy * Lactulose 20 mg p.o. b.i.d. PRN ordered by surgical team GI prophylaxis with simethicone and Protonix 40 mg DVT prophylaxis with SCDs and heparin 5000 b.i.d.. ATTESTATION BY PHYSICIAN I have seen and examined the patient. I reviewed the documentation, medical decision making, and treatment plan as noted by the resident physician above. I agree with the findings and plan of care. RICHARD WANG MD, HEMA MD Jul 25, 2025 16:13
[2025-07-26] VITALS (9 sets, daily range): BP systolic 110–138; BP diastolic 70–92; PULSE 76–89; RESP 16–20; TEMP 96.2–98.3; O2SAT 96–98
[2025-07-26 04:06] LABS: IMMATURE GRANULOCYTE ABSOLUTE 0.10 K/uL (0-1); NUCLEATED RED BLOOD CELLS 0.0 % (0.0-0.19); PLATELET COUNT (AUTO) 611 K/uL (130-400); RED BLOOD CELL COUNT(AUTO) 3.79 MIL/uL (4.00-5.50); RED CELL DISTRIBUTION WIDTH 12.6 % (11.0-15.5); WHITE BLOOD COUNT (AUTO) 10.3 K/uL (4.8-10.8)
[2025-07-26 04:19] LABS: CREATININE 0.6 mg/dL (0.5-1.0); GLOMERULAR FILTR. RATE CALC 105.0 mL/min (>90); GLUCOSE,RANDOM 93.0 mg/dL (70-105); SODIUM SERUM 131.0 mmol/L (136-145); UREA NITROGEN, BLOOD 5.0 mg/dL (7-18)
[2025-07-26] MEDS ORDERED: DIATR MEGLU/DIATRIZOATE SODIUM 30 ML BOTTLE ONE (08:59)
--- NOTE | 2025-07-26 12:10 | PN ---
[facility] PROGRESS NOTE Date of Service: Jul 26, 2025 Time of Service: 12:04 History of Present Illness Ms. Dowell is a 59-year-old female that was seen and examined today on 07/17/2025. Patient is a good historian of personal health. Patient states that she came to the emergency department with a chief complaint of abdominal pain. Onset was two weeks ago. Location is left lower quadrant. Duration is constant. Character is described as bloating. There was no alleviating factors. There was no aggravating factors. Patient reports associated constipation. Patient reports that she has a pending colonoscopy for this same abdominal discomfort with Dr. Oconnor that was scheduled on 07/19/25. Patient was taking Linzess for the last four days and only had soft GI foods and liquids at home during this time. Patient reports her last meal being a banana that started the pain, which has progressed to this point. Patients says she has lost significant weight, 40 lbs since her divorce intentionally, due to poor diet mainly including tuna and salads. Patient has history of similar pain in the LLQ of abdomen which resolved spontaneously in few hours. Patient has a chronic history of constipation. Patient never underwent colonoscopy. She has family history of Carcinoid tumor and recurrent diverticulitis in first degree relatives. Today in the emergency department WBCs 23.0, left shift neutrophils 83%, potassium 2.5, chloride 81, sodium 120, no urinalysis has been collected or sent to lab, CT of abdomen and pelvis shows diverticulitis with two abscesses. Emergency room physician contacted general surgery on-call, Dr. Lou who requested patient be admitted under hospitalist service. Additionally patient presented with a heart rate of 91 beats per minute, together with WBCs of 23.0 and identified source of infection being gastrointestinal patient met clinical sepsis criteria. SUBJECTIVE: 07/18/2025: Patient was evaluated in ED 03. Patient presented to the ED with acute abdominal pain the left lower quadrant, 8/10 in intensity with associated with bloating. Patient has chronic constipation and has been following Dr. Oconnor for evaluation with colonoscopy. Patient had poor intake in the preceding days and was using Linzess in the last 4 days. Patient had a solid bowel movement this morning and is passing flatus. Patient is kept NPO and is started on IV NS at 100 ml/hr, replacing her potassium and Zosyn was started. Labs remarkable for severe hyponatremia, hypokalemia, hypochloremia, and metabolic alkalosis. We will hydrate her judiciously and monitor her electrolytes closely. CT abdomen is remarkable for acute diverticulitis with abscesses in sigmoid colon and rectum. Pending surgery evaluation. 07/19/2025: Patient was evaluated in room 406. Patient was hemodynamically stable and had no acute events overnight. The nurse reported that patient had a rash and itching sensation on the face and neck after being on Zosyn, has a hist ory of hives to cefazolin. On-call nurse practitioner discontinued Zosyn and put her on levofloxacin and metronidazole. Surgery evaluated patient and recommended percutaneous drainage of abscesses by the interventional radiologist. Patient still has residual pain, 5/10 and tenderness to palpation, but denies fevers, chills, nausea, vomiting. Her serum sodium was 130 this morning. We will continue cautious hydration. ID consult has also been placed and we will follow their recommendations. 07/20/2025: Patient was evaluated in room 406. Patient is hemodynamically stable and had no acute events overnight. Patient underwent percutaneous drainage of diverticular abscess yesterday, samples were sent for cultures. Output today was 70 cc purulent drainage. Patient complained of abdominal distention and had not had any bowel movement since admission. Patient is tolerating clear liquid diet without nausea or vomiting. Her serum sodium dropped to 125 this morning and potassium was 3. We will continue gentle hydration and potassium replacement as per protocol. We encouraged the patient to ambulate in the hallways and also ordered physical therapy. Surgical team ordered KUB to rule out ileus versus obstruction. They also added meto clopramide 10 mg and Mylicon. Malignancy workup with CA 125, CA 19 9 were also ordered by primary team. 07/21/2025: Patient is seen in the room 406. KUB x-ray revealed markedly dilated large bowel loops measuring 9.[address] scan of the abdomen pelvis without contrast for further analysis. Discontinued metoclopramide. CT chest is ordered. Patient's sodium is low, salt tablets 1 g t.i.d. added. Urinalysis and the urine electrolytes were ordered. Albumin was added due to the suspicion of Cancer and protein energy malnutrition Urine [id number], potassium 22- so a case of SIADH. Urine protein to creatinine ratio is pending. 07/22/2025: Patient is seen and evaluated in room 405 for severe, persistent abdominal pain. She was given morphine at 7:48 AM with partial relief. Her abdomen is rigid, distended, and she reports epigastric pain with little to no passage of gas. Labs show WBC trending up to 21.2, hemoglobin 10.5, platelets 635, sodium 124, potassium 3.3, and CRP 114. Percutaneous drain is producing high-volume purulent output, and cultures returned positive for E. coli with Pseudomonas; antibiotics have been adjusted with levofloxacin and metronidazole stopped and meropenem started. Abdominal X-ray shows gaseous distension of large bowel loops consistent with ileus. Patient is NPO, on fluid restriction of 1 liter, and has been started on spironolactone 25 mg PO. Surgery recommends repeating abdominal xray tomorrow and continue conservative management for now.. Patients code status was discussed, and she wishes to remain full code. 07/23/2025: Patient was seen and evaluated bedside in room 405. She was awake and alert during my visit and appeared to be in no acute distress. Patient states that her symptoms have side subsided significantly. She states that her only symptom today was the bloating that she is feeling which she attributes to not eating. She continues on meropenem today. Nursing staff reported that the percutaneous drain stopped draining yesterday, following which they flushed the drain with a total of 50 mL NS with no result. Patient continues to be NPO and bowel rest. She states that she would like to eat soon if possible. Patient also stated that she had a bowel movement today which was nonbloody. Patient continues on [id number] mg BD. She will receive 500 mL of NS followed by re measurement of her serum sodium and potassium today at 1600. 07/24/2025: Patient was seen and evaluated in room 405. She was awake, and alert during my visit. Patient stated that her abdominal pain is almost gone. Regarding her bloating she states that the simethicone she is getting has helped. She continues on meropenem and ID recommended the patient receive long- term IV antibiotics. We will perform CT abdomen and pelvis before discharge to assess for the resolution of her diverticular abscess. Case management has been consulted for potential placement as the patient will require IV antibiotics after discharge. Regarding her diet, patient states that she started eating jelly yesterday and is tolerating the diet well. Her hyponatremia is slowly improving with a serum sodium of 126 today. She still has the rash present on her upper back however she reports no symptoms at the moment. She is hemodynamically stable otherwise and has no other complaints today. 07/25/2025: Patient was seen and evaluated bedside in room 405 in the presence of the nurse. Patient denies any active complaints today. She states that she slept well yesterday and is happy with her recovery so far. She continues on meropenem IV and infectious diseases recommended at least3 weeks of IV antibiotics after discharge. We will repeat the CT abdomen and pelvis tomorrow to assess the resolution of the diverticular abscess. General surgery recommends continuing with the current conservative management and IV antibiotics. She is tolerating her diet well and has had bowel movements today. Her hyponatremia is improving with a sodium of 128 today. She is hemodynamically stable with unremarkable vitals. 07/26/2025: Patient was seen and evaluated bedside in room 404 in the presence of the nurse. She was alert, awake, and oriented today. She denies any abdominal pain at the moment and says that her bloating has significantly gone down. She has no other active complaints today. Her laboratory results show improving hyponatremia with a serum sodium of 131. She remains on fluid restriction today. The infectious disease recommended patient undergo CT scan today to assess the resolution of her diverticular abscess. She will be discharged home with advice to follow up at [facility] for her IV antibiotics which she will need for3 weeks. General surgery recommended continuing with current conservative management and follow as an outpatient to assess her drain and the abscess. Her vitals are unremarkable today. Addendum:4 pm- Patient voiced concerns that she is not able to pay copays for [facility] or [facility] to receive IV antibiotics and was requesting oral antibiotics. However ,after further discussions with Infectious disease team and my attending , it is confirmed that this patient requires IV antibiotic for 3 weeks due to the complex nature of her medical condition. I explained the situation to the patient and she verbalized understanding . REVIEW OF SYSTEMS CONSTITUTIONAL: Denies fevers, chills, or night sweats. Reports intentional weight loss of 40 lbs. NEUROLOGICAL: Denies headache, motor weakness, sensory deficit, vertigo/spinning sensation, gait abnormalities, or tremors. ENT: No hearing loss, otalgia, otorrhea, rhinitis, rhinorrhea, hoarseness, or sore throat. CARDIOVASCULAR: Denies any exertional angina, dyspnea on exertion, orthopnea, paroxysmal nocturnal dyspnea, palpitations, life-threatening arrhythmias, claudication. PULMONARY: Denies any shortness of breath, cough, phlegm/sputum, hemoptysis, pleuritic chest pain. SLEEP: Denies morning headaches, daytime somnolence or napping. Denies difficulty falling asleep, staying asleep, waking from sleep. Denies knowledge of snoring. GASTROINTESTINAL: Denies any type of dysphagia to either liquids or solids. Denies nausea, vomiting, pyrosis, early satiety. Admits to chronic constipation . GENITOURINARY: Denies frequency, urgency, nocturia, hematuria or incontinence (Storage/Irritative symptoms.) PHYSICAL EXAM GENERAL APPEARANCE: The patient is awake, alert, and oriented, in no acute cardiopulmonary distress., Appears cachexic NEUROLOGICAL: Cranial nerves II-XII grossly intact. Motor is 5/5 in bilateral upper and lower extremities proximal to distal. No sensory deficits. HEENT: Face is symmetric. Pupils are equal and reactive. Extraocular movements are intact. NECK: Supple. No thyromegaly. No submental, submandibular, pre-/postauricular, occipital or supraclavicular lymphadenopathy. CHEST: Normal chest expansion. No Telemetry. LUNGS: Absence of any rales, rhonchi or any wheezing. CARDIOVASCULAR: Regular. S1 and S2 normal. No appreciable rubs, murmurs or gallops. ABDOMEN: mildly Tender to palpation in the LLQ, and epigastrium. Abdomen is distended. Left lower quadrant drainage catheter with bag in position. Hyper acoustic bowel sounds There is no rebound, voluntary guarding, and rigidity present . : Deferred. No [place]. EXTREMITIES: Non-edematous and not cyanotic. No clubbing. Good capillary refill. SKIN: No skin breakdown. Vital Signs (last 8hr) Date Time Temp Pulse Resp B/P (MAP) Pulse Ox O2 Delivery O2 Flow Rate FiO2 07/26/25 11:55 96.4 87 20 119/91 98 Room Air 07/26/25 10:47 98 Room Air* 0 21 07/26/25 08:12 96.3 76 20 110/80 98 Room Air 07/26/25 04:58 98.2 81 16 123/70 96 Room Air LABS: Laboratory: Test 07/26/25 03:47 07/25/25 04:14 Range/Units White Blood Count 10.3 4.8-10.8 K/uL Red Blood Count 3.79 L 4.00-5.50 MIL/uL Hemoglobin 10.7 L 12.0-16.0 g/dL Hematocrit 32.1 L 36-48 % Mean Corpuscular Volume 84.7 79-99 fL Mean Corpuscular Hemoglobin 28.2 27.0-33.0 pg Mean Corpuscular Hemoglobin Concent 33.3 32.0-36.0 g/dL Red Cell Distribution Width 12.6 11.0-15.5 % Platelet Count 611 H 130-400 K/uL Mean Platelet Volume 8.1 7.5-10.5 fL Immature Granulocyte % (Auto) 1.0 0-1 % Neutrophils (%) (Auto) 75.2 40.0-77.0 % Lymphocytes (%) (Auto) 16.5 L 21.0-51.0 % Monocytes (%) (Auto) 6.7 3.0-13.0 % Eosinophils (%) (Auto) 0.3 0.0-8.0 % Basophils (%) (Auto) 0.3 0.0-5.0 % Neutrophils # (Auto) 7.7 1.8-7.7 K/uL Lymphocytes # (Auto) 1.7 1.0-4.8 K/uL Monocytes # (Auto) 0.7 0.1-1.0 K/uL Eosinophils # (Auto) 0.03 0.00-0.70 K/uL Basophils # (Auto) 0.03 0.00-0.20 K/uL Absolute Immature Granulocyte (auto 0.10 0-1 K/uL Nucleated Red Blood Cells 0.0 0.0-0.19 % Sodium Level 131 L 136-145 mmol/L Potassium Level 3.7 3.5-5.1 mmol/L Chloride Level 95 L 101-111 mmol/L Carbon Dioxide Level 31 21-32 mmol/L Blood Urea Nitrogen 5 L 7-18 mg/dL Creatinine 0.6 0.5-1.0 mg/dL Glomerular Filtration Rate Calc 105 >90 mL/min Random Glucose 93 70-105 mg/dL Total Calcium 8.2 L 8.5-10.1 mg/dL C-Reactive Protein, Quantitative 30.10 H 0.5-3.0 mg/L Magnesium Level 1.90 1.80-2.40 mg/dL Total Bilirubin 0.3 0.2-1.0 mg/dL Aspartate Amino Transf (AST/SGOT) 15 10-37 U/L Alanine Aminotransferase (ALT/SGPT) 12 12-78 U/L Alkaline Phosphatase 66 50-136 U/L Total Protein 5.1 L 6.0-8.3 g/dL Albumin 1.7 L 3.5-5.0 g/dL Current Medications Medications (Trade) Dose Ordered Sig/Heather Route PRN Reason Start Time Stop Time Status Last Admin Dose Admin Acetaminophen (TYLenol 325MG TAB) 650 mg Q6H PRN PO TEMPERATURE GREATER THAN 101.5 07/17/25 22:00 08/16/25 21:59 Acetaminophen (TYLenol 500MG TAB) 500 mg Q4H PRN PO MILD PAIN (1-3) 07/18/25 10:30 08/17/25 10:29 07/26/25 06:21 500 MG Acetaminophen (acetaMINOPHEN 1,000MG/100ML) 1,000 mg Q84UMUM PRN IVPB MODERATE PAIN (4-6) 07/22/25 13:30 08/21/25 13:29 Albumin Human 250 ml @ 0 mls/hr AD IV 07/21/25 14:30 07/22/25 07:19 DC 07/21/25 22:49 60 MLS/HR Diphenhydramine HCl (BENAdryl CAP) 25 mg Q8H PRN PO INSOMNIA 07/20/25 11:00 07/22/25 11:13 DC 07/21/25 18:33 25 MG Famotidine (Pepcid 20mg Vial) 20 mg DAILY IV 07/18/25 09:00 07/22/25 11:12 DC 07/21/25 08:33 20 MG Heparin Sodium (Porcine) (HEParin 5,000 UNIT VIAL) 5,000 unit Q12H SQ 07/23/25 12:00 07/24/25 00:30 DC 07/23/25 14:44 5,000 UNIT Heparin Sodium (Porcine) (HEParin 5,000 UNIT VIAL) 5,000 unit Q12H SQ 07/24/25 03:00 08/23/25 02:59 07/26/25 02:15 5,000 UNIT Hydralazine HCl (APRESOLine 20MG INJ) 10 mg Q6H PRN IV For:SBP above 160;DBP above 90 07/17/25 22:00 08/16/25 21:59 Lactated Ringer's 1,000 ml @ 75 mls/hr [id number] IV 07/17/25 22:00 07/17/25 22:07 DC 07/17/25 21:56 75 MLS/HR Lactulose (Constulose 20gm/ 30ml Udcup) 20 gm BID PRN PO CONSTIPATION 07/20/25 17:00 07/26/25 06:31 DC Levofloxacin/ Dextrose (LEvaquIN 750 MG/ D5W 150 ML) 750 mg Q24H IV 07/19/25 05:00 07/22/25 08:34 DC 07/22/25 04:52 750 MG Magnesium Sulfate 50 ml @ 0 mls/hr PROTOCOL PRN IV MAGNESIUM PROTOCOL 07/24/25 05:00 08/23/25 04:59 07/24/25 05:19 25 MLS/HR Magnesium Sulfate 50 ml @ 0 mls/hr PROTOCOL PRN IV h 07/17/25 22:30 07/20/25 21:08 DC 07/18/25 02:31 25 MLS/HR Meropenem (Merrem 1gm) 1 gm Q8H IVPB 07/22/25 09:00 07/24/25 00:29 DC 07/23/25 17:39 1 GM Meropenem (Merrem 1gm) 1 gm Q8H IVPB 07/24/25 02:00 08/03/25 01:59 07/26/25 10:35 1 GM Metoclopramide HCl (regLAN 10MG IV) 10 mg ACHS IVP 07/20/25 21:00 07/21/25 14:18 DC 07/21/25 12:24 10 MG Metronidazole/ Sodium Chloride (flaGYL) 500 mg Q8H IV 07/19/25 07:00 07/22/25 11:30 DC 07/22/25 06:24 500 MG Morphine Sulfate (morPHINE 4MG SYG) 4 mg Q4H PRN IVP SEVERE PAIN (7-10) 07/17/25 22:00 07/22/25 11:12 DC 07/22/25 07:48 4 MG Ondansetron HCl (zoFRAN 4MG INJ) 4 mg Q6H PRN IV NAUSEA/VOMITING 07/17/25 22:00 08/16/25 21:59 07/19/25 00:47 4 MG Pantoprazole Sodium (PROTonix 40MG INJ) 40 mg BID IVP 07/22/25 21:00 08/21/25 20:59 07/26/25 10:35 40 MG Pharmacy Profile Note (Pharmacy Communication) 1 each ONCE MISC 07/22/25 08:30 07/22/25 08:34 DC Pharmacy Profile Note (Pharmacy Communication) Abnormanl QT interval Q8H MISC 07/20/25 19:00 07/22/25 07:22 DC Piperacillin Sod/ Tazobactam Sod (Zosyn 3.375gm+NS 50ml) 3.375 gm Q8H IV 07/17/25 22:00 07/19/25 02:04 DC 07/18/25 21:47 3.375 GM Potassium Chloride 100 ml @ 50 mls/hr AD PRN IV POTASSIUM PROTOCOL 07/17/25 22:30 08/16/25 22:29 07/26/25 06:19 50 MLS/HR Simethicone (Mylicon) 80 mg PCHS PO 07/20/25 18:00 08/19/25 17:59 07/25/25 20:17 80 MG Sodium Chloride 500 ml @ 75 mls/hr Q6H40M IV 07/23/25 13:00 07/23/25 13:11 DC Sodium Chloride 1,000 ml @ 125 mls/hr Q8H IV 07/17/25 22:30 07/21/25 16:08 DC 07/21/25 14:16 125 MLS/HR Sodium Chloride (NS Flush 10ml) 10 ml DAILY FLUSH 07/21/25 09:00 07/21/25 21:42 DC Sodium Chloride (NS Flush 10ml) 10 ml DAILY MISC 07/22/25 09:00 08/21/25 08:59 07/26/25 10:43 10 ML Sodium Chloride (Sodium Chloride) 1,000 mg BID PO 07/21/25 21:00 07/21/25 15:57 DC Sodium Chloride (Sodium Chloride) 1,000 mg TID PO 07/21/25 16:00 08/20/25 20:59 07/25/25 20:17 1,000 MG Spironolactone (Aldactone 25mg) 25 mg DAILY PO 07/23/25 13:00 08/22/25 12:59 07/25/25 08:50 25 MG Thiamine HCl (Vitamin B-1) 200 mg DAILY IVP 07/23/25 09:00 08/22/25 08:59 07/26/25 10:36 200 MG DIAGNOSTICS / RADIOLOGY: [place] [address] [place] [address] IMAGING REPORT Signed PATIENT: KIMBERLYN DOWELL MR#: [id number] : 1965 SEX: F AGE: 59 LOCATION: [facility] ORDER [id number] STATUS: ADM IN REPORT#: [id number] SERVICE [id number] REASON: ileus monitoring ORDERING PHYSICIAN: ITZ SAUNDERS MD PROCEDURE: ABD 1VW - ABD 1VW STUDY: X-RAY OF THE ABDOMEN, SINGLE VIEW HISTORY: ileus monitoring (Hx) TECHNIQUE: A single frontal view of the abdomen is submitted for interpretation. COMPARISON: CR - ABD 1VW dated July 23, 2025 at 08:56 EST. FINDINGS: Bowel: Stable gaseous distention of large bowel loops consistent with ileus. No new air???fluid levels. No evidence of bowel obstruction. Peritoneum / soft tissues: No pneumoperitoneum. Surgical clips in the right hypochondriac region. Pigtail drainage catheter with tip in the left hemipelvis. No abnormal calcification. Bones: No acute osseous abnormality. IMPRESSION: * Stable gaseous distention of the large and small bowel consistent with ileus versus developing small and large bowel obstruction without new air???fluid levels. Recommend CT abdomen/pelvis and or small bowel series for further workup. * No pneumoperitoneum identified. * Left pelvic pigtail drainage catheter in place; surgical clips in the right hypochondriac region. * No acute osseous abnormality. * Comparison: The findings remain unchanged from CR - ABD 1VW on July 23, 2025, at 08:56 EST. /[place] DICTATED BY: KRAIG JOHNSON MD DATE: 07/24/251405 ELECTRONICALLY SIGNED BY: KRAIG JOHNSON MD DATE: 07/24/251405 ASSESSMENT: Sepsis due to Acute sigmoid diverticulitis complicated by abscess, status post percutaneous drainage of pelvic abscess POA Acute Paralytic ileus versus obstruction, POA Severe hyponatremia, hypovolemic, POA: SIADH ruled in ,POA Hypokalemia, POA Iron-deficiency anemia POA Hepatic and renal cysts , POA Chronic constipation, POA Colonic diverticulosis, POA Chronic smoking and alcoholism POA Severe Protein calorie malnutrition, POA PLAN: Sepsis due to Acute sigmoid diverticulitis complicated by abscess, status post percutaneous drainage of pelvic abscess: * Patient vitals on presentation 125/71, heart rate 91, with elevated leukocytes 23k in the light of diverticulitis meets sepsis criteria * CT abdomen confirmed acute sigmoid colon diverticulitis complicated by two abbesses, one along the sigmoid colon (5.8 x 6.9 x 5.1 cm) and one along the rectum (7.6 x 6.1 x 6.6 cm) * Patient had rash and itching to the face after Zosyn, discontinue * Discontinued IV metronidazole 500 mg Q8 and IV levofloxacin 750 mg Q 24 on 07/22/2025 and started on meropenem ( day 4) as per culture and sensitivity * Surgery recommended percutaneous drainage of the abscesses by IR, no surgical intervention at this moment * IR performed percutaneous drainage of pelvic abscess with placement of left lower quadrant drainage catheter * Abscess sample were sent for cultures, showed growth of E coli and pseudomonas * Monitor daily output from left lower quadrant drain * Morphine 4 mg for severe pain is stopped and started on Tylenol 1000 mg for pain * Repeat labs in the morning * WBC count 23>20>14.5>13.6>17.6>21.2>13.5>14>11>10.3(Today) * KUB x-ray (07/25/2025)- markedly dilated large bowel measuring up to 6.7 cm, improved * repeat KUB as per surgery recommendations * CT scan to be done today, pending report. * Discontinued metoclopramide and diphenhydramine Iron-deficiency anemia: * Patient's hemoglobin today at 10.7. * Serum iron studies showed a transferrin saturation of 12%. * patient received iv iron today * Consider iron supplementation once stable and at discharge. Severe hyponatremia, hypovolemic (suspected SIADH): * On presentation Na was 120, asymptomatic and was dehydrated in the preceding days * Today serum sodium is 131 and we will continue judicious hydration * fluid restricted to 1 litre * Salt tablet 1000 mg t.i.d. which she will be discharged on. * She will receive another 40 mg Lasix IV today. * Urine electrolytes (07/23/2025) -[id number], potassium 56, urine osmolality (07/18/2025) at 204, and serum osmolality (07/23/2025) at 265 consistent with SIADH Protein energy malnutrition: * Patient's weight is 49.9 kg, BMI 21.5 and serum albumin 2 * Current weight at 50.57 kg, BMI 21.8, * Muscle atrophy noted BUN low, 6 * Patient lost significant amount of weight intentionally, 40 lb * Continue clear liquid diet * Diet evaluation placed for recommendations post discharge * Albumin added Suspected ileus versus obstruction * Patient had her 1st bowel movement since admission on 07/22/2025 which was nonbloody. * Has diffuse abdominal distention, however passing flatus, and tolerating clear liquid diet * Repeat KUB tomorrow. * Encouraged patient to ambulate in the hallways and ordered physical therapy * Lactulose 20 mg p.o. b.i.d. PRN ordered by surgical team GI prophylaxis with simethicone and Protonix 40 mg DVT prophylaxis with SCDs and heparin 5000 b.i.d.. ATTESTATION BY PHYSICIAN I have seen and examined the patient. I reviewed the documentation, medical decision making, and treatment plan as noted by the resident physician above. I agree with the findings and plan of care. RICHARD WANG MD, HEMA MD Jul 26, 2025 12:10 ITZ SAUNDERS MD Jul 26, 2025 20:14
--- NOTE | 2025-07-26 14:25 | HMCIMG ---
STUDY: CR Abdomen, 2 View. HISTORY: Abdominal abscess with distension. COMPARISON: CR Abdomen 1 View dated 07/24/25 ??? stable gaseous distension of large bowel loops consistent with ileus. FINDINGS: BOWEL: Stable gaseous distension of small and large bowel loops, consistent with ileus. No new air???fluid levels or evidence of bowel obstruction. PERITONEUM / SOFT TISSUES: Pigtail drainage catheter with tip positioned in the left hemipelvis. No abnormal calcification. BONES: No acute osseous abnormality. IMPRESSION: Stable gaseous distension of small and large bowel loops, consistent with ileus. No significant interval change compared with prior study dated 07/24/25. Recommend CT abdomen/pelvis with IV and oral contrast or small bowel series for further workup /[place]
--- NOTE | 2025-07-26 16:05 | PN ---
This is a 59-year-old female with diverticular abscess with the patient percutaneous drain placement by IR Interval history: This 59-year-old female seen in her room resting Patient underwent repeat CT currently pending results Labs and vitals improving Patient's pain controlled Patient reporting significant hunger Abdomen is slightly distended Physical exam General: Awake alert and oriented Heart: Regular rate and rhythm} Lungs: [Clear to auscultation no distress Abdomen: Slight distention but no pain Assessment : This is a 59-year-old female with diverticular abscess with the patient percutaneous drain placement by IR Plan: From surgical standpoint we will allow patient's diet Await CT finding Continue with the IV fluids and IV antibiotics Continue flushing percutaneous drain Strict I's and O's of drain at this time Continue with conservative management No surgical intervention at this time Dr. Lou to be updated in patient's status Surgical case has been discussed with my supervising physician in the above plan was formulated and agreed upon We appreciate the hospitalist team for us to participate in patient's care. Greater than 45 minutes of time spent patient, reviewing chart, working on documentation Vitals/Labs Vital Signs Date Time Temp Pulse Resp B/P (MAP) Pulse Ox O2 Delivery O2 Flow Rate FiO2 07/26/25 15:15 97.9 84 18 119/92 97 Room Air 07/26/25 10:47 0 21 Laboratory Tests 07/26/25 03:47 Medications Current Medications Pantoprazole Sodium 40 mg ONCE ONCE IVP Last administered on 07/17/25at 13:00; Start 07/17/25 at 13:00; Stop 07/17/25 at 13:02; Status DC Potassium Chloride 100 ml @ 100 mls/hr ONCE ONCE IV Last administered on 07/17/25at 15:36; Start 07/17/25 at 14:00; Stop 07/17/25 at 14:59; Status DC Potassium Bicarbonate 50 meq ONCE ONCE PO Last administered on 07/17/25at 15:35; Start 07/17/25 at 14:00; Stop 07/17/25 at 14:01; Status DC Ceftriaxone Sodium 1 gm ONCE ONCE IVPB Last administered on 07/17/25at 19:32; Start 07/17/25 at 17:00; Stop 07/17/25 at 17:01; Status DC Iohexol 35,000 mg STK-MED ONCE IV; Start 07/17/25 at 17:30; Stop 07/17/25 at 17:30; Status DC Piperacillin Sod/ Tazobactam Sod 3.375 gm ONCE ONCE IV Last administered on 07/17/25at 19:32; Start 07/17/25 at 19:00; Stop 07/17/25 at 19:01; Status DC Lactated Ringer's 1,497 ml @ 499 mls/hr ONCE ONCE IV Last administered on 07/17/25at 21:58; Start 07/17/25 at 22:00; Stop 07/18/25 at 00:59; Status DC Piperacillin Sod/ Tazobactam Sod 3.375 gm Q8H IV Last administered on 07/18/25at 21:47; Start 07/17/25 at 22:00; Stop 07/19/25 at 02:04; Status DC Acetaminophen 650 mg Q6H PRN PO; Start 07/17/25 at 22:00; Stop 08/16/25 at 21:59 Famotidine 20 mg DAILY IV Last administered on 07/21/25at 08:33; Start 07/18/25 at 09:00; Stop 07/22/25 at 11:12; Status DC Hydralazine HCl 10 mg Q6H PRN IV; Start 07/17/25 at 22:00; Stop 08/16/25 at 21:59 Lactated Ringer's 1,000 ml @ 75 mls/hr [id number] IV Last administered on 07/17/25at 21:56; Start 07/17/25 at 22:00; Stop 07/17/25 at 22:07; Status DC Ondansetron HCl 4 mg Q6H PRN IV Last administered on 07/19/25at 00:47; Start 07/17/25 at 22:00; Stop 08/16/25 at 21:59 Morphine Sulfate 4 mg Q4H PRN IVP Last administered on 07/22/25at 07:48; Start 07/17/25 at 22:00; Stop 07/22/25 at 11:12; Status DC Potassium Chloride 100 ml @ 50 mls/hr AD PRN IV Last administered on 07/26/25at 06:19; Start 07/17/25 at 22:30; Stop 08/16/25 at 22:29 Magnesium Sulfate 50 ml @ 0 mls/hr PROTOCOL PRN IV Last administered on 07/18/25at 02:31; Start 07/17/25 at 22:30; Stop 07/20/25 at 21:08; Status DC Sodium Chloride 1,000 ml @ 125 mls/hr Q8H IV Last administered on 07/21/25at 14:16; Start 07/17/25 at 22:30; Stop 07/21/25 at 16:08; Status DC Potassium Chloride 100 ml @ As Directed STK-MED ONCE IV Last administered on 07/18/25at 02:31; Start 07/18/25 at 02:12; Stop 07/18/25 at 02:12; Status DC Acetaminophen 500 mg Q4H PRN PO Last administered on 07/26/25at 06:21; Start 07/18/25 at 10:30; Stop 08/17/25 at 10:29 Levofloxacin/ Dextrose 750 mg Q24H IV Last administered on 07/22/25at 04:52; Start 07/19/25 at 05:00; Stop 07/22/25 at 08:34; Status DC Metronidazole/ Sodium Chloride 500 mg Q8H IV Last administered on 07/22/25at 06:24; Start 07/19/25 at 07:00; Stop 07/22/25 at 11:30; Status DC Diphenhydramine HCl 25 mg ONCE ONCE IV Last administered on 07/19/25at 02:47; Start 07/19/25 at 02:30; Stop 07/19/25 at 02:31; Status DC Midazolam HCl 2 mg STK-MED ONCE .ROUTE Last administered on 07/19/25at 16:22; Start 07/19/25 at 15:19; Stop 07/19/25 at 15:20; Status DC Fentanyl Citrate 100 mcg STK-MED ONCE .ROUTE Last administered on 07/19/25at 16:23; Start 07/19/25 at 15:20; Stop 07/19/25 at 15:20; Status DC Diphenhydramine HCl 25 mg ONCE ONCE PO Last administered on 07/19/25at 22:26; Start 07/19/25 at 22:00; Stop 07/19/25 at 22:15; Status DC Diphenhydramine HCl 25 mg Q8H PRN PO Last administered on 07/21/25at 18:33; Start 07/20/25 at 11:00; Stop 07/22/25 at 11:13; Status DC Metoclopramide HCl 10 mg ACHS IVP Last administered on 07/21/25at 12:24; Start 07/20/25 at 21:00; Stop 07/21/25 at 14:18; Status DC Simethicone 80 mg PCHS PO Last administered on 07/25/25at 20:17; Start 07/20/25 at 18:00; Stop 08/19/25 at 17:59 Lactulose 20 gm BID PRN PO; Start 07/20/25 at 17:00; Stop 07/26/25 at 06:31; Status DC Pharmacy Profile Note Abnormanl QT interval Q8H MISC; Start 07/20/25 at 19:00; Stop 07/22/25 at 07:22; Status DC Magnesium Sulfate 50 ml @ 0 mls/hr PROTOCOL ONCE IV Last administered on 07/20/25at 21:57; Start 07/20/25 at 21:30; Stop 07/20/25 at 21:31; Status DC Sodium Chloride 10 ml DAILY FLUSH; Start 07/21/25 at 09:00; Stop 07/21/25 at 21:42; Status DC Sodium Chloride 1,000 mg BID PO; Start 07/21/25 at 21:00; Stop 07/21/25 at 15:57; Status DC Albumin Human 250 ml @ 0 mls/hr AD IV Last administered on 07/21/25at 22:49; Start 07/21/25 at 14:30; Stop 07/22/25 at 07:19; Status DC Sodium Chloride 1,000 mg TID PO Last administered on 07/25/25at 20:17; Start 07/21/25 at 16:00; Stop 08/20/25 at 20:59 Sodium Chloride 10 ml DAILY MISC Last administered on 07/26/25at 10:43; Start 07/22/25 at 09:00; Stop 08/21/25 at 08:59 Pharmacy Profile Note 1 each ONCE MISC; Start 07/22/25 at 08:30; Stop 07/22/25 at 08:34; Status DC Meropenem 1 gm Q8H IVPB Last administered on 07/23/25at 17:39; Start 07/22/25 at 09:00; Stop 07/24/25 at 00:29; Status DC Pantoprazole Sodium 40 mg BID IVP Last administered on 07/26/25at 10:35; Start 07/22/25 at 21:00; Stop 08/21/25 at 20:59 Furosemide 40 mg ONCE ONCE IV Last administered on 07/22/25at 12:20; Start 07/22/25 at 12:00; Stop 07/22/25 at 12:01; Status DC Spironolactone 25 mg ONCE ONCE PO Last administered on 07/22/25at 12:19; Start 07/22/25 at 12:00; Stop 07/22/25 at 12:01; Status DC Acetaminophen 1,000 mg [id number] PRN IVPB; Start 07/22/25 at 13:30; Stop 08/21/25 at 13:29 Thiamine HCl 200 mg DAILY IVP Last administered on 07/26/25at 10:36; Start 07/23/25 at 09:00; Stop 08/22/25 at 08:59 Heparin Sodium (Porcine) 5,000 unit Q12H SQ Last administered on 07/23/25at 14:44; Start 07/23/25 at 12:00; Stop 07/24/25 at 00:30; Status DC Sodium Chloride 500 ml @ 75 mls/hr Q6H40M IV; Start 07/23/25 at 13:00; Stop 07/23/25 at 13:11; Status DC Spironolactone 25 mg DAILY PO Last administered on 07/25/25at 08:50; Start 07/23/25 at 13:00; Stop 08/22/25 at 12:59 Sodium Chloride 500 ml @ 75 mls/hr Q6H40M ONCE IV Last administered on 07/23/25at 21:40; Start 07/23/25 at 13:00; Stop 07/23/25 at 19:39; Status DC Meropenem 1 gm Q8H IVPB Last administered on 07/26/25at 10:35; Start 07/24/25 at 02:00; Stop 08/03/25 at 01:59 Heparin Sodium (Porcine) 5,000 unit Q12H SQ Last administered on 07/26/25at 15:36; Start 07/24/25 at 03:00; Stop 08/23/25 at 02:59 Magnesium Sulfate 50 ml @ 0 mls/hr PROTOCOL PRN IV Last administered on 07/24/25at 05:19; Start 07/24/25 at 05:00; Stop 08/23/25 at 04:59 Furosemide 40 mg ONCE ONCE IV Last administered on 07/24/25at 13:40; Start 07/24/25 at 12:00; Stop 07/24/25 at 12:01; Status DC Furosemide 40 mg ONCE ONCE IV Last administered on 07/25/25at 12:10; Start 07/25/25 at 12:00; Stop 07/25/25 at 12:01; Status DC Diatrizoate Meglum/ Diatrizoate Sod 30 ml STK-MED ONCE .ROUTE; Start 07/26/25 at 08:59; Stop 07/26/25 at 08:59; Status DC Iron Sucrose 200 mg ONCE ONCE IV Last administered on 07/26/25at 13:50; Start 07/26/25 at 13:30; Stop 07/26/25 at 13:31; Status DC DIEGO ALICIA Jr. PAC Jul 26, 2025 16:05
--- NOTE | 2025-07-26 21:30 | PN ---
INFECTIOUS DISEASE PROGRESS NOTE Date of Service: Jul 26, 2025 SUBJECTIVE: Patient was seen and examined at bedside in room 406. Patient is awake alert and oriented x3. During rounding today patient was scheduled for a CT of the abdomen and pelvis to re-evaluate diverticular abscess. Remains afebrile, temperature is 96.4. We will continue on Meropenem. Per report case management working on possible home health services for IV antibiotics. We will continue to follow patient's care. PHYSICAL EXAM EYES: Anicteric. Pupils equal and reactive. HENT: No oral thrush seen, moist Oral mucosa. NECK: Supple, no JVD or thyromegaly. LUNGS: Good air entry. No rales, no rhonchi. CARDIOVASCULAR: S1, S2 regular. No murmur heard. ABDOMEN: Distended. bowel sounds present. Percutaneous drain placement. CENTRAL NERVOUS SYSTEM: Awake, alert, oriented x 3. SKIN: No rashes, no swelling. LYMPHATICS: No peripheral lymphadenopathy. MUSCULOSKELETAL: No joint swelling, erythema or tenderness. EXTREMITIES: No cyanosis or clubbing. BACK: No deformity, no pressure ulcer. GENITOURINARY: No dysuria or hematuria. Vital Sign (Last 12 Hours) 07/26/25 07/26/25 07/26/25 07/26/25 10:47 11:55 15:15 20:34 Temp 96.4 97.9 98.2 Pulse 87 84 81 Resp 20 18 17 B/P (MAP) 119/91 119/92 138/81 Pulse Ox 98 98 97 96 O2 Delivery Room Air* Room Air Room Air Room Air O2 Flow Rate 0 FiO2 21 Intake & Output (last 24hrs) 07/25/25 07/25/25 07/26/25 15:00 23:00 07:00 Intake Total 144.0 ml 260.0 ml Output Total 20 ml 500 ml Balance 144.0 ml -20 ml -240.0 ml LABS: Laboratory: Test 07/26/25 03:47 07/25/25 04:14 Range/Units White Blood Count 10.3 4.8-10.8 K/uL Red Blood Count 3.79 L 4.00-5.50 MIL/uL Hemoglobin 10.7 L 12.0-16.0 g/dL Hematocrit 32.1 L 36-48 % Mean Corpuscular Volume 84.7 79-99 fL Mean Corpuscular Hemoglobin 28.2 27.0-33.0 pg Mean Corpuscular Hemoglobin Concent 33.3 32.0-36.0 g/dL Red Cell Distribution Width 12.6 11.0-15.5 % Platelet Count 611 H 130-400 K/uL Mean Platelet Volume 8.1 7.5-10.5 fL Immature Granulocyte % (Auto) 1.0 0-1 % Neutrophils (%) (Auto) 75.2 40.0-77.0 % Lymphocytes (%) (Auto) 16.5 L 21.0-51.0 % Monocytes (%) (Auto) 6.7 3.0-13.0 % Eosinophils (%) (Auto) 0.3 0.0-8.0 % Basophils (%) (Auto) 0.3 0.0-5.0 % Neutrophils # (Auto) 7.7 1.8-7.7 K/uL Lymphocytes # (Auto) 1.7 1.0-4.8 K/uL Monocytes # (Auto) 0.7 0.1-1.0 K/uL Eosinophils # (Auto) 0.03 0.00-0.70 K/uL Basophils # (Auto) 0.03 0.00-0.20 K/uL Absolute Immature Granulocyte (auto 0.10 0-1 K/uL Nucleated Red Blood Cells 0.0 0.0-0.19 % Sodium Level 131 L 136-145 mmol/L Potassium Level 3.7 3.5-5.1 mmol/L Chloride Level 95 L 101-111 mmol/L Carbon Dioxide Level 31 21-32 mmol/L Blood Urea Nitrogen 5 L 7-18 mg/dL Creatinine 0.6 0.5-1.0 mg/dL Glomerular Filtration Rate Calc 105 >90 mL/min Random Glucose 93 70-105 mg/dL Total Calcium 8.2 L 8.5-10.1 mg/dL C-Reactive Protein, Quantitative 30.10 H 0.5-3.0 mg/L Magnesium Level 1.90 1.80-2.40 mg/dL Total Bilirubin 0.3 0.2-1.0 mg/dL Aspartate Amino Transf (AST/SGOT) 15 10-37 U/L Alanine Aminotransferase (ALT/SGPT) 12 12-78 U/L Alkaline Phosphatase 66 50-136 U/L Total Protein 5.1 L 6.0-8.3 g/dL Albumin 1.7 L 3.5-5.0 g/dL ASSESSMENT: Diverticulitis with perforation and abscess, s/p percutaneous drain placement on 07/19/2025. Infection with multidrug resistant organism. Abdominal pain, possible ileus. Leukocytosis, resolving. Hypokalemia, resolving. Hyponatremia. Chronic tobacco use. PLAN: Continue Meropenem IV. Continue GI prophylaxis. Percutaneous drain care. Continue pain management. Pending repeat CT scan of the abdomen/pelvis to re-evaluate abscess for today. Patient will need a minimum of 3 weeks of IV antibiotic therapy on discharge. This case was reviewed and discussed with my supervising physician Dr. Moulton and the above assessment and plan was formulated and agreed upon. ATTESTATION BY PHYSICIAN I have seen and examined the patient. I reviewed the documentation, medical decision making, and treatment plan as noted by the mid-level provider above. I agree with the findings and plan of care. HAYDEE MOULTON MD, [facility] Jul 26, 2025 21:30
--- NOTE | 2025-07-27 02:09 | HMCIMG ---
EXAM: CT Abdomen and Pelvis Without IV Contrast CLINICAL HISTORY: Diverticular abscess with ileus TECHNIQUE: Axial computed tomography images of the abdomen and pelvis were obtained without intravenous contrast. Dose information: Total DLP ??? 314 mGy???cm CONTRAST: No intravenous contrast administered COMPARISON: CT Abdomen and Pelvis dated 07/24/25 demonstrating gaseous distension of small and large bowel loops consistent with ileus FINDINGS: Lung Bases: Small bilateral pleural collections (right 1.0 cm, left 1.5 cm) with mild subpleural atelectasis Liver: Mild hepatomegaly measuring 16 cm with diffuse fatty attenuation consistent with hepatic steatosis Gallbladder and Bile Ducts: Surgically absent gallbladder consistent with prior cholecystectomy; no biliary dilatation Pancreas, Spleen, and Adrenal Glands: Normal Kidneys, Ureters, and Bladder: Right lower pole cortical cyst measuring 4.6 ??? 4.5 cm; no hydronephrosis or calculus; urinary bladder unremarkable Stomach and Bowel: Dilated small bowel loops measuring up to 5 cm and large bowel loops up to 9 cm with multiple air-fluid levels. Transition point at the proximal descending colon with circumferential wall thickening up to 9 mm over 3 cm. A second long-segment stricture involving the sigmoid???rectal region shows circumferential wall thickening up to 2 cm over 12 cm with marked pericolonic and perirectal fat stranding. Upstream small and large bowel dilatation consistent with mechanical obstruction. Diffuse mesenteric congestion. No pneumoperitoneum or perforation. Background colonic diverticulosis. Appendix: Not confidently visualized; no periappendiceal inflammatory change Peritoneum: Trace free fluid; no free air; pigtail catheter with tip in the left upper hemipelvis/iliac fossa region Lymph Nodes: No pathologic lymphadenopathy Reproductive Organs: Parametrial vascular congestion and mild pelvic soft-tissue edema Vasculature: No abdominal aortic aneurysm or vascular abnormality Bones: Erosive changes along the iliac aspects of both sacroiliac joints consistent with sacroiliitis; degenerative thoracolumbar spondylosis with grade I anterolisthesis of L4 over L5 and facet degeneration Soft Tissues: Diffuse abdominal wall and pelvic subcutaneous edema IMPRESSION: * Acute mechanical large bowel obstruction (Grade II per ACR/RSNA???[place] WSES classification) secondary to multifocal long-segment inflammatory strictures involving the proximal descending and sigmoid???rectal colon, with circumferential wall thickening, upstream small bowel dilatation (5 cm), large bowel dilatation (9 cm), and multiple air-fluid levels; no pneumoperitoneum or perforation. Compared with 07/24/25, interval progression from prior ileus noted, radiologically correlating with acute obstruction on a chronic inflammatory background. * Chronic inflammatory colitis with pericolonic and perirectal fat stranding in a background of colonic diverticulosis, causing fixed strictures and chronic low-grade inflammation; stable in extent compared with prior study, radiologically correlating with long-standing inflammatory bowel disease. * Background colonic diverticulosis without abscess or perforation, correlating with chronic diverticular disease. * Hepatomegaly with diffuse hepatic steatosis, stable since 07/24/25, radiologically correlating with metabolic fatty liver. * Surgically absent gallbladder consistent with prior cholecystectomy, right renal cortical cyst (4.6 ??? 4.5 cm) of benign morphology, and mild parametrial congestion with diffuse subcutaneous and mesenteric edema???all stable, minor ancillary findings without acute significance. 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 * Small bilateral pleural collections with subpleural atelectasis, likely reactive. * Left pelvic pigtail catheter in satisfactory position within the upper hemipelvis/iliac fossa, correlating with post-procedural drainage placement. * Overall imaging findings confirm acute large bowel obstruction secondary to chronic inflammatory colitis with multifocal strictures in a background of diverticulosis, with otherwise stable ancillary findings compared with 07/24/25, radiologically correlating with an [id number] inflammatory obstructive process. /[place]
[2025-07-27 04:08] LABS: IMMATURE GRANULOCYTE ABSOLUTE 0.09 K/uL (0-1); NUCLEATED RED BLOOD CELLS 0.0 % (0.0-0.19); PLATELET COUNT (AUTO) 580 K/uL (130-400); RED BLOOD CELL COUNT(AUTO) 3.60 MIL/uL (4.00-5.50); RED CELL DISTRIBUTION WIDTH 12.7 % (11.0-15.5); WHITE BLOOD COUNT (AUTO) 11.2 K/uL (4.8-10.8)
[2025-07-27 04:29] LABS: CREATININE 0.4 mg/dL (0.5-1.0); GLOMERULAR FILTR. RATE CALC 115.0 mL/min (>90); GLUCOSE,RANDOM 94.0 mg/dL (70-105); SODIUM SERUM 129.0 mmol/L (136-145); UREA NITROGEN, BLOOD 5.0 mg/dL (7-18)
[2025-07-27 04:39] VITALS: BP 138/84; PULSE 77; RESP 17; TEMP 97.5
[2025-07-27 08:00] VITALS: O2SAT 96
[2025-07-27 08:02] VITALS: BP 139/90; PULSE 78; RESP 18; TEMP 98.3
[2025-07-27 11:38] VITALS: BP 136/84; PULSE 85; RESP 18
--- NOTE | 2025-07-27 13:37 | PN ---
This is a 59-year-old female with diverticular abscess with the patient percutaneous drain placement by IR Interval history: This 59-year-old female seen in her room resting comfortably Patient underwent CT imaging yesterday and has had significant bowel function returned Abdomen less distended but still notably distended according to patient Abdomen is soft nontender Patient continues to tolerate diet Labs and vitals unremarkable Physical exam General: Awake alert and oriented Heart: Regular rate and rhythm} Lungs: Clear to auscultation no distress Abdomen: [Soft, nontender, nondistended Assessment : This is a 59-year-old female with diverticular abscess with the patient percutaneous drain placement by IR Plan: At this point in time we will order KUB to assess contrast in colon and if obstruction still present Patient reporting multiple bowel movements Patient has been asked to not flush next bowel movement Patient is to continue with diet No immediate surgical Intervention at this time Dr. Lou to be updated on imaging Nursing report any further acute events Surgical case has been discussed with my supervising physician in the above plan was formulated and agreed upon We appreciate the hospitalist team for us to participate in patient's care. Greater than 45 minutes of time spent patient, reviewing chart, working on documentation Vitals/Labs Vital Signs Date Time Temp Pulse Resp B/P (MAP) Pulse Ox O2 Delivery O2 Flow Rate FiO2 07/27/25 11:38 85 18 136/84 96 Room Air 07/27/25 08:02 98.2 07/27/25 08:00 0 21 Laboratory Tests 07/27/25 03:50 Medications Current Medications Pantoprazole Sodium 40 mg ONCE ONCE IVP Last administered on 07/17/25at 13:00; Start 07/17/25 at 13:00; Stop 07/17/25 at 13:02; Status DC Potassium Chloride 100 ml @ 100 mls/hr ONCE ONCE IV Last administered on 07/17/25at 15:36; Start 07/17/25 at 14:00; Stop 07/17/25 at 14:59; Status DC Potassium Bicarbonate 50 meq ONCE ONCE PO Last administered on 07/17/25at 15:35; Start 07/17/25 at 14:00; Stop 07/17/25 at 14:01; Status DC Ceftriaxone Sodium 1 gm ONCE ONCE IVPB Last administered on 07/17/25at 19:32; Start 07/17/25 at 17:00; Stop 07/17/25 at 17:01; Status DC Iohexol 35,000 mg STK-MED ONCE IV; Start 07/17/25 at 17:30; Stop 07/17/25 at 17:30; Status DC Piperacillin Sod/ Tazobactam Sod 3.375 gm ONCE ONCE IV Last administered on 07/17/25at 19:32; Start 07/17/25 at 19:00; Stop 07/17/25 at 19:01; Status DC Lactated Ringer's 1,497 ml @ 499 mls/hr ONCE ONCE IV Last administered on 07/17/25at 21:58; Start 07/17/25 at 22:00; Stop 07/18/25 at 00:59; Status DC Piperacillin Sod/ Tazobactam Sod 3.375 gm Q8H IV Last administered on 07/18/25at 21:47; Start 07/17/25 at 22:00; Stop 07/19/25 at 02:04; Status DC Acetaminophen 650 mg Q6H PRN PO; Start 07/17/25 at 22:00; Stop 08/16/25 at 21:59 Famotidine 20 mg DAILY IV Last administered on 07/21/25at 08:33; Start 07/18/25 at 09:00; Stop 07/22/25 at 11:12; Status DC Hydralazine HCl 10 mg Q6H PRN IV; Start 07/17/25 at 22:00; Stop 08/16/25 at 21:59 Lactated Ringer's 1,000 ml @ 75 mls/hr [id number] IV Last administered on 07/17/25at 21:56; Start 07/17/25 at 22:00; Stop 07/17/25 at 22:07; Status DC Ondansetron HCl 4 mg Q6H PRN IV Last administered on 07/19/25at 00:47; Start 07/17/25 at 22:00; Stop 08/16/25 at 21:59 Morphine Sulfate 4 mg Q4H PRN IVP Last administered on 07/22/25at 07:48; Start 07/17/25 at 22:00; Stop 07/22/25 at 11:12; Status DC Potassium Chloride 100 ml @ 50 mls/hr AD PRN IV Last administered on 07/26/25at 06:19; Start 07/17/25 at 22:30; Stop 08/16/25 at 22:29 Magnesium Sulfate 50 ml @ 0 mls/hr PROTOCOL PRN IV Last administered on 07/18/25at 02:31; Start 07/17/25 at 22:30; Stop 07/20/25 at 21:08; Status DC Sodium Chloride 1,000 ml @ 125 mls/hr Q8H IV Last administered on 07/21/25at 14:16; Start 07/17/25 at 22:30; Stop 07/21/25 at 16:08; Status DC Potassium Chloride 100 ml @ As Directed STK-MED ONCE IV Last administered on 07/18/25at 02:31; Start 07/18/25 at 02:12; Stop 07/18/25 at 02:12; Status DC Acetaminophen 500 mg Q4H PRN PO Last administered on 07/27/25at 12:00; Start 07/18/25 at 10:30; Stop 08/17/25 at 10:29 Levofloxacin/ Dextrose 750 mg Q24H IV Last administered on 07/22/25at 04:52; Start 07/19/25 at 05:00; Stop 07/22/25 at 08:34; Status DC Metronidazole/ Sodium Chloride 500 mg Q8H IV Last administered on 07/22/25at 06:24; Start 07/19/25 at 07:00; Stop 07/22/25 at 11:30; Status DC Diphenhydramine HCl 25 mg ONCE ONCE IV Last administered on 07/19/25at 02:47; Start 07/19/25 at 02:30; Stop 07/19/25 at 02:31; Status DC Midazolam HCl 2 mg STK-MED ONCE .ROUTE Last administered on 07/19/25at 16:22; Start 07/19/25 at 15:19; Stop 07/19/25 at 15:20; Status DC Fentanyl Citrate 100 mcg STK-MED ONCE .ROUTE Last administered on 07/19/25at 16:23; Start 07/19/25 at 15:20; Stop 07/19/25 at 15:20; Status DC Diphenhydramine HCl 25 mg ONCE ONCE PO Last administered on 07/19/25at 22:26; Start 07/19/25 at 22:00; Stop 07/19/25 at 22:15; Status DC Diphenhydramine HCl 25 mg Q8H PRN PO Last administered on 07/21/25at 18:33; Start 07/20/25 at 11:00; Stop 07/22/25 at 11:13; Status DC Metoclopramide HCl 10 mg ACHS IVP Last administered on 07/21/25at 12:24; Start 07/20/25 at 21:00; Stop 07/21/25 at 14:18; Status DC Simethicone 80 mg PCHS PO Last administered on 07/27/25at 08:40; Start 07/20/25 at 18:00; Stop 08/19/25 at 17:59 Lactulose 20 gm BID PRN PO; Start 07/20/25 at 17:00; Stop 07/26/25 at 06:31; Status DC Pharmacy Profile Note Abnormanl QT interval Q8H MISC; Start 07/20/25 at 19:00; Stop 07/22/25 at 07:22; Status DC Magnesium Sulfate 50 ml @ 0 mls/hr PROTOCOL ONCE IV Last administered on 07/20/25at 21:57; Start 07/20/25 at 21:30; Stop 07/20/25 at 21:31; Status DC Sodium Chloride 10 ml DAILY FLUSH; Start 07/21/25 at 09:00; Stop 07/21/25 at 21:42; Status DC Sodium Chloride 1,000 mg BID PO; Start 07/21/25 at 21:00; Stop 07/21/25 at 15:57; Status DC Albumin Human 250 ml @ 0 mls/hr AD IV Last administered on 07/21/25at 22:49; Start 07/21/25 at 14:30; Stop 07/22/25 at 07:19; Status DC Sodium Chloride 1,000 mg TID PO Last administered on 07/27/25at 08:40; Start 07/21/25 at 16:00; Stop 08/20/25 at 20:59 Sodium Chloride 10 ml DAILY MISC Last administered on 07/27/25at 10:18; Start 07/22/25 at 09:00; Stop 08/21/25 at 08:59 Pharmacy Profile Note 1 each ONCE MISC; Start 07/22/25 at 08:30; Stop 07/22/25 at 08:34; Status DC Meropenem 1 gm Q8H IVPB Last administered on 07/23/25at 17:39; Start 07/22/25 at 09:00; Stop 07/24/25 at 00:29; Status DC Pantoprazole Sodium 40 mg BID IVP Last administered on 07/27/25at 08:40; Start 07/22/25 at 21:00; Stop 08/21/25 at 20:59 Furosemide 40 mg ONCE ONCE IV Last administered on 07/22/25at 12:20; Start 07/22/25 at 12:00; Stop 07/22/25 at 12:01; Status DC Spironolactone 25 mg ONCE ONCE PO Last administered on 07/22/25at 12:19; Start 07/22/25 at 12:00; Stop 07/22/25 at 12:01; Status DC Acetaminophen 1,000 mg [id number] PRN IVPB; Start 07/22/25 at 13:30; Stop 08/21/25 at 13:29 Thiamine HCl 200 mg DAILY IVP Last administered on 07/27/25at 08:40; Start 07/23/25 at 09:00; Stop 08/22/25 at 08:59 Heparin Sodium (Porcine) 5,000 unit Q12H SQ Last administered on 07/23/25at 14:44; Start 07/23/25 at 12:00; Stop 07/24/25 at 00:30; Status DC Sodium Chloride 500 ml @ 75 mls/hr Q6H40M IV; Start 07/23/25 at 13:00; Stop 07/23/25 at 13:11; Status DC Spironolactone 25 mg DAILY PO Last administered on 07/27/25at 08:40; Start 07/23/25 at 13:00; Stop 08/22/25 at 12:59 Sodium Chloride 500 ml @ 75 mls/hr Q6H40M ONCE IV Last administered on 07/23/25at 21:40; Start 07/23/25 at 13:00; Stop 07/23/25 at 19:39; Status DC Meropenem 1 gm Q8H IVPB Last administered on 07/27/25at 10:18; Start 07/24/25 at 02:00; Stop 08/03/25 at 01:59 Heparin Sodium (Porcine) 5,000 unit Q12H SQ Last administered on 07/27/25at 01:59; Start 07/24/25 at 03:00; Stop 08/23/25 at 02:59 Magnesium Sulfate 50 ml @ 0 mls/hr PROTOCOL PRN IV Last administered on 07/24/25at 05:19; Start 07/24/25 at 05:00; Stop 08/23/25 at 04:59 Furosemide 40 mg ONCE ONCE IV Last administered on 07/24/25at 13:40; Start 07/24/25 at 12:00; Stop 07/24/25 at 12:01; Status DC Furosemide 40 mg ONCE ONCE IV Last administered on 07/25/25at 12:10; Start 07/25/25 at 12:00; Stop 07/25/25 at 12:01; Status DC Diatrizoate Meglum/ Diatrizoate Sod 30 ml STK-MED ONCE .ROUTE; Start 07/26/25 at 08:59; Stop 07/26/25 at 08:59; Status DC Iron Sucrose 200 mg ONCE ONCE IV Last administered on 07/26/25at 13:50; Start 07/26/25 at 13:30; Stop 07/26/25 at 13:31; Status DC DIEGO ALICIA Jr. PAC Jul 27, 2025 13:37
[2025-07-27 15:08] VITALS: BP 144/82; PULSE 85; RESP 17
--- NOTE | 2025-07-27 16:24 | HMCIMG ---
EXAM: CR Abdomen, 1 View. CLINICAL HISTORY: FOLLOW UP ON OBSTRUCTION COMPARISON: Radiograph dated July 25, 2025 FINDINGS: Interval increased dilatation of air-filled loops of small and large bowel that now measure up to 3.5 and 11.8 cm respectively. Drainage catheter projects over the left pelvis. IMPRESSION: 1. Interval worsening of small and large bowel dilatation, consistent with progression of bowel obstruction. /[place]
--- NOTE | 2025-07-27 17:44 | PN ---
[facility] PROGRESS NOTE Date of Service: Jul 27, 2025 Time of Service: 17:29 History of Present Illness Ms. Dowell is a 59-year-old female that was seen and examined today on 07/17/2025. Patient is a good historian of personal health. Patient states that she came to the emergency department with a chief complaint of abdominal pain. Onset was two weeks ago. Location is left lower quadrant. Duration is constant. Character is described as bloating. There was no alleviating factors. There was no aggravating factors. Patient reports associated constipation. Patient reports that she has a pending colonoscopy for this same abdominal discomfort with Dr. Oconnor that was scheduled on 07/19/25. Patient was taking Linzess for the last four days and only had soft GI foods and liquids at home during this time. Patient reports her last meal being a banana that started the pain, which has progressed to this point. Patients says she has lost significant weight, 40 lbs since her divorce intentionally, due to poor diet mainly including tuna and salads. Patient has history of similar pain in the LLQ of abdomen which resolved spontaneously in few hours. Patient has a chronic history of constipation. Patient never underwent colonoscopy. She has family history of Carcinoid tumor and recurrent diverticulitis in first degree relatives. Today in the emergency department WBCs 23.0, left shift neutrophils 83%, potassium 2.5, chloride 81, sodium 120, no urinalysis has been collected or sent to lab, CT of abdomen and pelvis shows diverticulitis with two abscesses. Emergency room physician contacted general surgery on-call, Dr. Lou who requested patient be admitted under hospitalist service. Additionally patient presented with a heart rate of 91 beats per minute, together with WBCs of 23.0 and identified source of infection being gastrointestinal patient met clinical sepsis criteria. SUBJECTIVE: 07/18/2025: Patient was evaluated in ED 03. Patient presented to the ED with acute abdominal pain the left lower quadrant, 8/10 in intensity with associated with bloating. Patient has chronic constipation and has been following Dr. Oconnor for evaluation with colonoscopy. Patient had poor intake in the preceding days and was using Linzess in the last 4 days. Patient had a solid bowel movement this morning and is passing flatus. Patient is kept NPO and is started on IV NS at 100 ml/hr, replacing her potassium and Zosyn was started. Labs remarkable for severe hyponatremia, hypokalemia, hypochloremia, and metabolic alkalosis. We will hydrate her judiciously and monitor her electrolytes closely. CT abdomen is remarkable for acute diverticulitis with abscesses in sigmoid colon and rectum. Pending surgery evaluation. 07/19/2025: Patient was evaluated in room 406. Patient was hemodynamically stable and had no acute events overnight. The nurse reported that patient had a rash and itching sensation on the face and neck after being on Zosyn, has a hist ory of hives to cefazolin. On-call nurse practitioner discontinued Zosyn and put her on levofloxacin and metronidazole. Surgery evaluated patient and recommended percutaneous drainage of abscesses by the interventional radiologist. Patient still has residual pain, 5/10 and tenderness to palpation, but denies fevers, chills, nausea, vomiting. Her serum sodium was 130 this morning. We will continue cautious hydration. ID consult has also been placed and we will follow their recommendations. 07/20/2025: Patient was evaluated in room 406. Patient is hemodynamically stable and had no acute events overnight. Patient underwent percutaneous drainage of diverticular abscess yesterday, samples were sent for cultures. Output today was 70 cc purulent drainage. Patient complained of abdominal distention and had not had any bowel movement since admission. Patient is tolerating clear liquid diet without nausea or vomiting. Her serum sodium dropped to 125 this morning and potassium was 3. We will continue gentle hydration and potassium replacement as per protocol. We encouraged the patient to ambulate in the hallways and also ordered physical therapy. Surgical team ordered KUB to rule out ileus versus obstruction. They also added meto clopramide 10 mg and Mylicon. Malignancy workup with CA 125, CA 19 9 were also ordered by primary team. 07/21/2025: Patient is seen in the room 406. KUB x-ray revealed markedly dilated large bowel loops measuring 9.[address] scan of the abdomen pelvis without contrast for further analysis. Discontinued metoclopramide. CT chest is ordered. Patient's sodium is low, salt tablets 1 g t.i.d. added. Urinalysis and the urine electrolytes were ordered. Albumin was added due to the suspicion of Cancer and protein energy malnutrition Urine [id number], potassium 22- so a case of SIADH. Urine protein to creatinine ratio is pending. 07/22/2025: Patient is seen and evaluated in room 405 for severe, persistent abdominal pain. She was given morphine at 7:48 AM with partial relief. Her abdomen is rigid, distended, and she reports epigastric pain with little to no passage of gas. Labs show WBC trending up to 21.2, hemoglobin 10.5, platelets 635, sodium 124, potassium 3.3, and CRP 114. Percutaneous drain is producing high-volume purulent output, and cultures returned positive for E. coli with Pseudomonas; antibiotics have been adjusted with levofloxacin and metronidazole stopped and meropenem started. Abdominal X-ray shows gaseous distension of large bowel loops consistent with ileus. Patient is NPO, on fluid restriction of 1 liter, and has been started on spironolactone 25 mg PO. Surgery recommends repeating abdominal xray tomorrow and continue conservative management for now.. Patients code status was discussed, and she wishes to remain full code. 07/23/2025: Patient was seen and evaluated bedside in room 405. She was awake and alert during my visit and appeared to be in no acute distress. Patient states that her symptoms have side subsided significantly. She states that her only symptom today was the bloating that she is feeling which she attributes to not eating. She continues on meropenem today. Nursing staff reported that the percutaneous drain stopped draining yesterday, following which they flushed the drain with a total of 50 mL NS with no result. Patient continues to be NPO and bowel rest. She states that she would like to eat soon if possible. Patient also stated that she had a bowel movement today which was nonbloody. Patient continues on [id number] mg BD. She will receive 500 mL of NS followed by re measurement of her serum sodium and potassium today at 1600. 07/24/2025: Patient was seen and evaluated in room 405. She was awake, and alert during my visit. Patient stated that her abdominal pain is almost gone. Regarding her bloating she states that the simethicone she is getting has helped. She continues on meropenem and ID recommended the patient receive long- term IV antibiotics. We will perform CT abdomen and pelvis before discharge to assess for the resolution of her diverticular abscess. Case management has been consulted for potential placement as the patient will require IV antibiotics after discharge. Regarding her diet, patient states that jelly yesterday and is tolerating the diet well. Her hyponatremia is slowly improving with a serum sodium of 126 today. She still has the rash present on her upper back however she reports no symptoms at the moment. She is hemodynamically stable otherwise and has no other complaints today. 07/25/2025: Patient was seen and evaluated bedside in room 405 in the presence of the nurse. Patient denies any active complaints today. She states that she slept well yesterday and is happy with her recovery so far. She continues on meropenem IV and infectious diseases recommended at least3 weeks of IV antibiotics after discharge. We will repeat the CT abdomen and pelvis tomorrow to assess the resolution of the diverticular abscess. General surgery recommends continuing with the current conservative management and IV antibiotics. She is tolerating her diet well and has had bowel movements today. Her hyponatremia is improving with a sodium of 128 today. She is hemodynamically stable with unremarkable vitals. 07/26/2025: Patient was seen and evaluated bedside in room 404 in the presence of the nurse. She was alert, awake, and oriented today. She denies any abdominal pain at the moment and says that her bloating has significantly gone down. She has no other active complaints today. Her laboratory results show improving hyponatremia with a serum sodium of 131. She remains on fluid restriction today. The infectious disease recommended patient undergo CT scan today to assess the resolution of her diverticular abscess. She will be discharged home with advice to follow up at [facility] for her IV antibiotics which she will need for3 weeks. General surgery recommended continuing with current conservative management and follow as an outpatient to assess her drain and the abscess. Her vitals are unremarkable today. Addendum:4 pm- Patient voiced concerns that she is not able to pay copays for [facility] or [facility] to receive IV antibiotics and was requesting oral antibiotics. However ,after further discussions with Infectious disease team and my attending , it is confirmed that this patient requires IV antibiotic for 3 weeks due to the complex nature of her medical condition. I explained the situation to the patient and she verbalized understanding . 07/27/2025: CT abdomen revealed acute mechanical large bowel obstruction secondary to multifocal long segment inflammatory strictures involving the proximal descending and sigmoid and rectal colon with circumferential wall thickening. She started eating. She needs to be on fluid restriction until his PCP clears off. Surgery involved in the case and ordered KUB x-ray and it revealed interval worsening of small and large bowel dilatation, consistent with progression of bowel obstruction. For SIADH: Sodium dropped from 131-129 So he needs to be on fluid restriction until her PCP clear so from that REVIEW OF SYSTEMS CONSTITUTIONAL: Denies fevers, chills, or night sweats. Reports intentional weight loss of 40 lbs. NEUROLOGICAL: Denies headache, motor weakness, sensory deficit, ve rtigo/spinning sensation, gait abnormalities, or tremors. ENT: No hearing loss, otalgia, otorrhea, rhinitis, rhinorrhea, hoarseness, or sore throat. CARDIOVASCULAR: Denies any exertional angina, dyspnea on exertion, orthopnea, paroxysmal nocturnal dyspnea, palpitations, life-threatening arrhythmias, claudication. PULMONARY: Denies any shortness of breath, cough, phlegm/sputum, hemoptysis, pleuritic chest pain. SLEEP: Denies morning headaches, daytime somnolence or napping. Denies difficulty falling asleep, staying asleep, waking from sleep. Denies knowledge of snoring. GASTROINTESTINAL: Denies any type of dysphagia to either liquids or solids. Denies nausea, vomiting, pyrosis, early satiety. Admits to chronic constipation . GENITOURINARY: Denies frequency, urgency, nocturia, hematuria or incontinence (Storage/Irritative symptoms.) PHYSICAL EXAM GENERAL APPEARANCE: The patient is awake, alert, and oriented, in no acute cardiopulmonary distress., Appears cachexic NEUROLOGICAL: Cranial nerves II-XII grossly intact. Motor is 5/5 in bilateral upper and lower extremities proximal to distal. No sensory deficits. HEENT: Face is symmetric. Pupils are equal and reactive. Extraocular movements are intact. NECK: Supple. No thyromegaly. No submental, submandibular, pre-/postauricular, occipital or supraclavicular lymphadenopathy. CHEST: Normal chest expansion. No Telemetry. LUNGS: Absence of any rales, rhonchi or any wheezing. CARDIOVASCULAR: Regular. S1 and S2 normal. No appreciable rubs, murmurs or gallops. ABDOMEN: mildly Tender to palpation in the LLQ, and epigastrium. Abdomen is distended. Left lower quadrant drainage catheter with bag in position. Hyper acoustic bowel sounds There is no rebound, voluntary guarding, and rigidity present . : Deferred. No [place]. EXTREMITIES: Non-edematous and not cyanotic. No clubbing. Good capillary refill. SKIN: No skin breakdown. Vital Signs (last 8hr) Date Time Temp Pulse Resp B/P (MAP) Pulse Ox O2 Delivery O2 Flow Rate FiO2 07/27/25 15:08 85 17 144/82 95 Room Air 07/27/25 11:38 85 18 136/84 96 Room Air LABS: Laboratory: Test 07/27/25 03:50 07/26/25 03:47 Range/Units White Blood Count 11.2 H 4.8-10.8 K/uL Red Blood Count 3.60 L 4.00-5.50 MIL/uL Hemoglobin 10.2 L 12.0-16.0 g/dL Hematocrit 30.2 L 36-48 % Mean Corpuscular Volume 83.9 79-99 fL Mean Corpuscular Hemoglobin 28.3 27.0-33.0 pg Mean Corpuscular Hemoglobin Concent 33.8 32.0-36.0 g/dL Red Cell Distribution Width 12.7 11.0-15.5 % Platelet Count 580 H 130-400 K/uL Mean Platelet Volume 8.6 7.5-10.5 fL Immature Granulocyte % (Auto) 0.8 0-1 % Neutrophils (%) (Auto) 79.9 H 40.0-77.0 % Lymphocytes (%) (Auto) 12.4 L 21.0-51.0 % Monocytes (%) (Auto) 6.3 3.0-13.0 % Eosinophils (%) (Auto) 0.3 0.0-8.0 % Basophils (%) (Auto) 0.3 0.0-5.0 % Neutrophils # (Auto) 8.9 H 1.8-7.7 K/uL Lymphocytes # (Auto) 1.4 1.0-4.8 K/uL Monocytes # (Auto) 0.7 0.1-1.0 K/uL Eosinophils # (Auto) 0.03 0.00-0.70 K/uL Basophils # (Auto) 0.03 0.00-0.20 K/uL Absolute Immature Granulocyte (auto 0.09 0-1 K/uL Nucleated Red Blood Cells 0.0 0.0-0.19 % Sodium Level 129 L 136-145 mmol/L Potassium Level 3.6 3.5-5.1 mmol/L Chloride Level 94 L 101-111 mmol/L Carbon Dioxide Level 29 21-32 mmol/L Blood Urea Nitrogen 5 L 7-18 mg/dL Creatinine 0.4 L 0.5-1.0 mg/dL Glomerular Filtration Rate Calc 115 >90 mL/min Random Glucose 94 70-105 mg/dL Total Calcium 8.3 L 8.5-10.1 mg/dL C-Reactive Protein, Quantitative 30.10 H 0.5-3.0 mg/L Current Medications Medications (Trade) Dose Ordered Sig/Heather Route PRN Reason Start Time Stop Time Status Last Admin Dose Admin Acetaminophen (TYLenol 325MG TAB) 650 mg Q6H PRN PO TEMPERATURE GREATER THAN 101.5 07/17/25 22:00 08/16/25 21:59 Acetaminophen (TYLenol 500MG TAB) 500 mg Q4H PRN PO MILD PAIN (1-3) 07/18/25 10:30 08/17/25 10:29 07/27/25 12:00 500 MG Acetaminophen (acetaMINOPHEN 1,000MG/100ML) 1,000 mg [id number] PRN IVPB MODERATE PAIN (4-6) 07/22/25 13:30 08/21/25 13:29 Albumin Human 250 ml @ 0 mls/hr AD IV 07/21/25 14:30 07/22/25 07:19 DC 07/21/25 22:49 60 MLS/HR Diphenhydramine HCl (BENAdryl CAP) 25 mg Q8H PRN PO INSOMNIA 07/20/25 11:00 07/22/25 11:13 DC 07/21/25 18:33 25 MG Famotidine (Pepcid 20mg Vial) 20 mg DAILY IV 07/18/25 09:00 07/22/25 11:12 DC 07/21/25 08:33 20 MG Heparin Sodium (Porcine) (HEParin 5,000 UNIT VIAL) 5,000 unit Q12H SQ 07/23/25 12:00 07/24/25 00:30 DC 07/23/25 14:44 5,000 UNIT Heparin Sodium (Porcine) (HEParin 5,000 UNIT VIAL) 5,000 unit Q12H SQ 07/24/25 03:00 08/23/25 02:59 07/27/25 16:24 5,000 UNIT Hydralazine HCl (APRESOLine 20MG INJ) 10 mg Q6H PRN IV For:SBP above 160;DBP above 90 07/17/25 22:00 08/16/25 21:59 Lactated Ringer's 1,000 ml @ 75 mls/hr [id number] IV 07/17/25 22:00 07/17/25 22:07 DC 07/17/25 21:56 75 MLS/HR Lactulose (Constulose 20gm/ 30ml Udcup) 20 gm BID PRN PO CONSTIPATION 07/20/25 17:00 07/26/25 06:31 DC Levofloxacin/ Dextrose (LEvaquIN 750 MG/ D5W 150 ML) 750 mg Q24H IV 07/19/25 05:00 07/22/25 08:34 DC 07/22/25 04:52 750 MG Magnesium Sulfate 50 ml @ 0 mls/hr PROTOCOL PRN IV MAGNESIUM PROTOCOL 07/24/25 05:00 08/23/25 04:59 07/24/25 05:19 25 MLS/HR Magnesium Sulfate 50 ml @ 0 mls/hr PROTOCOL PRN IV h 07/17/25 22:30 07/20/25 21:08 DC 07/18/25 02:31 25 MLS/HR Meropenem (Merrem 1gm) 1 gm Q8H IVPB 07/22/25 09:00 07/24/25 00:29 DC 07/23/25 17:39 1 GM Meropenem (Merrem 1gm) 1 gm Q8H IVPB 07/24/25 02:00 08/03/25 01:59 07/27/25 10:18 1 GM Metoclopramide HCl (regLAN 10MG IV) 10 mg ACHS IVP 07/20/25 21:00 07/21/25 14:18 DC 07/21/25 12:24 10 MG Metronidazole/ Sodium Chloride (flaGYL) 500 mg Q8H IV 07/19/25 07:00 07/22/25 11:30 DC 07/22/25 06:24 500 MG Morphine Sulfate (morPHINE 4MG SYG) 4 mg Q4H PRN IVP SEVERE PAIN (7-10) 07/17/25 22:00 07/22/25 11:12 DC 07/22/25 07:48 4 MG Ondansetron HCl (zoFRAN 4MG INJ) 4 mg Q6H PRN IV NAUSEA/VOMITING 07/17/25 22:00 08/16/25 21:59 07/19/25 00:47 4 MG Pantoprazole Sodium (PROTonix 40MG INJ) 40 mg BID IVP 07/22/25 21:00 08/21/25 20:59 07/27/25 08:40 40 MG Pharmacy Profile Note (Pharmacy Communication) 1 each ONCE MISC 07/22/25 08:30 07/22/25 08:34 DC Pharmacy Profile Note (Pharmacy Communication) Abnormanl QT interval Q8H MISC 07/20/25 19:00 07/22/25 07:22 DC Piperacillin Sod/ Tazobactam Sod (Zosyn 3.375gm+NS 50ml) 3.375 gm Q8H IV 07/17/25 22:00 07/19/25 02:04 DC 07/18/25 21:47 3.375 GM Potassium Chloride 100 ml @ 50 mls/hr AD PRN IV POTASSIUM PROTOCOL 07/17/25 22:30 08/16/25 22:29 07/26/25 06:19 50 MLS/HR Simethicone (Mylicon) 80 mg PCHS PO 07/20/25 18:00 08/19/25 17:59 07/27/25 16:28 80 MG Sodium Chloride 500 ml @ 75 mls/hr Q6H40M IV 07/23/25 13:00 07/23/25 13:11 DC Sodium Chloride 1,000 ml @ 125 mls/hr Q8H IV 07/17/25 22:30 07/21/25 16:08 DC 07/21/25 14:16 125 MLS/HR Sodium Chloride (NS Flush 10ml) 10 ml DAILY FLUSH 07/21/25 09:00 07/21/25 21:42 DC Sodium Chloride (NS Flush 10ml) 10 ml DAILY MISC 07/22/25 09:00 08/21/25 08:59 07/27/25 10:18 10 ML Sodium Chloride (Sodium Chloride) 1,000 mg BID PO 07/21/25 21:00 07/21/25 15:57 DC Sodium Chloride (Sodium Chloride) 1,000 mg TID PO 07/21/25 16:00 08/20/25 20:59 07/27/25 16:28 1,000 MG Spironolactone (Aldactone 25mg) 25 mg DAILY PO 07/23/25 13:00 08/22/25 12:59 07/27/25 08:40 25 MG Thiamine HCl (Vitamin B-1) 200 mg DAILY IVP 07/23/25 09:00 08/22/25 08:59 07/27/25 08:40 200 MG DIAGNOSTICS / RADIOLOGY: [facility] [address] [place] [id number] IMAGING REPORT Signed PATIENT: KIMBERLYN DOWELL MR#: [id number] : 1965 SEX: F AGE: 59 LOCATION: 4BH ORDER 1330 STATUS: ADM IN REPORT#: [id number] SERVICE 1328 REASON: FOLLOW UP ON OBSTRUCTION ORDERING PHYSICIAN: DIEGO ALICIA Jr. PAC PROCEDURE: ABD 1VW - ABD 1VW EXAM: CR Abdomen, 1 View. CLINICAL HISTORY: FOLLOW UP ON OBSTRUCTION COMPARISON: Radiograph dated July 25, 2025 FINDINGS: Interval increased dilatation of air-filled loops of small and large bowel that now measure up to 3.5 and 11.8 cm respectively. Drainage catheter projects over the left pelvis. IMPRESSION: 1. Interval worsening of small and large bowel dilatation, consistent with progression of bowel obstruction. /[place] DICTATED BY: ANUM JARVIS Jr., MD DATE: 07/27/251722 ELECTRONICALLY SIGNED BY: ANUM JARVIS Jr., MD DATE: 07/27/251722 [facility] [address] [place] [id number] IMAGING REPORT Addendum PATIENT: KIMBERLYN DOWELL MR#: [id number] : 1965 SEX: F AGE: 59 LOCATION: 4BH ORDER 2300 STATUS: ADM IN REPORT#: [id number] SERVICE 0600 REASON: diverticular abcess with ileus ORDERING PHYSICIAN: HOWARD TAN MD PROCEDURE: ABD PEL WO - CT ABDOMEN/PELVIS W/O CONTRAST ADDENDUM REPORT ADDENDUM: Results were shared by telephone at 04:12 AM EST on 07-27-25 and acknowledged by Patient Nurse Jesús Nicole Simons. /[place] EXAM: CT Abdomen and Pelvis Without IV Contrast CLINICAL HISTORY: Diverticular abscess with ileus TECHNIQUE: Axial computed tomography images of the abdomen and pelvis were obtained without intravenous contrast. Dose information: Total DLP ??? 314 mGy???cm CONTRAST: No intravenous contrast administered COMPARISON: CT Abdomen and Pelvis dated 07/24/25 demonstrating gaseous distension of small and large bowel loops consistent with ileus FINDINGS: Lung Bases: Small bilateral pleural collections (right 1.0 cm, left 1.5 cm) with mild subpleural atelectasis Liver: Mild hepatomegaly measuring 16 cm with diffuse fatty attenuation consistent with hepatic steatosis Gallbladder and Bile Ducts: Surgically absent gallbladder consistent with prior cholecystectomy; no biliary dilatation Pancreas, Spleen, and Adrenal Glands: Normal Kidneys, Ureters, and Bladder: Right lower pole cortical cyst measuring 4.6 ??? 4.5 cm; no hydronephrosis or calculus; urinary bladder unremarkable Stomach and Bowel: Dilated small bowel loops measuring up to 5 cm and large bowel loops up to 9 cm with multiple air-fluid levels. Transition point at the proximal descending colon with circumferential wall thickening up to 9 mm over 3 cm. A second long-segment stricture involving the sigmoid???rectal region shows circumferential wall thickening up to 2 cm over 12 cm with marked pericolonic and perirectal fat stranding. Upstream small and large bowel dilatation consistent with mechanical obstruction. Diffuse mesenteric congestion. No pneumoperitoneum or perforation. Background colonic diverticulosis. Appendix: Not confidently visualized; no periappendiceal inflammatory change Peritoneum: Trace free fluid; no free air; pigtail catheter with tip in the left upper hemipelvis/iliac fossa region Lymph Nodes: No pathologic lymphadenopathy Reproductive Organs: Parametrial vascular congestion and mild pelvic soft-tissue edema Vasculature: No abdominal aortic aneurysm or vascular abnormality Bones: Erosive changes along the iliac aspects of both sacroiliac joints consistent with sacroiliitis; degenerative thoracolumbar spondylosis with grade I anterolisthesis of L4 over L5 and facet degeneration Soft Tissues: Diffuse abdominal wall and pelvic subcutaneous edema IMPRESSION: * Acute mechanical large bowel obstruction (Grade II per ACR/RSNA???[place] WSES classification) secondary to multifocal long-segment inflammatory strictures involving the proximal descending and sigmoid???rectal colon, with circumferential wall thickening, upstream small bowel dilatation (5 cm), large bowel dilatation (9 cm), and multiple air-fluid levels; no pneumoperitoneum or perforation. Compared with 07/24/25, interval progression from prior ileus noted, radiologically correlating with acute obstruction on a chronic inflammatory background. * Chronic inflammatory colitis with pericolonic and perirectal fat stranding in a background of colonic diverticulosis, causing fixed strictures and chronic low-grade inflammation; stable in extent compared with prior study, radiologically correlating with long-standing inflammatory bowel disease. * Background colonic diverticulosis without abscess or perforation, correlating with chronic diverticular disease. * Hepatomegaly with diffuse hepatic steatosis, stable since 07/24/25, radiologically correlating with metabolic fatty liver. * Surgically absent gallbladder consistent with prior cholecystectomy, right renal cortical cyst (4.6 ??? 4.5 cm) of benign morphology, and mild parametrial congestion with diffuse subcutaneous and mesenteric edema???all stable, minor ancillary findings without acute significance. 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 * Small bilateral pleural collections with subpleural atelectasis, likely reactive. * Left pelvic pigtail catheter in satisfactory position within the upper hemipelvis/iliac fossa, correlating with post-procedural drainage placement. * Overall imaging findings confirm acute large bowel obstruction secondary to chronic inflammatory colitis with multifocal strictures in a background of diverticulosis, with otherwise stable ancillary findings compared with 07/24/25, radiologically correlating with an [id number] inflammatory obstructive process. /[place] DICTATED BY: KRAIG JOHNSON MD DATE: 07/27/25 0413 ELECTRONICALLY SIGNED BY: DATE: EXAM: CT Abdomen and Pelvis Without IV Contrast CLINICAL HISTORY: Diverticular abscess with ileus TECHNIQUE: Axial computed tomography images of the abdomen and pelvis were obtained without intravenous contrast. Dose information: Total DLP ??? 314 mGy???cm CONTRAST: No intravenous contrast administered COMPARISON: CT Abdomen and Pelvis dated 07/24/25 demonstrating gaseous distension of small and large bowel loops consistent with ileus FINDINGS: Lung Bases: Small bilateral pleural collections (right 1.0 cm, left 1.5 cm) with mild subpleural atelectasis Liver: Mild hepatomegaly measuring 16 cm with diffuse fatty attenuation consistent with hepatic steatosis Gallbladder and Bile Ducts: Surgically absent gallbladder consistent with prior cholecystectomy; no biliary dilatation Pancreas, Spleen, and Adrenal Glands: Normal Kidneys, Ureters, and Bladder: Right lower pole cortical cyst measuring 4.6 ??? 4.5 cm; no hydronephrosis or calculus; urinary bladder unremarkable Stomach and Bowel: Dilated small bowel loops measuring up to 5 cm and large bowel loops up to 9 cm with multiple air-fluid levels. Transition point at the proximal descending colon with circumferential wall thickening up to 9 mm over 3 cm. A second long-segment stricture involving the sigmoid???rectal region shows circumferential wall thickening up to 2 cm over 12 cm with marked pericolonic and perirectal fat stranding. Upstream small and large bowel dilatation consistent with mechanical obstruction. Diffuse mesenteric congestion. No pneumoperitoneum or perforation. Background colonic diverticulosis. Appendix: Not confidently visualized; no periappendiceal inflammatory change Peritoneum: Trace free fluid; no free air; pigtail catheter with tip in the left upper hemipelvis/iliac fossa region Lymph Nodes: No pathologic lymphadenopathy Reproductive Organs: Parametrial vascular congestion and mild pelvic soft-tissue edema Vasculature: No abdominal aortic aneurysm or vascular abnormality Bones: Erosive changes along the iliac aspects of both sacroiliac joints consistent with sacroiliitis; degenerative thoracolumbar spondylosis with grade I anterolisthesis of L4 over L5 and facet degeneration Soft Tissues: Diffuse abdominal wall and pelvic subcutaneous edema IMPRESSION: * Acute mechanical large bowel obstruction (Grade II per ACR/RSNA???[place] WSES classification) secondary to multifocal long-segment inflammatory strictures involving the proximal descending and sigmoid???rectal colon, with circumferential wall thickening, upstream small bowel dilatation (5 cm), large bowel dilatation (9 cm), and multiple air-fluid levels; no pneumoperitoneum or perforation. Compared with 07/24/25, interval progression from prior ileus noted, radiologically correlating with acute obstruction on a chronic inflammatory background. * Chronic inflammatory colitis with pericolonic and perirectal fat stranding in a background of colonic diverticulosis, causing fixed strictures and chronic low-grade inflammation; stable in extent compared with prior study, radiologically correlating with long-standing inflammatory bowel disease. * Background colonic diverticulosis without abscess or perforation, correlating with chronic diverticular disease. * Hepatomegaly with diffuse hepatic steatosis, stable since 07/24/25, radiologically correlating with metabolic fatty liver. * Surgically absent gallbladder consistent with prior cholecystectomy, right renal cortical cyst (4.6 ??? 4.5 cm) of benign morphology, and mild parametrial congestion with diffuse subcutaneous and mesenteric edema???all stable, minor ancillary findings without acute significance. 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 * Small bilateral pleural collections with subpleural atelectasis, likely reactive. * Left pelvic pigtail catheter in satisfactory position within the upper hemipelvis/iliac fossa, correlating with post-procedural drainage placement. * Overall imaging findings confirm acute large bowel obstruction secondary to chronic inflammatory colitis with multifocal strictures in a background of diverticulosis, with otherwise stable ancillary findings compared with 07/24/25, radiologically correlating with an [id number] inflammatory obstructive process. /[place] DICTATED BY: KRAIG JOHNSON MD DATE: 07/27/25307 ELECTRONICALLY SIGNED BY: KRAIG JOHNSON MD DATE: 07/27/25307 ASSESSMENT: Sepsis due to Acute sigmoid diverticulitis complicated by abscess, status post percutaneous drainage of pelvic abscess POA Acute Paralytic ileus versus obstruction, POA Severe hyponatremia, hypovolemic, POA: SIADH ruled in ,POA Hypokalemia, POA Iron-deficiency anemia POA Hepatic and renal cysts , POA Chronic constipation, POA Colonic diverticulosis, POA Chronic smoking and alcoholism POA Severe Protein calorie malnutrition, POA PLAN: Sepsis due to Acute sigmoid diverticulitis complicated by abscess, status post percutaneous drainage of pelvic abscess: * Patient vitals on presentation 125/71, heart rate 91, with elevated leukocytes 23k in the light of diverticulitis meets sepsis criteria * CT abdomen confirmed acute sigmoid colon diverticulitis complicated by two abbesses, one along the sigmoid colon (5.8 x 6.9 x 5.1 cm) and one along the rectum (7.6 x 6.1 x 6.6 cm) * Patient had rash and itching to the face after Zosyn, discontinue * Discontinued IV metronidazole 500 mg Q8 and IV levofloxacin 750 mg Q 24 on 07/22/2025 and started on meropenem ( day 4) as per culture and sensitivity * Surgery recommended percutaneous drainage of the abscesses by IR, no surgical intervention at this moment * IR performed percutaneous drainage of pelvic abscess with placement of left lo wer quadrant drainage catheter * Abscess sample were sent for cultures, showed growth of E coli and pseudomonas * Monitor daily output from left lower quadrant drain * Morphine 4 mg for severe pain is stopped and started on Tylenol 1000 mg for pain * Repeat labs in the morning * WBC count 23>20>14.5>13.6>17.6>21.2>13.5>14>11>10.3>11.2(Today) * KUB x-ray (07/25/2025)- markedly dilated large bowel measuring up to 6.7 cm, improved * repeat KUB as per surgery recommendations * CT scan to be done today, pending report. * Discontinued metoclopramide and diphenhydramine * ID wants to continue meropenem IV * Percutaneous drainage care Iron-deficiency anemia: * Patient's hemoglobin today at 10.7. * Serum iron studies showed a transferrin saturation of 12%. * patient received iv iron today * Consider iron supplementation once stable and at discharge. Severe hyponatremia, hypovolemic (suspected SIADH): * On presentation Na was 120, asymptomatic and was dehydrated in the preceding days * Today serum sodium is 131 and we will continue judicious hydration * fluid restricted to 1 litre * Salt tablet 1000 mg t.i.d. which she will be discharged on. * She will receive another 40 mg Lasix IV today. * Urine electrolytes (07/23/2025) -[id number], potassium 56, urine osmolality (07/18/2025) at 204, and serum osmolality (07/23/2025) at 265 consistent with SIADH * Sodium dropped from 131-129 * So she needs to be on fluid restriction until her PCP clear so from that Protein energy malnutrition: * Patient's weight is 49.9 kg, BMI 21.5 and serum albumin 2 * Current weight at 50.57 kg, BMI 21.8, * Muscle atrophy noted BUN low, 6 * Patient lost significant amount of weight intentionally, 40 lb * Continue clear liquid diet * Diet evaluation placed for recommendations post discharge * Albumin added Suspected ileus versus obstruction * Patient had her 1st bowel movement since admission on 07/22/2025 which was nonbloody. * Has diffuse abdominal distention, however passing flatus, and tolerating clear liquid diet * Repeat KUB tomorrow. * Encouraged patient to ambulate in the hallways and ordered physical therapy * Lactulose 20 mg p.o. b.i.d. PRN ordered by surgical team * CT abdomen revealed acute mechanical large bowel obstruction secondary to multifocal long segment inflammatory strictures involving the proximal descending and sigmoid and rectal colon with circumferential wall thickening. * She started eating. Surgery involved in the case and ordered KUB x-ray * and it revealed interval worsening of small and large bowel dilatation, consistent with progression of bowel obstruction. GI prophylaxis with simethicone and Protonix 40 mg DVT prophylaxis with SCDs and heparin 5000 b.i.d.. ATTESTATION BY PHYSICIAN I have seen and examined the patient. I reviewed the documentation, medical decision making, and treatment plan as noted by the mid-level provider above. I agree with the findings and plan of care. KINA BELLO IV, MD, HARSHA MD Jul 27, 2025 17:44
[2025-07-27 20:00] VITALS: BP 129/83; PULSE 93; RESP 17; TEMP 98.6; O2SAT 98
--- NOTE | 2025-07-27 21:56 | PN ---
INFECTIOUS DISEASE PROGRESS NOTE Date of Service: Jul 27, 2025 SUBJECTIVE: Patient was seen and examined at bedside in room 406. Patient is awake alert and oriented x3. The repeat CT of the abdomen and pelvis showed acute mechanical large bowel obstruction and chronic inflammatory colitis patient however reported that she is having good bowel movements and the abdomen is soft on palpation. We will continue to monitor. Patient has been referred to SNF to continue IV antibiotics. We will continue on Meropenem. PHYSICAL EXAM EYES: Anicteric. Pupils equal and reactive. HENT: No oral thrush seen, moist Oral mucosa. NECK: Supple, no JVD or thyromegaly. LUNGS: Good air entry. No rales, no rhonchi. CARDIOVASCULAR: S1, S2 regular. No murmur heard. ABDOMEN: Distended. bowel sounds present. Percutaneous drain placement. CENTRAL NERVOUS SYSTEM: Awake, alert, oriented x 3. SKIN: No rashes, no swelling. LYMPHATICS: No peripheral lymphadenopathy. MUSCULOSKELETAL: No joint swelling, erythema or tenderness. EXTREMITIES: No cyanosis or clubbing. BACK: No deformity, no pressure ulcer. GENITOURINARY: No dysuria or hematuria. Vital Sign (Last 12 Hours) 07/27/25 07/27/25 07/27/25 11:38 15:08 20:00 Temp 98.6 Pulse 85 85 93 Resp 18 17 17 B/P (MAP) 136/84 144/82 129/83 Pulse Ox 96 95 97 O2 Delivery Room Air Room Air Room Air Intake & Output (last 24hrs) 07/26/25 07/26/25 07/27/25 15:00 23:00 07:00 Intake Total 120 ml 200.0 ml 240 ml Output Total 100 ml 10 ml 900 ml Balance 20 ml 190.0 ml -660 ml LABS: Laboratory: Test 07/27/25 03:50 07/26/25 03:47 Range/Units White Blood Count 11.2 H 4.8-10.8 K/uL Red Blood Count 3.60 L 4.00-5.50 MIL/uL Hemoglobin 10.2 L 12.0-16.0 g/dL Hematocrit 30.2 L 36-48 % Mean Corpuscular Volume 83.9 79-99 fL Mean Corpuscular Hemoglobin 28.3 27.0-33.0 pg Mean Corpuscular Hemoglobin Concent 33.8 32.0-36.0 g/dL Red Cell Distribution Width 12.7 11.0-15.5 % Platelet Count 580 H 130-400 K/uL Mean Platelet Volume 8.6 7.5-10.5 fL Immature Granulocyte % (Auto) 0.8 0-1 % Neutrophils (%) (Auto) 79.9 H 40.0-77.0 % Lymphocytes (%) (Auto) 12.4 L 21.0-51.0 % Monocytes (%) (Auto) 6.3 3.0-13.0 % Eosinophils (%) (Auto) 0.3 0.0-8.0 % Basophils (%) (Auto) 0.3 0.0-5.0 % Neutrophils # (Auto) 8.9 H 1.8-7.7 K/uL Lymphocytes # (Auto) 1.4 1.0-4.8 K/uL Monocytes # (Auto) 0.7 0.1-1.0 K/uL Eosinophils # (Auto) 0.03 0.00-0.70 K/uL Basophils # (Auto) 0.03 0.00-0.20 K/uL Absolute Immature Granulocyte (auto 0.09 0-1 K/uL Nucleated Red Blood Cells 0.0 0.0-0.19 % Sodium Level 129 L 136-145 mmol/L Potassium Level 3.6 3.5-5.1 mmol/L Chloride Level 94 L 101-111 mmol/L Carbon Dioxide Level 29 21-32 mmol/L Blood Urea Nitrogen 5 L 7-18 mg/dL Creatinine 0.4 L 0.5-1.0 mg/dL Glomerular Filtration Rate Calc 115 >90 mL/min Random Glucose 94 70-105 mg/dL Total Calcium 8.3 L 8.5-10.1 mg/dL C-Reactive Protein, Quantitative 30.10 H 0.5-3.0 mg/L Assisted ASSESSMENT: Diverticulitis with perforation and abscess, s/p percutaneous drain placement on 07/19/2025. Infection with multidrug resistant organism. Abdominal pain, possible ileus. Leukocytosis, resolving. Hypokalemia, resolving. Hyponatremia. Chronic tobacco use. PLAN: Continue Meropenem IV. Continue GI prophylaxis. Percutaneous drain care. Continue pain management. Pending repeat CT scan of the abdomen/pelvis to re-evaluate abscess for today. Case management working on placement to [facility] to continue IV antibiotic therapy.. This case was reviewed and discussed with my supervising physician Dr. Moulton and the above assessment and plan was formulated and agreed upon. ATTESTATION BY PHYSICIAN I have seen and examined the patient. I reviewed the documentation, medical decision making, and treatment plan as noted by the mid-level provider above. I agree with the findings and plan of care. HAYDEE MOULTON MD, [facility] Jul 27, 2025 21:56
[2025-07-28] VITALS (8 sets, daily range): BP systolic 127–140; BP diastolic 74–89; PULSE 70–89; RESP 17–20; TEMP 97.8–99; O2SAT 95–99
[2025-07-28 04:33] LABS: NUCLEATED RED BLOOD CELLS 0.0 % (0.0-0.19); PLATELET COUNT (AUTO) 531.0 K/uL (130-400); RED BLOOD CELL COUNT(AUTO) 3.49 MIL/uL (4.00-5.50); RED CELL DISTRIBUTION WIDTH 12.9 % (11.0-15.5); WHITE BLOOD COUNT (AUTO) 10.6 K/uL (4.8-10.8)
[2025-07-28 05:01] LABS: ASPARTATE AMINOTRANSFERASE 15.0 U/L (10-37); CREATININE 0.5 mg/dL (0.5-1.0); GLOMERULAR FILTR. RATE CALC 109.0 mL/min (>90); GLUCOSE,RANDOM 91.0 mg/dL (70-105); SODIUM SERUM 130.0 mmol/L (136-145); TOTAL PROTEIN, SERUM 5.7 g/dL (6.0-8.3); UREA NITROGEN, BLOOD 4.0 mg/dL (7-18)
--- NOTE | 2025-07-28 12:45 | PN ---
[facility] PROGRESS NOTE Date of Service: Jul 28, 2025 Time of Service: 12:45 History of Present Illness Ms. Dowell is a 59-year-old female that was seen and examined today on 07/17/2025. Patient is a good historian of personal health. Patient states that she came to the emergency department with a chief complaint of abdominal pain. Onset was two weeks ago. Location is left lower quadrant. Duration is constant. Character is described as bloating. There was no alleviating factors. There was no aggravating factors. Patient reports associated constipation. Patient reports that she has a pending colonoscopy for this same abdominal discomfort with Dr. Oconnor that was scheduled on 07/19/25. Patient was taking Linzess for the last four days and only had soft GI foods and liquids at home during this time. Patient reports her last meal being a banana that started the pain, which has progressed to this point. Patients says she has lost significant weight, 40 lbs since her divorce intentionally, due to poor diet mainly including tuna and salads. Patient has history of similar pain in the LLQ of abdomen which resolved spontaneously in few hours. Patient has a chronic history of constipation. Patient never underwent colonoscopy. She has family history of Carcinoid tumor and recurrent diverticulitis in first degree relatives. Today in the emergency department WBCs 23.0, left shift neutrophils 83%, potassium 2.5, chloride 81, sodium 120, no urinalysis has been collected or sent to lab, CT of abdomen and pelvis shows diverticulitis with two abscesses. Emergency room physician contacted general surgery on-call, Dr. Lou who requested patient be admitted under hospitalist service. Additionally patient presented with a heart rate of 91 beats per minute, together with WBCs of 23.0 and identified source of infection being gastrointestinal patient met clinical sepsis criteria. SUBJECTIVE: 07/18/2025: Patient was evaluated in ED 03. Patient presented to the ED with acute abdominal pain the left lower quadrant, 8/10 in intensity with associated with bloating. Patient has chronic constipation and has been following Dr. Oconnor for evaluation with colonoscopy. Patient had poor intake in the preceding days and was using Linzess in the last 4 days. Patient had a solid bowel movement this morning and is passing flatus. Patient is kept NPO and is started on IV NS at 100 ml/hr, replacing her potassium and Zosyn was started. Labs remarkable for severe hyponatremia, hypokalemia, hypochloremia, and metabolic alkalosis. We will hydrate her judiciously and monitor her electrolytes closely. CT abdomen is remarkable for acute diverticulitis with abscesses in sigmoid colon and rectum. Pending surgery evaluation. 07/19/2025: Patient was evaluated in room 406. Patient was hemodynamically stable and had no acute events overnight. The nurse reported that patient had a rash and itching sensation on the face and neck after being on Zosyn, has a hist ory of hives to cefazolin. On-call nurse practitioner discontinued Zosyn and put her on levofloxacin and metronidazole. Surgery evaluated patient and recommended percutaneous drainage of abscesses by the interventional radiologist. Patient still has residual pain, 5/10 and tenderness to palpation, but denies fevers, chills, nausea, vomiting. Her serum sodium was 130 this morning. We will continue cautious hydration. ID consult has also been placed and we will follow their recommendations. 07/20/2025: Patient was evaluated in room 406. Patient is hemodynamically stable and had no acute events overnight. Patient underwent percutaneous drainage of diverticular abscess yesterday, samples were sent for cultures. Output today was 70 cc purulent drainage. Patient complained of abdominal distention and had not had any bowel movement since admission. Patient is tolerating clear liquid diet without nausea or vomiting. Her serum sodium dropped to 125 this morning and potassium was 3. We will continue gentle hydration and potassium replacement as per protocol. We encouraged the patient to ambulate in the hallways and also ordered physical therapy. Surgical team ordered KUB to rule out ileus versus obstruction. They also added meto clopramide 10 mg and Mylicon. Malignancy workup with CA 125, CA 19 9 were also ordered by primary team. 07/21/2025: Patient is seen in the room 406. KUB x-ray revealed markedly dilated large bowel loops measuring 9.[address] scan of the abdomen pelvis without contrast for further analysis. Discontinued metoclopramide. CT chest is ordered. Patient's sodium is low, salt tablets 1 g t.i.d. added. Urinalysis and the urine electrolytes were ordered. Albumin was added due to the suspicion of Cancer and protein energy malnutrition Urine [id number], potassium 22- so a case of SIADH. Urine protein to creatinine ratio is pending. 07/22/2025: Patient is seen and evaluated in room 405 for severe, persistent abdominal pain. She was given morphine at 7:48 AM with partial relief. Her abdomen is rigid, distended, and she reports epigastric pain with little to no passage of gas. Labs show WBC trending up to 21.2, hemoglobin 10.5, platelets 635, sodium 124, potassium 3.3, and CRP 114. Percutaneous drain is producing high-volume purulent output, and cultures returned positive for E. coli with Pseudomonas; antibiotics have been adjusted with levofloxacin and metronidazole stopped and meropenem started. Abdominal X-ray shows gaseous distension of large bowel loops consistent with ileus. Patient is NPO, on fluid restriction of 1 liter, and has been started on spironolactone 25 mg PO. Surgery recommends repeating abdominal xray tomorrow and continue conservative management for now.. Patients code status was discussed, and she wishes to remain full code. 07/23/2025: Patient was seen and evaluated bedside in room 405. She was awake and alert during my visit and appeared to be in no acute distress. Patient states that her symptoms have side subsided significantly. She states that her only symptom today was the bloating that she is feeling which she attributes to not eating. She continues on meropenem today. Nursing staff reported that the percutaneous drain stopped draining yesterday, following which they flushed the drain with a total of 50 mL NS with no result. Patient continues to be NPO and bowel rest. She states that she would like to eat soon if possible. Patient also stated that she had a bowel movement today which was nonbloody. Patient continues on [id number] mg BD. She will receive 500 mL of NS followed by re measurement of her serum sodium and potassium today at 1600. 07/24/2025: Patient was seen and evaluated in room 405. She was awake, and alert during my visit. Patient stated that her abdominal pain is almost gone. Regarding her bloating she states that the simethicone she is getting has helped. She continues on meropenem and ID recommended the patient receive long- term IV antibiotics. We will perform CT abdomen and pelvis before discharge to assess for the resolution of her diverticular abscess. Case management has been consulted for potential placement as the patient will require IV antibiotics after discharge. Regarding her diet, patient states that jelly yesterday and is tolerating the diet well. Her hyponatremia is slowly improving with a serum sodium of 126 today. She still has the rash present on her upper back however she reports no symptoms at the moment. She is hemodynamically stable otherwise and has no other complaints today. 07/25/2025: Patient was seen and evaluated bedside in room 405 in the presence of the nurse. Patient denies any active complaints today. She states that she slept well yesterday and is happy with her recovery so far. She continues on meropenem IV and infectious diseases recommended at least3 weeks of IV antibiotics after discharge. We will repeat the CT abdomen and pelvis tomorrow to assess the resolution of the diverticular abscess. General surgery recommends continuing with the current conservative management and IV antibiotics. She is tolerating her diet well and has had bowel movements today. Her hyponatremia is improving with a sodium of 128 today. She is hemodynamically stable with unremarkable vitals. 07/26/2025: Patient was seen and evaluated bedside in room 404 in the presence of the nurse. She was alert, awake, and oriented today. She denies any abdominal pain at the moment and says that her bloating has significantly gone down. She has no other active complaints today. Her laboratory results show improving hyponatremia with a serum sodium of 131. She remains on fluid restriction today. The infectious disease recommended patient undergo CT scan today to assess the resolution of her diverticular abscess. She will be discharged home with advice to follow up at [facility] for her IV antibiotics which she will need for3 weeks. General surgery recommended continuing with current conservative management and follow as an outpatient to assess her drain and the abscess. Her vitals are unremarkable today. Addendum:4 pm- Patient voiced concerns that she is not able to pay copays for [facility] or [facility] to receive IV antibiotics and was requesting oral antibiotics. However ,after further discussions with Infectious disease team and my attending , it is confirmed that this patient requires IV antibiotic for 3 weeks due to the complex nature of her medical condition. I explained the situation to the patient and she verbalized understanding . 07/27/2025: CT abdomen revealed acute mechanical large bowel obstruction secondary to multifocal long segment inflammatory strictures involving the proximal descending and sigmoid and rectal colon with circumferential wall thickening. She started eating. She needs to be on fluid restriction until his PCP clears off. Surgery involved in the case and ordered KUB x-ray and it revealed interval worsening of small and large bowel dilatation, consistent with progression of bowel obstruction. For SIADH: Sodium dropped from 131-129 So he needs to be on fluid restriction until her PCP clear so from that 07/28/2025: Patient is seen in evaluated at bedside. She reports having liquid bowel movement this morning and complaints no nausea or vomiting. On examination her abdomen looks distended but soft without any masses. She e xpresses ongoing abdominal pain after her J-tube was flushed this Tuesday. She reported that she is lactose intolerant but had a glass of milk today and she attributes her abdominal distention is because of that. Surgery is on board and we will see if they want the patient on NPO. Once the surgery clears her for discharge she will be sent to [facility] for her IV antibiotics. REVIEW OF SYSTEMS CONSTITUTIONAL: Denies fevers, chills, or night sweats. Reports intentional weight loss of 40 lbs. NEUROLOGICAL: Denies headache, motor weakness, sensory deficit, vertigo/spin shlomo sensation, gait abnormalities, or tremors. ENT: No hearing loss, otalgia, otorrhea, rhinitis, rhinorrhea, hoarseness, or sore throat. CARDIOVASCULAR: Denies any exertional angina, dyspnea on exertion, orthopnea, paroxysmal nocturnal dyspnea, palpitations, life-threatening arrhythmias, claudication. PULMONARY: Denies any shortness of breath, cough, phlegm/sputum, hemoptysis, pleuritic chest pain. SLEEP: Denies morning headaches, daytime somnolence or napping. Denies difficulty falling asleep, staying asleep, waking from sleep. Denies knowledge of snoring. GASTROINTESTINAL: Denies any type of dysphagia to either liquids or solids. Denies nausea, vomiting, pyrosis, early satiety. Admits to chronic constipation . GENITOURINARY: Denies frequency, urgency, nocturia, hematuria or incontinence (Storage/Irritative symptoms.) PHYSICAL EXAM GENERAL APPEARANCE: The patient is awake, alert, and oriented, in no acute cardiopulmonary distress., Appears cachexic NEUROLOGICAL: Cranial nerves II-XII grossly intact. Motor is 5/5 in bilateral upper and lower extremities proximal to distal. No sensory deficits. HEENT: Face is symmetric. Pupils are equal and reactive. Extraocular movements are intact. NECK: Supple. No thyromegaly. No submental, submandibular, pre-/postauricular, occipital or supraclavicular lymphadenopathy. CHEST: Normal chest expansion. No Telemetry. LUNGS: Absence of any rales, rhonchi or any wheezing. CARDIOVASCULAR: Regular. S1 and S2 normal. No appreciable rubs, murmurs or gallops. ABDOMEN: mildly Tender to palpation in the LLQ, and epigastrium. Abdomen is distended. Left lower quadrant drainage catheter with bag in position. Hyper acoustic bowel sounds There is no rebound, voluntary guarding, and rigidity present . : Deferred. No [place]. EXTREMITIES: Non-edematous and not cyanotic. No clubbing. Good capillary refill. SKIN: No skin breakdown. Vital Signs (last 8hr) Date Time Temp Pulse Resp B/P (MAP) Pulse Ox O2 Delivery O2 Flow Rate FiO2 07/28/25 11:45 97.9 87 20 139/76 98 Room Air LABS: Laboratory: Test 07/28/25 04:00 07/27/25 03:50 Range/Units White Blood Count 10.6 4.8-10.8 K/uL Red Blood Count 3.49 L 4.00-5.50 MIL/uL Hemoglobin 10.1 L 12.0-16.0 g/dL Hematocrit 29.7 L 36-48 % Mean Corpuscular Volume 85.1 79-99 fL Mean Corpuscular Hemoglobin 28.9 27.0-33.0 pg Mean Corpuscular Hemoglobin Concent 34.0 32.0-36.0 g/dL Red Cell Distribution Width 12.9 11.0-15.5 % Platelet Count 531 H 130-400 K/uL Mean Platelet Volume 8.6 7.5-10.5 fL Nucleated Red Blood Cells 0.0 0.0-0.19 % Sodium Level 130 L 136-145 mmol/L Potassium Level 3.7 3.5-5.1 mmol/L Chloride Level 97 L 101-111 mmol/L Carbon Dioxide Level 27 21-32 mmol/L Blood Urea Nitrogen 4 L 7-18 mg/dL Creatinine 0.5 0.5-1.0 mg/dL Glomerular Filtration Rate Calc 109 >90 mL/min Random Glucose 91 70-105 mg/dL Total Calcium 8.4 L 8.5-10.1 mg/dL Total Bilirubin 0.5 0.2-1.0 mg/dL Aspartate Amino Transf (AST/SGOT) 15 10-37 U/L Alanine Aminotransferase (ALT/SGPT) 10 L 12-78 U/L Alkaline Phosphatase 70 50-136 U/L Total Protein 5.7 L 6.0-8.3 g/dL Albumin 1.9 L 3.5-5.0 g/dL Immature Granulocyte % (Auto) 0.8 0-1 % Neutrophils (%) (Auto) 79.9 H 40.0-77.0 % Lymphocytes (%) (Auto) 12.4 L 21.0-51.0 % Monocytes (%) (Auto) 6.3 3.0-13.0 % Eosinophils (%) (Auto) 0.3 0.0-8.0 % Basophils (%) (Auto) 0.3 0.0-5.0 % Neutrophils # (Auto) 8.9 H 1.8-7.7 K/uL Lymphocytes # (Auto) 1.4 1.0-4.8 K/uL Monocytes # (Auto) 0.7 0.1-1.0 K/uL Eosinophils # (Auto) 0.03 0.00-0.70 K/uL Basophils # (Auto) 0.03 0.00-0.20 K/uL Absolute Immature Granulocyte (auto 0.09 0-1 K/uL Current Medications Medications (Trade) Dose Ordered Sig/Heather Route PRN Reason Start Time Stop Time Status Last Admin Dose Admin Acetaminophen (TYLenol 325MG TAB) 650 mg Q6H PRN PO TEMPERATURE GREATER THAN 101.5 07/17/25 22:00 08/16/25 21:59 Acetaminophen (TYLenol 500MG TAB) 500 mg Q4H PRN PO MILD PAIN (1-3) 07/18/25 10:30 08/17/25 10:29 07/28/25 09:56 500 MG Acetaminophen (acetaMINOPHEN 1,000MG/100ML) 1,000 mg [id number] PRN IVPB MODERATE PAIN (4-6) 07/22/25 13:30 08/21/25 13:29 Albumin Human 250 ml @ 0 mls/hr AD IV 07/21/25 14:30 07/22/25 07:19 DC 07/21/25 22:49 60 MLS/HR Diphenhydramine HCl (BENAdryl CAP) 25 mg Q8H PRN PO INSOMNIA 07/20/25 11:00 07/22/25 11:13 DC 07/21/25 18:33 25 MG Famotidine (Pepcid 20mg Vial) 20 mg DAILY IV 07/18/25 09:00 07/22/25 11:12 DC 07/21/25 08:33 20 MG Heparin Sodium (Porcine) (HEParin 5,000 UNIT VIAL) 5,000 unit Q12H SQ 07/23/25 12:00 07/24/25 00:30 DC 07/23/25 14:44 5,000 UNIT Heparin Sodium (Porcine) (HEParin 5,000 UNIT VIAL) 5,000 unit Q12H SQ 07/24/25 03:00 08/23/25 02:59 07/28/25 03:26 5,000 UNIT Hydralazine HCl (APRESOLine 20MG INJ) 10 mg Q6H PRN IV For:SBP above 160;DBP above 90 07/17/25 22:00 08/16/25 21:59 Lactated Ringer's 1,000 ml @ 75 mls/hr [id number] IV 07/17/25 22:00 07/17/25 22:07 DC 07/17/25 21:56 75 MLS/HR Lactulose (Constulose 20gm/ 30ml Udcup) 20 gm BID PRN PO CONSTIPATION 07/20/25 17:00 07/26/25 06:31 DC Levofloxacin/ Dextrose (LEvaquIN 750 MG/ D5W 150 ML) 750 mg Q24H IV 07/19/25 05:00 07/22/25 08:34 DC 07/22/25 04:52 750 MG Magnesium Sulfate 50 ml @ 0 mls/hr PROTOCOL PRN IV MAGNESIUM PROTOCOL 07/24/25 05:00 08/23/25 04:59 07/24/25 05:19 25 MLS/HR Magnesium Sulfate 50 ml @ 0 mls/hr PROTOCOL PRN IV h 07/17/25 22:30 07/20/25 21:08 DC 07/18/25 02:31 25 MLS/HR Meropenem (Merrem 1gm) 1 gm Q8H IVPB 07/22/25 09:00 07/24/25 00:29 DC 07/23/25 17:39 1 GM Meropenem (Merrem 1gm) 1 gm Q8H IVPB 07/24/25 02:00 08/03/25 01:59 07/28/25 12:13 1 GM Metoclopramide HCl (regLAN 10MG IV) 10 mg ACHS IVP 07/20/25 21:00 07/21/25 14:18 DC 07/21/25 12:24 10 MG Metronidazole/ Sodium Chloride (flaGYL) 500 mg Q8H IV 07/19/25 07:00 07/22/25 11:30 DC 07/22/25 06:24 500 MG Morphine Sulfate (morPHINE 4MG SYG) 4 mg Q4H PRN IVP SEVERE PAIN (7-10) 07/17/25 22:00 07/22/25 11:12 DC 07/22/25 07:48 4 MG Ondansetron HCl (zoFRAN 4MG INJ) 4 mg Q6H PRN IV NAUSEA/VOMITING 07/17/25 22:00 08/16/25 21:59 07/19/25 00:47 4 MG Pantoprazole Sodium (PROTonix 40MG INJ) 40 mg BID IVP 07/22/25 21:00 08/21/25 20:59 07/28/25 07:54 40 MG Pharmacy Profile Note (Pharmacy Communication) 1 each ONCE MISC 07/22/25 08:30 07/22/25 08:34 DC Pharmacy Profile Note (Pharmacy Communication) Abnormanl QT interval Q8H MISC 07/20/25 19:00 07/22/25 07:22 DC Piperacillin Sod/ Tazobactam Sod (Zosyn 3.375gm+NS 50ml) 3.375 gm Q8H IV 07/17/25 22:00 07/19/25 02:04 DC 07/18/25 21:47 3.375 GM Potassium Chloride 100 ml @ 50 mls/hr AD PRN IV POTASSIUM PROTOCOL 07/17/25 22:30 08/16/25 22:29 07/26/25 06:19 50 MLS/HR Simethicone (Mylicon) 80 mg PCHS PO 07/20/25 18:00 08/19/25 17:59 07/28/25 12:13 80 MG Sodium Chloride 500 ml @ 75 mls/hr Q6H40M IV 07/23/25 13:00 07/23/25 13:11 DC Sodium Chloride 1,000 ml @ 125 mls/hr Q8H IV 07/17/25 22:30 07/21/25 16:08 DC 07/21/25 14:16 125 MLS/HR Sodium Chloride (NS Flush 10ml) 10 ml DAILY FLUSH 07/21/25 09:00 07/21/25 21:42 DC Sodium Chloride (NS Flush 10ml) 10 ml DAILY MISC 07/22/25 09:00 08/21/25 08:59 07/28/25 07:54 10 ML Sodium Chloride (Sodium Chloride) 1,000 mg BID PO 07/21/25 21:00 07/21/25 15:57 DC Sodium Chloride (Sodium Chloride) 1,000 mg TID PO 07/21/25 16:00 08/20/25 20:59 07/28/25 07:53 1,000 MG Spironolactone (Aldactone 25mg) 25 mg DAILY PO 07/23/25 13:00 08/22/25 12:59 07/28/25 07:53 25 MG Thiamine HCl (Vitamin B-1) 200 mg DAILY IVP 07/23/25 09:00 08/22/25 08:59 07/28/25 07:54 200 MG DIAGNOSTICS / RADIOLOGY: [ ] ASSESSMENT: Sepsis due to Acute sigmoid diverticulitis complicated by abscess, status post percutaneous drainage of pelvic abscess POA Acute Paralytic ileus versus obstruction, POA Severe hyponatremia, hypovolemic, POA: SIADH ruled in ,POA Hypokalemia, POA Iron-deficiency anemia POA Hepatic and renal cysts , POA Chronic constipation, POA Colonic diverticulosis, POA Chronic smoking and alcoholism POA Severe Protein calorie malnutrition, POA PLAN: Sepsis due to Acute sigmoid diverticulitis complicated by abscess, status post percutaneous drainage of pelvic abscess: * Patient vitals on presentation 125/71, heart rate 91, with elevated leukocytes 23k in the light of diverticulitis meets sepsis criteria * CT abdomen confirmed acute sigmoid colon diverticulitis complicated by two abbesses, one along the sigmoid colon (5.8 x 6.9 x 5.1 cm) and one along the rectum (7.6 x 6.1 x 6.6 cm) * Patient had rash and itching to the face after Zosyn, discontinue * Discontinued IV metronidazole 500 mg Q8 and IV levofloxacin 750 mg Q 24 on 07/22/2025 and started on meropenem as per culture and sensitivity * Surgery recommended percutaneous drainage of the abscesses by IR, no surgical intervention at this moment * IR performed percutaneous drainage of pelvic abscess with placement of left lower quadrant drainage catheter * Abscess sample were sent for cultures, showed growth of E coli and pseudomonas * Monitor daily output from left lower quadrant drain * Morphine 4 mg for severe pain is stopped and started on Tylenol 1000 mg for pain * Repeat labs in the morning * WBC count 23>20>14.5>13.6>17.6>21.2>13.5>14>11>10.3>11.2>10.6(Today) * KUB x-ray (07/25/2025)- markedly dilated large bowel measuring up to 6.7 cm * repeat KUB as per surgery recommendations showed interval worsening of small and large bowel dilatation, consistent with progression of bowel obstruction. * Continue meropenem IV as per ID recommendations * Percutaneous drainage care Iron-deficiency anemia: * Patient's hemoglobin today at 10.1 * Serum iron studies showed a transferrin saturation of 12%. * Consider iron supplementation once stable and at discharge. * Received Venofer 200 mg once IV yesterday Severe hyponatremia, hypovolemic (suspected SIADH): * On presentation Na was 120, asymptomatic and was dehydrated in the preceding days * Today serum sodium is 130 and we will continue judicious hydration * fluid restricted to 1 litre * Salt tablet 1000 mg t.i.d. which she will be discharged on. * Urine electrolytes (07/23/2025) -, potassium 56, urine osmolality (07/18/2025) at 204, and serum osmolality (07/23/2025) at 265 consistent with SIADH Protein energy malnutrition: * Patient's weight is 49.9 kg, BMI 21.5 and serum albumin 2 * Current weight at 50.57 kg, BMI 21.8, * Muscle atrophy noted BUN low, 4 * Patient lost significant amount of weight intentionally, 40 lb * Continue clear liquid diet * Diet evaluation placed for recommendations post discharge * Albumin added Suspected ileus versus obstruction * Patient had her 1st bowel movement since admission on 07/22/2025 which was nonbloody. * Has diffuse abdominal distention, however passing flatus, and tolerating clear liquid diet * Encouraged patient to ambulate in the hallways and ordered physical therapy * Lactulose 20 mg p.o. b.i.d. PRN ordered by surgical team * CT abdomen revealed acute mechanical large bowel obstruction secondary to multifocal long segment inflammatory strictures involving the proximal descending and sigmoid and rectal colon with circumferential wall thickening. * She started eating. Surgery involved in the case and ordered KUB x-ray * and it revealed interval worsening of small and large bowel dilatation, consistent with progression of bowel obstruction. GI prophylaxis with simethicone and Protonix 40 mg DVT prophylaxis with SCDs and heparin 5000 b.i.d.. ATTESTATION BY PHYSICIAN I have seen and examined the patient. I reviewed the documentation, medical decision making, and treatment plan as noted by the resident physician above. I agree with the findings and plan of care. Arden Weiss IV, MD, BHAVANI MD Jul 28, 2025 12:45
--- NOTE | 2025-07-28 13:42 | PN ---
This is a 59-year-old female with diverticulitis with diverticular abscess with recent percutaneous drain and development of ileus versus obstruction Interval history: This 59-year-old female seen in her room resting Patient continues with bowel movements which were witnessed by nursing Abdomen continues to remain soft slightly distended no abdominal pain reported outside of percutaneous drain site after flushing this morning Labs remained stable Patient continues to tolerate diet No other acute events reported at this time KUB results concerning for worsening dilatation but clinically patient appears very stable Vitals remained stable patient continues with the IV antibiotics Physical exam General: Awake alert and oriented Heart: Regular rate and rhythm} Lungs: [Clear to auscultation no distress Abdomen: [Soft, nontender, nondistended IMPRESSION: 1. Interval worsening of small and large bowel dilatation, consistent with progression of bowel obstruction. Assessment : This is a 59-year-old female with diverticulitis with diverticular abscess with recent percutaneous drain and development of ileus versus obstruction Plan: This point in time we will order stat KUB to reassess any changes From yesterday Patient to continue with diet as tolerated We will treat patient based off of clinical status Continue with the IV fluids and IV antibiotics Continue with the b.i.d. flushing of percutaneous drain Dr. Lou has been updated in patient's status and nursing report any further acute events Surgical case has been discussed with my supervising physician in the above plan was formulated and agreed upon We appreciate the hospitalist team for us to participate in patient's care. Greater than 45 minutes of time spent patient, reviewing chart, working on documentation Vitals/Labs Vital Signs Date Time Temp Pulse Resp B/P (MAP) Pulse Ox O2 Delivery O2 Flow Rate FiO2 07/28/25 11:45 97.9 87 20 139/76 98 Room Air 07/27/25 20:00 0 21 Laboratory Tests 07/28/25 04:00 Medications Current Medications Pantoprazole Sodium 40 mg ONCE ONCE IVP Last administered on 07/17/25at 13:00; Start 07/17/25 at 13:00; Stop 07/17/25 at 13:02; Status DC Potassium Chloride 100 ml @ 100 mls/hr ONCE ONCE IV Last administered on 07/17/25at 15:36; Start 07/17/25 at 14:00; Stop 07/17/25 at 14:59; Status DC Potassium Bicarbonate 50 meq ONCE ONCE PO Last administered on 07/17/25at 15:35; Start 07/17/25 at 14:00; Stop 07/17/25 at 14:01; Status DC Ceftriaxone Sodium 1 gm ONCE ONCE IVPB Last administered on 07/17/25at 19:32; Start 07/17/25 at 17:00; Stop 07/17/25 at 17:01; Status DC Iohexol 35,000 mg STK-MED ONCE IV; Start 07/17/25 at 17:30; Stop 07/17/25 at 17:30; Status DC Piperacillin Sod/ Tazobactam Sod 3.375 gm ONCE ONCE IV Last administered on 07/17/25at 19:32; Start 07/17/25 at 19:00; Stop 07/17/25 at 19:01; Status DC Lactated Ringer's 1,497 ml @ 499 mls/hr ONCE ONCE IV Last administered on 07/17/25at 21:58; Start 07/17/25 at 22:00; Stop 07/18/25 at 00:59; Status DC Piperacillin Sod/ Tazobactam Sod 3.375 gm Q8H IV Last administered on 07/18/25at 21:47; Start 07/17/25 at 22:00; Stop 07/19/25 at 02:04; Status DC Acetaminophen 650 mg Q6H PRN PO; Start 07/17/25 at 22:00; Stop 08/16/25 at 21:59 Famotidine 20 mg DAILY IV Last administered on 07/21/25at 08:33; Start 07/18/25 at 09:00; Stop 07/22/25 at 11:12; Status DC Hydralazine HCl 10 mg Q6H PRN IV; Start 07/17/25 at 22:00; Stop 08/16/25 at 21:59 Lactated Ringer's 1,000 ml @ 75 mls/hr [id number] IV Last administered on 07/17/25at 21:56; Start 07/17/25 at 22:00; Stop 07/17/25 at 22:07; Status DC Ondansetron HCl 4 mg Q6H PRN IV Last administered on 07/19/25at 00:47; Start 07/17/25 at 22:00; Stop 08/16/25 at 21:59 Morphine Sulfate 4 mg Q4H PRN IVP Last administered on 07/22/25at 07:48; Start 07/17/25 at 22:00; Stop 07/22/25 at 11:12; Status DC Potassium Chloride 100 ml @ 50 mls/hr AD PRN IV Last administered on 07/26/25at 06:19; Start 07/17/25 at 22:30; Stop 08/16/25 at 22:29 Magnesium Sulfate 50 ml @ 0 mls/hr PROTOCOL PRN IV Last administered on 07/18/25at 02:31; Start 07/17/25 at 22:30; Stop 07/20/25 at 21:08; Status DC Sodium Chloride 1,000 ml @ 125 mls/hr Q8H IV Last administered on 07/21/25at 14:16; Start 07/17/25 at 22:30; Stop 07/21/25 at 16:08; Status DC Potassium Chloride 100 ml @ As Directed STK-MED ONCE IV Last administered on 07/18/25at 02:31; Start 07/18/25 at 02:12; Stop 07/18/25 at 02:12; Status DC Acetaminophen 500 mg Q4H PRN PO Last administered on 07/28/25at 09:56; Start 07/18/25 at 10:30; Stop 08/17/25 at 10:29 Levofloxacin/ Dextrose 750 mg Q24H IV Last administered on 07/22/25at 04:52; Start 07/19/25 at 05:00; Stop 07/22/25 at 08:34; Status DC Metronidazole/ Sodium Chloride 500 mg Q8H IV Last administered on 07/22/25at 06:24; Start 07/19/25 at 07:00; Stop 07/22/25 at 11:30; Status DC Diphenhydramine HCl 25 mg ONCE ONCE IV Last administered on 07/19/25at 02:47; Start 07/19/25 at 02:30; Stop 07/19/25 at 02:31; Status DC Midazolam HCl 2 mg STK-MED ONCE .ROUTE Last administered on 07/19/25at 16:22; Start 07/19/25 at 15:19; Stop 07/19/25 at 15:20; Status DC Fentanyl Citrate 100 mcg STK-MED ONCE .ROUTE Last administered on 07/19/25at 16:23; Start 07/19/25 at 15:20; Stop 07/19/25 at 15:20; Status DC Diphenhydramine HCl 25 mg ONCE ONCE PO Last administered on 07/19/25at 22:26; Start 07/19/25 at 22:00; Stop 07/19/25 at 22:15; Status DC Diphenhydramine HCl 25 mg Q8H PRN PO Last administered on 07/21/25at 18:33; Start 07/20/25 at 11:00; Stop 07/22/25 at 11:13; Status DC Metoclopramide HCl 10 mg ACHS IVP Last administered on 07/21/25at 12:24; Start 07/20/25 at 21:00; Stop 07/21/25 at 14:18; Status DC Simethicone 80 mg PCHS PO Last administered on 07/28/25at 12:13; Start 07/20/25 at 18:00; Stop 08/19/25 at 17:59 Lactulose 20 gm BID PRN PO; Start 07/20/25 at 17:00; Stop 07/26/25 at 06:31; Status DC Pharmacy Profile Note Abnormanl QT interval Q8H MISC; Start 07/20/25 at 19:00; Stop 07/22/25 at 07:22; Status DC Magnesium Sulfate 50 ml @ 0 mls/hr PROTOCOL ONCE IV Last administered on 07/20/25at 21:57; Start 07/20/25 at 21:30; Stop 07/20/25 at 21:31; Status DC Sodium Chloride 10 ml DAILY FLUSH; Start 07/21/25 at 09:00; Stop 07/21/25 at 21:42; Status DC Sodium Chloride 1,000 mg BID PO; Start 07/21/25 at 21:00; Stop 07/21/25 at 15:57; Status DC Albumin Human 250 ml @ 0 mls/hr AD IV Last administered on 07/21/25at 22:49; Start 07/21/25 at 14:30; Stop 07/22/25 at 07:19; Status DC Sodium Chloride 1,000 mg TID PO Last administered on 07/28/25at 07:53; Start 07/21/25 at 16:00; Stop 08/20/25 at 20:59 Sodium Chloride 10 ml DAILY MISC Last administered on 07/28/25at 07:54; Start 07/22/25 at 09:00; Stop 08/21/25 at 08:59 Pharmacy Profile Note 1 each ONCE MISC; Start 07/22/25 at 08:30; Stop 07/22/25 at 08:34; Status DC Meropenem 1 gm Q8H IVPB Last administered on 07/23/25at 17:39; Start 07/22/25 at 09:00; Stop 07/24/25 at 00:29; Status DC Pantoprazole Sodium 40 mg BID IVP Last administered on 07/28/25at 07:54; Start 07/22/25 at 21:00; Stop 08/21/25 at 20:59 Furosemide 40 mg ONCE ONCE IV Last administered on 07/22/25at 12:20; Start 07/22/25 at 12:00; Stop 07/22/25 at 12:01; Status DC Spironolactone 25 mg ONCE ONCE PO Last administered on 07/22/25at 12:19; Start 07/22/25 at 12:00; Stop 07/22/25 at 12:01; Status DC Acetaminophen 1,000 mg [id number] PRN IVPB; Start 07/22/25 at 13:30; Stop 08/21/25 at 13:29 Thiamine HCl 200 mg DAILY IVP Last administered on 07/28/25at 07:54; Start 07/23/25 at 09:00; Stop 08/22/25 at 08:59 Heparin Sodium (Porcine) 5,000 unit Q12H SQ Last administered on 07/23/25at 14:44; Start 07/23/25 at 12:00; Stop 07/24/25 at 00:30; Status DC Sodium Chloride 500 ml @ 75 mls/hr Q6H40M IV; Start 07/23/25 at 13:00; Stop 07/23/25 at 13:11; Status DC Spironolactone 25 mg DAILY PO Last administered on 07/28/25at 07:53; Start 07/23/25 at 13:00; Stop 08/22/25 at 12:59 Sodium Chloride 500 ml @ 75 mls/hr Q6H40M ONCE IV Last administered on 07/23/25at 21:40; Start 07/23/25 at 13:00; Stop 07/23/25 at 19:39; Status DC Meropenem 1 gm Q8H IVPB Last administered on 07/28/25at 12:13; Start 07/24/25 at 02:00; Stop 08/03/25 at 01:59 Heparin Sodium (Porcine) 5,000 unit Q12H SQ Last administered on 07/28/25at 03:26; Start 07/24/25 at 03:00; Stop 08/23/25 at 02:59 Magnesium Sulfate 50 ml @ 0 mls/hr PROTOCOL PRN IV Last administered on 07/24/25at 05:19; Start 07/24/25 at 05:00; Stop 08/23/25 at 04:59 Furosemide 40 mg ONCE ONCE IV Last administered on 07/24/25at 13:40; Start 07/24/25 at 12:00; Stop 07/24/25 at 12:01; Status DC Furosemide 40 mg ONCE ONCE IV Last administered on 07/25/25at 12:10; Start 07/25/25 at 12:00; Stop 07/25/25 at 12:01; Status DC Diatrizoate Meglum/ Diatrizoate Sod 30 ml STK-MED ONCE .ROUTE; Start 07/26/25 at 08:59; Stop 07/26/25 at 08:59; Status DC Iron Sucrose 200 mg ONCE ONCE IV Last administered on 07/26/25at 13:50; Start 07/26/25 at 13:30; Stop 07/26/25 at 13:31; Status DC DIEGO ALICIA Jr. PAC Jul 28, 2025 13:42
--- NOTE | 2025-07-28 16:34 | HMCIMG ---
EXAM: CR Abdomen, 2 View. CLINICAL HISTORY: FOLLOW UP ON BOWEL OBSTRUCITON COMPARISON: Radiograph dated July 27, 2023 FINDINGS: Relatively unchanged markedly dilated loops of small and large bowel. No radiographic evidence of pneumatosis intestinalis, pneumoperitoneum, or portal venous gas. IMPRESSION: 1. Persistent marked small and large bowel dilatation, consistent with ongoing bowel obstruction. /[place]
[2025-07-29] VITALS (7 sets, daily range): BP systolic 120–143; BP diastolic 71–87; PULSE 69–115; RESP 17–18; TEMP 97.9–99.2; O2SAT 94–95
[2025-07-29 05:07] LABS: NUCLEATED RED BLOOD CELLS 0.0 % (0.0-0.19); PLATELET COUNT (AUTO) 525.0 K/uL (130-400); RED BLOOD CELL COUNT(AUTO) 3.53 MIL/uL (4.00-5.50); RED CELL DISTRIBUTION WIDTH 13.1 % (11.0-15.5); WHITE BLOOD COUNT (AUTO) 13.1 K/uL (4.8-10.8)
[2025-07-29 05:24] LABS: CREATININE 0.5 mg/dL (0.5-1.0); GLOMERULAR FILTR. RATE CALC 109.0 mL/min (>90); GLUCOSE,RANDOM 90.0 mg/dL (70-105); SODIUM SERUM 129.0 mmol/L (136-145); UREA NITROGEN, BLOOD 6.0 mg/dL (7-18)
--- NOTE | 2025-07-29 13:33 | PN ---
[facility] PROGRESS NOTE Date of Service: Jul 29, 2025 Time of Service: 13:33 History of Present Illness Ms. Dowell is a 59-year-old female that was seen and examined today on 07/17/2025. Patient is a good historian of personal health. Patient states that she came to the emergency department with a chief complaint of abdominal pain. Onset was two weeks ago. Location is left lower quadrant. Duration is constant. Character is described as bloating. There was no alleviating factors. There was no aggravating factors. Patient reports associated constipation. Patient reports that she has a pending colonoscopy for this same abdominal discomfort with Dr. Oconnor that was scheduled on 07/19/25. Patient was taking Linzess for the last four days and only had soft GI foods and liquids at home during this time. Patient reports her last meal being a banana that started the pain, which has progressed to this point. Patients says she has lost significant weight, 40 lbs since her divorce intentionally, due to poor diet mainly including tuna and salads. Patient has history of similar pain in the LLQ of abdomen which resolved spontaneously in few hours. Patient has a chronic history of constipation. Patient never underwent colonoscopy. She has family history of Carcinoid tumor and recurrent diverticulitis in first degree relatives. Today in the emergency department WBCs 23.0, left shift neutrophils 83%, potassium 2.5, chloride 81, sodium 120, no urinalysis has been collected or sent to lab, CT of abdomen and pelvis shows diverticulitis with two abscesses. Emergency room physician contacted general surgery on-call, Dr. Lou who requested patient be admitted under hospitalist service. Additionally patient presented with a heart rate of 91 beats per minute, together with WBCs of 23.0 and identified source of infection being gastrointestinal patient met clinical sepsis criteria. SUBJECTIVE: 07/18/2025: Patient was evaluated in ED 03. Patient presented to the ED with acute abdominal pain the left lower quadrant, 8/10 in intensity with associated with bloating. Patient has chronic constipation and has been following Dr. Oconnor for evaluation with colonoscopy. Patient had poor intake in the preceding days and was using Linzess in the last 4 days. Patient had a solid bowel movement this morning and is passing flatus. Patient is kept NPO and is started on IV NS at 100 ml/hr, replacing her potassium and Zosyn was started. Labs remarkable for severe hyponatremia, hypokalemia, hypochloremia, and metabolic alkalosis. We will hydrate her judiciously and monitor her electrolytes closely. CT abdomen is remarkable for acute diverticulitis with abscesses in sigmoid colon and rectum. Pending surgery evaluation. 07/19/2025: Patient was evaluated in room 406. Patient was hemodynamically stable and had no acute events overnight. The nurse reported that patient had a rash and itching sensation on the face and neck after being on Zosyn, has a hist ory of hives to cefazolin. On-call nurse practitioner discontinued Zosyn and put her on levofloxacin and metronidazole. Surgery evaluated patient and recommended percutaneous drainage of abscesses by the interventional radiologist. Patient still has residual pain, 5/10 and tenderness to palpation, but denies fevers, chills, nausea, vomiting. Her serum sodium was 130 this morning. We will continue cautious hydration. ID consult has also been placed and we will follow their recommendations. 07/20/2025: Patient was evaluated in room 406. Patient is hemodynamically stable and had no acute events overnight. Patient underwent percutaneous drainage of diverticular abscess yesterday, samples were sent for cultures. Output today was 70 cc purulent drainage. Patient complained of abdominal distention and had not had any bowel movement since admission. Patient is tolerating clear liquid diet without nausea or vomiting. Her serum sodium dropped to 125 this morning and potassium was 3. We will continue gentle hydration and potassium replacement as per protocol. We encouraged the patient to ambulate in the hallways and also ordered physical therapy. Surgical team ordered KUB to rule out ileus versus obstruction. They also added meto clopramide 10 mg and Mylicon. Malignancy workup with CA 125, CA 19 9 were also ordered by primary team. 07/21/2025: Patient is seen in the room 406. KUB x-ray revealed markedly dilated large bowel loops measuring 9.[address] scan of the abdomen pelvis without contrast for further analysis. Discontinued metoclopramide. CT chest is ordered. Patient's sodium is low, salt tablets 1 g t.i.d. added. Urinalysis and the urine electrolytes were ordered. Albumin was added due to the suspicion of Cancer and protein energy malnutrition Urine [id number], potassium 22- so a case of SIADH. Urine protein to creatinine ratio is pending. 07/22/2025: Patient is seen and evaluated in room 405 for severe, persistent abdominal pain. She was given morphine at 7:48 AM with partial relief. Her abdomen is rigid, distended, and she reports epigastric pain with little to no passage of gas. Labs show WBC trending up to 21.2, hemoglobin 10.5, platelets 635, sodium 124, potassium 3.3, and CRP 114. Percutaneous drain is producing high-volume purulent output, and cultures returned positive for E. coli with Pseudomonas; antibiotics have been adjusted with levofloxacin and metronidazole stopped and meropenem started. Abdominal X-ray shows gaseous distension of large bowel loops consistent with ileus. Patient is NPO, on fluid restriction of 1 liter, and has been started on spironolactone 25 mg PO. Surgery recommends repeating abdominal xray tomorrow and continue conservative management for now.. Patients code status was discussed, and she wishes to remain full code. 07/23/2025: Patient was seen and evaluated bedside in room 405. She was awake and alert during my visit and appeared to be in no acute distress. Patient states that her symptoms have side subsided significantly. She states that her only symptom today was the bloating that she is feeling which she attributes to not eating. She continues on meropenem today. Nursing staff reported that the percutaneous drain stopped draining yesterday, following which they flushed the drain with a total of 50 mL NS with no result. Patient continues to be NPO and bowel rest. She states that she would like to eat soon if possible. Patient also stated that she had a bowel movement today which was nonbloody. Patient continues on [id number] mg BD. She will receive 500 mL of NS followed by re measurement of her serum sodium and potassium today at 1600. 07/24/2025: Patient was seen and evaluated in room 405. She was awake, and alert during my visit. Patient stated that her abdominal pain is almost gone. Regarding her bloating she states that the simethicone she is getting has helped. She continues on meropenem and ID recommended the patient receive long- term IV antibiotics. We will perform CT abdomen and pelvis before discharge to assess for the resolution of her diverticular abscess. Case management has been consulted for potential placement as the patient will require IV antibiotics after discharge. Regarding her diet, patient states that jelly yesterday and is tolerating the diet well. Her hyponatremia is slowly improving with a serum sodium of 126 today. She still has the rash present on her upper back however she reports no symptoms at the moment. She is hemodynamically stable otherwise and has no other complaints today. 07/25/2025: Patient was seen and evaluated bedside in room 405 in the presence of the nurse. Patient denies any active complaints today. She states that she slept well yesterday and is happy with her recovery so far. She continues on meropenem IV and infectious diseases recommended at least3 weeks of IV antibiotics after discharge. We will repeat the CT abdomen and pelvis tomorrow to assess the resolution of the diverticular abscess. General surgery recommends continuing with the current conservative management and IV antibiotics. She is tolerating her diet well and has had bowel movements today. Her hyponatremia is improving with a sodium of 128 today. She is hemodynamically stable with unremarkable vitals. 07/26/2025: Patient was seen and evaluated bedside in room 404 in the presence of the nurse. She was alert, awake, and oriented today. She denies any abdominal pain at the moment and says that her bloating has significantly gone down. She has no other active complaints today. Her laboratory results show improving hyponatremia with a serum sodium of 131. She remains on fluid restriction today. The infectious disease recommended patient undergo CT scan today to assess the resolution of her diverticular abscess. She will be discharged home with advice to follow up at [facility] for her IV antibiotics which she will need for3 weeks. General surgery recommended continuing with current conservative management and follow as an outpatient to assess her drain and the abscess. Her vitals are unremarkable today. Addendum:4 pm- Patient voiced concerns that she is not able to pay copays for [facility] or [facility] to receive IV antibiotics and was requesting oral antibiotics. However ,after further discussions with Infectious disease team and my attending , it is confirmed that this patient requires IV antibiotic for 3 weeks due to the complex nature of her medical condition. I explained the situation to the patient and she verbalized understanding . 07/27/2025: CT abdomen revealed acute mechanical large bowel obstruction secondary to multifocal long segment inflammatory strictures involving the proximal descending and sigmoid and rectal colon with circumferential wall thickening. She started eating. She needs to be on fluid restriction until his PCP clears off. Surgery involved in the case and ordered KUB x-ray and it revealed interval worsening of small and large bowel dilatation, consistent with progression of bowel obstruction. For SIADH: Sodium dropped from 131-129 So he needs to be on fluid restriction until her PCP clear so from that 07/28/2025: Patient is seen in evaluated at bedside. She reports having liquid bowel movement this morning and complaints no nausea or vomiting. On examination her abdomen looks distended but soft without any masses. She e xpresses ongoing abdominal pain after her J-tube was flushed this Tuesday. She reported that she is lactose intolerant but had a glass of milk today and she attributes her abdominal distention is because of that. Surgery is on board and we will see if they want the patient on NPO. Once the surgery clears her for discharge she will be sent to [facility] for her IV antibiotics. 07/29/2025: Patient was seen and evaluated bedside in room 405. She was awake, alert, and oriented x3. she states that her abdomen feels bagged up and tense. Patient states that she had a bowel movement yesterday which was smooth and snake-like as per patient. She states that she feels constipated and was worried about this during my visit. General surgery evaluated the patient and recommended conservative management. Patient also states that she has pain during her G-tube flushing, we will consult IR regarding possible discontinuation/assessment of her drain. Due to worsening constipation, Gastroenterology was consulted, pending evaluation. She continues to do well otherwise and is currently on a liquid diet. She will also be given1 dose of 40 mg IV Lasix to correct her hyponatremia. The patient denies any other complaints today. We will follow Gastroenterology, and General surgery recommendations. Patient is otherwise hemodynamically stable. REVIEW OF SYSTEMS CONSTITUTIONAL: Denies fevers, chills, or night sweats. Reports intentional weight loss of 40 lbs. NEUROLOGICAL: Denies headache, motor weakness, sensory deficit, vertigo/spinning sensation, gait abnormalities, or tremors. ENT: No hearing loss, otalgia, otorrhea, rhinitis, rhinorrhea, hoarseness, or sore throat. CARDIOVASCULAR: Denies any exertional angina, dyspnea on exertion, orthopnea, paroxysmal nocturnal dyspnea, palpitations, life-threatening arrhythmias, claudication. PULMONARY: Denies any shortness of breath, cough, phlegm/sputum, hemoptysis, pleuritic chest pain. SLEEP: Denies morning headaches, daytime somnolence or napping. Denies difficulty falling asleep, staying asleep, waking from sleep. Denies knowledge of snoring. GASTROINTESTINAL: Denies any type of dysphagia to either liquids or solids. Denies nausea, vomiting, pyrosis, early satiety. Admits to chronic constipation . GENITOURINARY: Denies frequency, urgency, nocturia, hematuria or incontinence (Storage/Irritative symptoms.) PHYSICAL EXAM GENERAL APPEARANCE: The patient is awake, alert, and oriented, in no acute cardiopulmonary distress., Appears cachexic NEUROLOGICAL: Cranial nerves II-XII grossly intact. Motor is 5/5 in bilateral upper and lower extremities proximal to distal. No sensory deficits. HEENT: Face is symmetric. Pupils are equal and reactive. Extraocular movements are intact. NECK: Supple. No thyromegaly. No submental, submandibular, pre-/postauricular, occipital or supraclavicular lymphadenopathy. CHEST: Normal chest expansion. No Telemetry. LUNGS: Absence of any rales, rhonchi or any wheezing. CARDIOVASCULAR: Regular. S1 and S2 normal. No appreciable rubs, murmurs or gallops. ABDOMEN: mildly Tender to palpation in the LLQ, and epigastrium. Abdomen is distended. Left lower quadrant drainage catheter with bag in position. Hyper acoustic bowel sounds There is no rebound, voluntary guarding, and rigidity present . : Deferred. No [place]. EXTREMITIES: Non-edematous and not cyanotic. No clubbing. Good capillary refill. SKIN: No skin breakdown. Vital Signs (last 8hr) Date Time Temp Pulse Resp B/P (MAP) Pulse Ox O2 Delivery O2 Flow Rate FiO2 07/29/25 12:00 98.8 115 18 129/87 97 Room Air 07/29/25 08:00 99.1 80 17 124/81 95 Room Air LABS: Laboratory: Test 07/29/25 04:30 07/28/25 04:00 Range/Units White Blood Count 13.1 H 4.8-10.8 K/uL Red Blood Count 3.53 L 4.00-5.50 MIL/uL Hemoglobin 9.9 L 12.0-16.0 g/dL Hematocrit 29.7 L 36-48 % Mean Corpuscular Volume 84.1 79-99 fL Mean Corpuscular Hemoglobin 28.0 27.0-33.0 pg Mean Corpuscular Hemoglobin Concent 33.3 32.0-36.0 g/dL Red Cell Distribution Width 13.1 11.0-15.5 % Platelet Count 525 H 130-400 K/uL Mean Platelet Volume 8.9 7.5-10.5 fL Nucleated Red Blood Cells 0.0 0.0-0.19 % Sodium Level 129 L 136-145 mmol/L Potassium Level 3.7 3.5-5.1 mmol/L Chloride Level 95 L 101-111 mmol/L Carbon Dioxide Level 27 21-32 mmol/L Blood Urea Nitrogen 6 L 7-18 mg/dL Creatinine 0.5 0.5-1.0 mg/dL Glomerular Filtration Rate Calc 109 >90 mL/min Random Glucose 90 70-105 mg/dL Total Calcium 8.3 L 8.5-10.1 mg/dL Magnesium Level 1.70 L 1.80-2.40 mg/dL Total Bilirubin 0.5 0.2-1.0 mg/dL Aspartate Amino Transf (AST/SGOT) 15 10-37 U/L Alanine Aminotransferase (ALT/SGPT) 10 L 12-78 U/L Alkaline Phosphatase 70 50-136 U/L Total Protein 5.7 L 6.0-8.3 g/dL Albumin 1.9 L 3.5-5.0 g/dL Current Medications Medications (Trade) Dose Ordered Sig/Heather Route PRN Reason Start Time Stop Time Status Last Admin Dose Admin Acetaminophen (TYLenol 325MG TAB) 650 mg Q6H PRN PO TEMPERATURE GREATER THAN 101.5 07/17/25 22:00 08/16/25 21:59 Acetaminophen (TYLenol 500MG TAB) 500 mg Q4H PRN PO MILD PAIN (1-3) 07/18/25 10:30 08/17/25 10:29 07/28/25 17:48 500 MG Acetaminophen (acetaMINOPHEN 1,000MG/100ML) 1,000 mg [id number] PRN IVPB MODERATE PAIN (4-6) 07/22/25 13:30 08/21/25 13:29 Albumin Human 250 ml @ 0 mls/hr AD IV 07/21/25 14:30 07/22/25 07:19 DC 07/21/25 22:49 60 MLS/HR Diphenhydramine HCl (BENAdryl CAP) 25 mg Q8H PRN PO INSOMNIA 07/20/25 11:00 07/22/25 11:13 DC 07/21/25 18:33 25 MG Famotidine (Pepcid 20mg Vial) 20 mg DAILY IV 07/18/25 09:00 07/22/25 11:12 DC 07/21/25 08:33 20 MG Heparin Sodium (Porcine) (HEParin 5,000 UNIT VIAL) 5,000 unit Q12H SQ 07/23/25 12:00 07/24/25 00:30 DC 07/23/25 14:44 5,000 UNIT Heparin Sodium (Porcine) (HEParin 5,000 UNIT VIAL) 5,000 unit Q12H SQ 07/24/25 03:00 08/23/25 02:59 07/29/25 03:31 5,000 UNIT Hydralazine HCl (APRESOLine 20MG INJ) 10 mg Q6H PRN IV For:SBP above 160;DBP above 90 07/17/25 22:00 08/16/25 21:59 Lactated Ringer's 1,000 ml @ 75 mls/hr [id number] IV 07/17/25 22:00 07/17/25 22:07 DC 07/17/25 21:56 75 MLS/HR Lactulose (Constulose 20gm/ 30ml Udcup) 20 gm BID PRN PO CONSTIPATION 07/20/25 17:00 07/26/25 06:31 DC Levofloxacin/ Dextrose (LEvaquIN 750 MG/ D5W 150 ML) 750 mg Q24H IV 07/19/25 05:00 07/22/25 08:34 DC 07/22/25 04:52 750 MG Magnesium Sulfate 50 ml @ 0 mls/hr PROTOCOL PRN IV MAGNESIUM PROTOCOL 07/24/25 05:00 08/23/25 04:59 07/29/25 06:02 25 MLS/HR Magnesium Sulfate 50 ml @ 0 mls/hr PROTOCOL PRN IV h 07/17/25 22:30 07/20/25 21:08 DC 07/18/25 02:31 25 MLS/HR Meropenem (Merrem 1gm) 1 gm Q8H IVPB 07/22/25 09:00 07/24/25 00:29 DC 07/23/25 17:39 1 GM Meropenem (Merrem 1gm) 1 gm Q8H IVPB 07/24/25 02:00 08/03/25 01:59 07/29/25 09:55 1 GM Metoclopramide HCl (regLAN 10MG IV) 10 mg ACHS IVP 07/20/25 21:00 07/21/25 14:18 DC 07/21/25 12:24 10 MG Metronidazole/ Sodium Chloride (flaGYL) 500 mg Q8H IV 07/19/25 07:00 07/22/25 11:30 DC 07/22/25 06:24 500 MG Morphine Sulfate (morPHINE 4MG SYG) 4 mg Q4H PRN IVP SEVERE PAIN (7-10) 07/17/25 22:00 07/22/25 11:12 DC 07/22/25 07:48 4 MG Ondansetron HCl (zoFRAN 4MG INJ) 4 mg Q6H PRN IV NAUSEA/VOMITING 07/17/25 22:00 08/16/25 21:59 07/19/25 00:47 4 MG Pantoprazole Sodium (PROTonix 40MG INJ) 40 mg BID IVP 07/22/25 21:00 08/21/25 20:59 07/29/25 08:39 40 MG Pharmacy Profile Note (Pharmacy Communication) 1 each ONCE [facility] 07/22/25 08:30 07/22/25 08:34 DC Pharmacy Profile Note (Pharmacy Communication) Abnormanl QT interval Q8H MISC 07/20/25 19:00 07/22/25 07:22 DC Piperacillin Sod/ Tazobactam Sod (Zosyn 3.375gm+NS 50ml) 3.375 gm Q8H IV 07/17/25 22:00 07/19/25 02:04 DC 07/18/25 21:47 3.375 GM Potassium Chloride 100 ml @ 50 mls/hr AD PRN IV POTASSIUM PROTOCOL 07/17/25 22:30 08/16/25 22:29 07/26/25 06:19 50 MLS/HR Simethicone (Mylicon) 80 mg PCHS PO 07/20/25 18:00 08/19/25 17:59 07/29/25 13:16 80 MG Sodium Chloride 500 ml @ 75 mls/hr Q6H40M IV 07/23/25 13:00 07/23/25 13:11 DC Sodium Chloride 1,000 ml @ 125 mls/hr Q8H IV 07/17/25 22:30 07/21/25 16:08 DC 07/21/25 14:16 125 MLS/HR Sodium Chloride (NS Flush 10ml) 10 ml DAILY FLUSH 07/21/25 09:00 07/21/25 21:42 DC Sodium Chloride (NS Flush 10ml) 10 ml DAILY MISC 07/22/25 09:00 08/21/25 08:59 07/29/25 08:39 10 ML Sodium Chloride (Sodium Chloride) 1,000 mg BID PO 07/21/25 21:00 07/21/25 15:57 DC Sodium Chloride (Sodium Chloride) 1,000 mg TID PO 07/21/25 16:00 08/20/25 20:59 07/29/25 13:16 1,000 MG Spironolactone (Aldactone 25mg) 25 mg DAILY PO 07/23/25 13:00 08/22/25 12:59 07/29/25 08:39 25 MG Thiamine HCl (Vitamin B-1) 200 mg DAILY IVP 07/23/25 09:00 08/22/25 08:59 07/29/25 08:39 200 MG DIAGNOSTICS / RADIOLOGY: [place] [address] IMAGING REPORT Signed PATIENT: KIMBERLYN DOWELL MR#: [id number] : 1965 SEX: F AGE: 59 LOCATION: 4BH ORDER 15 STATUS: ADM IN REPORT#: [id number] SERVICE 14 REASON: FOLLOW UP ON BOWEL OBSTRUCITON ORDERING PHYSICIAN: DIEGO ALICIA Jr. PAC PROCEDURE: ABD 1VW - ABD 1VW EXAM: CR Abdomen, 2 View. CLINICAL HISTORY: FOLLOW UP ON BOWEL OBSTRUCITON COMPARISON: Radiograph dated July 27, 2023 FINDINGS: Relatively unchanged markedly dilated loops of small and large bowel. No radiographic evidence of pneumatosis intestinalis, pneumoperitoneum, or portal venous gas. IMPRESSION: 1. Persistent marked small and large bowel dilatation, consistent with ongoing bowel obstruction. /[place] DICTATED BY: ANUM JARVIS Jr., MD DATE: 07/28/251732 ELECTRONICALLY SIGNED BY: ANUM JARVIS Jr., MD DATE: 07/28/251732 ASSESSMENT: Sepsis due to Acute sigmoid diverticulitis complicated by abscess, status post percutaneous drainage of pelvic abscess POA Acute Paralytic ileus versus obstruction, POA Severe hyponatremia, hypovolemic, POA: SIADH ruled in ,POA Hypokalemia, POA Iron-deficiency anemia POA Hepatic and renal cysts , POA Chronic constipation, POA Colonic diverticulosis, POA Chronic smoking and alcoholism POA Severe Protein calorie malnutrition, POA PLAN: Sepsis due to Acute sigmoid diverticulitis complicated by abscess, status post percutaneous drainage of pelvic abscess: * Patient vitals on presentation 125/71, heart rate 91, with elevated leukocytes 23k in the light of diverticulitis meets sepsis criteria * CT abdomen confirmed acute sigmoid colon diverticulitis complicated by two abbesses, one along the sigmoid colon (5.8 x 6.9 x 5.1 cm) and one along the rectum (7.6 x 6.1 x 6.6 cm) * Patient had rash and itching to the face after Zosyn, discontinue * Discontinued IV metronidazole 500 mg Q8 and IV levofloxacin 750 mg Q 24 on 07/22/2025 and started on meropenem as per culture and sensitivity * Surgery recommended percutaneous drainage of the abscesses by IR, no surgical intervention at this moment * IR performed percutaneous drainage of pelvic abscess with placement of left lower quadrant drainage catheter * Abscess sample were sent for cultures, showed growth of E coli and pseudomonas * Monitor daily output from left lower quadrant drain * Morphine 4 mg for severe pain is stopped and started on Tylenol 1000 mg for pain * Repeat labs in the morning * WBC count 23>20>14.5>13.6>17.6>21.2>13.5>14>11>10.3>11.2>10.6>13.1(Today) * KUB x-ray (07/25/2025)- markedly dilated large bowel measuring up to 6.7 cm * repeat KUB as per surgery recommendations showed interval worsening of small and large bowel dilatation, consistent with progression of bowel obstruction. * Continue meropenem IV as per ID recommendations * Percutaneous drainage care Iron-deficiency anemia: * Patient's hemoglobin today at 10.1 * Serum iron studies showed a transferrin saturation of 12%. * Consider iron supplementation once stable and at discharge. * Received Venofer 200 mg once IV yesterday Severe hyponatremia, hypovolemic (suspected SIADH): * On presentation Na was 120, asymptomatic and was dehydrated in the preceding days * Today serum sodium is 129 and we will continue judicious hydration * We will you 1 dose of 40 mg IV Lasix today. * fluid restricted to 1 litre * Salt tablet 1000 mg t.i.d. which she will be discharged on. * Urine electrolytes (07/23/2025) -[id number], potassium 56, urine osmolality (07/18/2025) at 204, and serum osmolality (07/23/2025) at 265 consistent with SIADH Protein energy malnutrition: * Patient's weight is 49.9 kg, BMI 21.5 and serum albumin 2 * Current weight at 50.57 kg, BMI 21.8, * Muscle atrophy noted BUN low, 4 * Patient lost significant amount of weight intentionally, 40 lb * Continue clear liquid diet * Diet evaluation placed for recommendations post discharge * Albumin added Suspected ileus versus obstruction * Patient had her 1st bowel movement since admission on 07/22/2025 which was nonbloody. * Has diffuse abdominal distention, however passing flatus, and tolerating clear liquid diet * Encouraged patient to ambulate in the hallways and ordered physical therapy * Lactulose 20 mg p.o. b.i.d. PRN ordered by surgical team * CT abdomen (07/26/2025) revealed acute mechanical large bowel obstruction secondary to multifocal long segment inflammatory strictures involving the proximal descending and sigmoid and rectal colon with circumferential wall thickening. * KUB x-ray (07/28/2025) and it revealed interval worsening of small and large bowel dilatation, consistent with progression of bowel obstruction. * General surgery on board, they recommended continuing with the current management. * Gastroenterology consulted, pending evaluation. * We will repeat KUB tomorrow to reassess. GI prophylaxis with simethicone and Protonix 40 mg DVT prophylaxis with SCDs and heparin 5000 b.i.d.. ATTESTATION BY PHYSICIAN I have seen and examined the patient. I reviewed the documentation, medical decision making, and treatment plan as noted by the resident physician above. I agree with the findings and plan of care. RICHARD WANG MD, HEMA MD Jul 29, 2025 13:33
--- NOTE | 2025-07-29 17:15 | PN ---
This is a 59-year-old female with diverticulitis with concerning perforation and diverticular abscess with recent drainage and developing bowel distention Interval history: This 59-year-old female seen in her room resting Overnight patient has had dairy products causing some abdominal discomfort due to her lactose intolerance Patient is however continues to have bowel movement Abdomen distended today but no tenderness noted no nausea or vomiting reported Physical exam General: Awake alert and oriented Heart: Regular rate and rhythm} Lungs: [Clear to auscultation no distress Abdomen: Distended soft abdomen Assessment : This is a 59-year-old female with concerns of developing a bowel obstruction with continued flatus and bowel movements Plan: At this point in time Dr. Lou has been updated in patient's status and we will order KUB tomorrow morning We will continue to follow patient closely Monitor drainage from percutaneous drain Continue with diet and treat patient clinically Nursing to report any further acute events Surgical case has been discussed with my supervising physician in the above plan was formulated and agreed upon We appreciate the hospitalist team for us to participate in patient's care. Greater than 45 minutes of time spent patient, reviewing chart, working on documentation Vitals/Labs Vital Signs Date Time Temp Pulse Resp B/P (MAP) Pulse Ox O2 Delivery O2 Flow Rate FiO2 07/29/25 12:00 98.8 115 18 129/87 97 Room Air 07/29/25 08:10 0 21 Laboratory Tests 07/29/25 04:30 Medications Current Medications Pantoprazole Sodium 40 mg ONCE ONCE IVP Last administered on 07/17/25at 13:00; Start 07/17/25 at 13:00; Stop 07/17/25 at 13:02; Status DC Potassium Chloride 100 ml @ 100 mls/hr ONCE ONCE IV Last administered on 07/17/25at 15:36; Start 07/17/25 at 14:00; Stop 07/17/25 at 14:59; Status DC Potassium Bicarbonate 50 meq ONCE ONCE PO Last administered on 07/17/25at 15:35; Start 07/17/25 at 14:00; Stop 07/17/25 at 14:01; Status DC Ceftriaxone Sodium 1 gm ONCE ONCE IVPB Last administered on 07/17/25at 19:32; Start 07/17/25 at 17:00; Stop 07/17/25 at 17:01; Status DC Iohexol 35,000 mg STK-MED ONCE IV; Start 07/17/25 at 17:30; Stop 07/17/25 at 17:30; Status DC Piperacillin Sod/ Tazobactam Sod 3.375 gm ONCE ONCE IV Last administered on 07/17/25at 19:32; Start 07/17/25 at 19:00; Stop 07/17/25 at 19:01; Status DC Lactated Ringer's 1,497 ml @ 499 mls/hr ONCE ONCE IV Last administered on 07/17/25at 21:58; Start 07/17/25 at 22:00; Stop 07/18/25 at 00:59; Status DC Piperacillin Sod/ Tazobactam Sod 3.375 gm Q8H IV Last administered on 07/18/25at 21:47; Start 07/17/25 at 22:00; Stop 07/19/25 at 02:04; Status DC Acetaminophen 650 mg Q6H PRN PO; Start 07/17/25 at 22:00; Stop 08/16/25 at 21:59 Famotidine 20 mg DAILY IV Last administered on 07/21/25at 08:33; Start 07/18/25 at 09:00; Stop 07/22/25 at 11:12; Status DC Hydralazine HCl 10 mg Q6H PRN IV; Start 07/17/25 at 22:00; Stop 08/16/25 at 21:59 Lactated Ringer's 1,000 ml @ 75 mls/hr [id number] IV Last administered on 07/17/25at 21:56; Start 07/17/25 at 22:00; Stop 07/17/25 at 22:07; Status DC Ondansetron HCl 4 mg Q6H PRN IV Last administered on 07/19/25at 00:47; Start 07/17/25 at 22:00; Stop 08/16/25 at 21:59 Morphine Sulfate 4 mg Q4H PRN IVP Last administered on 07/22/25at 07:48; Start 07/17/25 at 22:00; Stop 07/22/25 at 11:12; Status DC Potassium Chloride 100 ml @ 50 mls/hr AD PRN IV Last administered on 07/26/25at 06:19; Start 07/17/25 at 22:30; Stop 08/16/25 at 22:29 Magnesium Sulfate 50 ml @ 0 mls/hr PROTOCOL PRN IV Last administered on 07/18/25at 02:31; Start 07/17/25 at 22:30; Stop 07/20/25 at 21:08; Status DC Sodium Chloride 1,000 ml @ 125 mls/hr Q8H IV Last administered on 07/21/25at 14:16; Start 07/17/25 at 22:30; Stop 07/21/25 at 16:08; Status DC Potassium Chloride 100 ml @ As Directed STK-MED ONCE IV Last administered on 07/18/25at 02:31; Start 07/18/25 at 02:12; Stop 07/18/25 at 02:12; Status DC Acetaminophen 500 mg Q4H PRN PO Last administered on 07/28/25at 17:48; Start 07/18/25 at 10:30; Stop 08/17/25 at 10:29 Levofloxacin/ Dextrose 750 mg Q24H IV Last administered on 07/22/25at 04:52; Start 07/19/25 at 05:00; Stop 07/22/25 at 08:34; Status DC Metronidazole/ Sodium Chloride 500 mg Q8H IV Last administered on 07/22/25at 06:24; Start 07/19/25 at 07:00; Stop 07/22/25 at 11:30; Status DC Diphenhydramine HCl 25 mg ONCE ONCE IV Last administered on 07/19/25at 02:47; Start 07/19/25 at 02:30; Stop 07/19/25 at 02:31; Status DC Midazolam HCl 2 mg STK-MED ONCE .ROUTE Last administered on 07/19/25at 16:22; Start 07/19/25 at 15:19; Stop 07/19/25 at 15:20; Status DC Fentanyl Citrate 100 mcg STK-MED ONCE .ROUTE Last administered on 07/19/25at 16:23; Start 07/19/25 at 15:20; Stop 07/19/25 at 15:20; Status DC Diphenhydramine HCl 25 mg ONCE ONCE PO Last administered on 07/19/25at 22:26; Start 07/19/25 at 22:00; Stop 07/19/25 at 22:15; Status DC Diphenhydramine HCl 25 mg Q8H PRN PO Last administered on 07/21/25at 18:33; Start 07/20/25 at 11:00; Stop 07/22/25 at 11:13; Status DC Metoclopramide HCl 10 mg ACHS IVP Last administered on 07/21/25at 12:24; Start 07/20/25 at 21:00; Stop 07/21/25 at 14:18; Status DC Simethicone 80 mg PCHS PO Last administered on 07/29/25at 13:16; Start 07/20/25 at 18:00; Stop 08/19/25 at 17:59 Lactulose 20 gm BID PRN PO; Start 07/20/25 at 17:00; Stop 07/26/25 at 06:31; Status DC Pharmacy Profile Note Abnormanl QT interval Q8H MISC; Start 07/20/25 at 19:00; Stop 07/22/25 at 07:22; Status DC Magnesium Sulfate 50 ml @ 0 mls/hr PROTOCOL ONCE IV Last administered on 07/20/25at 21:57; Start 07/20/25 at 21:30; Stop 07/20/25 at 21:31; Status DC Sodium Chloride 10 ml DAILY FLUSH; Start 07/21/25 at 09:00; Stop 07/21/25 at 21:42; Status DC Sodium Chloride 1,000 mg BID PO; Start 07/21/25 at 21:00; Stop 07/21/25 at 15:57; Status DC Albumin Human 250 ml @ 0 mls/hr AD IV Last administered on 07/21/25at 22:49; Start 07/21/25 at 14:30; Stop 07/22/25 at 07:19; Status DC Sodium Chloride 1,000 mg TID PO Last administered on 07/29/25at 13:16; Start 07/21/25 at 16:00; Stop 08/20/25 at 20:59 Sodium Chloride 10 ml DAILY MISC Last administered on 07/29/25at 08:39; Start 07/22/25 at 09:00; Stop 08/21/25 at 08:59 Pharmacy Profile Note 1 each ONCE MISC; Start 07/22/25 at 08:30; Stop 07/22/25 at 08:34; Status DC Meropenem 1 gm Q8H IVPB Last administered on 07/23/25at 17:39; Start 07/22/25 at 09:00; Stop 07/24/25 at 00:29; Status DC Pantoprazole Sodium 40 mg BID IVP Last administered on 07/29/25at 08:39; Start 07/22/25 at 21:00; Stop 08/21/25 at 20:59 Furosemide 40 mg ONCE ONCE IV Last administered on 07/22/25at 12:20; Start 07/22/25 at 12:00; Stop 07/22/25 at 12:01; Status DC Spironolactone 25 mg ONCE ONCE PO Last administered on 07/22/25at 12:19; Start 07/22/25 at 12:00; Stop 07/22/25 at 12:01; Status DC Acetaminophen 1,000 mg [id number] PRN IVPB; Start 07/22/25 at 13:30; Stop 08/21/25 at 13:29 Thiamine HCl 200 mg DAILY IVP Last administered on 07/29/25at 08:39; Start 07/23/25 at 09:00; Stop 08/22/25 at 08:59 Heparin Sodium (Porcine) 5,000 unit Q12H SQ Last administered on 07/23/25at 14:44; Start 07/23/25 at 12:00; Stop 07/24/25 at 00:30; Status DC Sodium Chloride 500 ml @ 75 mls/hr Q6H40M IV; Start 07/23/25 at 13:00; Stop 07/23/25 at 13:11; Status DC Spironolactone 25 mg DAILY PO Last administered on 07/29/25at 08:39; Start 07/23/25 at 13:00; Stop 08/22/25 at 12:59 Sodium Chloride 500 ml @ 75 mls/hr Q6H40M ONCE IV Last administered on 07/23/25at 21:40; Start 07/23/25 at 13:00; Stop 07/23/25 at 19:39; Status DC Meropenem 1 gm Q8H IVPB Last administered on 07/29/25at 09:55; Start 07/24/25 at 02:00; Stop 08/03/25 at 01:59 Heparin Sodium (Porcine) 5,000 unit Q12H SQ Last administered on 07/29/25at 15:50; Start 07/24/25 at 03:00; Stop 08/23/25 at 02:59 Magnesium Sulfate 50 ml @ 0 mls/hr PROTOCOL PRN IV Last administered on 07/29/25at 06:02; Start 07/24/25 at 05:00; Stop 08/23/25 at 04:59 Furosemide 40 mg ONCE ONCE IV Last administered on 07/24/25at 13:40; Start 07/24/25 at 12:00; Stop 07/24/25 at 12:01; Status DC Furosemide 40 mg ONCE ONCE IV Last administered on 07/25/25at 12:10; Start 07/25/25 at 12:00; Stop 07/25/25 at 12:01; Status DC Diatrizoate Meglum/ Diatrizoate Sod 30 ml STK-MED ONCE .ROUTE; Start 07/26/25 at 08:59; Stop 07/26/25 at 08:59; Status DC Iron Sucrose 200 mg ONCE ONCE IV Last administered on 07/26/25at 13:50; Start 07/26/25 at 13:30; Stop 07/26/25 at 13:31; Status DC Furosemide 40 mg ONCE ONCE IV Last administered on 07/29/25at 10:40; Start 07/29/25 at 10:30; Stop 07/29/25 at 10:31; Status DC DIEGO ALICIA Jr. PAC Jul 29, 2025 17:15
--- NOTE | 2025-07-29 17:47 | NUR ---
GI CONSULT ERWIN WANG ROUNDED AT BEDSIDE. NO INTERVENTIONS AT THIS TIME. WILL MONITOR OUTPATIENT. NO NEW ORDERS GIVEN.
--- NOTE | 2025-07-29 17:49 | CONS ---
GASTROENTEROLOGY CONSULTATION NOTE Date of Consultation: Jul 29, 2025 Time of Consultation: 17:49 History of Present Illness: This is a 59-year-old female with no past medical history who presented due to abdominal pain. She had a CT scan on admission which revealed acute sigmoid diverticulitis with 2 peripheral enhancing pelvic abscesses. Patient had IR drain placed. Surgery is following. Review of Systems: CONSTITUTIONAL: No malaise or change in sensation of wellbeing. ENMT: No rhinorrhea, otorrhea, sinus pain, ear ache. CARDIOVASCULAR: No angina, palpitations, orthopnea or paroxysmal dyspnea. RESPIRATORY: No SOB. GASTROINTESTINAL: No abdominal pain, nausea, vomiting, diarrhea, hematemesis, melena or change in the patient's habitual bowel movements consistency/number. GENITOURINARY: No dysuria, hematuria or change in bladder continence. MUSCULOSKELETAL: No new muscle pain or decrease in muscular strength. No new joint swelling, redness or tenderness. SKIN: No new rash. Past Medical History: ADDITIONAL PAST MEDICAL HISTORY: [Denies] SOCIAL HISTORY: [Patient has smoked one cigarette daily. Patient drinks one beer every other day that is 24 oz each. Patient denies drug use. Patient lives alone. Patient is typically independent of all her ADLs. Patient denies difficulty paying her bills.] SURGICAL HISTORY: [ section x1, cholecystectomy] Coded Allergies: cefazolin (Unverified Allergy, Intermediate, HIVES, 07/19/25) No Known Drug Allergies (Unverified Allergy, Unknown, 07/17/25) Physical Exam: GEN: Awake, alert, oriented in person, time and place, and in no acute distress. HEENT: No sinus tenderness. Tympanic membranes were not examined. No rhinorrhea. Oral pharyngeal mucosa is pink, moist and within normal limits. Neck is supple with no cervical lymphadenopathy, thyromegaly or JVD. CHEST: Inspection, palpation and percussion of the chest were unremarkable. Lung auscultation revealed normal breath sounds bilaterally. CARDIAC: PMI is within normal limits. Heart sounds are regular. Normal S1, S2. No gallop or murmur. ABD: Soft, non-tender and not distended. No peritoneal signs on palpation. No organomegaly. Normal bowel sounds. EXT: No cyanosis or clubbing. No edema. SKIN: Intact. No rashes. JOINTS: No evidence of synovitis or acute arthritis. NEURO: Alert and oriented to name, place and person. Cranial nerve examination is unremarkable. No focal motor deficits. Normal speech. Gait is normal. Strength is normal. Vital Sign (Last 24 Hours) 07/29/25 07/29/25 08:10 16:00 Temp 98.8 Pulse 86 Resp 18 B/P (MAP) 120/77 Pulse Ox 97 O2 Delivery Room Air O2 Flow Rate 0 FiO2 21 Intake & Output (last 24hrs) 07/28/25 07/28/25 07/29/25 14:59 22:59 06:59 Intake Total 450.0 ml 270.0 ml Output Total 620 ml 220 ml 500 ml Balance -170.0 ml 50.0 ml -500 ml Laboratory: [ ] Laboratory: Test 07/29/25 04:30 07/28/25 04:00 Range/Units White Blood Count 13.1 H 4.8-10.8 K/uL Red Blood Count 3.53 L 4.00-5.50 MIL/uL Hemoglobin 9.9 L 12.0-16.0 g/dL Hematocrit 29.7 L 36-48 % Mean Corpuscular Volume 84.1 79-99 fL Mean Corpuscular Hemoglobin 28.0 27.0-33.0 pg Mean Corpuscular Hemoglobin Concent 33.3 32.0-36.0 g/dL Red Cell Distribution Width 13.1 11.0-15.5 % Platelet Count 525 H 130-400 K/uL Mean Platelet Volume 8.9 7.5-10.5 fL Nucleated Red Blood Cells 0.0 0.0-0.19 % Sodium Level 129 L 136-145 mmol/L Potassium Level 3.7 3.5-5.1 mmol/L Chloride Level 95 L 101-111 mmol/L Carbon Dioxide Level 27 21-32 mmol/L Blood Urea Nitrogen 6 L 7-18 mg/dL Creatinine 0.5 0.5-1.0 mg/dL Glomerular Filtration Rate Calc 109 >90 mL/min Random Glucose 90 70-105 mg/dL Total Calcium 8.3 L 8.5-10.1 mg/dL Magnesium Level 1.70 L 1.80-2.40 mg/dL Total Bilirubin 0.5 0.2-1.0 mg/dL Aspartate Amino Transf (AST/SGOT) 15 10-37 U/L Alanine Aminotransferase (ALT/SGPT) 10 L 12-78 U/L Alkaline Phosphatase 70 50-136 U/L Total Protein 5.7 L 6.0-8.3 g/dL Albumin 1.9 L 3.5-5.0 g/dL Current Medications Medications (Trade) Dose Ordered Sig/Heather Route PRN Reason Start Time Stop Time Status Last Admin Dose Admin Acetaminophen (TYLenol 325MG TAB) 650 mg Q6H PRN PO TEMPERATURE GREATER THAN 101.5 07/17/25 22:00 08/16/25 21:59 Acetaminophen (TYLenol 500MG TAB) 500 mg Q4H PRN PO MILD PAIN (1-3) 07/18/25 10:30 08/17/25 10:29 07/28/25 17:48 500 MG Acetaminophen (acetaMINOPHEN 1,000MG/100ML) 1,000 mg [id number] PRN IVPB MODERATE PAIN (4-6) 07/22/25 13:30 08/21/25 13:29 Albumin Human 250 ml @ 0 mls/hr AD IV 07/21/25 14:30 07/22/25 07:19 DC 07/21/25 22:49 60 MLS/HR Diphenhydramine HCl (BENAdryl CAP) 25 mg Q8H PRN PO INSOMNIA 07/20/25 11:00 07/22/25 11:13 DC 07/21/25 18:33 25 MG Famotidine (Pepcid 20mg Vial) 20 mg DAILY IV 07/18/25 09:00 07/22/25 11:12 DC 07/21/25 08:33 20 MG Heparin Sodium (Porcine) (HEParin 5,000 UNIT VIAL) 5,000 unit Q12H SQ 07/23/25 12:00 07/24/25 00:30 DC 07/23/25 14:44 5,000 UNIT Heparin Sodium (Porcine) (HEParin 5,000 UNIT VIAL) 5,000 unit Q12H SQ 07/24/25 03:00 08/23/25 02:59 07/29/25 15:50 5,000 UNIT Hydralazine HCl (APRESOLine 20MG INJ) 10 mg Q6H PRN IV For:SBP above 160;DBP above 90 07/17/25 22:00 08/16/25 21:59 Lactated Ringer's 1,000 ml @ 75 mls/hr [id number] IV 07/17/25 22:00 07/17/25 22:07 DC 07/17/25 21:56 75 MLS/HR Lactulose (Constulose 20gm/ 30ml Udcup) 20 gm BID PRN PO CONSTIPATION 07/20/25 17:00 07/26/25 06:31 DC Levofloxacin/ Dextrose (LEvaquIN 750 MG/ D5W 150 ML) 750 mg Q24H IV 07/19/25 05:00 07/22/25 08:34 DC 07/22/25 04:52 750 MG Magnesium Sulfate 50 ml @ 0 mls/hr PROTOCOL PRN IV MAGNESIUM PROTOCOL 07/24/25 05:00 08/23/25 04:59 07/29/25 06:02 25 MLS/HR Magnesium Sulfate 50 ml @ 0 mls/hr PROTOCOL PRN IV h 07/17/25 22:30 07/20/25 21:08 DC 07/18/25 02:31 25 MLS/HR Meropenem (Merrem 1gm) 1 gm Q8H IVPB 07/22/25 09:00 07/24/25 00:29 DC 07/23/25 17:39 1 GM Meropenem (Merrem 1gm) 1 gm Q8H IVPB 07/24/25 02:00 08/03/25 01:59 07/29/25 09:55 1 GM Metoclopramide HCl (regLAN 10MG IV) 10 mg ACHS IVP 07/20/25 21:00 07/21/25 14:18 DC 07/21/25 12:24 10 MG Metronidazole/ Sodium Chloride (flaGYL) 500 mg Q8H IV 07/19/25 07:00 07/22/25 11:30 DC 07/22/25 06:24 500 MG Morphine Sulfate (morPHINE 4MG SYG) 4 mg Q4H PRN IVP SEVERE PAIN (7-10) 07/17/25 22:00 07/22/25 11:12 DC 07/22/25 07:48 4 MG Ondansetron HCl (zoFRAN 4MG INJ) 4 mg Q6H PRN IV NAUSEA/VOMITING 07/17/25 22:00 08/16/25 21:59 07/19/25 00:47 4 MG Pantoprazole Sodium (PROTonix 40MG INJ) 40 mg BID IVP 07/22/25 21:00 08/21/25 20:59 07/29/25 08:39 40 MG Pharmacy Profile Note (Pharmacy Communication) 1 each ONCE MIS 07/22/25 08:30 07/22/25 08:34 DC Pharmacy Profile Note (Pharmacy Communication) Abnormanl QT interval Q8H MISC 07/20/25 19:00 07/22/25 07:22 DC Piperacillin Sod/ Tazobactam Sod (Zosyn 3.375gm+NS 50ml) 3.375 gm Q8H IV 07/17/25 22:00 07/19/25 02:04 DC 07/18/25 21:47 3.375 GM Potassium Chloride 100 ml @ 50 mls/hr AD PRN IV POTASSIUM PROTOCOL 07/17/25 22:30 08/16/25 22:29 07/26/25 06:19 50 MLS/HR Simethicone (Mylicon) 80 mg PCHS PO 07/20/25 18:00 08/19/25 17:59 07/29/25 13:16 80 MG Sodium Chloride 500 ml @ 75 mls/hr Q6H40M IV 07/23/25 13:00 07/23/25 13:11 DC Sodium Chloride 1,000 ml @ 125 mls/hr Q8H IV 07/17/25 22:30 07/21/25 16:08 DC 07/21/25 14:16 125 MLS/HR Sodium Chloride (NS Flush 10ml) 10 ml DAILY FLUSH 07/21/25 09:00 07/21/25 21:42 DC Sodium Chloride (NS Flush 10ml) 10 ml DAILY MISC 07/22/25 09:00 08/21/25 08:59 07/29/25 08:39 10 ML Sodium Chloride (Sodium Chloride) 1,000 mg BID PO 07/21/25 21:00 07/21/25 15:57 DC Sodium Chloride (Sodium Chloride) 1,000 mg TID PO 07/21/25 16:00 08/20/25 20:59 07/29/25 13:16 1,000 MG Spironolactone (Aldactone 25mg) 25 mg DAILY PO 07/23/25 13:00 08/22/25 12:59 07/29/25 08:39 25 MG Thiamine HCl (Vitamin B-1) 200 mg DAILY IVP 07/23/25 09:00 08/22/25 08:59 07/29/25 08:39 200 MG Diagnostics / Radiology: [COPY/PASTE HERE IF NO REPORTS PLEASE DELETE SECTION] Assessment: [ ] Plan: Follow surgical recommendations Outpatient colonoscopy in 8 weeks pending clinical evolution [facility] Jul 29, 2025 17:49
--- NOTE | 2025-07-29 20:13 | PN ---
INFECTIOUS DISEASE PROGRESS NOTE Date of Service: Jul 29, 2025 SUBJECTIVE: Patient was seen and examined at bedside in room 406. Patient is awake alert and oriented x3. Patient was feeling very bloated earlier today but she feels that it was the chicken Alvarez that she ate yesterday that made her gassy due to lactose. No nausea or vomiting. Per report General surgery planning surgery in 5 weeks. Continues on Meropenem. Patient was evaluated for SNF placement today and will be pending insurance approval. PHYSICAL EXAM EYES: Anicteric. Pupils equal and reactive. HENT: No oral thrush seen, moist Oral mucosa. NECK: Supple, no JVD or thyromegaly. LUNGS: Good air entry. No rales, no rhonchi. CARDIOVASCULAR: S1, S2 regular. No murmur heard. ABDOMEN: Distended. bowel sounds present. Percutaneous drain placement. CENTRAL NERVOUS SYSTEM: Awake, alert, oriented x 3. SKIN: No rashes, no swelling. LYMPHATICS: No peripheral lymphadenopathy. MUSCULOSKELETAL: No joint swelling, erythema or tenderness. EXTREMITIES: No cyanosis or clubbing. BACK: No deformity, no pressure ulcer. GENITOURINARY: No dysuria or hematuria. Vital Sign (Last 12 Hours) 07/29/25 07/29/25 07/29/25 08:10 12:00 16:00 Temp 98.8 98.8 Pulse 115 86 Resp 18 18 B/P (MAP) 129/87 120/77 Pulse Ox 95 97 97 O2 Delivery Room Air* Room Air Room Air O2 Flow Rate 0 FiO2 21 Intake & Output (last 24hrs) 07/28/25 07/28/25 07/29/25 15:00 23:00 07:00 Intake Total 450.0 ml 270.0 ml Output Total 620 ml 220 ml 500 ml Balance -170.0 ml 50.0 ml -500 ml LABS: Laboratory: Test 07/29/25 04:30 07/28/25 04:00 Range/Units White Blood Count 13.1 H 4.8-10.8 K/uL Red Blood Count 3.53 L 4.00-5.50 MIL/uL Hemoglobin 9.9 L 12.0-16.0 g/dL Hematocrit 29.7 L 36-48 % Mean Corpuscular Volume 84.1 79-99 fL Mean Corpuscular Hemoglobin 28.0 27.0-33.0 pg Mean Corpuscular Hemoglobin Concent 33.3 32.0-36.0 g/dL Red Cell Distribution Width 13.1 11.0-15.5 % Platelet Count 525 H 130-400 K/uL Mean Platelet Volume 8.9 7.5-10.5 fL Nucleated Red Blood Cells 0.0 0.0-0.19 % Sodium Level 129 L 136-145 mmol/L Potassium Level 3.7 3.5-5.1 mmol/L Chloride Level 95 L 101-111 mmol/L Carbon Dioxide Level 27 21-32 mmol/L Blood Urea Nitrogen 6 L 7-18 mg/dL Creatinine 0.5 0.5-1.0 mg/dL Glomerular Filtration Rate Calc 109 >90 mL/min Random Glucose 90 70-105 mg/dL Total Calcium 8.3 L 8.5-10.1 mg/dL Magnesium Level 1.70 L 1.80-2.40 mg/dL Total Bilirubin 0.5 0.2-1.0 mg/dL Aspartate Amino Transf (AST/SGOT) 15 10-37 U/L Alanine Aminotransferase (ALT/SGPT) 10 L 12-78 U/L Alkaline Phosphatase 70 50-136 U/L Total Protein 5.7 L 6.0-8.3 g/dL Albumin 1.9 L 3.5-5.0 g/dL Assisted ASSESSMENT: Diverticulitis with perforation and abscess, s/p percutaneous drain placement on 07/19/2025. Infection with multidrug resistant organism. Abdominal pain, possible ileus. Leukocytosis, resolving. Hypokalemia, resolving. Hyponatremia. Chronic tobacco use. PLAN: Continue Meropenem IV. Continue GI prophylaxis. Percutaneous drain care. Continue pain management. Continue GI prophylaxis. Patient has been referred to [facility] and pending insurance approval. This case was reviewed and discussed with my supervising physician Dr. Moulton and the above assessment and plan was formulated and agreed upon. ATTESTATION BY PHYSICIAN I have seen and examined the patient. I reviewed the documentation, medical decision making, and treatment plan as noted by the mid-level provider above. I agree with the findings and plan of care. HAYDEE MOULTON MD, MIRTA L [facility] Jul 29, 2025 20:13
[2025-07-30] VITALS (9 sets, daily range): BP systolic 102–130; BP diastolic 56–78; PULSE 66–98; RESP 16–18; TEMP 97.4–98.9; O2SAT 94
--- NOTE | 2025-07-30 02:48 | HMCIMG ---
STUDY: X-RAY OF THE ABDOMEN, 1 VIEW HISTORY: Abdominal distension. TECHNIQUE: A single supine frontal view of the abdomen is submitted for interpretation. COMPARISON: Abdominal radiograph from 07/28 at 15:22 EST. FINDINGS: Bones and joints: Visualized spine, pelvis, and proximal femora demonstrate no acute or aggressive osseous abnormality. Bowel gas pattern: Markedly dilated loops of small and large bowel are again seen, relatively unchanged from the prior examination. No radiographic evidence of pneumatosis intestinalis is identified. Soft tissues: No free intraperitoneal air is seen beneath the hemidiaphragms. No radiographic evidence of portal venous gas. No abnormal soft tissue calcifications are identified. IMPRESSION: * Relatively unchanged markedly dilated loops of small and large bowel, compatible with persistent ileus or bowel obstruction; correlate clinically. * No radiographic evidence of pneumatosis intestinalis, pneumoperitoneum, or portal venous gas. * Overall stable abdominal radiograph compared with 07/28 at 15:22 EST. /[place]
--- NOTE | 2025-07-30 03:45 | PN ---
INFECTIOUS DISEASE FOLLOWUP NOTE DATE OF SERVICE: 07/28/2025 SUBJECTIVE: The patient is seen and examined at bedside today. The patient has no fever, no chills. No nausea. No vomiting. No abdominal pain. No bleeding tendency. No palpitations. No orthopnea. No depression. No suicidal ideation. . PHYSICAL EXAMINATION: VITAL SIGNS: Temperature today . EYES: No icterus. Pupils are equal and reactive. HENT: No oral thrush seen. Moist oral mucosa. NECK: Supple. No JVD or thyromegaly. LUNGS: Good air entry. No rales. No rhonchi. CARDIOVASCULAR: S1 and S2. Regular. No murmurs heard. ABDOMEN: Full, soft, nontender. Bowel sound is present. . CENTRAL NERVOUS SYSTEM: Awake, alert, and oriented x 3. No focal deficits. SKIN: No rashes, no itchiness. LYMPHATIC: No peripheral lymphadenopathy. BACK: No deformities. No pressure ulcer. HEMATOLOGIC: No bleeding or petechial lesions seen. ASSESSMENT: A 59-year-old female with multiple problems including: * Diverticulitis with abscess. * Anemia. * Malnutrition. * Chronic alcohol use. * Chronic tobacco use. * Polymicrobial wound infection.. PLAN: * Continue meropenem. * Continue pain management. * Antiplatelet therapy. * Continue nutritional support. * Continue GI prophylaxis. * Monitor electrolytes. TID: [id number] RECEIPT: [id number]
[2025-07-30 03:54] LABS: IMMATURE GRANULOCYTE ABSOLUTE 0.07 K/uL (0-1); NUCLEATED RED BLOOD CELLS 0.0 % (0.0-0.19); PLATELET COUNT (AUTO) 511 K/uL (130-400); RED BLOOD CELL COUNT(AUTO) 3.55 MIL/uL (4.00-5.50); RED CELL DISTRIBUTION WIDTH 13.2 % (11.0-15.5); WHITE BLOOD COUNT (AUTO) 9.8 K/uL (4.8-10.8)
[2025-07-30 04:03] LABS: ASPARTATE AMINOTRANSFERASE 20.0 U/L (10-37); CREATININE 0.6 mg/dL (0.5-1.0); GLOMERULAR FILTR. RATE CALC 105.0 mL/min (>90); GLUCOSE,RANDOM 99.0 mg/dL (70-105); SODIUM SERUM 129.0 mmol/L (136-145); TOTAL PROTEIN, SERUM 5.9 g/dL (6.0-8.3); UREA NITROGEN, BLOOD 6.0 mg/dL (7-18)
--- NOTE | 2025-07-30 06:50 | HMCIMG ---
EXAM: CR Abdomen, 2 views CLINICAL HISTORY: Abdominal distention COMPARISON: Prior abdominal radiograph dated July 29, 2025. FINDINGS: Surgical clips in the right upper quadrant are probable post-cholecystectomy surgical clips. Gaseous distention of the small and large bowel loops without any abnormal air-fluid level, possibility of ileus. No free air is evident. No abnormal calcification. No aggressive appearing osseous lesion. IMPRESSION: Gaseous distention of the small and large bowel loops without any abnormal air-fluid level, possibility of ileus. Compared to the prior study, there is no significant interval change. Redemonstrated is the gaseous distention of the small and large bowel loops. /[place]
--- NOTE | 2025-07-30 14:19 | PN ---
GASTROENTEROLOGY PROGRESS NOTE Date of Visit: Jul 30, 2025 Time of Visit: 14:19 Events / Notes: [ ] Review of Systems: CONSTITUTIONAL: No malaise or change in sensation of wellbeing. ENMT: No rhinorrhea, otorrhea, sinus pain, ear ache. CARDIOVASCULAR: No angina, palpitations, orthopnea or paroxysmal dyspnea. RESPIRATORY: No SOB. GASTROINTESTINAL: No abdominal pain, nausea, vomiting, diarrhea, hematemesis, melena or change in the patient's habitual bowel movements consistency/number. GENITOURINARY: No dysuria, hematuria or change in bladder continence. MUSCULOSKELETAL: No new muscle pain or decrease in muscular strength. No new joint swelling, redness or tenderness. SKIN: No new rash. Physical Exam: GEN: Awake, alert, oriented in person, time and place, and in no acute distress. HEENT: No sinus tenderness. Tympanic membranes were not examined. No rhinorrhea. Oral pharyngeal mucosa is pink, moist and within normal limits. Neck is supple with no cervical lymphadenopathy, thyromegaly or JVD. CHEST: Inspection, palpation and percussion of the chest were unremarkable. Lung auscultation revealed normal breath sounds bilaterally. CARDIAC: PMI is within normal limits. Heart sounds are regular. Normal S1, S2. No gallop or murmur. ABD: Soft, non-tender and not distended. No peritoneal signs on palpation. No organomegaly. Normal bowel sounds. EXT: No cyanosis or clubbing. No edema. SKIN: Intact. No rashes. JOINTS: No evidence of synovitis or acute arthritis. NEURO: Alert and oriented to name, place and person. Cranial nerve examination is unremarkable. No focal motor deficits. Normal speech. Gait is normal. Strength is normal. Vital Signs (last 8hr) Date Time Temp Pulse Resp B/P (MAP) Pulse Ox O2 Delivery O2 Flow Rate FiO2 07/30/25 12:00 98.1 98 18 108/75 98 Room Air 07/30/25 08:00 97.9 72 16 119/78 94 Room Air Laboratory: [ ] Laboratory: Test 07/30/25 03:29 07/29/25 04:30 Range/Units White Blood Count 9.8 # 4.8-10.8 K/uL Red Blood Count 3.55 L 4.00-5.50 MIL/uL Hemoglobin 10.1 L 12.0-16.0 g/dL Hematocrit 29.7 L 36-48 % Mean Corpuscular Volume 83.7 79-99 fL Mean Corpuscular Hemoglobin 28.5 27.0-33.0 pg Mean Corpuscular Hemoglobin Concent 34.0 32.0-36.0 g/dL Red Cell Distribution Width 13.2 11.0-15.5 % Platelet Count 511 H 130-400 K/uL Mean Platelet Volume 8.9 7.5-10.5 fL Immature Granulocyte % (Auto) 0.7 0-1 % Neutrophils (%) (Auto) 69.5 40.0-77.0 % Lymphocytes (%) (Auto) 19.9 L 21.0-51.0 % Monocytes (%) (Auto) 9.3 3.0-13.0 % Eosinophils (%) (Auto) 0.3 0.0-8.0 % Basophils (%) (Auto) 0.3 0.0-5.0 % Neutrophils # (Auto) 6.8 1.8-7.7 K/uL Lymphocytes # (Auto) 2.0 1.0-4.8 K/uL Monocytes # (Auto) 0.9 0.1-1.0 K/uL Eosinophils # (Auto) 0.03 0.00-0.70 K/uL Basophils # (Auto) 0.03 0.00-0.20 K/uL Absolute Immature Granulocyte (auto 0.07 0-1 K/uL Nucleated Red Blood Cells 0.0 0.0-0.19 % Sodium Level 129 L 136-145 mmol/L Potassium Level 3.9 3.5-5.1 mmol/L Chloride Level 94 L 101-111 mmol/L Carbon Dioxide Level 29 21-32 mmol/L Blood Urea Nitrogen 6 L 7-18 mg/dL Creatinine 0.6 0.5-1.0 mg/dL Glomerular Filtration Rate Calc 105 >90 mL/min Random Glucose 99 70-105 mg/dL Total Calcium 8.2 L 8.5-10.1 mg/dL Total Bilirubin 0.5 0.2-1.0 mg/dL Aspartate Amino Transf (AST/SGOT) 20 10-37 U/L Alanine Aminotransferase (ALT/SGPT) 12 12-78 U/L Alkaline Phosphatase 77 50-136 U/L C-Reactive Protein, Quantitative 28.00 H 0.5-3.0 mg/L Total Protein 5.9 L 6.0-8.3 g/dL Albumin 2.0 L 3.5-5.0 g/dL Magnesium Level 1.70 L 1.80-2.40 mg/dL Current Medications Medications (Trade) Dose Ordered Sig/Heather Route PRN Reason Start Time Stop Time Status Last Admin Dose Admin Acetaminophen (TYLenol 325MG TAB) 650 mg Q6H PRN PO TEMPERATURE GREATER THAN 101.5 07/17/25 22:00 08/16/25 21:59 Acetaminophen (TYLenol 500MG TAB) 500 mg Q4H PRN PO MILD PAIN (1-3) 07/18/25 10:30 08/17/25 10:29 07/29/25 20:31 500 MG Acetaminophen (acetaMINOPHEN 1,000MG/100ML) 1,000 mg [id number] PRN IVPB MODERATE PAIN (4-6) 07/22/25 13:30 08/21/25 13:29 Albumin Human 250 ml @ 0 mls/hr AD IV 07/21/25 14:30 07/22/25 07:19 DC 07/21/25 22:49 60 MLS/HR Diphenhydramine HCl (BENAdryl CAP) 25 mg Q8H PRN PO INSOMNIA 07/20/25 11:00 07/22/25 11:13 DC 07/21/25 18:33 25 MG Famotidine (Pepcid 20mg Vial) 20 mg DAILY IV 07/18/25 09:00 07/22/25 11:12 DC 07/21/25 08:33 20 MG Heparin Sodium (Porcine) (HEParin 5,000 UNIT VIAL) 5,000 unit Q12H SQ 07/23/25 12:00 07/24/25 00:30 DC 07/23/25 14:44 5,000 UNIT Heparin Sodium (Porcine) (HEParin 5,000 UNIT VIAL) 5,000 unit Q12H SQ 07/24/25 03:00 08/23/25 02:59 07/30/25 02:14 5,000 UNIT Hydralazine HCl (APRESOLine 20MG INJ) 10 mg Q6H PRN IV For:SBP above 160;DBP above 90 07/17/25 22:00 08/16/25 21:59 Lactated Ringer's 1,000 ml @ 75 mls/hr [id number] IV 07/17/25 22:00 07/17/25 22:07 DC 07/17/25 21:56 75 MLS/HR Lactulose (Constulose 20gm/ 30ml Udcup) 20 gm BID PRN PO CONSTIPATION 07/20/25 17:00 07/26/25 06:31 DC Levofloxacin/ Dextrose (LEvaquIN 750 MG/ D5W 150 ML) 750 mg Q24H IV 07/19/25 05:00 07/22/25 08:34 DC 07/22/25 04:52 750 MG Magnesium Sulfate 50 ml @ 0 mls/hr PROTOCOL PRN IV MAGNESIUM PROTOCOL 07/24/25 05:00 08/23/25 04:59 07/29/25 06:02 25 MLS/HR Magnesium Sulfate 50 ml @ 0 mls/hr PROTOCOL PRN IV h 07/17/25 22:30 07/20/25 21:08 DC 07/18/25 02:31 25 MLS/HR Meropenem (Merrem 1gm) 1 gm Q8H IVPB 07/22/25 09:00 07/24/25 00:29 DC 07/23/25 17:39 1 GM Meropenem (Merrem 1gm) 1 gm Q8H IVPB 07/24/25 02:00 08/03/25 01:59 07/30/25 10:04 1 GM Metoclopramide HCl (regLAN 10MG IV) 10 mg ACHS IVP 07/20/25 21:00 07/21/25 14:18 DC 07/21/25 12:24 10 MG Metronidazole/ Sodium Chloride (flaGYL) 500 mg Q8H IV 07/19/25 07:00 07/22/25 11:30 DC 07/22/25 06:24 500 MG Morphine Sulfate (morPHINE 4MG SYG) 4 mg Q4H PRN IVP SEVERE PAIN (7-10) 07/17/25 22:00 07/22/25 11:12 DC 07/22/25 07:48 4 MG Ondansetron HCl (zoFRAN 4MG INJ) 4 mg Q6H PRN IV NAUSEA/VOMITING 07/17/25 22:00 08/16/25 21:59 07/19/25 00:47 4 MG Pantoprazole Sodium (PROTonix 40MG INJ) 40 mg BID IVP 07/22/25 21:00 08/21/25 20:59 07/30/25 09:03 40 MG Pharmacy Profile Note (Pharmacy Communication) 1 each ONCE MIS 07/22/25 08:30 07/22/25 08:34 DC Pharmacy Profile Note (Pharmacy Communication) Abnormanl QT interval Q8H MISC 07/20/25 19:00 07/22/25 07:22 DC Piperacillin Sod/ Tazobactam Sod (Zosyn 3.375gm+NS 50ml) 3.375 gm Q8H IV 07/17/25 22:00 07/19/25 02:04 DC 07/18/25 21:47 3.375 GM Potassium Chloride 100 ml @ 50 mls/hr AD PRN IV POTASSIUM PROTOCOL 07/17/25 22:30 08/16/25 22:29 07/29/25 21:21 50 MLS/HR Simethicone (Mylicon) 80 mg PCHS PO 07/20/25 18:00 08/19/25 17:59 07/30/25 13:43 80 MG Sodium Chloride 500 ml @ 75 mls/hr Q6H40M IV 07/23/25 13:00 07/23/25 13:11 DC Sodium Chloride 1,000 ml @ 125 mls/hr Q8H IV 07/17/25 22:30 07/21/25 16:08 DC 07/21/25 14:16 125 MLS/HR Sodium Chloride (NS Flush 10ml) 10 ml DAILY FLUSH 07/21/25 09:00 07/21/25 21:42 DC Sodium Chloride (NS Flush 10ml) 10 ml DAILY MISC 07/22/25 09:00 08/21/25 08:59 07/30/25 09:03 10 ML Sodium Chloride (Sodium Chloride) 1,000 mg BID PO 07/21/25 21:00 07/21/25 15:57 DC Sodium Chloride (Sodium Chloride) 1,000 mg TID PO 07/21/25 16:00 08/20/25 20:59 07/30/25 09:03 1,000 MG Spironolactone (Aldactone 25mg) 25 mg DAILY PO 07/23/25 13:00 07/30/25 08:14 DC 07/29/25 08:39 25 MG Thiamine HCl (Vitamin B-1) 200 mg DAILY IVP 07/23/25 09:00 08/22/25 08:59 07/30/25 09:11 200 MG Diagnostics / Radiology: [COPY/PASTE HERE IF NO REPORTS PLEASE DELETE SECTION] Assessment: Acute diverticulitis with abscess Plan: Follow surgical recommendations Outpatient colonoscopy in 8 weeks pending clinical evolution ERWIN WANG HR ANALYST Jul 30, 2025 14:19
--- NOTE | 2025-07-30 16:39 | PN ---
This is a 59-year-old female with diverticulitis with concerning perforation and diverticular abscess with recent drainage and developing bowel distention Interval history: This 59-year-old female seen in her room resting Patient continues to tolerate diet Patient continues with distention KUB results reviewed Percutaneous drain with minimal output Physical exam General: Awake alert and oriented Heart: Regular rate and rhythm} Lungs: [Clear to auscultation no distress Abdomen: [ distention soft with the PERC drain in place Assessment : This is a 59-year-old female with diverticulitis with concerning perforation and diverticular abscess with recent drainage and developing bowel distention Plan: At this point in time before patient is cleared for discharge we will order abscessogram for potential percutaneous drain removal After imaging complete patient will be cleared for discharge from surgical standpoint Patient will need follow up in 1-[address] Lou is office for continued monitoring of abdominal distention Surgical team to be updated with any further events Surgical case has been discussed with my supervising physician in the above plan was formulated and agreed upon We appreciate the hospitalist team for us to participate in patient's care. Greater than 45 minutes of time spent patient, reviewing chart, working on documentation Vitals/Labs Vital Signs Date Time Temp Pulse Resp B/P (MAP) Pulse Ox O2 Delivery O2 Flow Rate FiO2 07/30/25 12:00 98.1 98 18 108/75 98 Room Air 07/30/25 08:15 0 21 Laboratory Tests 07/30/25 03:29 Medications Current Medications Pantoprazole Sodium 40 mg ONCE ONCE IVP Last administered on 07/17/25at 13:00; Start 07/17/25 at 13:00; Stop 07/17/25 at 13:02; Status DC Potassium Chloride 100 ml @ 100 mls/hr ONCE ONCE IV Last administered on 07/17/25at 15:36; Start 07/17/25 at 14:00; Stop 07/17/25 at 14:59; Status DC Potassium Bicarbonate 50 meq ONCE ONCE PO Last administered on 07/17/25at 15:35; Start 07/17/25 at 14:00; Stop 07/17/25 at 14:01; Status DC Ceftriaxone Sodium 1 gm ONCE ONCE IVPB Last administered on 07/17/25at 19:32; Start 07/17/25 at 17:00; Stop 07/17/25 at 17:01; Status DC Iohexol 35,000 mg STK-MED ONCE IV; Start 07/17/25 at 17:30; Stop 07/17/25 at 17:30; Status DC Piperacillin Sod/ Tazobactam Sod 3.375 gm ONCE ONCE IV Last administered on 07/17/25at 19:32; Start 07/17/25 at 19:00; Stop 07/17/25 at 19:01; Status DC Lactated Ringer's 1,497 ml @ 499 mls/hr ONCE ONCE IV Last administered on 07/17/25at 21:58; Start 07/17/25 at 22:00; Stop 07/18/25 at 00:59; Status DC Piperacillin Sod/ Tazobactam Sod 3.375 gm Q8H IV Last administered on 07/18/25at 21:47; Start 07/17/25 at 22:00; Stop 07/19/25 at 02:04; Status DC Acetaminophen 650 mg Q6H PRN PO; Start 07/17/25 at 22:00; Stop 08/16/25 at 21:59 Famotidine 20 mg DAILY IV Last administered on 07/21/25at 08:33; Start 07/18/25 at 09:00; Stop 07/22/25 at 11:12; Status DC Hydralazine HCl 10 mg Q6H PRN IV; Start 07/17/25 at 22:00; Stop 08/16/25 at 21:59 Lactated Ringer's 1,000 ml @ 75 mls/hr [id number] IV Last administered on 07/17/25at 21:56; Start 07/17/25 at 22:00; Stop 07/17/25 at 22:07; Status DC Ondansetron HCl 4 mg Q6H PRN IV Last administered on 07/19/25at 00:47; Start 07/17/25 at 22:00; Stop 08/16/25 at 21:59 Morphine Sulfate 4 mg Q4H PRN IVP Last administered on 07/22/25at 07:48; Start 07/17/25 at 22:00; Stop 07/22/25 at 11:12; Status DC Potassium Chloride 100 ml @ 50 mls/hr AD PRN IV Last administered on 07/29/25at 21:21; Start 07/17/25 at 22:30; Stop 08/16/25 at 22:29 Magnesium Sulfate 50 ml @ 0 mls/hr PROTOCOL PRN IV Last administered on 07/18/25at 02:31; Start 07/17/25 at 22:30; Stop 07/20/25 at 21:08; Status DC Sodium Chloride 1,000 ml @ 125 mls/hr Q8H IV Last administered on 07/21/25at 14:16; Start 07/17/25 at 22:30; Stop 07/21/25 at 16:08; Status DC Potassium Chloride 100 ml @ As Directed STK-MED ONCE IV Last administered on 07/18/25at 02:31; Start 07/18/25 at 02:12; Stop 07/18/25 at 02:12; Status DC Acetaminophen 500 mg Q4H PRN PO Last administered on 07/29/25at 20:31; Start 07/18/25 at 10:30; Stop 08/17/25 at 10:29 Levofloxacin/ Dextrose 750 mg Q24H IV Last administered on 07/22/25at 04:52; Start 07/19/25 at 05:00; Stop 07/22/25 at 08:34; Status DC Metronidazole/ Sodium Chloride 500 mg Q8H IV Last administered on 07/22/25at 06:24; Start 07/19/25 at 07:00; Stop 07/22/25 at 11:30; Status DC Diphenhydramine HCl 25 mg ONCE ONCE IV Last administered on 07/19/25at 02:47; Start 07/19/25 at 02:30; Stop 07/19/25 at 02:31; Status DC Midazolam HCl 2 mg STK-MED ONCE .ROUTE Last administered on 07/19/25at 16:22; Start 07/19/25 at 15:19; Stop 07/19/25 at 15:20; Status DC Fentanyl Citrate 100 mcg STK-MED ONCE .ROUTE Last administered on 07/19/25at 16:23; Start 07/19/25 at 15:20; Stop 07/19/25 at 15:20; Status DC Diphenhydramine HCl 25 mg ONCE ONCE PO Last administered on 07/19/25at 22:26; Start 07/19/25 at 22:00; Stop 07/19/25 at 22:15; Status DC Diphenhydramine HCl 25 mg Q8H PRN PO Last administered on 07/21/25at 18:33; Start 07/20/25 at 11:00; Stop 07/22/25 at 11:13; Status DC Metoclopramide HCl 10 mg ACHS IVP Last administered on 07/21/25at 12:24; Start 07/20/25 at 21:00; Stop 07/21/25 at 14:18; Status DC Simethicone 80 mg PCHS PO Last administered on 07/30/25at 13:43; Start 07/20/25 at 18:00; Stop 08/19/25 at 17:59 Lactulose 20 gm BID PRN PO; Start 07/20/25 at 17:00; Stop 07/26/25 at 06:31; Status DC Pharmacy Profile Note Abnormanl QT interval Q8H MISC; Start 07/20/25 at 19:00; Stop 07/22/25 at 07:22; Status DC Magnesium Sulfate 50 ml @ 0 mls/hr PROTOCOL ONCE IV Last administered on 07/20/25at 21:57; Start 07/20/25 at 21:30; Stop 07/20/25 at 21:31; Status DC Sodium Chloride 10 ml DAILY FLUSH; Start 07/21/25 at 09:00; Stop 07/21/25 at 21:42; Status DC Sodium Chloride 1,000 mg BID PO; Start 07/21/25 at 21:00; Stop 07/21/25 at 15:57; Status DC Albumin Human 250 ml @ 0 mls/hr AD IV Last administered on 07/21/25at 22:49; Start 07/21/25 at 14:30; Stop 07/22/25 at 07:19; Status DC Sodium Chloride 1,000 mg TID PO Last administered on 07/30/25at 14:24; Start 07/21/25 at 16:00; Stop 08/20/25 at 20:59 Sodium Chloride 10 ml DAILY MISC Last administered on 07/30/25at 09:03; Start 07/22/25 at 09:00; Stop 08/21/25 at 08:59 Pharmacy Profile Note 1 each ONCE MISC; Start 07/22/25 at 08:30; Stop 07/22/25 at 08:34; Status DC Meropenem 1 gm Q8H IVPB Last administered on 07/23/25at 17:39; Start 07/22/25 at 09:00; Stop 07/24/25 at 00:29; Status DC Pantoprazole Sodium 40 mg BID IVP Last administered on 07/30/25at 09:03; Start 07/22/25 at 21:00; Stop 08/21/25 at 20:59 Furosemide 40 mg ONCE ONCE IV Last administered on 07/22/25at 12:20; Start 07/22/25 at 12:00; Stop 07/22/25 at 12:01; Status DC Spironolactone 25 mg ONCE ONCE PO Last administered on 07/22/25at 12:19; Start 07/22/25 at 12:00; Stop 07/22/25 at 12:01; Status DC Acetaminophen 1,000 mg [id number] PRN IVPB; Start 07/22/25 at 13:30; Stop 08/21/25 at 13:29 Thiamine HCl 200 mg DAILY IVP Last administered on 07/30/25at 09:11; Start 07/23/25 at 09:00; Stop 08/22/25 at 08:59 Heparin Sodium (Porcine) 5,000 unit Q12H SQ Last administered on 07/23/25at 14:44; Start 07/23/25 at 12:00; Stop 07/24/25 at 00:30; Status DC Sodium Chloride 500 ml @ 75 mls/hr Q6H40M IV; Start 07/23/25 at 13:00; Stop 07/23/25 at 13:11; Status DC Spironolactone 25 mg DAILY PO Last administered on 07/29/25at 08:39; Start 07/23/25 at 13:00; Stop 07/30/25 at 08:14; Status DC Sodium Chloride 500 ml @ 75 mls/hr Q6H40M ONCE IV Last administered on 07/23/25at 21:40; Start 07/23/25 at 13:00; Stop 07/23/25 at 19:39; Status DC Meropenem 1 gm Q8H IVPB Last administered on 07/30/25at 10:04; Start 07/24/25 at 02:00; Stop 08/03/25 at 01:59 Heparin Sodium (Porcine) 5,000 unit Q12H SQ Last administered on 07/30/25at 15:27; Start 07/24/25 at 03:00; Stop 08/23/25 at 02:59 Magnesium Sulfate 50 ml @ 0 mls/hr PROTOCOL PRN IV Last administered on 07/29/25at 06:02; Start 07/24/25 at 05:00; Stop 08/23/25 at 04:59 Furosemide 40 mg ONCE ONCE IV Last administered on 07/24/25at 13:40; Start 07/24/25 at 12:00; Stop 07/24/25 at 12:01; Status DC Furosemide 40 mg ONCE ONCE IV Last administered on 07/25/25at 12:10; Start 07/25/25 at 12:00; Stop 07/25/25 at 12:01; Status DC Diatrizoate Meglum/ Diatrizoate Sod 30 ml STK-MED ONCE .ROUTE; Start 07/26/25 at 08:59; Stop 07/26/25 at 08:59; Status DC Iron Sucrose 200 mg ONCE ONCE IV Last administered on 07/26/25at 13:50; Start 07/26/25 at 13:30; Stop 07/26/25 at 13:31; Status DC Furosemide 40 mg ONCE ONCE IV Last administered on 07/29/25at 10:40; Start 07/29/25 at 10:30; Stop 07/29/25 at 10:31; Status DC DIEGO ALICIA Jr. PAC Jul 30, 2025 16:39
--- NOTE | 2025-07-30 16:47 | PN ---
[facility] PROGRESS NOTE Date of Service: Jul 30, 2025 Time of Service: 16:37 History of Present Illness Ms. Dowell is a 59-year-old female that was seen and examined today on 07/17/2025. Patient is a good historian of personal health. Patient states that she came to the emergency department with a chief complaint of abdominal pain. Onset was two weeks ago. Location is left lower quadrant. Duration is constant. Character is described as bloating. There was no alleviating factors. There was no aggravating factors. Patient reports associated constipation. Patient reports that she has a pending colonoscopy for this same abdominal discomfort with Dr. Oconnor that was scheduled on 07/19/25. Patient was taking Linzess for the last four days and only had soft GI foods and liquids at home during this time. Patient reports her last meal being a banana that started the pain, which has progressed to this point. Patients says she has lost significant weight, 40 lbs since her divorce intentionally, due to poor diet mainly including tuna and salads. Patient has history of similar pain in the LLQ of abdomen which resolved spontaneously in few hours. Patient has a chronic history of constipation. Patient never underwent colonoscopy. She has family history of Carcinoid tumor and recurrent diverticulitis in first degree relatives. Today in the emergency department WBCs 23.0, left shift neutrophils 83%, potassium 2.5, chloride 81, sodium 120, no urinalysis has been collected or sent to lab, CT of abdomen and pelvis shows diverticulitis with two abscesses. Emergency room physician contacted general surgery on-call, Dr. Lou who requested patient be admitted under hospitalist service. Additionally patient presented with a heart rate of 91 beats per minute, together with WBCs of 23.0 and identified source of infection being gastrointestinal patient met clinical sepsis criteria. SUBJECTIVE: 07/18/2025: Patient was evaluated in ED 03. Patient presented to the ED with acute abdominal pain the left lower quadrant, 8/10 in intensity with associated with bloating. Patient has chronic constipation and has been following Dr. Oconnor for evaluation with colonoscopy. Patient had poor intake in the preceding days and was using Linzess in the last 4 days. Patient had a solid bowel movement this morning and is passing flatus. Patient is kept NPO and is started on IV NS at 100 ml/hr, replacing her potassium and Zosyn was started. Labs remarkable for severe hyponatremia, hypokalemia, hypochloremia, and metabolic alkalosis. We will hydrate her judiciously and monitor her electrolytes closely. CT abdomen is remarkable for acute diverticulitis with abscesses in sigmoid colon and rectum. Pending surgery evaluation. 07/19/2025: Patient was evaluated in room 406. Patient was hemodynamically stable and had no acute events overnight. The nurse reported that patient had a rash and itching sensation on the face and neck after being on Zosyn, has a hist ory of hives to cefazolin. On-call nurse practitioner discontinued Zosyn and put her on levofloxacin and metronidazole. Surgery evaluated patient and recommended percutaneous drainage of abscesses by the interventional radiologist. Patient still has residual pain, 5/10 and tenderness to palpation, but denies fevers, chills, nausea, vomiting. Her serum sodium was 130 this morning. We will continue cautious hydration. ID consult has also been placed and we will follow their recommendations. 07/20/2025: Patient was evaluated in room 406. Patient is hemodynamically stable and had no acute events overnight. Patient underwent percutaneous drainage of diverticular abscess yesterday, samples were sent for cultures. Output today was 70 cc purulent drainage. Patient complained of abdominal distention and had not had any bowel movement since admission. Patient is tolerating clear liquid diet without nausea or vomiting. Her serum sodium dropped to 125 this morning and potassium was 3. We will continue gentle hydration and potassium replacement as per protocol. We encouraged the patient to ambulate in the hallways and also ordered physical therapy. Surgical team ordered KUB to rule out ileus versus obstruction. They also added meto clopramide 10 mg and Mylicon. Malignancy workup with CA 125, CA 19 9 were also ordered by primary team. 07/21/2025: Patient is seen in the room 406. KUB x-ray revealed markedly dilated large bowel loops measuring 9.[address] scan of the abdomen pelvis without contrast for further analysis. Discontinued metoclopramide. CT chest is ordered. Patient's sodium is low, salt tablets 1 g t.i.d. added. Urinalysis and the urine electrolytes were ordered. Albumin was added due to the suspicion of Cancer and protein energy malnutrition Urine [id number], potassium 22- so a case of SIADH. Urine protein to creatinine ratio is pending. 07/22/2025: Patient is seen and evaluated in room 405 for severe, persistent abdominal pain. She was given morphine at 7:48 AM with partial relief. Her abdomen is rigid, distended, and she reports epigastric pain with little to no passage of gas. Labs show WBC trending up to 21.2, hemoglobin 10.5, platelets 635, sodium 124, potassium 3.3, and CRP 114. Percutaneous drain is producing high-volume purulent output, and cultures returned positive for E. coli with Pseudomonas; antibiotics have been adjusted with levofloxacin and metronidazole stopped and meropenem started. Abdominal X-ray shows gaseous distension of large bowel loops consistent with ileus. Patient is NPO, on fluid restriction of 1 liter, and has been started on spironolactone 25 mg PO. Surgery recommends repeating abdominal xray tomorrow and continue conservative management for now.. Patients code status was discussed, and she wishes to remain full code. 07/23/2025: Patient was seen and evaluated bedside in room 405. She was awake and alert during my visit and appeared to be in no acute distress. Patient states that her symptoms have side subsided significantly. She states that her only symptom today was the bloating that she is feeling which she attributes to not eating. She continues on meropenem today. Nursing staff reported that the percutaneous drain stopped draining yesterday, following which they flushed the drain with a total of 50 mL NS with no result. Patient continues to be NPO and bowel rest. She states that she would like to eat soon if possible. Patient also stated that she had a bowel movement today which was nonbloody. Patient continues on [id number] mg BD. She will receive 500 mL of NS followed by re measurement of her serum sodium and potassium today at 1600. 07/24/2025: Patient was seen and evaluated in room 405. She was awake, and alert during my visit. Patient stated that her abdominal pain is almost gone. Regarding her bloating she states that the simethicone she is getting has helped. She continues on meropenem and ID recommended the patient receive long- term IV antibiotics. We will perform CT abdomen and pelvis before discharge to assess for the resolution of her diverticular abscess. Case management has been consulted for potential placement as the patient will require IV antibiotics after discharge. Regarding her diet, patient states that jelly yesterday and is tolerating the diet well. Her hyponatremia is slowly improving with a serum sodium of 126 today. She still has the rash present on her upper back however she reports no symptoms at the moment. She is hemodynamically stable otherwise and has no other complaints today. 07/25/2025: Patient was seen and evaluated bedside in room 405 in the presence of the nurse. Patient denies any active complaints today. She states that she slept well yesterday and is happy with her recovery so far. She continues on meropenem IV and infectious diseases recommended at least3 weeks of IV antibiotics after discharge. We will repeat the CT abdomen and pelvis tomorrow to assess the resolution of the diverticular abscess. General surgery recommends continuing with the current conservative management and IV antibiotics. She is tolerating her diet well and has had bowel movements today. Her hyponatremia is improving with a sodium of 128 today. She is hemodynamically stable with unremarkable vitals. 07/26/2025: Patient was seen and evaluated bedside in room 404 in the presence of the nurse. She was alert, awake, and oriented today. She denies any abdominal pain at the moment and says that her bloating has significantly gone down. She has no other active complaints today. Her laboratory results show improving hyponatremia with a serum sodium of 131. She remains on fluid restriction today. The infectious disease recommended patient undergo CT scan today to assess the resolution of her diverticular abscess. She will be discharged home with advice to follow up at [facility] for her IV antibiotics which she will need for3 weeks. General surgery recommended continuing with current conservative management and follow as an outpatient to assess her drain and the abscess. Her vitals are unremarkable today. Addendum:4 pm- Patient voiced concerns that she is not able to pay copays for [facility] or [facility] to receive IV antibiotics and was requesting oral antibiotics. However ,after further discussions with Infectious disease team and my attending , it is confirmed that this patient requires IV antibiotic for 3 weeks due to the complex nature of her medical condition. I explained the situation to the patient and she verbalized understanding . 07/27/2025: CT abdomen revealed acute mechanical large bowel obstruction secondary to multifocal long segment inflammatory strictures involving the proximal descending and sigmoid and rectal colon with circumferential wall thickening. She started eating. She needs to be on fluid restriction until his PCP clears off. Surgery involved in the case and ordered KUB x-ray and it revealed interval worsening of small and large bowel dilatation, consistent with progression of bowel obstruction. For SIADH: Sodium dropped from 131-129 So he needs to be on fluid restriction until her PCP clear so from that 07/28/2025: Patient is seen in evaluated at bedside. She reports having liquid bowel movement this morning and complaints no nausea or vomiting. On examination her abdomen looks distended but soft without any masses. She e xpresses ongoing abdominal pain after her J-tube was flushed this Tuesday. She reported that she is lactose intolerant but had a glass of milk today and she attributes her abdominal distention is because of that. Surgery is on board and we will see if they want the patient on NPO. Once the surgery clears her for discharge she will be sent to [facility] for her IV antibiotics. 07/29/2025: Patient was seen and evaluated bedside in room 405. She was awake, alert, and oriented x3. she states that her abdomen feels bagged up and tense. Patient states that she had a bowel movement yesterday which was smooth and snake-like as per patient. She states that she feels constipated and was worried about this during my visit. General surgery evaluated the patient and recommended conservative management. Patient also states that she has pain during her G-tube flushing, we will consult IR regarding possible discontinuation/assessment of her drain. Due to worsening constipation, Gastroenterology was consulted, pending evaluation. She continues to do well otherwise and is currently on a liquid diet. She will also be given1 dose of 40 mg IV Lasix to correct her hyponatremia. The patient denies any other complaints today. We will follow Gastroenterology, and General surgery recommendations. Patient is otherwise hemodynamically stable. 07/30/2025: Patient was seen and evaluated bedside in room 405. She was awake, alert, and oriented during my visit. Patient stated that her abdominal distention has gone down significantly compared to yesterday. She states that she passed2 bowel movements today which were nonbloody and formed. She attributed her symptoms to her diet, she stated that she had a chicken Alvarez when she is lactose intolerant. She stated that she will monitor her diet starting today. Gastroenterology evaluated the patient abnormal imaging findings recommended no intervention at this point. General surgery recommended to continue treating the patient based on the clinical status. Interventional Radiology will be consulted tomorrow for a drain study to assess the need for continual drain placement/removal of the drain. Patient continues to be hyponatremic with a serum sodium of 129 today. She continues to be on fluid restriction today. The patient is otherwise hemodynamically stable. REVIEW OF SYSTEMS CONSTITUTIONAL: Denies fevers, chills, or night sweats. Reports intentional weight loss of 40 lbs. NEUROLOGICAL: Denies headache, motor weakness, sensory deficit, vertigo/spinning sensation, gait abnormalities, or tremors. ENT: No hearing loss, otalgia, otorrhea, rhinitis, rhinorrhea, hoarseness, or sore throat. CARDIOVASCULAR: Denies any exertional angina, dyspnea on exertion, orthopnea, paroxysmal nocturnal dyspnea, palpitations, life-threatening arrhythmias, claudication. PULMONARY: Denies any shortness of breath, cough, phlegm/sputum, hemoptysis, pleuritic chest pain. SLEEP: Denies morning headaches, daytime somnolence or napping. Denies difficulty falling asleep, staying asleep, waking from sleep. Denies knowledge of snoring. GASTROINTESTINAL: Denies any type of dysphagia to either liquids or solids. Denies nausea, vomiting, pyrosis, early satiety. Admits to chronic constipation . GENITOURINARY: Denies frequency, urgency, nocturia, hematuria or incontinence (Storage/Irritative symptoms.) PHYSICAL EXAM GENERAL APPEARANCE: The patient is awake, alert, and oriented, in no acute cardiopulmonary distress., Appears cachexic NEUROLOGICAL: Cranial nerves II-XII grossly intact. Motor is 5/5 in bilateral upper and lower extremities proximal to distal. No sensory deficits. HEENT: Face is symmetric. Pupils are equal and reactive. Extraocular movements are intact. NECK: Supple. No thyromegaly. No submental, submandibular, pre-/postauricular, occipital or supraclavicular lymphadenopathy. CHEST: Normal chest expansion. No Telemetry. LUNGS: Absence of any rales, rhonchi or any wheezing. CARDIOVASCULAR: Regular. S1 and S2 normal. No appreciable rubs, murmurs or gallops. ABDOMEN: mildly Tender to palpation in the LLQ, and epigastrium. Abdomen is distended. Left lower quadrant drainage catheter with bag in position. There is no rebound, voluntary guarding, and rigidity present . : Deferred. No [place]. EXTREMITIES: Non-edematous and not cyanotic. No clubbing. Good capillary refill. SKIN: No skin breakdown. Vital Signs (last 8hr) Date Time Temp Pulse Resp B/P (MAP) Pulse Ox O2 Delivery O2 Flow Rate FiO2 07/30/25 12:00 98.1 98 18 108/75 98 Room Air LABS: Laboratory: Test 07/30/25 03:29 07/29/25 04:30 Range/Units White Blood Count 9.8 # 4.8-10.8 K/uL Red Blood Count 3.55 L 4.00-5.50 MIL/uL Hemoglobin 10.1 L 12.0-16.0 g/dL Hematocrit 29.7 L 36-48 % Mean Corpuscular Volume 83.7 79-99 fL Mean Corpuscular Hemoglobin 28.5 27.0-33.0 pg Mean Corpuscular Hemoglobin Concent 34.0 32.0-36.0 g/dL Red Cell Distribution Width 13.2 11.0-15.5 % Platelet Count 511 H 130-400 K/uL Mean Platelet Volume 8.9 7.5-10.5 fL Immature Granulocyte % (Auto) 0.7 0-1 % Neutrophils (%) (Auto) 69.5 40.0-77.0 % Lymphocytes (%) (Auto) 19.9 L 21.0-51.0 % Monocytes (%) (Auto) 9.3 3.0-13.0 % Eosinophils (%) (Auto) 0.3 0.0-8.0 % Basophils (%) (Auto) 0.3 0.0-5.0 % Neutrophils # (Auto) 6.8 1.8-7.7 K/uL Lymphocytes # (Auto) 2.0 1.0-4.8 K/uL Monocytes # (Auto) 0.9 0.1-1.0 K/uL Eosinophils # (Auto) 0.03 0.00-0.70 K/uL Basophils # (Auto) 0.03 0.00-0.20 K/uL Absolute Immature Granulocyte (auto 0.07 0-1 K/uL Nucleated Red Blood Cells 0.0 0.0-0.19 % Sodium Level 129 L 136-145 mmol/L Potassium Level 3.9 3.5-5.1 mmol/L Chloride Level 94 L 101-111 mmol/L Carbon Dioxide Level 29 21-32 mmol/L Blood Urea Nitrogen 6 L 7-18 mg/dL Creatinine 0.6 0.5-1.0 mg/dL Glomerular Filtration Rate Calc 105 >90 mL/min Random Glucose 99 70-105 mg/dL Total Calcium 8.2 L 8.5-10.1 mg/dL Total Bilirubin 0.5 0.2-1.0 mg/dL Aspartate Amino Transf (AST/SGOT) 20 10-37 U/L Alanine Aminotransferase (ALT/SGPT) 12 12-78 U/L Alkaline Phosphatase 77 50-136 U/L C-Reactive Protein, Quantitative 28.00 H 0.5-3.0 mg/L Total Protein 5.9 L 6.0-8.3 g/dL Albumin 2.0 L 3.5-5.0 g/dL Magnesium Level 1.70 L 1.80-2.40 mg/dL Current Medications Medications (Trade) Dose Ordered Sig/Heather Route PRN Reason Start Time Stop Time Status Last Admin Dose Admin Acetaminophen (TYLenol 325MG TAB) 650 mg Q6H PRN PO TEMPERATURE GREATER THAN 101.5 07/17/25 22:00 08/16/25 21:59 Acetaminophen (TYLenol 500MG TAB) 500 mg Q4H PRN PO MILD PAIN (1-3) 07/18/25 10:30 08/17/25 10:29 07/29/25 20:31 500 MG Acetaminophen (acetaMINOPHEN 1,000MG/100ML) 1,000 mg [id number] PRN IVPB MODERATE PAIN (4-6) 07/22/25 13:30 08/21/25 13:29 Albumin Human 250 ml @ 0 mls/hr AD IV 07/21/25 14:30 07/22/25 07:19 DC 07/21/25 22:49 60 MLS/HR Diphenhydramine HCl (BENAdryl CAP) 25 mg Q8H PRN PO INSOMNIA 07/20/25 11:00 07/22/25 11:13 DC 07/21/25 18:33 25 MG Famotidine (Pepcid 20mg Vial) 20 mg DAILY IV 07/18/25 09:00 07/22/25 11:12 DC 07/21/25 08:33 20 MG Heparin Sodium (Porcine) (HEParin 5,000 UNIT VIAL) 5,000 unit Q12H SQ 07/23/25 12:00 07/24/25 00:30 DC 07/23/25 14:44 5,000 UNIT Heparin Sodium (Porcine) (HEParin 5,000 UNIT VIAL) 5,000 unit Q12H SQ 07/24/25 03:00 08/23/25 02:59 07/30/25 15:27 5,000 UNIT Hydralazine HCl (APRESOLine 20MG INJ) 10 mg Q6H PRN IV For:SBP above 160;DBP above 90 07/17/25 22:00 08/16/25 21:59 Lactated Ringer's 1,000 ml @ 75 mls/hr [id number] IV 07/17/25 22:00 07/17/25 22:07 DC 07/17/25 21:56 75 MLS/HR Lactulose (Constulose 20gm/ 30ml Udcup) 20 gm BID PRN PO CONSTIPATION 07/20/25 17:00 07/26/25 06:31 DC Levofloxacin/ Dextrose (LEvaquIN 750 MG/ D5W 150 ML) 750 mg Q24H IV 07/19/25 05:00 07/22/25 08:34 DC 07/22/25 04:52 750 MG Magnesium Sulfate 50 ml @ 0 mls/hr PROTOCOL PRN IV MAGNESIUM PROTOCOL 07/24/25 05:00 08/23/25 04:59 07/29/25 06:02 25 MLS/HR Magnesium Sulfate 50 ml @ 0 mls/hr PROTOCOL PRN IV h 07/17/25 22:30 07/20/25 21:08 DC 07/18/25 02:31 25 MLS/HR Meropenem (Merrem 1gm) 1 gm Q8H IVPB 07/22/25 09:00 07/24/25 00:29 DC 07/23/25 17:39 1 GM Meropenem (Merrem 1gm) 1 gm Q8H IVPB 07/24/25 02:00 08/03/25 01:59 07/30/25 10:04 1 GM Metoclopramide HCl (regLAN 10MG IV) 10 mg ACHS IVP 07/20/25 21:00 07/21/25 14:18 DC 07/21/25 12:24 10 MG Metronidazole/ Sodium Chloride (flaGYL) 500 mg Q8H IV 07/19/25 07:00 07/22/25 11:30 DC 07/22/25 06:24 500 MG Morphine Sulfate (morPHINE 4MG SYG) 4 mg Q4H PRN IVP SEVERE PAIN (7-10) 07/17/25 22:00 07/22/25 11:12 DC 07/22/25 07:48 4 MG Ondansetron HCl (zoFRAN 4MG INJ) 4 mg Q6H PRN IV NAUSEA/VOMITING 07/17/25 22:00 08/16/25 21:59 07/19/25 00:47 4 MG Pantoprazole Sodium (PROTonix 40MG INJ) 40 mg BID IVP 07/22/25 21:00 08/21/25 20:59 07/30/25 09:03 40 MG Pharmacy Profile Note (Pharmacy Communication) 1 each ONCE MISC 07/22/25 08:30 07/22/25 08:34 DC Pharmacy Profile Note (Pharmacy Communication) Abnormanl QT interval Q8H MISC 07/20/25 19:00 07/22/25 07:22 DC Piperacillin Sod/ Tazobactam Sod (Zosyn 3.375gm+NS 50ml) 3.375 gm Q8H IV 07/17/25 22:00 07/19/25 02:04 DC 07/18/25 21:47 3.375 GM Potassium Chloride 100 ml @ 50 mls/hr AD PRN IV POTASSIUM PROTOCOL 07/17/25 22:30 08/16/25 22:29 07/29/25 21:21 50 MLS/HR Simethicone (Mylicon) 80 mg PCHS PO 07/20/25 18:00 08/19/25 17:59 07/30/25 13:43 80 MG Sodium Chloride 500 ml @ 75 mls/hr Q6H40M IV 07/23/25 13:00 07/23/25 13:11 DC Sodium Chloride 1,000 ml @ 125 mls/hr Q8H IV 07/17/25 22:30 07/21/25 16:08 DC 07/21/25 14:16 125 MLS/HR Sodium Chloride (NS Flush 10ml) 10 ml DAILY FLUSH 07/21/25 09:00 07/21/25 21:42 DC Sodium Chloride (NS Flush 10ml) 10 ml DAILY MISC 07/22/25 09:00 08/21/25 08:59 07/30/25 09:03 10 ML Sodium Chloride (Sodium Chloride) 1,000 mg BID PO 07/21/25 21:00 07/21/25 15:57 DC Sodium Chloride (Sodium Chloride) 1,000 mg TID PO 07/21/25 16:00 08/20/25 20:59 07/30/25 14:24 1,000 MG Spironolactone (Aldactone 25mg) 25 mg DAILY PO 07/23/25 13:00 07/30/25 08:14 DC 07/29/25 08:39 25 MG Thiamine HCl (Vitamin B-1) 200 mg DAILY IVP 07/23/25 09:00 08/22/25 08:59 07/30/25 09:11 200 MG DIAGNOSTICS / RADIOLOGY: [place] [address] IMAGING REPORT Signed PATIENT: KIMBERLYN DOWELL MR#: [id number] : 1965 SEX: F AGE: 59 LOCATION: [facility] ORDER 2300 STATUS: ADM IN REPORT#: [id number] SERVICE 0600 REASON: Abdominal distention ORDERING PHYSICIAN: DIEGO ALICIA Jr. PAC PROCEDURE: ABD 1VW - ABD 1VW EXAM: CR Abdomen, 2 views CLINICAL HISTORY: Abdominal distention COMPARISON: Prior abdominal radiograph dated July 29, 2025. FINDINGS: Surgical clips in the right upper quadrant are probable post-cholecystectomy surgical clips. Gaseous distention of the small and large bowel loops without any abnormal air-fluid level, possibility of ileus. No free air is evident. No abnormal calcification. No aggressive appearing osseous lesion. IMPRESSION: Gaseous distention of the small and large bowel loops without any abnormal air-fluid level, possibility of ileus. Compared to the prior study, there is no significant interval change. Redemonstrated is the gaseous distention of the small and large bowel loops. /[place] DICTATED BY: ANUM JARVIS Jr., MD DATE: 07/30/25748 ELECTRONICALLY SIGNED BY: ANUM JARVIS Jr., MD DATE: 07/30/25748 ASSESSMENT: Sepsis due to Acute sigmoid diverticulitis complicated by abscess, status post percutaneous drainage of pelvic abscess POA Acute Paralytic ileus versus obstruction, POA Severe hyponatremia, hypovolemic, POA: SIADH ruled in ,POA Hypokalemia, POA Iron-deficiency anemia POA Hepatic and renal cysts , POA Chronic constipation, POA Colonic diverticulosis, POA Chronic smoking and alcoholism POA Severe Protein calorie malnutrition, POA PLAN: Sepsis due to Acute sigmoid diverticulitis complicated by abscess, status post percutaneous drainage of pelvic abscess: * Patient vitals on presentation 125/71, heart rate 91, with elevated leukocytes 23k in the light of diverticulitis meets sepsis criteria * CT abdomen confirmed acute sigmoid colon diverticulitis complicated by two abbesses, one along the sigmoid colon (5.8 x 6.9 x 5.1 cm) and one along the rectum (7.6 x 6.1 x 6.6 cm) * Patient had rash and itching to the face after Zosyn, discontinue * Discontinued IV metronidazole 500 mg Q8 and IV levofloxacin 750 mg Q 24 on 07/22/2025 and started on meropenem as per culture and sensitivity * Surgery recommended percutaneous drainage of the abscesses by IR, no surgical intervention at this moment * IR performed percutaneous drainage of pelvic abscess with placement of left lower quadrant drainage catheter * Abscess sample were sent for cultures, showed growth of E coli and pseudomonas * Monitor daily output from left lower quadrant drain * Morphine 4 mg for severe pain is stopped and started on Tylenol 1000 mg for pain * Repeat labs in the morning * WBC count 23>20>14.5>13.6>17.6>21.2>13.5>14>11>10.3>11.2>10.6>13.1>9.8(Today) * KUB x-ray (07/25/2025)- markedly dilated large bowel measuring up to 6.7 cm * repeat KUB as per surgery recommendations showed interval worsening of small and large bowel dilatation, consistent with progression of bowel obstruction. * General surgery recommended conservative management based on the patient's clinical status. * Continue meropenem IV as per ID recommendations * Percutaneous drainage will be reassessed tomorrow. Iron-deficiency anemia: * Patient's hemoglobin today at 10.1 * Serum iron studies showed a transferrin saturation of 12%. * Consider iron supplementation once stable and at discharge. * Received Venofer 200 mg once IV on 07/26/2025 Severe hyponatremia, hypovolemic (suspected SIADH): * On presentation Na was 120, asymptomatic and was dehydrated in the preceding days * Today serum sodium is 129 and we will continue judicious hydration * We will you 1 dose of 40 mg IV Lasix today. * fluid restricted to 1 litre * Salt tablet 1000 mg t.i.d. which she will be discharged on. * Urine electrolytes (07/23/2025) -, potassium 56, urine osmolality (07/18/2025) at 204, and serum osmolality (07/23/2025) at 265 consistent with SIADH Protein energy malnutrition: * Patient's weight is 49.9 kg, BMI 21.5 and serum albumin 2 * Current weight at 50.57 kg, BMI 21.8, * Muscle atrophy noted BUN low, 4 * Patient lost significant amount of weight intentionally, 40 lb * Continue clear liquid diet * Diet evaluation placed for recommendations post discharge * Albumin added Suspected ileus versus obstruction * Patient had her 1st bowel movement since admission on 07/22/2025 which was nonbloody. * Has diffuse abdominal distention, however passing flatus, and tolerating clear liquid diet * Encouraged patient to ambulate in the hallways and ordered physical therapy * Lactulose 20 mg p.o. b.i.d. PRN ordered by surgical team * CT abdomen (07/26/2025) revealed acute mechanical large bowel obstruction secondary to multifocal long segment inflammatory strictures involving the proximal descending and sigmoid and rectal colon with circumferential wall thickening. * KUB x-ray (07/28/2025) and it revealed interval worsening of small and large bowel dilatation, consistent with progression of bowel obstruction. * General surgery on board, they recommended continuing with the current management. * Gastroenterology consulted, recommended no interventions at this time and outpatient follow up. * We will repeat KUB tomorrow to reassess. GI prophylaxis with simethicone and Protonix 40 mg DVT prophylaxis with SCDs and heparin 5000 b.i.d.. ATTESTATION BY PHYSICIAN I have seen and examined the patient. I reviewed the documentation, medical d ecision making, and treatment plan as noted by the resident physician above. I agree with the findings and plan of care. RICHARD WANG MD, HEMA MD Jul 30, 2025 16:47
--- NOTE | 2025-07-30 21:02 | PN ---
INFECTIOUS DISEASE PROGRESS NOTE Date of Service: Jul 30, 2025 SUBJECTIVE: Patient was seen and examined at bedside in room 406. Patient is awake alert and oriented x3. During rounding today [facility] and per report will most likely be discharged today if cleared by General surgery. No nausea or vomiting. Continues on Meropenem. PHYSICAL EXAM EYES: Anicteric. Pupils equal and reactive. HENT: No oral thrush seen, moist Oral mucosa. NECK: Supple, no JVD or thyromegaly. LUNGS: Good air entry. No rales, no rhonchi. CARDIOVASCULAR: S1, S2 regular. No murmur heard. ABDOMEN: Distended. bowel sounds present. Percutaneous drain placement. CENTRAL NERVOUS SYSTEM: Awake, alert, oriented x 3. SKIN: No rashes, no swelling. LYMPHATICS: No peripheral lymphadenopathy. MUSCULOSKELETAL: No joint swelling, erythema or tenderness. EXTREMITIES: No cyanosis or clubbing. BACK: No deformity, no pressure ulcer. GENITOURINARY: No dysuria or hematuria. Vital Sign (Last 12 Hours) 07/30/25 07/30/25 07/30/25 12:00 16:00 20:00 Temp 98.1 99.0 98.4 Pulse 98 78 77 Resp 18 B/P (MAP) 108/75 130/75 123/78 Pulse Ox 98 98 94 O2 Delivery Room Air Room Air Room Air Intake & Output (last 24hrs) 07/29/25 07/29/25 07/30/25 15:00 23:00 07:00 Intake Total 1020.0 ml 100.0 ml Output Total 830 ml Balance 1020.0 ml -730.0 ml LABS: Laboratory: Test 07/30/25 03:29 07/29/25 04:30 Range/Units White Blood Count 9.8 # 4.8-10.8 K/uL Red Blood Count 3.55 L 4.00-5.50 MIL/uL Hemoglobin 10.1 L 12.0-16.0 g/dL Hematocrit 29.7 L 36-48 % Mean Corpuscular Volume 83.7 79-99 fL Mean Corpuscular Hemoglobin 28.5 27.0-33.0 pg Mean Corpuscular Hemoglobin Concent 34.0 32.0-36.0 g/dL Red Cell Distribution Width 13.2 11.0-15.5 % Platelet Count 511 H 130-400 K/uL Mean Platelet Volume 8.9 7.5-10.5 fL Immature Granulocyte % (Auto) 0.7 0-1 % Neutrophils (%) (Auto) 69.5 40.0-77.0 % Lymphocytes (%) (Auto) 19.9 L 21.0-51.0 % Monocytes (%) (Auto) 9.3 3.0-13.0 % Eosinophils (%) (Auto) 0.3 0.0-8.0 % Basophils (%) (Auto) 0.3 0.0-5.0 % Neutrophils # (Auto) 6.8 1.8-7.7 K/uL Lymphocytes # (Auto) 2.0 1.0-4.8 K/uL Monocytes # (Auto) 0.9 0.1-1.0 K/uL Eosinophils # (Auto) 0.03 0.00-0.70 K/uL Basophils # (Auto) 0.03 0.00-0.20 K/uL Absolute Immature Granulocyte (auto 0.07 0-1 K/uL Nucleated Red Blood Cells 0.0 0.0-0.19 % Sodium Level 129 L 136-145 mmol/L Potassium Level 3.9 3.5-5.1 mmol/L Chloride Level 94 L 101-111 mmol/L Carbon Dioxide Level 29 21-32 mmol/L Blood Urea Nitrogen 6 L 7-18 mg/dL Creatinine 0.6 0.5-1.0 mg/dL Glomerular Filtration Rate Calc 105 >90 mL/min Random Glucose 99 70-105 mg/dL Total Calcium 8.2 L 8.5-10.1 mg/dL Total Bilirubin 0.5 0.2-1.0 mg/dL Aspartate Amino Transf (AST/SGOT) 20 10-37 U/L Alanine Aminotransferase (ALT/SGPT) 12 12-78 U/L Alkaline Phosphatase 77 50-136 U/L C-Reactive Protein, Quantitative 28.00 H 0.5-3.0 mg/L Total Protein 5.9 L 6.0-8.3 g/dL Albumin 2.0 L 3.5-5.0 g/dL Magnesium Level 1.70 L 1.80-2.40 mg/dL Assisted ASSESSMENT: Diverticulitis with perforation and abscess, s/p percutaneous drain placement on 07/19/2025. Infection with multidrug resistant organism. Abdominal pain, possible ileus. Leukocytosis, resolved. Hyponatremia. Chronic tobacco use. PLAN: Continue Meropenem IV. Continue GI prophylaxis. Percutaneous drain care. Continue pain management. Continue GI prophylaxis. [facility] and pending General surgeon clearance. This case was reviewed and discussed with my supervising physician Dr. Moulton and the above assessment and plan was formulated and agreed upon. ATTESTATION BY PHYSICIAN I have seen and examined the patient. I reviewed the documentation, medical decision making, and treatment plan as noted by the mid-level provider above. I agree with the findings and plan of care. HAYDEE MOULTON MD, [facility] Jul 30, 2025 21:02
[2025-07-31 03:34] VITALS: BP 119/70; PULSE 65; RESP 16; TEMP 98.1
[2025-07-31 04:45] LABS: IMMATURE GRANULOCYTE ABSOLUTE 0.06 K/uL (0-1); NUCLEATED RED BLOOD CELLS 0.0 % (0.0-0.19); PLATELET COUNT (AUTO) 441 K/uL (130-400); RED BLOOD CELL COUNT(AUTO) 3.51 MIL/uL (4.00-5.50); RED CELL DISTRIBUTION WIDTH 13.2 % (11.0-15.5); WHITE BLOOD COUNT (AUTO) 10.1 K/uL (4.8-10.8)
[2025-07-31 04:59] LABS: CREATININE 0.5 mg/dL (0.5-1.0); GLOMERULAR FILTR. RATE CALC 109.0 mL/min (>90); GLUCOSE,RANDOM 91.0 mg/dL (70-105); SODIUM SERUM 128.0 mmol/L (136-145); UREA NITROGEN, BLOOD 5.0 mg/dL (7-18)
[2025-07-31 08:00] VITALS: BP 121/72; PULSE 66; RESP 18; TEMP 98.2
[2025-07-31 08:10] VITALS: O2SAT 95
[2025-07-31 12:00] VITALS: BP 129/73; PULSE 78; RESP 18; TEMP 98.6
--- NOTE | 2025-07-31 15:53 | DS ---
Discharge Summary Hospital Course Summary: Presentation: The patient presented with two weeks of worsening left lower quadrant abdominal pain, bloating, and constipation. In the ED she was found to have a WBC count of 23,000, severe hyponatremia (Na 120), hypokalemia, and metabolic alkalosis. CT abdomen and pelvis demonstrated acute sigmoid diverticulitis complicated by two large abscesses located near the sigmoid colon and rectum. She met sepsis criteria on arrival and was admitted for IV fluids, electrolyte correction, bowel rest, and broad-spectrum antibiotics. Management and Progress: Antibiotics were initially started with Zosyn but discontinued due to rash; she was transitioned to levofloxacin and metronidazole and subsequently switched to meropenem after abscess cultures grew multidrug-resistant E. coli and Pseudomonas. Interventional Radiology performed percutaneous drainage of the pelvic abscess on 07/19 with placement of a left lower quadrant drain. She developed abdominal distention and imaging confirmed a developing ileus, which was managed conservatively with NPO status, ambulation, simethicone, and supportive care. Her leukocytosis decreased, abdominal pain improved, and bowel function gradually returned. She tolerated advancement of diet without nausea or vomiting. Additional Issues & Discharge Readiness: Workup for hyponatremia showed findings consistent with SIADH, managed with a 1- liter fluid restriction, salt tablets, and cautious IV hydration, resulting in g radual sodium improvement to 128. Hypokalemia was repleted as per protocol. The patient also had significant proteincalorie malnutrition and received dietary support. Infectious Diseases recommended a minimum of 2 weeks of IV meropenem after discharge; a PICC line was placed for long-term antibiotics. General Surgery advised continued conservative management, with no need for operative intervention at this time. By discharge, the patient was hemodynamically stable, tolerating her diet, passing bowel movements, and reporting minimal abdominal pain. Primary Teacher(s): Infectious disease: ASSESSMENT: Diverticulitis with perforation and abscess, s/p percutaneous drain placement on 07/19/2025. Infection with multidrug resistant organism. Abdominal pain, possible ileus. Leukocytosis, resolved. Hyponatremia. Chronic tobacco use. PLAN: Continue Meropenem IV. Continue GI prophylaxis. Percutaneous drain care. Continue pain management. Continue GI prophylaxis. Patient has been approved to [facility] and pending General surgeon clearance. General surgery Assessment : This is a 59-year-old female with diverticulitis with concerning perforation and diverticular abscess with recent drainage and developing bowel distention Plan: At this point in time before patient is cleared for discharge we will order abscessogram for potential percutaneous drain removal After imaging complete patient will be cleared for discharge from surgical standpoint Patient will need follow up in 1-[address] Lou is office for continued monitoring of abdominal distention Surgical team to be updated with any further events Surgical case has been discussed with my supervising physician in the above plan was formulated and agreed upon We appreciate the hospitalist team for us to participate in patient's care. Greater than 45 minutes of time spent patient, reviewing chart, working on documentation Gastroenterology Assessment: Acute diverticulitis with abscess Plan: Follow surgical recommendations Outpatient colonoscopy in 8 weeks pending clinical evolution Procedure(s): [facility] [address] [place] [id number] IMAGING REPORT Addendum PATIENT: KIMBERLYN ALICEA MR#: [id number] : 1965 SEX: F AGE: 59 LOCATION: [facility] ORDER 1632 STATUS: REG REPORT#: [id number] SERVICE 1631 REASON: lower abd pain ORDERING PHYSICIAN: CASEY COVINGTON MD PROCEDURE: ABD PEL W - CT ABDOMEN/PELVIS W/CONTRAST ADDENDUM REPORT ADDENDUM: Results were shared by telephone at 07:57 PM EST on 07-17-[address] Latanya zimmerman /[place] EXAM: CT Abdomen and Pelvis with IV Contrast CLINICAL HISTORY: Patient presents with lower abdominal pain. TECHNIQUE: Axial computed tomography images of the abdomen and pelvis with intravenous contrast. CONTRAST: With intravenous contrast. COMPARISON: None provided. FINDINGS: LUNG BASES: Subsegmental atelectasis in the bilateral lung bases. No pleural effusions. LIVER: Two hepatic cysts are identified in the right hepatic lobe, the larger measuring 1.1 x 1.0 x 1.4 cm and the smaller measuring 0.9 x 0.8 x 0.9 cm. No suspicious hepatic lesions. GALLBLADDER AND BILE DUCTS: The gallbladder is surgically absent. No biliary ductal dilatation. PANCREAS: Unremarkable. SPLEEN: Unremarkable. ADRENAL GLANDS: Unremarkable. KIDNEYS, URETERS, AND BLADDER: A right renal cyst in the lower pole measures 5.9 x 4.5 x 5.7 cm. A left renal cyst in the lower pole measures 3.7 x 3.7 x 3.7 cm. The urinary bladder is incompletely distended, limiting evaluation for possible wall thickening. In the appropriate clinical setting, mild cystitis cannot be excluded. STOMACH AND BOWEL: Significant focal short-segment circumferential wall thickening of the sigmoid colon with maximal wall thickness approximately 1.2 cm and surrounding fat stranding, concerning for sigmoid diverticulitis or colitis. Two peripherally enhancing fluid and air-containing collections are seen in the pelvis: one along the sigmoid colonic wall thickening measuring 5.8 x 6.9 x 5.1 cm, and another along the rectum measuring 7.6 x 6.1 x 6.6 cm. A dependent calcific focus measuring 0.7 cm is seen within the perirectal collection. Extensive pericolonic and perirectal fat stranding with minimal free fluid in the pelvis. The perirectal and pericolonic collections cause mass effect on the urinary bladder and uterus. The left ovary is not separately visualized. Focal long-segment circumferential wall thickening of the transverse colon measuring up to 0.6 cm with minimal pericolonic fat stranding, concerning for colitis. Gaseous distention of the transverse colon up to 6.5 cm in caliber. Occasional diverticula are seen. APPENDIX: No CT evidence of acute appendicitis. PERITONEUM: Extensive pelvic fat stranding with minimal free fluid. No free air. LYMPH NODES: No pathologically enlarged lymph nodes. REPRODUCTIVE: The uterus is displaced by adjacent pericolonic and perirectal collections. The left ovary is not separately visualized. VASCULATURE: No abdominal aortic aneurysm. BONES: Multilevel mild degenerative changes of the spine. No acute or aggressive osseous lesion. OTHER FINDINGS: Small hiatal hernia. IMPRESSION: Acute sigmoid diverticulitis/colitis with two peripherally enhancing pelvic abscesses???one along the sigmoid colon (5.8 x 6.9 x 5.1 cm) and one along the rectum (7.6 x 6.1 x 6.6 cm)???with associated fat stranding and minimal free fluid. Mass effect from the pelvic abscesses on the urinary bladder and uterus. Focal long-segment wall thickening of the transverse colon with minimal pericolonic fat stranding, concerning for colitis. Bilateral renal cysts and small hepatic cysts. Surgically absent gallbladder. Small hiatal hernia. /[place] DICTATED BY: ANUM JARVIS Jr., MD DATE: 07/17/251957 ELECTRONICALLY SIGNED BY: DATE: EXAM: CT Abdomen and Pelvis with IV Contrast CLINICAL HISTORY: Patient presents with lower abdominal pain. TECHNIQUE: Axial computed tomography images of the abdomen and pelvis with intravenous contrast. CONTRAST: With intravenous contrast. COMPARISON: None provided. FINDINGS: LUNG BASES: Subsegmental atelectasis in the bilateral lung bases. No pleural effusions. LIVER: Two hepatic cysts are identified in the right hepatic lobe, the larger measuring 1.1 x 1.0 x 1.4 cm and the smaller measuring 0.9 x 0.8 x 0.9 cm. No suspicious hepatic lesions. GALLBLADDER AND BILE DUCTS: The gallbladder is surgically absent. No biliary ductal dilatation. PANCREAS: Unremarkable. SPLEEN: Unremarkable. ADRENAL GLANDS: Unremarkable. KIDNEYS, URETERS, AND BLADDER: A right renal cyst in the lower pole measures 5.9 x 4.5 x 5.7 cm. A left renal cyst in the lower pole measures 3.7 x 3.7 x 3.7 cm. The urinary bladder is incompletely distended, limiting evaluation for possible wall thickening. In the appropriate clinical setting, mild cystitis cannot be excluded. STOMACH AND BOWEL: Significant focal short-segment circumferential wall thickening of the sigmoid colon with maximal wall thickness approximately 1.2 cm and surrounding fat stranding, concerning for sigmoid diverticulitis or colitis. Two peripherally enhancing fluid and air-containing collections are seen in the pelvis: one along the sigmoid colonic wall thickening measuring 5.8 x 6.9 x 5.1 cm, and another along the rectum measuring 7.6 x 6.1 x 6.6 cm. A dependent calcific focus measuring 0.7 cm is seen within the perirectal collection. Extensive pericolonic and perirectal fat stranding with minimal free fluid in the pelvis. The perirectal and pericolonic collections cause mass effect on the urinary bladder and uterus. The left ovary is not separately visualized. Focal long-segment circumferential wall thickening of the transverse colon measuring up to 0.6 cm with minimal pericolonic fat stranding, concerning for colitis. Gaseous distention of the transverse colon up to 6.5 cm in caliber. Occasional diverticula are seen. APPENDIX: No CT evidence of acute appendicitis. PERITONEUM: Extensive pelvic fat stranding with minimal free fluid. No free air. LYMPH NODES: No pathologically enlarged lymph nodes. REPRODUCTIVE: The uterus is displaced by adjacent pericolonic and perirectal collections. The left ovary is not separately visualized. VASCULATURE: No abdominal aortic aneurysm. BONES: Multilevel mild degenerative changes of the spine. No acute or aggressive osseous lesion. OTHER FINDINGS: Small hiatal hernia. IMPRESSION: Acute sigmoid diverticulitis/colitis with two peripherally enhancing pelvic abscesses???one along the sigmoid colon (5.8 x 6.9 x 5.1 cm) and one along the rectum (7.6 x 6.1 x 6.6 cm)???with associated fat stranding and minimal free fluid. Mass effect from the pelvic abscesses on the urinary bladder and uterus. Focal long-segment wall thickening of the transverse colon with minimal pericolonic fat stranding, concerning for colitis. Bilateral renal cysts and small hepatic cysts. Surgically absent gallbladder. Small hiatal hernia. /[place] DICTATED BY: ANUM JARVIS Jr., MD DATE: 07/17/251949 ELECTRONICALLY SIGNED BY: ANUM JARVIS Jr., MD DATE: 07/17/251949 [place] [id number] IMAGING REPORT Signed PATIENT: KIMBERLYN ALICEA MR#: [id number] : 1965 SEX: F AGE: 59 LOCATION: [facility] ORDER 49 STATUS: ADM IN REPORT#: [id number] SERVICE 42 REASON: preprocedural ORDERING PHYSICIAN: ALESSANDRO FRANCO PROCEDURE: CXR1VW - CHEST 1VW EXAM: CR Chest, 1 View. CLINICAL HISTORY: preprocedural COMPARISON: None provided. FINDINGS: LUNGS: The lungs show no infiltrate or other acute finding. PLEURAL SPACES: No evidence of pleural effusion or pneumothorax. MEDIASTINUM: Cardiac size and mediastinal contours within normal limits. BONES: No aggressive appearing osseous lesion seen. IMPRESSION: No acute cardiopulmonary pathology is evident. /[place] DICTATED BY: ANUM JARVIS Jr., MD DATE: 07/18/25634 ELECTRONICALLY SIGNED BY: ANUM JARVIS Jr., MD DATE: 07/18/[address] [facility] [address] [place] [phone] IMAGING REPORT Signed PATIENT: KIMBERLYN ALICEA MR#: [id number] : 1965 SEX: F AGE: 59 LOCATION: [facility] ORDER 99 STATUS: ADM IN REPORT#: [id number] SERVICE 9 REASON: diverticulitis with abscess ORDERING PHYSICIAN: KIRSTY CRANE LINING STRAP CLOSER PROCEDURE: GIUDPERCAT - CT GUIDE ELLIOT PERC W/CATH IR PROVIDED REASON FOR EXAM: diverticulitis with abscess PROCEDURE: CT guided drainage of pelvic fluid collection. OPERATORS: Dr. Boles MEDICATIONS: 1. 50 mcg fentanyl IV 2. 2 mg of Versed IV 3. 1% lidocaine local anesthesia SEDATION TIME: 20 minute CONTRAST: None. COMPLICATIONS: None. DESCRIPTION: After the procedure including risks and potential complications had been explained to the patient and questions answered, informed consent was obtained. The patient was placed on the CT table in the supine position. A time out was performed. Limited CT imaging was obtained localizing the patient's known pelvic fluid collection. The skin of the left mid pelvic was prepped and draped in the usual fashion. The skin and subcutaneous tissues overlying this region were infiltrated with 1% lidocaine for local anesthesia. Using a trocar with 8 Portuguese catheter was placed in the abscess pocket. 5 mL of purulent fluid were aspirated. The catheter was left in place to gravity drainage and secured to the skin with a O-Prolene suture. Post-procedure CT demonstrated adequate placement of the drainage catheter within the collection. The patient tolerated procedure well and was returned to the rosales in stable condition after a period of observation. FINDINGS: 1. Large left lower pelvic abscess which was drained IMPRESSION: Successful placement of a 8 Portuguese all-purpose drainage catheter into known pelvic fluid collection. Specimen sent for gram, stain culture and sensitivity. DICTATED BY: IVÁN BOLES MD DATE: 07/19/25 1555 ELECTRONICALLY SIGNED BY: IVÁN BOLES MD DATE: 07/19/[address] [facility] [address] [place] [phone] IMAGING REPORT Signed PATIENT: KIMBERLYN ALICEA MR#: [id number] : 1965 SEX: F AGE: 59 LOCATION: [facility] ORDER 1647 STATUS: ADM IN REPORT#: [id number] SERVICE 164 REASON: abdominal distention ORDERING PHYSICIAN: KIRSTY CRANE LINING STRAP CLOSER PROCEDURE: ABD 1VW - ABD 1VW EXAM: CR Abdomen, 2 View. CLINICAL HISTORY: abdominal distention COMPARISON: CT images dated July 17, 2025. FINDINGS: Markedly dilated large bowel loops warranting further characterization with CT imaging of the abdomen and pelvis. These measure up to 9.1 cm on today's examination, increased from the prior examination. IMPRESSION: 1. Markedly dilated large bowel loops measuring up to 9.1 cm, increased from prior examination. Further characterization with CT imaging of the abdomen and pelvis is warranted. /[place] DICTATED BY: ANUM JARVIS Jr., MD DATE: 07/20/251833 ELECTRONICALLY SIGNED BY: ANUM JARVIS Jr., MD DATE: 07/20/25 [address] [place] [id number] [id number] IMAGING REPORT Signed PATIENT: KIMBERLYN ALICEA MR#: [id number] : 1965 SEX: F AGE: 59 LOCATION: [facility] ORDER 1433 STATUS: ADM IN REPORT#: [id number] SERVICE REASON: suspected ileus ORDERING PHYSICIAN: YSABEL CLEMENTE MD PROCEDURE: ABD PEL WO - CT ABDOMEN/PELVIS W/O CONTRAST EXAMINATION: CT Abdomen and Pelvis without contrast. CLINICAL HISTORY: Suspected ileus TECHNIQUE: Multiple contiguous axial CT images were obtained through the abdomen and pelvis. Coronal and sagittal reconstructions were also obtained. COMPARISON: Prior CT dated 07/17/2025 FINDINGS: Stable hepatic cysts. Stable bilateral renal cortical cysts. The gallbladder is surgically absent. The liver, spleen, pancreas, and adrenal glands appear within normal limits. Dilated descending, transverse, and ascending colon with air-fluid levels. There are sigmoid colon diverticula with wall thickening and associated pericolonic abscess measuring 3.6 x 3.1 cm with pig pigtail catheter in situ ??? interval decrease in size of the abscess. Rest of the bowel loops are normal in caliber. Urinary bladder is well distended with normal wall thickening. Uterus and ovaries are unremarkable. There is no ascites or lymphadenopathy. No acute or suspicious osseous abnormality. There are multilevel mild degenerative spondylotic changes of the spine IMPRESSION: Study noted without intravenous contrast. Dilated descending, transverse, and ascending colon with air-fluid levels. This likely represents ileus. Sigmoid colon diverticula with wall thickening and associated pericolonic abscess with pig tail catheter in situ ??? interval decrease in size of the abscess. Stable hepatic cysts. Stable bilateral renal cortical cysts. /[place] DICTATED BY: HORTENSIA JORGENSEN MD DATE: 07/22/251039 ELECTRONICALLY SIGNED BY: HORTENSIA JORGENSEN MD DATE: 07/22/251039 [place] [id number] IMAGING REPORT Signed PATIENT: KIMBERLYN ALICEA MR#: [id number] : 1965 SEX: F AGE: 59 LOCATION: [facility] ORDER 1433 STATUS: ADM IN [facility] REPORT#: [id number] SERVICE 1418 REASON: chronic smoker- rule out cancer ORDERING PHYSICIAN: YSABEL CLEMENTE MD PROCEDURE: CHEST WO - CT CHEST W/O CONTRAST EXAMINATION: CT EXAMINATION OF THE CHEST WITHOUT CONTRAST CLINICAL HISTORY: Chronic smoker- rule out cancer. TECHNIQUE: Thin collimated axial CT images of the chest were obtained with sagittal and coronal reformatted images also submitted for interpretation. The total dose length product has been recorded in the electronic medical record. COMPARISON: None. FINDINGS: Central airways are patent. Elevated right diaphragm. Atelectasis of the right lower lobe. Fibroatelectatic bands in both lower lobes. Paraseptal emphysema in both upper lobes. There is no suspicious pulmonary nodule. There is minimal bilateral pleural effusion. No pericardial effusion. The heart size is within normal limits. There are atheromatous wall calcification of the aorta. The ascending aorta measures 3.2 x 3.0 cm. There is no axillary, supraclavicular, or mediastinal lymphadenopathy. Hilar christina stations are inadequately assessed without intravenous contrast. There is no focal thyroid abnormality. There is multilevel mild degenerative spondylosis of the spine. There is no acute osseous abnormality. IMPRESSION: No pulmonary nodules. LUNG RADS 1: Continue annual screening with LDCT. Paraseptal emphysema in both upper lobes. Minimal bilateral pleural effusion. Bibasilar atelectasis. No pulmonary infiltrates. Please see the report for the CT of the abdomen pelvis which is dictated separately. /[place] DICTATED BY: HORTENSIA JORGENSEN MD DATE: 07/22/251030 ELECTRONICALLY SIGNED BY: HORTENSIA JORGENSEN MD DATE: 07/22/25 [address] [place] [address] IMAGING REPORT Signed PATIENT: KIMBERLYN ALICEA MR#: [id number] : 1965 SEX: F AGE: 59 LOCATION: [facility] ORDER 2300 STATUS: ADM IN REPORT#: [id number] SERVICE 0600 REASON: SBO vs Ileus ORDERING PHYSICIAN: ROYCE,KIRSTY A LINING STRAP CLOSER PROCEDURE: ABD 1VW - ABD 1VW EXAM: CR Abdomen, 1 view. CLINICAL HISTORY: SBO versus ileus. COMPARISON: Prior abdominal radiograph dated July 20, 2025. FINDINGS: Significant gaseous distention of the large bowel loops. A pigtail catheter is identified in the pelvis on the left side may represent changes of ileus. Surgical clips in the right upper quadrant. 6 No free air is evident. No abnormal calcification. No aggressive appearing osseous lesion. IMPRESSION: Significant gaseous distention of the large bowel loops. A pigtail catheter is identified in the pelvis on the left side may represent changes of ileus. Surgical clips in the right upper quadrant. Compared to the prior study, there is no significant interval change. /[place] DICTATED BY: ANUM JARVIS Jr., MD DATE: 07/22/25853 ELECTRONICALLY SIGNED BY: ANUM JARVIS Jr., MD DATE: 07/22/25853 [place] [address] IMAGING REPORT Signed PATIENT: KIMBERLYN ALICEA MR#: [id number] : 1965 SEX: F AGE: 59 LOCATION: [facility] ORDER 40 STATUS: ADM IN REPORT#: [id number] SERVICE 35 REASON: ileus follow up ORDERING PHYSICIAN: ITZ SAUNDERS MD PROCEDURE: ABD 1VW - ABD 1VW EXAM: CR Abdomen, 2 View. CLINICAL HISTORY: ileus follow up COMPARISON: 07/22/2025; 6:45 EST FINDINGS: BOWEL: Stable gross gaseous distention of the large bowel loops. A redemonstrated pigtail catheter in the pelvis on the left side. Surgical clips in the right upper quadrant. PERITONEUM/SOFT TISSUES: No free air evident. No pathologic appearing calcification. BONES: No acute osseous abnormality. IMPRESSION: Stable gross gaseous distention of the large bowel loops, consistent with ileus. No significant interval changes. /[place] DICTATED BY: ANUM JARVIS Jr., MD DATE: 07/23/25734 ELECTRONICALLY SIGNED BY: ANUM JARVIS Jr., MD DATE: 07/23/[address] [facility] [address] [place], [place] [phone] IMAGING REPORT Signed PATIENT: KIMBERLYN ALICEA MR#: [id number] : 1965 SEX: F AGE: 59 LOCATION: [facility] ORDER 4 STATUS: ADM IN REPORT#: [id number] SERVICE 3 REASON: Abdominal abcess with distension ORDERING PHYSICIAN: HOWARD TAN MD PROCEDURE: ABD 1VW - ABD 1VW STUDY: CR Abdomen, 2 View. HISTORY: Abdominal abscess with distension. COMPARISON: CR Abdomen 1 View dated 07/22/25 ??? stable gaseous distension of large bowel loops consistent with ileus. FINDINGS: BOWEL: Stable gaseous distension of large bowel loops, consistent with ileus. No new air???fluid levels or evidence of bowel obstruction. PERITONEUM / SOFT TISSUES: No pneumoperitoneum. Surgical clips noted in the right hypochondriac region. Pigtail drainage catheter with tip positioned in the left hemipelvis. No abnormal calcification. BONES: No acute osseous abnormality. IMPRESSION: * Re-demonstrated surgical clips in right hypochondriac region and pigtail catheter tip in left hemipelvis. * Stable gaseous distension of large bowel loops, consistent with ileus. * No significant interval change compared with prior study dated 07/22/25. Recommend CT abdomen/pelvis with IV and oral contrast or small bowel series for further workup. /[place] DICTATED BY: KRAIG JOHNSON MD DATE: 07/24/2549 ELECTRONICALLY SIGNED BY: KRAIG JOHNSON MD DATE: 07/24/[address] [facility] [address] [place] [address] [phone] IMAGING REPORT Signed PATIENT: KIMBERLYN ALICEA MR#: [id number] : 1965 SEX: F AGE: 59 LOCATION: [facility] ORDER 28 STATUS: ADM IN REPORT#: [id number] SERVICE 25 REASON: VIEWING PICC LINE PLACEMENT ORDERING PHYSICIAN: HAYDEE MOULTON MD PROCEDURE: CXR1VW - CHEST 1VW EXAM: CR Chest, 2 View. CLINICAL HISTORY: VIEWING PICC LINE PLACEMENT COMPARISON: None provided. FINDINGS: Right PICC overlies the distal SVC. Mild right basilar atelectasis and/or parenchymal scarring. No pleural effusion. Heart size and pulmonary vessels are within normal limits. IMPRESSION: 1. Right PICC line tip in appropriate position in distal SVC. 2. No acute cardiopulmonary findings. /[place] DICTATED BY: ANUM JARVIS Jr., MD DATE: 07/23/252033 ELECTRONICALLY SIGNED BY: ANUM JARVIS Jr., MD DATE: 07/23/252033 [place] [address] IMAGING REPORT Signed PATIENT: KIMBERLYN ALICEA MR#: [id number] : 1965 SEX: F AGE: 59 LOCATION: [facility] ORDER 3 STATUS: ADM IN REPORT#: [id number] SERVICE 2 REASON: ileus monitoring ORDERING PHYSICIAN: ITZ SAUNDERS MD PROCEDURE: ABD 1VW - ABD 1VW STUDY: X-RAY OF THE ABDOMEN, SINGLE VIEW HISTORY: ileus monitoring (Hx) TECHNIQUE: A single frontal view of the abdomen is submitted for interpretation. COMPARISON: CR - ABD 1VW dated July 23, 2025 at 08:56 EST. FINDINGS: Bowel: Stable gaseous distention of large bowel loops consistent with ileus. No new air???fluid levels. No evidence of bowel obstruction. Peritoneum / soft tissues: No pneumoperitoneum. Surgical clips in the right hypochondriac region. Pigtail drainage catheter with tip in the left hemipelvis. No abnormal calcification. Bones: No acute osseous abnormality. IMPRESSION: * Stable gaseous distention of the large and small bowel consistent with ileus versus developing small and large bowel obstruction without new air???fluid levels. Recommend CT abdomen/pelvis and or small bowel series for further workup. * No pneumoperitoneum identified. * Left pelvic pigtail drainage catheter in place; surgical clips in the right hypochondriac region. * No acute osseous abnormality. * Comparison: The findings remain unchanged from CR - ABD 1VW on July 23, 2025, at 08:56 EST. /[place] DICTATED BY: KRAIG JOHNSON MD DATE: 07/24/251405 ELECTRONICALLY SIGNED BY: KRAIG JOHNSON MD DATE: 07/24/251405 [place] [address] IMAGING REPORT Signed PATIENT: KIMBERLYN ALICEA MR#: [id number] : 1965 SEX: F AGE: 59 LOCATION: [facility] ORDER 2300 STATUS: ADM IN REPORT#: [id number] SERVICE 0600 REASON: ileus ORDERING PHYSICIAN: HOWARD TAN MD PROCEDURE: ABD 1VW - ABD 1VW STUDY: CR Abdomen, 2 View. HISTORY: Abdominal abscess with distension. COMPARISON: CR Abdomen 1 View dated 07/24/25 ??? stable gaseous distension of large bowel loops consistent with ileus. FINDINGS: BOWEL: Stable gaseous distension of small and large bowel loops, consistent with ileus. No new air???fluid levels or evidence of bowel obstruction. PERITONEUM / SOFT TISSUES: Pigtail drainage catheter with tip positioned in the left hemipelvis. No abnormal calcification. BONES: No acute osseous abnormality. IMPRESSION: Stable gaseous distension of small and large bowel loops, consistent with ileus. No significant interval change compared with prior study dated 07/24/25. Recommend CT abdomen/pelvis with IV and oral contrast or small bowel series for further workup /[place] DICTATED BY: HORTENSIA JORGENSEN MD DATE: 07/26/25 152 ELECTRONICALLY SIGNED BY: HORTENSIA JORGENSEN MD DATE: 07/26/[address] [facility] [address] [place] [address] IMAGING REPORT Addendum PATIENT: KIMBERLYN ALICEA MR#: [id number] : 1965 SEX: F AGE: 59 LOCATION: [facility] ORDER 2300 STATUS: ADM IN REPORT#: [id number] SERVICE 0600 REASON: diverticular abcess with ileus ORDERING PHYSICIAN: HOWARD TAN MD PROCEDURE: ABD PEL WO - CT ABDOMEN/PELVIS W/O CONTRAST ADDENDUM REPORT ADDENDUM: Results were shared by telephone at 04:12 AM EST on 07-27-25 and acknowledged by Patient Nurse Ms. Nicole Simons. /[place] EXAM: CT Abdomen and Pelvis Without IV Contrast CLINICAL HISTORY: Diverticular abscess with ileus TECHNIQUE: Axial computed tomography images of the abdomen and pelvis were obtained without intravenous contrast. Dose information: Total DLP ??? 314 mGy???cm CONTRAST: No intravenous contrast administered COMPARISON: CT Abdomen and Pelvis dated 07/24/25 demonstrating gaseous distension of small and large bowel loops consistent with ileus FINDINGS: Lung Bases: Small bilateral pleural collections (right 1.0 cm, left 1.5 cm) with mild subpleural atelectasis Liver: Mild hepatomegaly measuring 16 cm with diffuse fatty attenuation consistent with hepatic steatosis Gallbladder and Bile Ducts: Surgically absent gallbladder consistent with prior cholecystectomy; no biliary dilatation Pancreas, Spleen, and Adrenal Glands: Normal Kidneys, Ureters, and Bladder: Right lower pole cortical cyst measuring 4.6 ??? 4.5 cm; no hydronephrosis or calculus; urinary bladder unremarkable Stomach and Bowel: Dilated small bowel loops measuring up to 5 cm and large bowel loops up to 9 cm with multiple air-fluid levels. Transition point at the proximal descending colon with circumferential wall thickening up to 9 mm over 3 cm. A second long-segment stricture involving the sigmoid???rectal region shows circumferential wall thickening up to 2 cm over 12 cm with marked pericolonic and perirectal fat stranding. Upstream small and large bowel dilatation consistent with mechanical obstruction. Diffuse mesenteric congestion. No pneumoperitoneum or perforation. Background colonic diverticulosis. Appendix: Not confidently visualized; no periappendiceal inflammatory change Peritoneum: Trace free fluid; no free air; pigtail catheter with tip in the left upper hemipelvis/iliac fossa region Lymph Nodes: No pathologic lymphadenopathy Reproductive Organs: Parametrial vascular congestion and mild pelvic soft-tissue edema Vasculature: No abdominal aortic aneurysm or vascular abnormality Bones: Erosive changes along the iliac aspects of both sacroiliac joints consistent with sacroiliitis; degenerative thoracolumbar spondylosis with grade I anterolisthesis of L4 over L5 and facet degeneration Soft Tissues: Diffuse abdominal wall and pelvic subcutaneous edema IMPRESSION: * Acute mechanical large bowel obstruction (Grade II per ACR/RSNA???[place] WSES classification) secondary to multifocal long-segment inflammatory strictures involving the proximal descending and sigmoid???rectal colon, with circum ferential wall thickening, upstream small bowel dilatation (5 cm), large bowel dilatation (9 cm), and multiple air-fluid levels; no pneumoperitoneum or perforation. Compared with 07/24/25, interval progression from prior ileus noted, radiologically correlating with acute obstruction on a chronic inflammatory background. * Chronic inflammatory colitis with pericolonic and perirectal fat stranding in a background of colonic diverticulosis, causing fixed strictures and chronic low-grade inflammation; stable in extent compared with prior study, radiologically correlating with long-standing inflammatory bowel disease. * Background colonic diverticulosis without abscess or perforation, correlating with chronic diverticular disease. * Hepatomegaly with diffuse hepatic steatosis, stable since 07/24/25, radiologically correlating with metabolic fatty liver. * Surgically absent gallbladder consistent with prior cholecystectomy, right renal cortical cyst (4.6 ??? 4.5 cm) of benign morphology, and mild parametrial congestion with diffuse subcutaneous and mesenteric edema???all stable, minor ancillary findings without acute significance. 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 * Small bilateral pleural collections with subpleural atelectasis, likely reactive. * Left pelvic pigtail catheter in satisfactory position within the upper hemipelvis/iliac fossa, correlating with post-procedural drainage placement. * Overall imaging findings confirm acute large bowel obstruction secondary to chronic inflammatory colitis with multifocal strictures in a background of diverticulosis, with otherwise stable ancillary findings compared with 07/24/25, radiologically correlating with an ecibb-cf-bnlgosl inflammatory obstructive process. /[place] DICTATED BY: KRAIG JOHNSON MD DATE: 07/27/25 0413 ELECTRONICALLY SIGNED BY: DATE: EXAM: CT Abdomen and Pelvis Without IV Contrast CLINICAL HISTORY: Diverticular abscess with ileus TECHNIQUE: Axial computed tomography images of the abdomen and pelvis were obtained without intravenous contrast. Dose information: Total DLP ??? 314 mGy???cm CONTRAST: No intravenous contrast administered COMPARISON: CT Abdomen and Pelvis dated 07/24/25 demonstrating gaseous distension of small and large bowel loops consistent with ileus FINDINGS: Lung Bases: Small bilateral pleural collections (right 1.0 cm, left 1.5 cm) with mild subpleural atelectasis Liver: Mild hepatomegaly measuring 16 cm with diffuse fatty attenuation consistent with hepatic steatosis Gallbladder and Bile Ducts: Surgically absent gallbladder consistent with prior cholecystectomy; no biliary dilatation Pancreas, Spleen, and Adrenal Glands: Normal Kidneys, Ureters, and Bladder: Right lower pole cortical cyst measuring 4.6 ??? 4.5 cm; no hydronephrosis or calculus; urinary bladder unremarkable Stomach and Bowel: Dilated small bowel loops measuring up to 5 cm and large bowel loops up to 9 cm with multiple air-fluid levels. Transition point at the proximal descending colon with circumferential wall thickening up to 9 mm over 3 cm. A second long-segment stricture involving the sigmoid???rectal region shows circumferential wall thickening up to 2 cm over 12 cm with marked pericolonic and perirectal fat stranding. Upstream small and large bowel dilatation consistent with mechanical obstruction. Diffuse mesenteric congestion. No pneumoperitoneum or perforation. Background colonic diverticulosis. Appendix: Not confidently visualized; no periappendiceal inflammatory change Peritoneum: Trace free fluid; no free air; pigtail catheter with tip in the left upper hemipelvis/iliac fossa region Lymph Nodes: No pathologic lymphadenopathy Reproductive Organs: Parametrial vascular congestion and mild pelvic soft-tissue edema Vasculature: No abdominal aortic aneurysm or vascular abnormality Bones: Erosive changes along the iliac aspects of both sacroiliac joints consistent with sacroiliitis; degenerative thoracolumbar spondylosis with grade I anterolisthesis of L4 over L5 and facet degeneration Soft Tissues: Diffuse abdominal wall and pelvic subcutaneous edema IMPRESSION: * Acute mechanical large bowel obstruction (Grade II per ACR/RSNA???[place] WSES classification) secondary to multifocal long-segment inflammatory strictures involving the proximal descending and sigmoid???rectal colon, with circumferential wall thickening, upstream small bowel dilatation (5 cm), large bowel dilatation (9 cm), and multiple air-fluid levels; no pneumoperitoneum or perforation. Compared with 07/24/25, interval progression from prior ileus noted, radiologically correlating with acute obstruction on a chronic inflammatory background. * Chronic inflammatory colitis with pericolonic and perirectal fat stranding in a background of colonic diverticulosis, causing fixed strictures and chronic low-grade inflammation; stable in extent compared with prior study, radiologically correlating with long-standing inflammatory bowel disease. * Background colonic diverticulosis without abscess or perforation, correlating with chronic diverticular disease. * Hepatomegaly with diffuse hepatic steatosis, stable since 07/24/25, radiologically correlating with metabolic fatty liver. * Surgically absent gallbladder consistent with prior cholecystectomy, right renal cortical cyst (4.6 ??? 4.5 cm) of benign morphology, and mild parametrial congestion with diffuse subcutaneous and mesenteric edema???all stable, minor ancillary findings without acute significance. 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 * Small bilateral pleural collections with subpleural atelectasis, likely reactive. * Left pelvic pigtail catheter in satisfactory position within the upper hemipelvis/iliac fossa, correlating with post-procedural drainage placement. * Overall imaging findings confirm acute large bowel obstruction secondary to chronic inflammatory colitis with multifocal strictures in a background of diverticulosis, with otherwise stable ancillary findings compared with 07/24/25, radiologically correlating with an [id number]-pvcybij inflammatory obstructive process. /[place] DICTATED BY: KRAIG JOHNSON MD DATE: 07/27/25307 ELECTRONICALLY SIGNED BY: KRAIG JOHNSON MD DATE: 07/27/[address] [facility] [address] [place] [address] IMAGING REPORT Signed PATIENT: KIMBERLYN ALICEA MR#: [id number] : 1965 SEX: F AGE: 59 LOCATION: [facility] ORDER 1330 STATUS: ADM IN REPORT#: [id number] SERVICE 1328 REASON: FOLLOW UP ON OBSTRUCTION ORDERING PHYSICIAN: DIEGO ALICIA Jr. PAC PROCEDURE: ABD 1VW - ABD 1VW EXAM: CR Abdomen, 1 View. CLINICAL HISTORY: FOLLOW UP ON OBSTRUCTION COMPARISON: Radiograph dated July 25, 2025 FINDINGS: Interval increased dilatation of air-filled loops of small and large bowel that now measure up to 3.5 and 11.8 cm respectively. Drainage catheter projects over the left pelvis. IMPRESSION: 1. Interval worsening of small and large bowel dilatation, consistent with progression of bowel obstruction. /[place] DICTATED BY: ANUM JARVIS Jr., MD DATE: 07/27/251722 ELECTRONICALLY SIGNED BY: ANUM JARVIS Jr., MD DATE: 07/27/251722 [facility] [address] [place] [address] IMAGING REPORT Signed PATIENT: KIMBERLYN ALICEA MR#: [id number] : 1965 SEX: F AGE: 59 LOCATION: [facility] ORDER 1416 STATUS: ADM IN REPORT#: [id number] SERVICE 1415 REASON: FOLLOW UP ON BOWEL OBSTRUCITON ORDERING PHYSICIAN: DIEGO ALICIA Jr. PROCEDURE: ABD 1VW - ABD 1VW EXAM: CR Abdomen, 2 View. CLINICAL HISTORY: FOLLOW UP ON BOWEL OBSTRUCITON COMPARISON: Radiograph dated July 27, 2023 FINDINGS: Relatively unchanged markedly dilated loops of small and large bowel. No radiographic evidence of pneumatosis intestinalis, pneumoperitoneum, or portal venous gas. IMPRESSION: 1. Persistent marked small and large bowel dilatation, consistent with ongoing bowel obstruction. /[place] DICTATED BY: ANUM JARVIS Jr., MD DATE: 07/28/251732 ELECTRONICALLY SIGNED BY: ANUM JARVIS Jr., MD DATE: 07/28/251732 [place] [id number] IMAGING REPORT Signed PATIENT: KIMBERLYN ALICEA MR#: [id number] : 1965 SEX: F AGE: 59 LOCATION: [facility] ORDER 1017 STATUS: ADM IN REPORT#: [id number] SERVICE 1016 REASON: Abdominal distension ORDERING PHYSICIAN: HOWARD TAN MD PROCEDURE: ABD 1VW - ABD 1VW STUDY: X-RAY OF THE ABDOMEN, 1 VIEW HISTORY: Abdominal distension. TECHNIQUE: A single supine frontal view of the abdomen is submitted for interpretation. COMPARISON: Abdominal radiograph from 07/28 at 15:22 EST. FINDINGS: Bones and joints: Visualized spine, pelvis, and proximal femora demonstrate no acute or aggressive osseous abnormality. Bowel gas pattern: Markedly dilated loops of small and large bowel are again seen, relatively unchanged from the prior examination. No radiographic evidence of pneumatosis intestinalis is identified. Soft tissues: No free intraperitoneal air is seen beneath the hemidiaphragms. No radiographic evidence of portal venous gas. No abnormal soft tissue calcifications are identified. IMPRESSION: * Relatively unchanged markedly dilated loops of small and large bowel, compatible with persistent ileus or bowel obstruction; correlate clinically. * No radiographic evidence of pneumatosis intestinalis, pneumoperitoneum, or portal venous gas. * Overall stable abdominal radiograph compared with 07/28 at 15:22 EST. /[place] DICTATED BY: KRAIG JOHNSON MD DATE: 07/30/25347 ELECTRONICALLY SIGNED BY: KRAIG JOHNSON MD DATE: 07/30/25[address] [address] IMAGING REPORT Signed PATIENT: KIMBERLYN ALICEA MR#: [id number] : 1965 SEX: F AGE: 59 LOCATION: [facility] ORDER 230 STATUS: ADM IN REPORT#: [id number] SERVICE 06 REASON: Abdominal distention ORDERING PHYSICIAN: DIEGO ALICIA Jr. PAC PROCEDURE: ABD 1VW - ABD 1VW EXAM: CR Abdomen, 2 views CLINICAL HISTORY: Abdominal distention COMPARISON: Prior abdominal radiograph dated July 29, 2025. FINDINGS: Surgical clips in the right upper quadrant are probable post-cholecystectomy surgical clips. Gaseous distention of the small and large bowel loops without any abnormal air-fluid level, possibility of ileus. No free air is evident. No abnormal calcification. No aggressive appearing osseous lesion. IMPRESSION: Gaseous distention of the small and large bowel loops without any abnormal air-fluid level, possibility of ileus. Compared to the prior study, there is no significant interval change. Redemonstrated is the gaseous distention of the small and large bowel loops. /[place] DICTATED BY: ANUM JARVIS Jr., MD DATE: 07/30/25748 ELECTRONICALLY SIGNED BY: ANUM JARVIS Jr., MD DATE: 07/30/25748 Assessment/Plan: ASSESSMENT: Sepsis due to Acute sigmoid diverticulitis complicated by abscess, status post percutaneous drainage of pelvic abscess POA Multidrug-resistant E. coli and Pseudomonas GI infection Acute Paralytic ileus versus obstruction, POA Severe hyponatremia, hypovolemic, POA: SIADH ruled in ,POA Hypokalemia, POA Iron-deficiency anemia POA Hepatic and renal cysts , POA Chronic constipation, POA Colonic diverticulosis, POA Chronic smoking and alcoholism POA Severe Protein calorie malnutrition, POA Discharge Instructions: 1. Diverticulitis With Abscess Continue IV meropenem at home for at least 3 weeks through your PICC line. Keep the drain site clean and monitor for redness, swelling, or fever. Keep a daily record of drain output if still present. 2. Hyponatremia (Low Sodium / SIADH) Fluid limit: 1 liter per day. Continue salt tablets as prescribed. Repeat blood work in 1 week. 3. Bowel Care / Ileus Eat soft or light foods until cleared by surgery. Walk several times a day to improve bowel movement. Return if you develop vomiting, severe bloating, or cannot pass gas. 4. Nutrition Eat small, high-protein meals (eggs, chicken, beans, yogurt). Drink nutritional supplements if recommended. Follow with nutrition clinic after discharge. 5. Drain and PICC Line Care Keep dressings clean and dry. Flush PICC only as instructed. Report any redness, swelling, fever, or pus around lines. 6. When to Return to the ER Go to the ER if you have: Fever or chills Worsening abdominal pain Nausea/vomiting or inability to eat No bowel movement for multiple days Confusion, dizziness, weakness Drain stops working or becomes blocked Shortness of breath or chest pain 7. Follow-Up Infectious Diseases: 1 week General Surgery: 12 weeks (to review repeat CT imaging and drain status) Primary Care: 1 week (for sodium, potassium, and nutrition follow-up) Interventional Radiology: As directed, for drain removal if applicable Home Medications: No Active Prescriptions or Reported Meds Medication Profile: No Active Prescriptions or Reported Meds Time spent arranging discharge: 1-30 minutes ATTESTATION BY PHYSICIAN I have seen and examined the patient. I reviewed the documentation, medical decision making, and treatment plan as noted by the resident physician above. I agree with the findings and plan of care. RICHARD WANG MD, HEMA MD Jul 31, 2025 15:53
--- NOTE | 2025-07-31 16:15 | NUR ---
DISCHARGE DISCHARGE ORDERS OBTAINED FOR PATIENT TO BE DISCHARGED AND TRANSFERRED TO [facility] [place]. DISCHARGE INSTRUCTIONS AND DOCUMENTATION GIVEN TO PATIENT AT BEDSIDE. VOICED UNDERSTANDING. PICC LINE IN PLACE. DRESSING DRY AND INTACT. NO S/S BLEEDING OR INFECTION NOTED. BANDS REMOVED. PENDING TRANSPORTATION FROM [facility] [place] [place].
--- NOTE | 2025-07-31 16:18 | NUR ---
DISCHARGE REPORT GIVEN TO FILIBERTO SUMMERS AT [facility], PENDING PICKUP FROM FACILITY.
--- NOTE | 2025-07-31 16:45 | NUR ---
DISCHARGE PATIENT LEFT VIA WHEELCHAIR, ACCOMPANIED BY FACILITY SNAGGER. NO S/S OF DISTRESS NOTED.
--- NOTE | 2025-07-31 19:57 | PN ---
INFECTIOUS DISEASE PROGRESS NOTE Date of Service: Jul 31, 2025 SUBJECTIVE: Patient was seen and examined at bedside in room 406. Patient is awake alert and oriented x3. No nausea or vomiting. Continues on Meropenem. PHYSICAL EXAM EYES: Anicteric. Pupils equal and reactive. HENT: No oral thrush seen, moist Oral mucosa. NECK: Supple, no JVD or thyromegaly. LUNGS: Good air entry. No rales, no rhonchi. CARDIOVASCULAR: S1, S2 regular. No murmur heard. ABDOMEN: Distended. bowel sounds present. Percutaneous drain placement. CENTRAL NERVOUS SYSTEM: Awake, alert, oriented x 3. SKIN: No rashes, no swelling. LYMPHATICS: No peripheral lymphadenopathy. MUSCULOSKELETAL: No joint swelling, erythema or tenderness. EXTREMITIES: No cyanosis or clubbing. BACK: No deformity, no pressure ulcer. GENITOURINARY: No dysuria or hematuria. Vital Sign (Last 12 Hours) 07/31/25 07/31/25 07/31/25 08:00 08:10 12:00 Temp 98.2 98.6 Pulse 66 78 Resp 18 18 B/P (MAP) 121/72 129/73 Pulse Ox 95 95 97 O2 Delivery Room Air Room Air* Room Air O2 Flow Rate 0 FiO2 21 Intake & Output (last 24hrs) 07/30/25 07/30/25 07/31/25 15:00 23:00 07:00 Intake Total 1220.0 ml Output Total 810 ml 910 ml Balance 410.0 ml -910 ml LABS: Laboratory: Test 07/31/25 04:14 07/30/25 03:29 Range/Units White Blood Count 10.1 4.8-10.8 K/uL Red Blood Count 3.51 L 4.00-5.50 MIL/uL Hemoglobin 9.8 L 12.0-16.0 g/dL Hematocrit 30.1 L 36-48 % Mean Corpuscular Volume 85.8 79-99 fL Mean Corpuscular Hemoglobin 27.9 27.0-33.0 pg Mean Corpuscular Hemoglobin Concent 32.6 32.0-36.0 g/dL Red Cell Distribution Width 13.2 11.0-15.5 % Platelet Count 441 H 130-400 K/uL Mean Platelet Volume 9.1 7.5-10.5 fL Immature Granulocyte % (Auto) 0.6 0-1 % Neutrophils (%) (Auto) 75.6 40.0-77.0 % Lymphocytes (%) (Auto) 15.6 L 21.0-51.0 % Monocytes (%) (Auto) 7.7 3.0-13.0 % Eosinophils (%) (Auto) 0.2 0.0-8.0 % Basophils (%) (Auto) 0.3 0.0-5.0 % Neutrophils # (Auto) 7.7 1.8-7.7 K/uL Lymphocytes # (Auto) 1.6 1.0-4.8 K/uL Monocytes # (Auto) 0.8 0.1-1.0 K/uL Eosinophils # (Auto) 0.02 0.00-0.70 K/uL Basophils # (Auto) 0.03 0.00-0.20 K/uL Absolute Immature Granulocyte (auto 0.06 0-1 K/uL Nucleated Red Blood Cells 0.0 0.0-0.19 % Sodium Level 128 L 136-145 mmol/L Potassium Level 3.9 3.5-5.1 mmol/L Chloride Level 94 L 101-111 mmol/L Carbon Dioxide Level 27 21-32 mmol/L Blood Urea Nitrogen 5 L 7-18 mg/dL Creatinine 0.5 0.5-1.0 mg/dL Glomerular Filtration Rate Calc 109 >90 mL/min Random Glucose 91 70-105 mg/dL Total Calcium 8.6 8.5-10.1 mg/dL Total Bilirubin 0.5 0.2-1.0 mg/dL Aspartate Amino Transf (AST/SGOT) 20 10-37 U/L Alanine Aminotransferase (ALT/SGPT) 12 12-78 U/L Alkaline Phosphatase 77 50-136 U/L C-Reactive Protein, Quantitative 28.00 H 0.5-3.0 mg/L Total Protein 5.9 L 6.0-8.3 g/dL Albumin 2.0 L 3.5-5.0 g/dL Assisted ASSESSMENT: Diverticulitis with perforation and abscess, s/p percutaneous drain placement on 07/19/2025. Infection with multidrug resistant organism. Abdominal pain, possible ileus. Leukocytosis, resolved. Hyponatremia. Chronic tobacco use. PLAN: Continue Meropenem IV. Continue GI prophylaxis. Percutaneous drain care. Continue pain management. Continue GI prophylaxis. Patient has been approved to [facility] and pending General surgeon clearance. This case was reviewed and discussed with my supervising physician Dr. Moulton and the above assessment and plan was formulated and agreed upon. ATTESTATION BY PHYSICIAN I have seen and examined the patient. I reviewed the documentation, medical decision making, and treatment plan as noted by the mid-level provider above. I agree with the findings and plan of care. HAYDEE MOULTON MD, [facility] Jul 31, 2025 19:57
--- NOTE | 2025-07-31 21:01 | HMCIMG ---
STUDY: X-RAY OF THE ABDOMEN, 1 VIEW HISTORY: Suspected ileus. TECHNIQUE: A single supine frontal view of the abdomen is submitted for interpretation. COMPARISON: Abdominal radiograph from 07/30 at 4:31 EST. FINDINGS: Bones and joints: Visualized lumbar spine, pelvis, and hips demonstrate no acute fracture or destructive osseous lesion. Abdominal gas pattern: Gaseous distention of small and large bowel loops is present without conspicuous air???fluid levels, raising the possibility of an ileus. No definite radiographic features of colonic volvulus are identified. Soft tissues: Surgical clips project over the right upper quadrant, likely related to prior cholecystectomy. No abnormal soft tissue calcification is seen. No free intraperitoneal air is evident beneath the hemidiaphragms. IMPRESSION: * Gaseous distention of small and large bowel loops without clear air???fluid levels, compatible with a possible ileus pattern. * No radiographic evidence of free intraperitoneal air or definite colonic volvulus on this single-view abdominal radiograph. * Right upper quadrant surgical clips, likely post-cholecystectomy. * Compared with the abdominal radiograph from 07/30 at 4:31 EST, the bowel gas pattern appears grossly stable. CT of the abdomen and pelvis may be considered if there is ongoing clinical concern for obstruction or other intra-abdominal pathology. /[place]
--- NOTE | 2025-07-31 21:09 | HMCIMG ---
EXAM CT Abdomen and Pelvis Without IV contrast CLINICAL HISTORY Evaluation of RUQ pigtail drain. TECHNIQUE Axial computed tomography images of the abdomen and pelvis obtained without intravenous contrast. CONTRAST No IV contrast. COMPARISON CR ??? Abdomen, single view dated 07/30/2025; Prior CT dated 07/27/2025. FINDINGS Lung Bases Bilateral basilar linear atelectasis, more pronounced in the right lower lobe. No pleural effusion. Interval resolution of prior left pleural effusion (comparison 07/27/2025). Liver Fatty liver. No focal lesion. Gallbladder and Bile Ducts Gallbladder surgically absent. No biliary ductal dilatation. Pancreas Normal in contour. Spleen Normal size and attenuation. Adrenal Glands Unremarkable. Kidneys, Ureters and Bladder Left lower-pole cortical cyst 4.0 ??? 3.5 cm. Right lower-pole cortical cyst 6.5 ??? 6.0 cm. No hydronephrosis or calculus. Bladder unremarkable. Stomach and Bowel Diffuse gaseous distention of small and large bowel loops. Maximum large-bowel calibre 7.6 cm at ascending colon; small-bowel calibre 4.5 cm. A transition point is identified at the sigmoid???rectosigmoid junction where circumferential mural thickening measures up to 2.1 cm over 10 cm, accompanied by extensive diverticulosis and marked mesocolic/mesorectal fat stranding. Several tiny extraluminal air foci lie in the posterior pelvis adjacent to this inflamed segment. Distal rectum is collapsed. Appendix Normal. Peritoneum No ascites. Localised extraluminal air as above. Lymph Nodes No lymphadenopathy. Reproductive Organs Unremarkable as visualised. Vasculature No abdominal aortic aneurysm. Bones Severe degenerative thoracolumbar spondylosis. Other Pigtail catheter tip is located in the left hemipelvis. IMPRESSION * High-grade mechanical large-bowel obstruction with a well-defined transition at the sigmoid???rectosigmoid junction, where marked mural thickening (2.1 cm over 10 cm), extensive diverticulosis, and intense mesorectal/mesocolic inflammation are present, compatible with an inflammatory stricture. * Multiple small foci of extraluminal air in the posterior pelvis adjacent to the inflamed sigmoid???rectosigmoid segment, suggestive of contained microperforation. * Compared with CT dated 07/27/2025, left pleural effusion has resolved; persistent inflammatory mural thickening with progressive/persistent obstructive pattern. * Correlation with radiograph 07/30/2025 (reported as ileus) indicates that current CT findings favour true mechanical large-bowel obstruction, supported by collapse of the distal rectum. * Fatty liver and bilateral renal cortical cysts. * Pigtail catheter in situ within the left hemipelvis. /Bailey
--- NOTE | 2025-07-31 22:15 | PN ---
GASTROENTEROLOGY PROGRESS NOTE Date of Visit: Jul 31, 2025 Time of Visit: 22:14 Events / Notes: [ ] Review of Systems: CONSTITUTIONAL: No malaise or change in sensation of wellbeing. ENMT: No rhinorrhea, otorrhea, sinus pain, ear ache. CARDIOVASCULAR: No angina, palpitations, orthopnea or paroxysmal dyspnea. RESPIRATORY: No SOB. GASTROINTESTINAL: No abdominal pain, nausea, vomiting, diarrhea, hematemesis, melena or change in the patient's habitual bowel movements consistency/number. GENITOURINARY: No dysuria, hematuria or change in bladder continence. MUSCULOSKELETAL: No new muscle pain or decrease in muscular strength. No new joint swelling, redness or tenderness. SKIN: No new rash. Physical Exam: GEN: Awake, alert, oriented in person, time and place, and in no acute distress. HEENT: No sinus tenderness. Tympanic membranes were not examined. No rhinorrhea. Oral pharyngeal mucosa is pink, moist and within normal limits. Neck is supple with no cervical lymphadenopathy, thyromegaly or JVD. CHEST: Inspection, palpation and percussion of the chest were unremarkable. Lung auscultation revealed normal breath sounds bilaterally. CARDIAC: PMI is within normal limits. Heart sounds are regular. Normal S1, S2. No gallop or murmur. ABD: Soft, non-tender and not distended. No peritoneal signs on palpation. No organomegaly. Normal bowel sounds. EXT: No cyanosis or clubbing. No edema. SKIN: Intact. No rashes. JOINTS: No evidence of synovitis or acute arthritis. NEURO: Alert and oriented to name, place and person. Cranial nerve examination is unremarkable. No focal motor deficits. Normal speech. Gait is normal. Strength is normal. Laboratory: [ ] Laboratory: Test 07/31/25 04:14 07/30/25 03:29 Range/Units White Blood Count 10.1 4.8-10.8 K/uL Red Blood Count 3.51 L 4.00-5.50 MIL/uL Hemoglobin 9.8 L 12.0-16.0 g/dL Hematocrit 30.1 L 36-48 % Mean Corpuscular Volume 85.8 79-99 fL Mean Corpuscular Hemoglobin 27.9 27.0-33.0 pg Mean Corpuscular Hemoglobin Concent 32.6 32.0-36.0 g/dL Red Cell Distribution Width 13.2 11.0-15.5 % Platelet Count 441 H 130-400 K/uL Mean Platelet Volume 9.1 7.5-10.5 fL Immature Granulocyte % (Auto) 0.6 0-1 % Neutrophils (%) (Auto) 75.6 40.0-77.0 % Lymphocytes (%) (Auto) 15.6 L 21.0-51.0 % Monocytes (%) (Auto) 7.7 3.0-13.0 % Eosinophils (%) (Auto) 0.2 0.0-8.0 % Basophils (%) (Auto) 0.3 0.0-5.0 % Neutrophils # (Auto) 7.7 1.8-7.7 K/uL Lymphocytes # (Auto) 1.6 1.0-4.8 K/uL Monocytes # (Auto) 0.8 0.1-1.0 K/uL Eosinophils # (Auto) 0.02 0.00-0.70 K/uL Basophils # (Auto) 0.03 0.00-0.20 K/uL Absolute Immature Granulocyte (auto 0.06 0-1 K/uL Nucleated Red Blood Cells 0.0 0.0-0.19 % Sodium Level 128 L 136-145 mmol/L Potassium Level 3.9 3.5-5.1 mmol/L Chloride Level 94 L 101-111 mmol/L Carbon Dioxide Level 27 21-32 mmol/L Blood Urea Nitrogen 5 L 7-18 mg/dL Creatinine 0.5 0.5-1.0 mg/dL Glomerular Filtration Rate Calc 109 >90 mL/min Random Glucose 91 70-105 mg/dL Total Calcium 8.6 8.5-10.1 mg/dL Total Bilirubin 0.5 0.2-1.0 mg/dL Aspartate Amino Transf (AST/SGOT) 20 10-37 U/L Alanine Aminotransferase (ALT/SGPT) 12 12-78 U/L Alkaline Phosphatase 77 50-136 U/L C-Reactive Protein, Quantitative 28.00 H 0.5-3.0 mg/L Total Protein 5.9 L 6.0-8.3 g/dL Albumin 2.0 L 3.5-5.0 g/dL Current Medications Medications (Trade) Dose Ordered Sig/Heather Route PRN Reason Start Time Stop Time Status Last Admin Dose Admin Acetaminophen (TYLenol 325MG TAB) 650 mg Q6H PRN PO TEMPERATURE GREATER THAN 101.5 07/17/25 22:00 07/31/25 16:45 DC Acetaminophen (TYLenol 500MG TAB) 500 mg Q4H PRN PO MILD PAIN (1-3) 07/18/25 10:30 07/31/25 16:45 DC 07/30/25 20:10 500 MG Acetaminophen (acetaMINOPHEN 1,000MG/100ML) 1,000 mg [id number] PRN IVPB MODERATE PAIN (4-6) 07/22/25 13:30 07/31/25 16:45 DC Albumin Human 250 ml @ 0 mls/hr AD IV 07/21/25 14:30 07/22/25 07:19 DC 07/21/25 22:49 60 MLS/HR Diphenhydramine HCl (BENAdryl CAP) 25 mg Q8H PRN PO INSOMNIA 07/20/25 11:00 07/22/25 11:13 DC 07/21/25 18:33 25 MG Famotidine (Pepcid 20mg Vial) 20 mg DAILY IV 07/18/25 09:00 07/22/25 11:12 DC 07/21/25 08:33 20 MG Heparin Sodium (Porcine) (HEParin 5,000 UNIT VIAL) 5,000 unit Q12H SQ 07/23/25 12:00 07/24/25 00:30 DC 07/23/25 14:44 5,000 UNIT Heparin Sodium (Porcine) (HEParin 5,000 UNIT VIAL) 5,000 unit Q12H SQ 07/24/25 03:00 07/31/25 16:45 DC 07/31/25 14:46 5,000 UNIT Hydralazine HCl (APRESOLine 20MG INJ) 10 mg Q6H PRN IV For:SBP above 160;DBP above 90 07/17/25 22:00 07/31/25 16:45 DC Lactated Ringer's 1,000 ml @ 75 mls/hr [id number] IV 07/17/25 22:00 07/17/25 22:07 DC 07/17/25 21:56 75 MLS/HR Lactulose (Constulose 20gm/ 30ml Udcup) 20 gm BID PRN PO CONSTIPATION 07/20/25 17:00 07/26/25 06:31 DC Levofloxacin/ Dextrose (LEvaquIN 750 MG/ D5W 150 ML) 750 mg Q24H IV 07/19/25 05:00 07/22/25 08:34 DC 07/22/25 04:52 750 MG Magnesium Sulfate 50 ml @ 0 mls/hr PROTOCOL PRN IV MAGNESIUM PROTOCOL 07/24/25 05:00 07/31/25 16:45 DC 07/29/25 06:02 25 MLS/HR Magnesium Sulfate 50 ml @ 0 mls/hr PROTOCOL PRN IV h 07/17/25 22:30 07/20/25 21:08 DC 07/18/25 02:31 25 MLS/HR Meropenem (Merrem 1gm) 1 gm Q8H IVPB 07/22/25 09:00 07/24/25 00:29 DC 07/23/25 17:39 1 GM Meropenem (Merrem 1gm) 1 gm Q8H IVPB 07/24/25 02:00 07/31/25 16:45 DC 07/31/25 10:48 1 GM Metoclopramide HCl (regLAN 10MG IV) 10 mg ACHS IVP 07/20/25 21:00 07/21/25 14:18 DC 07/21/25 12:24 10 MG Metronidazole/ Sodium Chloride (flaGYL) 500 mg Q8H IV 07/19/25 07:00 07/22/25 11:30 DC 07/22/25 06:24 500 MG Morphine Sulfate (morPHINE 4MG SYG) 4 mg Q4H PRN IVP SEVERE PAIN (7-10) 07/17/25 22:00 07/22/25 11:12 DC 07/22/25 07:48 4 MG Ondansetron HCl (zoFRAN 4MG INJ) 4 mg Q6H PRN IV NAUSEA/VOMITING 07/17/25 22:00 07/31/25 16:45 DC 07/19/25 00:47 4 MG Pantoprazole Sodium (PROTonix 40MG INJ) 40 mg BID IVP 07/22/25 21:00 07/31/25 16:45 DC 07/31/25 08:46 40 MG Pharmacy Profile Note (Pharmacy Communication) 1 each ONCE MISC 07/22/25 08:30 07/22/25 08:34 DC Pharmacy Profile Note (Pharmacy Communication) Abnormanl QT interval Q8H MISC 07/20/25 19:00 07/22/25 07:22 DC Piperacillin Sod/ Tazobactam Sod (Zosyn 3.375gm+NS 50ml) 3.375 gm Q8H IV 07/17/25 22:00 07/19/25 02:04 DC 07/18/25 21:47 3.375 GM Potassium Chloride 100 ml @ 50 mls/hr AD PRN IV POTASSIUM PROTOCOL 07/17/25 22:30 07/31/25 16:45 DC 07/29/25 21:21 50 MLS/HR Simethicone (Mylicon) 80 mg PCHS PO 07/20/25 18:00 07/31/25 16:45 DC 07/31/25 13:10 80 MG Sodium Chloride 500 ml @ 75 mls/hr Q6H40M IV 07/23/25 13:00 07/23/25 13:11 DC Sodium Chloride 1,000 ml @ 125 mls/hr Q8H IV 07/17/25 22:30 07/21/25 16:08 DC 07/21/25 14:16 125 MLS/HR Sodium Chloride (NS Flush 10ml) 10 ml DAILY FLUSH 07/21/25 09:00 07/21/25 21:42 DC Sodium Chloride (NS Flush 10ml) 10 ml DAILY MISC 07/22/25 09:00 07/31/25 16:45 DC 07/31/25 08:46 10 ML Sodium Chloride (Sodium Chloride) 1,000 mg BID PO 07/21/25 21:00 07/21/25 15:57 DC Sodium Chloride (Sodium Chloride) 1,000 mg TID PO 07/21/25 16:00 07/31/25 16:45 DC 07/31/25 13:10 1,000 MG Spironolactone (Aldactone 25mg) 25 mg DAILY PO 07/23/25 13:00 07/30/25 08:14 DC 07/29/25 08:39 25 MG Thiamine HCl (Vitamin B-1) 200 mg DAILY IVP 07/23/25 09:00 07/31/25 16:45 DC 07/31/25 08:46 200 MG Diagnostics / Radiology: [COPY/PASTE HERE IF NO REPORTS PLEASE DELETE SECTION] Assessment: Acute diverticulitis with abscess Plan: Follow surgical recommendations Outpatient colonoscopy in 8 weeks pending clinical evolution ERWNI WANG [employer] Jul 31, 2025 22:14
== END 2025-07-31 16:30 | DRG 871 ==
LOC: EDH 12:48 → EDHIP 19:04 → 4BH 07-18 14:20
PROVIDERS: ADMIT Internal Medicine; ATTEND Internal Medicine
PROC: 0W9J30Z Drainage of Pelvic Cavity with Drainage Device, Percutaneous Approach (ICD-10-PCS; principal; 2025-07-19)
PROC: 02HV33Z Insertion of Infusion Device into Superior Vena Cava, Percutaneous Approach (ICD-10-PCS; 2025-07-23)
DX: A41.9 Sepsis, unspecified organism (principal); E43 Unspecified severe protein-calorie malnutrition; E87.3 Alkalosis; K57.20 Diverticulitis of large intestine with perforation and abscess without bleeding; E22.2 Syndrome of inappropriate secretion of antidiuretic hormone; Z51.5 Encounter for palliative care; K76.89 Other specified diseases of liver; B96.20 Unspecified Escherichia coli [E. coli] as the cause of diseases classified elsewhere; N73.9 Female pelvic inflammatory disease, unspecified; D50.9 Iron deficiency anemia, unspecified; Z16.24 Resistance to multiple antibiotics; J98.11 Atelectasis; Z68.1 Body mass index [BMI] 19.9 or less, adult; F17.210 Nicotine dependence, cigarettes, uncomplicated; E87.6 Hypokalemia; E73.9 Lactose intolerance, unspecified; E86.0 Dehydration; E87.8 Other disorders of electrolyte and fluid balance, not elsewhere classified; K76.0 Fatty (change of) liver, not elsewhere classified; F45.21 Hypochondriasis; N28.1 Cyst of kidney, acquired; K52.9 Noninfective gastroenteritis and colitis, unspecified; K44.9 Diaphragmatic hernia without obstruction or gangrene; E86.1 Hypovolemia; Z59.71 Insufficient health insurance coverage; Z90.49 Acquired absence of other specified parts of digestive tract; Z79.2 Long term (current) use of antibiotics
CPT/HCPCS: 36415; 36569; 71045; 71250; 74018; 74176; 74177; 75989; 77012; 80048; 80051; 80053; 80061; 81001; 82010; 82105; 82378; 82533; 82550; 82570; 82607; 82728; 83605; 83690; 83735; 83930; 83935; 84100; 84132; 84145; 84300; 84439; 84443; 84481; 84484; 85025; 85027; 85610; 85651; 85730; 86140; 86304; 86316; 86803; 86850; 86900; 86901; 87040; 87071; 87086; 87186; 87205; 93005; 96374; 99152; 99153; 99291; C1894; G0378; J0696; J1200; J1644; J1756; J1938; J1956; J2185; J2250; J2270; J2405; J2470; J2543; J2765; J3010; J3411; J3475; J3480; J3490; J7040; P9045; Q0163; Q9963; Q9967; C1729; C1751; G0500; J1308